=== PATIENT | female | born 1975 | race Caucasian/White ===

== ENCOUNTER 2018-01-06 12:05 | Outpatient (CLI) | payer OTHER, SELFPAY ==
--- NOTE | 2018-01-06 12:05 | ONE_ITS ---
DATE OF VISIT: JANUARY 06, 2018 ASSESSMENT: Postconcussive syndrome. PLAN: 1.Work restrictions per work status form, 6 to 6 1/2 hour shift maximum. Structured scheduled. Quiet environment. Decrease stimuli. 2. Medications as prescribed by headache specialist and sleep medicine provider. Naproxen, Nortriptyline, Hydroxyzine, Modafinil. 3. Over the counter magnesium 500 mg. 4. Vision therapy - obtain notes after December 2017 examination completed. 5. Continue energy conservation techniques. 6. Follow-up headache specialist January 2018. 7. Obtain report for second sleep study from sleep medicine. 8. Ice pack to head p.r.n. 9. Provide letter to Sarah for conference registration. 10. Follow-up Occupational Medicine 02/03/18. Return to clinic sooner if condition worsens. More than 50% of this visit spent in the planning and coordination of care. Plan of care reviewed with patient who verbalized understanding and agreement. CHIEF COMPLAINT: Sustained symptoms after head injury. 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 SUBJECTIVE: Sarah presents for follow-up appointment. She voiced interest in learning if there is a local concussion clinic she could access. She plans on attending a conference regarding brain injuries and concussions. Sarah requested a letter verifying that she has such an injury which would allow her decreased registration fee. WORK: During this month she worked 6 days versus 5 per week which she found to increase her fatigue. She has been working 6 hour shifts. However, these past two days she has felt less fatigued which she attributes to a medication prescribed through sleep medicine. Sarah voiced she feels capable of increasing her work hours. HEADACHE: Constant pressure remains. No change noted. Overstimulation or fatigue worsens the pressure. Ice pack to the head was soothing, however for the majority of the month she has forgotten to use it. Sarah plans to resume ice application. Next month she has another set of injections with headache specialist which is being covered by her private insurance. VISION THERAPY: She had follow-up appointment o 12/22/17. She was unable to complete entire examination due to onset of headache and nausea when a machine briefly flashed lights into her eyes. She was unable to work that day or the next. Symptoms mostly resolved in three to four days. SLEEP: She had a 24 hour sleep study on 12/27/17. As was the previous sleep lead ramp agent placement on her scalp yielded symptoms of pain and nausea but to a lesser degree. Results of study confirmed excessive fatigue is related to head injury. A report from the sleep medicine provider will be forthcoming. Modafinil 200 mg. was prescribed which Sarah took on 01/04/18 and 01/05/18. She noted increased wakefulness on both days. Sarah voiced that she did not want to wait for the headache specialist to complete his therapeutic regimen prior to beginning the stimulant which was recommended by neurology. REVIEW OF SYSTEMS Denies chest pain, palpitations. Denies shortness of breath, dyspnea. Denies fever, chills. Denies prior head injury. Denies chewing difficulty, TMJ sensitivity. 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 Asthma. Nasal polyps. Depression. Right ankle fracture. Left wrist fracture. Diabetes. Hypertension. Hyperlipidemia. Obesity. Post-concussive syndrome. Obstructive sleep apnea. Posttraumatic hypersomnia. Paresis of accommodation. Convergence insufficiency. MEDICATIONS Singulair. Vitamin D. Vitamin B2. Nortriptyline Naproxen Hydroxyzine Candesarten ALLERGIES Environmental - Sneezing, congestion. Cephalexin. SOCIAL HISTORY ETOH - None. Tobacco - None. Exercise - None. . OBJECTIVE: 42 year-old white female dressed in age-appropriate clothing. Eye contact was good. She appeared less fatigued. Speech pattern with normal rhythm, rate and volume. Thought content continues to be focused on work effort and symptom improvement. Referenced notebook throughout appointment for memory recall and note taking. Thought process linear, goal directed, no evidence of psychomotor agitation or retardation, tremor or tic. Mood is broad range. Affect congruent with mood, brighter than last month. No SI or HI. Good insight and judgements. DISCUSSION/EDUCATION: 1. Stimulant consideration no longer on-hold and is being managed by sleep medicine. 2. Work hour increased to 6 to 6 1/2 hours per day. Working overtime is an added variable to the recovery process. It is not a consideration until Sarah has reached her normal 8 hour shift. 3. Some relief recognized with ice pack placement. Encouraged to place ice pack on head at home and work and assess for symptom relief.
== END 2018-01-06 12:06 ==
PROVIDERS: PCP Family Medicine; Visit Provider Nurse Practitioner Family
DX: F07.81 Postconcussional syndrome (principal)
CPT/HCPCS: 99214

== ENCOUNTER 2018-03-06 16:42 | Outpatient (REF) | payer OTHER, SELFPAY ==
[2018-03-06 20:35] LABS: Microalb ug/mg Crea 8.4 ug/mg Cr
== END 2018-03-06 17:02 ==
LOC: NCHCN 16:42
PROVIDERS: PCP Family Medicine; Visit Provider Family Medicine
DX: E11.9 Type 2 diabetes mellitus without complications (principal)
CPT/HCPCS: 82043; 82570

== ENCOUNTER 2018-08-21 00:44 | Outpatient (CLI) | payer OTHER, SELFPAY ==
--- NOTE | 2018-08-21 15:10 | DI.MAMMO_ITS ---
SYMPTOM/DIAGNOSIS: SCREENING Z12.31 MAMMOGRAM: 08/21/18 Mammograms were interpreted according to the usual protocol including computer analysis with CAD system, tomosynthesis and C view imaging. The breasts are of moderate density with fairly symmetrical distribution of fibroglandular tissue. No dominant mass or clumped microcalcification is identified in either breast. The current examination is compared with previous examinations including 08/2017 and there has been no gross interval change in appearance in comparison with the previous studies. CONCLUSION: No specific evidence of malignancy at this time. Routine screening examinations are suggested at yearly intervals in this age group according to the ACL/ACR guidelines. Category 1, breast density category B. MQSA ASSESSMENT OF FINDINGS: Negative. Category 1. Patient will receive a letter notifying them of these results. BI-RADS category B. There are scattered areas of fibroglandular density.
== END 2018-08-21 01:04 ==
PROVIDERS: PCP Family Medicine; Visit Provider Family Medicine
DX: Z12.31 Encounter for screening mammogram for malignant neoplasm of breast (principal)
CPT/HCPCS: 77063; 77067

== ENCOUNTER 2018-11-27 16:45 | Outpatient (CLI) | payer OTHER, SELFPAY ==
[2018-11-27 17:28] LABS: COMMENT (LAB VIEW ONLY) 124.04 mg/dL; Microalb ug/mg Crea 10.1 ug/mg Cr
[2018-11-27 17:55] LABS: ALT 111 U/L (12-78); AST 45 U/L (15-37); Albumin 4.1 g/dL (3.4-5.0); Alkaline Phosphatase 107 U/L (46-116); Anion Gap 8.5 mmol/L (3-11); BUN 11 mg/dL (7-18); Bilirubin, Total 0.3 mg/dL (0.2-1.0); CO2 28.5 mmol/L (21.0-32.0); CREATININE 0.67 mg/dL (0.55-1.02); Calcium 9.3 mg/dL (8.5-10.1); Calculated LDL 140 mg/dL; Chloride 102 mmol/L (98-107); Cholesterol 212 mg/dL (50-200); Glucose 147 mg/dL (70-100); HDL Cholesterol 43 mg/dL (40-60); Potassium 4.1 mmol/L (3.5-5.1); Sodium 139 mmol/L (136-145); Total Protein 7.6 g/dL (6.4-8.2); Triglyceride 149 mg/dL (30-150)
[2018-11-27 18:17] LABS: Vitamin D 25 Total 17.2 ng/ml (30-100)
[2018-11-27 18:19] LABS: Vitamin B12 448 pg/mL (193-986)
== END 2018-11-27 17:05 ==
PROVIDERS: PCP Family Medicine; Visit Provider Internal Medicine Sleep Medicine
DX: E11.9 Type 2 diabetes mellitus without complications (principal); E55.9 Vitamin D deficiency, unspecified; R53.83 Other fatigue; R94.6 Abnormal results of thyroid function studies
CPT/HCPCS: 36415; 80053; 80061; 82306; 83721; 82043; 82570; 82607; 84443

== ENCOUNTER 2019-06-11 16:40 | Outpatient (CLI) | payer OTHER, SELFPAY ==
--- NOTE | 2019-06-11 16:21 | DI.RAD_ITS ---
EXAM: XR ELBOW LT COMPLETE INDICATION: ELBOW LT JOINT PAIN M25.522, PAIN OVER LATERAL EPICONDYLE, S/P TRAUMA COMPARISON: No exams were available for comparison TECHNIQUE: 2D digital imaging was performed. FINDINGS: There is no acute fracture or dislocation. The bones are normally mineralized. The joint space is u nremarkable. There is a small enthesophyte at the triceps insertion site. The soft tissues are unre markable. IMPRESSION: No acute abnormality.
== END 2019-06-11 17:00 ==
PROVIDERS: PCP Family Medicine; Visit Provider Family Medicine
DX: M25.522 Pain in left elbow (principal)
CPT/HCPCS: 73080

== ENCOUNTER 2019-09-12 21:47 | Outpatient (REF) | payer OTHER, SELFPAY ==
[2019-09-12 19:25] LABS: HCT 42.3 % (36.0-46.0); HGB 14.4 g/dL (12.0-15.5); Mean Corpuscular Hemoglobin 27.7 pg (27.0-33.0); Mean Corpuscular Volume 81.3 fL (80-95); Mean Platelet Volume 11.2 fL (8.0-11.0); Platelet Count 209 x1000/uL (130-400); White Blood Cell Count 5.38 k/cumm (4.4-10.8)
[2019-09-12 21:10] LABS: Iron 73 ug/dL (50-170); Total Iron Binding Capacity 468 ug/dL (250-450); Transferrin Sat 16 % (15-50)
[2019-09-12 21:20] LABS: ALT 120 U/L (14-59); AST 55 U/L (15-37); Albumin 4.1 g/dL (3.4-5.0); Alkaline Phosphatase 134 U/L (46-116); Anion Gap 10.3 mmol/L (3-11); BUN 13 mg/dL (7-18); Bilirubin, Total 0.4 mg/dL (0.2-1.0); CO2 27.7 mmol/L (21.0-32.0); CREATININE 0.85 mg/dL (0.55-1.02); Calcium 8.7 mg/dL (8.5-10.1); Chloride 98 mmol/L (98-107); Ferritin 49 ng/mL (8-252); Glucose 374 mg/dL (74-106); Potassium 4.5 mmol/L (3.5-5.1); Sodium 136 mmol/L (136-145); Total Protein 7.9 g/dL (6.4-8.2)
[2019-09-12 21:38] LABS: Hemoglobin A1C 9.1 % (3.8-5.6)
[2019-09-13 05:35] LABS: Vitamin D 25 Total 22.1 ng/ml (30-100)
[2019-09-14 09:47] LABS: HBs Antibody, Quant 15.6 mIU/mL (See Note); Hepatitis B Surface Ab Positive (See Note); Hepatitis B Surface Ag Negative (Negative)
[2019-09-14 10:43] LABS: Hepatitis C Ab w Rflx HCV PCR Negative (Negative)
== END 2019-09-12 22:07 ==
LOC: NCHCN 21:47
PROVIDERS: PCP Family Medicine; Visit Provider Family Medicine
DX: E11.9 Type 2 diabetes mellitus without complications (principal); R94.6 Abnormal results of thyroid function studies; E55.9 Vitamin D deficiency, unspecified; R79.89 Other specified abnormal findings of blood chemistry; Z11.59 Encounter for screening for other viral diseases
CPT/HCPCS: 80053; 82306; 85027; 86706; 86803; 87340; 82728; 83036; 83540; 83550; 84443

== ENCOUNTER 2019-10-03 01:09 | Outpatient (CLI) | payer OTHER, SELFPAY ==
--- NOTE | 2019-10-03 11:30 | DI.US_ITS ---
EXAM: US ABDOMEN CLINICAL HISTORY: ELEVATED LFT'S.R79.89,RISK FACTORS FOR FATTY LIVER TECHNIQUE: Ultrasound abdomen performed using standard protocol. COMPARISON: No exams were available for comparison FINDINGS: ABDOMINAL AORTA AND IVC: Visualized portions normal caliber. PANCREAS: Normal where visualized. LIVER: Enlarged. Increased echogenicity, consistent with fatty infiltration. The posterior portion s of the liver are not well penetrated. No gross focal masses are seen. GALLBLADDER: No evidence of cholelithiasis. No evidence of wall thickening. No pericholecystic fluid identified. BILIARY SYSTEM: Common bile duct measures 3 millimeters. No intrahepatic biliary ductal dilation. HUTCHINSON'S SIGN: Negative. KIDNEYS: Kidneys are symmetric in size. No evidence of renal calculi. No evidence of hydronephrosis. No renal mass or cyst identified. SPLEEN: Not enlarged. ASCITES: None seen. IMPRESSION: Enlarged with moderate to severe steatosis. DATA REPOSITORY:
== END 2019-10-03 01:29 ==
PROVIDERS: PCP Family Medicine; Visit Provider Family Medicine
DX: R94.5 Abnormal results of liver function studies (principal); K76.0 Fatty (change of) liver, not elsewhere classified; R16.0 Hepatomegaly, not elsewhere classified
CPT/HCPCS: 76700

== ENCOUNTER 2020-01-04 10:57 | Outpatient (REF) | payer OTHER, SELFPAY ==
[2020-01-04 18:50] LABS: ALT 191 U/L (14-59); AST 64 U/L (15-37); Albumin 3.7 g/dL (3.4-5.0); Alkaline Phosphatase 130 U/L (46-116); Anion Gap 8.5 mmol/L (3-11); BUN 10 mg/dL (7-18); Bilirubin, Direct 0.11 mg/dL (0.00-0.20); Bilirubin, Total 0.4 mg/dL (0.2-1.0); CO2 28.5 mmol/L (21.0-32.0); CREATININE 0.79 mg/dL (0.55-1.02); Calcium 8.9 mg/dL (8.5-10.1); Chloride 102 mmol/L (98-107); Glucose 312 mg/dL (74-106); Potassium 4.8 mmol/L (3.5-5.1); Sodium 139 mmol/L (136-145); Total Protein 7.2 g/dL (6.4-8.2)
[2020-01-04 18:54] LABS: COMMENT (LAB VIEW ONLY) 63.94 mg/dL; Microalb ug/mg Crea 14.1 ug/mg Cr
== END 2020-01-04 11:17 ==
LOC: NCHCN 10:57
PROVIDERS: PCP Family Medicine; Visit Provider Family Medicine
DX: I10 Essential (primary) hypertension (principal); K76.0 Fatty (change of) liver, not elsewhere classified; E11.9 Type 2 diabetes mellitus without complications
CPT/HCPCS: 80053; 80076; 82043; 82570

== ENCOUNTER 2020-04-11 01:44 | Outpatient (CLI) | payer OTHER, SELFPAY ==
[2020-04-14 14:16] LABS: COVID-19 RT-PCR Result NEGATIVE (Negative)
== END 2020-04-11 02:04 ==
PROVIDERS: PCP Family Medicine; Visit Provider Student in an Organized Health Care Education/Training Program
DX: Z11.59 Encounter for screening for other viral diseases (principal); Z01.818 Encounter for other preprocedural examination
CPT/HCPCS: U0003

== ENCOUNTER 2020-04-16 07:54 | Day surgery (SDC) | payer OTHER, SELFPAY ==
--- NOTE | 2020-04-16 07:30 | W.PM.DSUDISC ---
Discharge Plan Disposition Patient Disposition: HOME Condition: Good Discharge Details Reason For Visit: Right ECTR Attending Provider: Joseph Pyle Primary Care Provider: Eva Dang Home Meds and New Rx's Prescriptions: New hydrocodone-acetaminophen 5-325 mg tablet 1 tab PO Q6H PRN (Reason: severe pain) Qty: 4 RF: 0 acetaminophen 500 mg tablet 500 mg PO Q6H PRN (Reason: pain) Qty: 60 RF: 2 ibuprofen 600 mg tablet 600 mg PO TID PRN (Reason: pain) Qty: 60 RF: 0 Continued amitriptyline 25 mg tablet 25 mg PO QHS Qty: 50 RF: 0 albuterol sulfate 90 mcg/actuation HFA aerosol inhaler 1 puff Inhalation Q4H PRN RF: 0 hydroxyzine HCl 25 mg tablet 25 mg PO DAILY PRNRF: 0 Aimovig Autoinjector 70 mg/mL auto-injector 140 mg SC QMONTH RF: 0 lisinopril 10 mg tablet 40 mg PO DAILY RF: 0 metformin 500 mg tablet 500 mg PO QID RF: 0 mecobalamin (vitamin B12) 5,000 mcg tablet,disintegrating 5,000 mcg PO DAILY RF: 0 vitamin B complex [B Complex-Vitamin B12] Tablet 1 tab PO DAILY RF: 0 montelukast [Singulair] 10 MG tablet 10 mg PO DAILY RF: 0 Otc Allergy Relief 1 tab PO DAILY RF: 0 riboflavin (vitamin B2) [Vitamin B-2] 100 MG tablet 100 mg PO DAILY RF: 0 ergocalciferol (vitamin D2) [Vitamin D2] 50,000 UNIT capsule 50,000 unit PO DAILY RF: 0 candesartan [Atacand] 8 MG tablet 8 mg PO PRN PRNRF: 0 diazepam [Valium] 5 MG tablet 5 mg PO BID PRN PRN (Reason: Spasms) Qty: 10 RF: 0 Discontinued naproxen 500 mg tablet 500 mg PO PRN RF: 0 Discharge Instructions Stand Alone Forms: Edenilson Garber Tunnel Release Referrals: Joseph Pyle MD [ [facility] STAFF PHYSICIAN] - Activity:: Elevate Remove Dressings/Wound Care:: 72 hours Shower/Bathe:: 72 hours Diet:: As Tolerated Discharge Orders Discharge Orders: Discharge Order (Routine); Ordered 04/16/20 Ordered By: Carolynn Louis DS: Diagnosis Discharge Diagnosis (1) Right carpal tunnel syndrome: Status: Acute
[2020-04-16 08:41] VITALS: BP 163/82; PULSE 59; RESP 18; TEMP 36; O2SAT 97
[2020-04-16] MEDS: Lactated Ringers 1,000 ML 80 ML IV (08:55)
[2020-04-16] MEDS: CLINDAMYCIN 600 MG/50 ML BAG 100 MG IVPB (09:14)
[2020-04-16] MEDS: Sodium Bicarbonate 50 MEQ/50 ML VIAL (09:45)
[2020-04-16 10:04] VITALS: BP 149/86; PULSE 66; RESP 18; TEMP 36.2; O2SAT 97
--- NOTE | 2020-04-16 21:28 | W.PM.OP ---
Date of service: 04/16/20 Time of Service: 09:28 Operative Note Operative Note DATE OF PROCEDURE: 04/16/20 PRE-OP DIAGNOSIS: Left Carpal Tunnel Syndrome POST-OP DIAGNOSIS: same PROCEDURE: Left Endoscopic Carpal Tunnel Release SURGEON: Joseph Pyle ANESTHESIA: GETA ESTIMATED BLOOD LOSS: 0 PATHOLOGY: none sent TOURNIQUET TIME: 5 COMPLICATIONS: None Patient was transported to: same day Patient's condition: stable Indications: I have seen Sarah in clinic for symptoms of carpal tunnel syndrome. The numbness, tingling, and pain limited function. Clinical exam findings with nerve conduction tests confirmed the diagnosis of carpal tunnel syndrome. Nonoperative measures such as bracing, time, activity modifications had been tried but disability and pain persisted. I discussed carpal tunnel release with the patient. I reviewed the risks of the procedure to include, but not limited to, bleeding, infection, pain, stiffness, incomplete release, damage to nerves or vessels, persistent numbness, recurrence. Despite these risks, the patient elected to proceed. Findings: There was tightened carpal tunnel. This was dilated and released successfully with the endoscopic with increased space within the tunnel. The antebrachial fascia was released proximally freeing the median nerve at the wrist. Procedure Description: Sarah was greeted in the preoperative holding area where the correct side was identified and marked. The consent was reviewed with the patient and signed. The history and physical was updated. All questions were answered. Sarah was taken back to the operating room. The patient was placed into the supine position on the operating room table with the left arm on an arm board. A nonsterile tourniquet was placed high onto the arm. All bony prominences were well padded. Prophylactic antibiotics in the form of Cefazolin were administered. The left arm was then prepped with Chloraprep and draped in a standard fashion with stockinette and extremity drape. A timeout to confirm correct identity, side and site, procedure, allergies, anesthesia, and medical concerns was performed. The surgical site was marked in the volar wrist creases in line with the radial border of the fourth ray. This area was anesthetized with approximately 6cc of 1% Lidocaine. The limb was then exsanguinated with an Esmarch. The skin was incised with a 15 blade, approximately 1cm. The skin only was cut and the deeper tissue was dissected bluntly with a tenotomy scissor, avoiding passing nerve and venous structures. The fascia was penetrated and opened bluntly. A two-prong skin hook was placed under this proximal fascial edge. A series of hamate finders were used to identify and dilate the carpal tunnel. Synovial elevator was used to free synovial attachments to the underside of the transverse carpal ligament. My thumb was kept in the palm to norris the distal extent of the carpal tunnel and correctly position the hand. The Microaire endoscope was inserted without difficulty and without resistance. Excellent visualization showed horizontally running fibers of the transverse carpal ligament (TCL). The distal extent of the TCL was visualized and the end of the scope palpated with the thumb. The blade was elevated and withdrawn from distal to proximal. The TCL was split into two flaps. The endoscope was reinserted to confirm complete release and any remnant ligament was incised. The scope was withdrawn and the proximal aspect of the carpal tunnel was grossly inspected and appeared release with the median nerve visible. The antebrachial fascia at the level of the wrist was then freed from the overlying skin and then the underlying median nerve with blunt dissection. This was transected longitudinally for about 3cm proximal to the wrist incision. The wound was then irrigated with easy flow of irrigant distally and proximally. The incision was closed with a single 4-0 Nylon suture. The wound was dressed with Xeroform, Gauze, Kerlix and Ezequiel. The tourniquet was deflated with the initial dressing and held with some pressure. Blood flow returned easily to all digits with capillary refill less than 2 seconds. The patient tolerated the procedure well and was returned to the Same Day Surgery area in a stable condition suffering no known complication.
== END 2020-04-16 10:54 | disposition home or self-care (01) ==
LOC: SUR 07:54
PROVIDERS: PCP Family Medicine; Visit Provider Student in an Organized Health Care Education/Training Program
PROC: 01N54ZZ Release Median Nerve, Percutaneous Endoscopic Approach (ICD-10-PCS; CPT 29848; principal; 2020-04-16 09:45)
DX: G56.02 Carpal tunnel syndrome, left upper limb (principal); E11.9 Type 2 diabetes mellitus without complications; Z79.84 Long term (current) use of oral hypoglycemic drugs
CPT/HCPCS: 29848; 81025; J2001

== ENCOUNTER 2020-05-01 02:23 | Outpatient (CLI) | payer OTHER, SELFPAY ==
[2020-05-02 19:33] LABS: COVID-19 RT-PCR UVMMC Result Negative (Negative)
== END 2020-05-01 02:43 ==
PROVIDERS: PCP Family Medicine; Visit Provider Student in an Organized Health Care Education/Training Program
DX: Z20.828 Contact with and (suspected) exposure to other viral communicable diseases (principal); Z01.818 Encounter for other preprocedural examination
CPT/HCPCS: U0003

== ENCOUNTER 2020-05-06 11:04 | Day surgery (SDC) | payer OTHER, SELFPAY ==
--- NOTE | 2020-05-06 09:59 | W.PM.DSUDISC ---
Discharge Plan Disposition Patient Disposition: HOME Condition: Good Discharge Details Reason For Visit: Right Carpal Tunnel Syndrome Attending Provider: Joseph Pyle Primary Care Provider: Eva Dang Home Meds and New Rx's Prescriptions: Continued amitriptyline 25 mg tablet 25 mg PO QHS Qty: 50 RF: 0 albuterol sulfate 90 mcg/actuation HFA aerosol inhaler 1 puff Inhalation Q4H PRN RF: 0 hydroxyzine HCl 25 mg tablet 25 mg PO DAILY PRNRF: 0 Aimovig Autoinjector 70 mg/mL auto-injector 140 mg SC QMONTH RF: 0 lisinopril 10 mg tablet 40 mg PO DAILY RF: 0 metformin 500 mg tablet 500 mg PO QID RF: 0 mecobalamin (vitamin B12) 5,000 mcg tablet,disintegrating 5,000 mcg PO DAILY RF: 0 vitamin B complex [B Complex-Vitamin B12] Tablet 1 tab PO DAILY RF: 0 montelukast [Singulair] 10 MG tablet 10 mg PO DAILY RF: 0 Otc Allergy Relief 1 tab PO DAILY RF: 0 riboflavin (vitamin B2) [Vitamin B-2] 100 MG tablet 100 mg PO DAILY RF: 0 ergocalciferol (vitamin D2) [Vitamin D2] 50,000 UNIT capsule 50,000 unit PO DAILY RF: 0 acetaminophen 500 mg tablet 500 mg PO Q6H PRN (Reason: pain) Qty: 60 RF: 2 ibuprofen 600 mg tablet 600 mg PO TID PRN (Reason: pain) Qty: 60 RF: 0 No Action hydrocodone-acetaminophen 5-325 mg tablet 1 tab PO Q6H PRN (Reason: severe pain) Qty: 4 RF: 0 Discharge Instructions Stand Alone Forms: Edenilson Garber Tunnel Release Referrals: Joseph Pyle MD [ [facility] STAFF PHYSICIAN] - Activity:: Elevate Remove Dressings/Wound Care:: 72 hours Shower/Bathe:: 72 hours Diet:: As Tolerated Discharge Orders Discharge Orders: Discharge Order (Routine); Ordered 05/06/20 Ordered By: Carolynn Louis DS: Diagnosis Discharge Diagnosis (1) Right carpal tunnel syndrome: Status: Acute
[2020-05-06 11:08] VITALS: BP 151/79; PULSE 58; RESP 15; TEMP 35.9; O2SAT 97
[2020-05-06] MEDS: Lactated Ringers 1,000 ML 80 ML IV (12:05)
[2020-05-06] MEDS: CLINDAMYCIN 600 MG/50 ML BAG 100 MG IVPB (13:31)
[2020-05-06] MEDS: Sodium Bicarbonate 50 MEQ/50 ML VIAL (13:40)
[2020-05-06 14:21] VITALS: BP 154/77; PULSE 57; RESP 17; TEMP 36.4; O2SAT 97
[2020-05-06] MEDS: Acetaminophen 325 MG TAB 650 MG PO (14:43)
--- NOTE | 2020-05-06 20:15 | W.PM.OP ---
Date of service: 05/06/20 Time of Service: 14:15 Operative Note Operative Note DATE OF PROCEDURE: 05/06/20 PRE-OP DIAGNOSIS: Right Carpal Tunnel Syndrome POST-OP DIAGNOSIS: same PROCEDURE: Right Endoscopic Carpal Tunnel Release SURGEON: Joseph Pyle ANESTHESIA: MAC ESTIMATED BLOOD LOSS: 0 PATHOLOGY: none sent TOURNIQUET TIME: 6 COMPLICATIONS: None Patient was transported to: same day Patient's condition: stable Indications: I have seen Sarah in clinic for symptoms of carpal tunnel syndrome. The numbness, tingling, and pain limited function. Clinical exam findings with nerve conduction tests confirmed the diagnosis of carpal tunnel syndrome. Nonoperative measures such as bracing, time, activity modifications had been tried but disability and pain persisted. She had a successful carpal tunnel release on the left side. I discussed carpal tunnel release with the patient. I reviewed the risks of the procedure to include, but not limited to, bleeding, infection, pain, stiffness, incomplete release, damage to nerves or vessels, persistent numbness, recurrence. Despite these risks, the patient elected to proceed. Findings: There was tightened carpal tunnel. This was dilated and released successfully with the endoscopic with increased space within the tunnel. The antebrachial fascia was released proximally freeing the median nerve at the wrist. Procedure Description: Sarah was greeted in the preoperative holding area where the correct side was identified and marked. The consent was reviewed with the patient and signed. The history and physical was updated. All questions were answered. Sarah was taken back to the operating room. The patient was placed into the supine position on the operating room table with the right arm on an arm board. A nonsterile tourniquet was placed high onto the arm. All bony prominences were well padded. Prophylactic antibiotics in the form of Clindamycin were administered. The right arm was then prepped with Chloraprep and draped in a standard fashion with stockinette and extremity drape. A timeout to confirm correct identity, side and site, procedure, allergies, anesthesia, and medical concerns was performed. The surgical site was marked in the volar wrist creases in line with the radial border of the fourth ray. This area was anesthetized with approximately 6cc of 1% Lidocaine. The limb was then exsanguinated with an Esmarch. The skin was incised with a 15 blade, approximately 1cm. The skin only was cut and the deeper tissue was dissected bluntly with a tenotomy scissor, avoiding passing nerve and venous structures. The fascia was penetrated and opened bluntly. A two-prong skin hook was placed under this proximal fascial edge. A series of hamate finders were used to identify and dilate the carpal tunnel. Synovial elevator was used to free synovial attachments to the underside of the transverse carpal ligament. My thumb was kept in the palm to norris the distal extent of the carpal tunnel and correctly position the hand. The Microaire endoscope was inserted without difficulty and without resistance. Excellent visualization showed horizontally running fibers of the transverse carpal ligament (TCL). The distal extent of the TCL was visualized and the end of the scope palpated with the thumb. The blade was elevated and withdrawn from distal to proximal. The TCL was split into two flaps. The endoscope was reinserted to confirm complete release and any remnant ligament was incised. The scope was withdrawn and the proximal aspect of the carpal tunnel was grossly inspected and appeared release with the median nerve visible. The antebrachial fascia at the level of the wrist was then freed from the overlying skin and then the underlying median nerve with blunt dissection. This was transected longitudinally for about 3cm proximal to the wrist incision. The wound was then irrigated with easy flow of irrigant distally and proximally. The incision was closed with a single 4-0 Nylon suture. The wound was dressed with Xeroform, Gauze, Kerlix and Ezequiel. The tourniquet was deflated with the initial dressing and held with some pressure. Blood flow returned easily to all digits with capillary refill less than 2 seconds. The patient tolerated the procedure well and was returned to the Same Day Surgery area in a stable condition suffering no known complication.
== END 2020-05-06 15:03 | disposition home or self-care (01) ==
LOC: SUR 11:05
PROVIDERS: PCP Family Medicine; Visit Provider Student in an Organized Health Care Education/Training Program
PROC: 01N54ZZ Release Median Nerve, Percutaneous Endoscopic Approach (ICD-10-PCS; CPT 29848; principal; 2020-05-06 14:15)
DX: G56.01 Carpal tunnel syndrome, right upper limb (principal)
CPT/HCPCS: 29848; J1885; J2001; J2405; J2704

== ENCOUNTER 2020-06-12 01:19 | Outpatient (CLI) | payer OTHER, SELFPAY ==
--- NOTE | 2020-06-12 | DI.MAMMO_ITS ---
EXAM: MG MAMMO SCREENING CLINICAL HISTORY: SCREENING, Z12.31 TECHNIQUE: Bilateral full field digital CC and MLO mammographic images were obtained with 3D tomosyn thesis and utilizing computer aided detection (CAD). COMPARISON: Available for comparison. FINDINGS: Masses/Architectural Distortion: None seen. Microcalcifications: No suspicious pleomorphic-type are seen. Skin Thickening/Nipple Retraction: None. IMPRESSION: 1. No significant interval change with no specific features of malignancy noted. 2. Unless there is more urgent need, screening mammography is recommended, as per [employer] guidelines. BI-RADS Category 1 - Negative Breast Density - Category B - Scattered areas of fibroglandular density Breast density category C or D implies that the patient has dense breast tissue. Dense breast tissue is very common and is not abnormal but dense breast tissue can make it harder to find cancer on a ma mmogram. Also, dense breast tissue may increase their breast cancer risk. This information about the result of the mammogram report was provided to the patient to raise their awareness. Use this report when you speak with the patient about their risks for breast cancer, which includes their family hist ory. At that time, you may recommend for more screening tests (Ultrasound or MRI) as they might be us eful based on their risk. A negative radiographic report should not delay biopsy if a dominant or clinically suspicious mass is present. Up to ten percent of cancers are not identified on mammography. A negative report may reinforce clinical impression. Adenosis and dense breasts may obscure an underlying neoplasm. False positive reports average 6 to 10%. Patient will receive a letter notifying them of these results.
== END 2020-06-12 01:20 | disposition home or self-care (01) ==
LOC: DI 01:19
PROVIDERS: PCP Family Medicine; Visit Provider Family Medicine
DX: Z12.31 Encounter for screening mammogram for malignant neoplasm of breast (principal)
CPT/HCPCS: 77063; 77067

== ENCOUNTER 2020-07-01 07:50 | Outpatient (CLI) | payer OTHER, SELFPAY ==
[2020-07-01 10:33] LABS: Vitamin B12 826 pg/mL (193-986)
[2020-07-03 04:42] LABS: Vitamin D 25 Total 27.8 ng/ml (30-100)
== END 2020-07-01 07:51 | disposition home or self-care (01) ==
PROVIDERS: PCP Family Medicine; Visit Provider Internal Medicine Sleep Medicine
DX: E55.9 Vitamin D deficiency, unspecified (principal); R53.83 Other fatigue
CPT/HCPCS: 36415; 82306; 82607

== ENCOUNTER 2020-07-04 15:08 | Outpatient (REF) | payer OTHER, SELFPAY ==
--- NOTE | 2020-07-04 15:00 | PAPFT_PTH ---
PATIENT: Sarah Robles LOC: [facility]#:[id number] AGE/SX: 45/F ROOM: RE07/04/[address]: Eva Dang : 1975 BED: DIS: 07/04/2020 SPEC #: [id number] RECD: 07/04/20 17:47 STATUS: LORENZO REChey #: [id number] YENIFER: 07/04/20 15:[address]: Eva Dang DEPT: [facility] Cytology RECD BY: Hilda Forte Tissues: 1 - CX/ENDOCX FOR PAP SMEARS Procedures: PAP THIN PREP/UVM Screening HPV DNA PROBE Comments: [id number]
[2020-07-04 17:43] LABS: HCT 47.3 % (36.0-46.0); HGB 15.8 g/dL (11.2-15.7); MCH 27.6 pg (27.0-33.0); MCHC 33.4 % (32.0-36.0); MCV 82.5 fL (80-95); MPV 11.3 fL (8.0-11.0); Platelet Count 248 10^3/uL (130-400); RBC 5.73 10^6/uL (3.93-5.22); RDW-SD 38.8 fL; WBC 7.42 10^3/uL (4.4-10.8)
[2020-07-04 18:05] LABS: ALT 237 U/L (14-59); AST 110 U/L (15-37); Albumin 4.2 g/dL (3.4-5.0); Alkaline Phosphatase 118 U/L (46-116); Anion Gap 6.4 mmol/L (3-11); BUN 13 mg/dL (7-18); Bilirubin, Total 0.6 mg/dL (0.2-1.0); CO2 30.6 mmol/L (21.0-32.0); Calcium 9.6 mg/dL (8.5-10.1); Chloride 99 mmol/L (98-107); Estimated GFR 59.43 (mL/min/1.73m2); Ferritin 277 ng/mL (8-252); Glucose 243 mg/dL (74-106); Sodium 136 mmol/L (136-145); TSH (W/Ref FT4) 2.13 uIU/mL (0.36-3.74); Total Protein 8.1 g/dL (6.4-8.2)
== END 2020-07-04 15:09 | disposition home or self-care (01) ==
LOC: NCHCN 15:08
PROVIDERS: PCP Family Medicine; Visit Provider Family Medicine
DX: Z00.00 Encounter for general adult medical examination without abnormal findings (principal); I10 Essential (primary) hypertension; E11.9 Type 2 diabetes mellitus without complications; F32.9 Major depressive disorder, single episode, unspecified; G47.10 Hypersomnia, unspecified; Z12.4 Encounter for screening for malignant neoplasm of cervix; Z11.51 Encounter for screening for human papillomavirus (HPV)
CPT/HCPCS: 80053; 85027; 88142; 82728; 84443; 85025; 87624

== ENCOUNTER 2021-04-13 17:04 | Outpatient (REF) | payer SELFPAY ==
[2021-04-13 15:33] LABS: COMMENT (LAB VIEW ONLY) 67.95 mg/dL; Microalb ug/mg Crea 36.1 ug/mg Cr
== END 2021-04-13 17:05 | disposition home or self-care (01) ==
LOC: NCHCN 17:04
PROVIDERS: PCP Family Medicine; Visit Provider Family Medicine
DX: E11.9 Type 2 diabetes mellitus without complications (principal)
CPT/HCPCS: 82043; 82570

== ENCOUNTER 2023-06-15 12:06 | Outpatient (REF) | payer OTHER, SELFPAY ==
--- OUTSIDE RECORDS SUMMARY | 2023-06-15 12:08 | XMS_ITS | Continuity of Care Document ---
Author Name Unknown Organization [facility] Address [address] [place] [id number] Care Team Providers Care Composite Layup Worker Name Role Phone ARMEN CLEMENTS Primary Care Physician [phone] Encounter [facility] NBR [id number] Date(s): 02/21/23 - 02/21/[address] [id number] Discharge Disposition: Home or Self Care Attending Physician: ARMEN CLEMENTS Admitting Physician: ARMEN CLEMENTS Referring Physician: ARMEN CLEMENTS Allergies, Adverse Reactions, Alerts Substance Reaction Severity Status amoxicillin Unknown Active cephalexin Does not recall Unknown Active Medications betamethasone dipropionate 0.05% topical cream 1 kj, Topical, BID, # 15 g, 0 Refill(s), Pharmacy: [id number] Start Date: 10/01/22 Stop Date: 10/15/22 Status: Ordered Results Laboratory List Name Date CBC w/o Diff 02/21/23 Comprehensive Metabolic Panel 02/21/23 Hgb A1c 02/21/23 Lipid Panel 02/21/23 Most recent to oldest [Reference Range]: 1 WBC [4.8-10.8 K/mcL] 5.8 K/mcL (02/21/23 10:55 AM) RBC [4.20-5.40 Million/mcL] 5.03 Million /mcL (02/21/23 10:55 AM) BUN [8-26 mg/dL] 20 mg/dL (02/21/23 10:55 AM) Cholesterol Total [129-209 mg/dL] 233 mg /dL *HI* (02/21/23 10:55 AM) LDL 167.8 mg/dL 1 *NA* (02/21/23 10:55 AM) Glucose Level [74-106 mg/dL] 187 mg/dL *HI* (02/21/23 10:55 AM) Potassium Level [3.5-5.1 mmol/L] 4.4 mmo l/L (02/21/23 10:55 AM) MCV [81.0-99.0 fL] 84.7 fL (02/21/23 10:55 AM) HDL [40-80 mg/dL] 40 mg/dL (02/21/23 10:55 AM) AST [15-41 IntlUnit/L] 16 IntlUnit/L (02/21/23 10:55 AM) ALT [14-54 IntlUnit/L] 28 IntlUnit/L (02/21/23 10:55 AM) MCHC [32.0-36.0 g/dL] 33.1 g/dL (02/21/23 10:55 AM) Osmolality [275-295 mOsm/kg] 285 mOsm/kg (02/21/23 10:55 AM) Sodium Level [134-143 mmol/L] 139 mmol/L (02/21/23 10:55 AM) Chol/HDL 5.8 2 *NA* (02/21/23 10:55 AM) Hct [37.0-47.0 %] 42.6 % (02/21/23 10:55 AM) Triglycerides [10-150 mg/dL] 126 mg/dL (02/21/23 10:55 AM) Calcium Level [8.9-10.3 mg/dL] 9.3 mg/dL (02/21/23 10:55 AM) Albumin Level [3.5-5.0 g/dL] 4.1 g/dL (02/21/23 10:55 AM) Protein Total [6.5-8.1 g/dL] 7.5 g/dL (02/21/23 10:55 AM) MCH [27.0-31.0 pg] 28.0 pg (02/21/23 10:55 AM) Bilirubin Total [0.2-1.2 mg/dL] 0.8 mg/d L (02/21/23 10:55 AM) Hgb [12.0-16.0 g/dL] 14.1 g/dL (02/21/23 10:55 AM) Alk Phos [38-130 IntlUnit/L] 74 IntlUnit /L (02/21/23 10:55 AM) MPV [7.4-10.4 fL] 11.2 fL *HI* (02/21/23 10:55 AM) Platelets [130-400 K/mcL] 178 K/mcL (02/21/23 10:55 AM) CO2 [22-32 mmol/L] 27 mmol/L (02/21/23 10:55 AM) eAvg Glucose [70-105 mg/dL] 169 mg/dL *HI* (02/21/23 10:55 AM) Chloride Level [98-111 mmol/L] 105 mmol/ L (02/21/23 10:55 AM) RDW-CV [11.5-14.5 %] 13.1 % (02/21/23 10:55 AM) A/G Ratio [1.0-2.5 g/dL] 1.2 g/dL (02/21/23 10:55 AM) BUN/Creat Ratio [8.0-20.0] 29.9 *HI* (02/21/23 10:55 AM) Globulin [2.3-3.5 g/dL] 3.4 g/dL (02/21/23 10:55 AM) Hgb A1c Percent [4.0-6.0 %] 7.5 % *HI* (02/21/23 10:55 AM) .Hb 15.4 g/dL *NA* (02/21/23 10:55 AM) .Hgb A1c 0.9 g/dL *NA* (02/21/23 10:55 AM) Creatinine Level [0.44-1.00 mg/dL] 0.67 mg/dL (02/21/23 10:55 AM) Anion Gap [3.0-12.0] 7.0 (02/21/23 10:55 AM) eGFR CKD-EPI [>=60 mL/min/1.73 m2] 107 m L/min/1.73 m2 (02/21/23 10:55 AM) 1Interpretive Data: Optimal: Less than 100 mg/dL Above Optimal: 100 - 129 mg/dL Borderline High: 130 - 159 mg/dL High: 160 - 189 mg/dL Very High: > or = 190 mg/dL 2Interpretive Data: RISK MALE FEMALE 1/2 average 3.4 3.3 Average 5.0 4.4 2x Average 9.6 7.1 3x Average 23.4 11.0 Social History Social History Type Response Tobacco Never tobacco user T obacco Use:. Sex Patient Care team information Care Team Personnel Name: ARMEN CLEMENTS Position: No Access Member Role: Primary Care Physician Address: Address: [address] [place] [address] Care Team Related Persons Name: JOSSELYN SCHERER JR Address: Home [address] [place] [address] [address] [place], [place] [id number] [facility]
--- OUTSIDE RECORDS SUMMARY | 2023-06-15 12:08 | XMS_ITS | Continuity of Care Document ---
Author Name Unknown Organization [facility] Ambulatory Clinics Address [address] [place] [address] Encounter [facility] NBR [id number] Date(s): 10/01/22 - 10/01/22 [facility] Ambulatory Clinics [address] [place] [address]- Encounter Diagnosis Poison chuy(Discharge Diagnosis) - 10/01/22 Contact dermatitis of external ear(Discharge Diagnosis) - 10/01/22 Trigger thumb of right hand(Discharge Diagnosis) - 10/01/22 Discharge Disposition: Home or Self Care Attending Physician: Keith Dye. PA Functional Status 10/01/22 Other exposure to Infectious Disease Non e Medications betamethasone dipropionate 0.05% topical cream 1 kj, Topical, BID, # 15 g, 0 Refill(s), Pharmacy: [facility] Start Date: 10/01/22 Stop Date: 10/15/22 Status: Ordered Vital Signs Most recent to oldest [Reference Range]: 1 Temperature Tympanic [36.6-37.9 Deg C] 3 6.8 Deg C (10/01/22 11:09 AM) Peripheral Pulse Rate [60-100 bpm] 58 bp m *LOW* (10/01/22 11:09 AM) Respiratory Rate [12-24 br/min] 14 br/mi n (10/01/22 11:09 AM) Blood Pressure [90-140/60-90 mmHg] 161/7 7mmHg *HI* (10/01/22 11:09 AM) Weight 105.23 kg (10/01/22 11:09 AM) Weight Measured (lbs) 231.992 lb (10/01/22 11:09 AM) Height 165.10 cm (10/01/22 11:09 AM) Height/Length Measured (inches) 65 inch (10/01/22 11:09 AM) BSA Measured 2.2 m2 (10/01/22 11:09 AM) Body Mass Index 38.61 kg/m2 (10/01/22 11:09 AM) Social History Social History Type Response Tobacco Never tobacco user T obacco Use:. Sex Hospital Discharge Instructions Patient Education 10/01/2022 10:25:13 Contact Dermatitis, Jtwr-dh-Fgxg Contact Dermatitis Dermatitis is redness, soreness, and swelling (inflammation) of the skin. Contact dermatitis is a reaction to something that touches the skin. There are two types of contact dermatitis: ??? Irritant contact dermatitis. This happens when something bothers (irritates) your skin, like soap. ??? Allergic contact dermatitis. This is caused when you are exposed to something that you are allergic to, such as poison chuy. What are the causes? Common causes of irritant contact dermatitis include: ??? Makeup. ??? Soaps. ??? Detergents. ??? Bleaches. ??? Acids. ??? Metals, such as nickel. ??? Common causes of allergic contact dermatitis include: ??? Plants. ??? Chemicals. ??? Jewelry. ??? Latex. ??? Medicines. ??? Preservatives in products, such as clothing. What increases the risk? Having a job that exposes you to things that bother your skin. ??? Having asthma or eczema. What are the signs or symptoms? Symptoms may happen anywhere the irritant has touched your skin. Symptoms include: ??? Dry or flaky skin. ??? Redness. ??? Cracks. ??? Itching. ??? Pain or a burning feeling. ??? Blisters. ??? Blood or clear fluid draining from skin cracks. With allergic contact dermatitis, swelling may occur. This may happen in places such as the eyelids, mouth, or genitals. How is this treated? This condition is treated by checking for the cause of the reaction and protecting your skin. Treatment may also include: ??? Steroid creams, ointments, or medicines. ??? Antibiotic medicines or other ointments, if you have a skin infection. ??? Lotion or medicines to help with itching. ??? A bandage (dressing). Follow these instructions at home: Skin care ??? Moisturize your skin as needed. ??? Put cool cloths on your skin. ??? Put a baking soda paste on your skin. Stir water into baking soda until it looks like a paste. ??? Do not scratch your skin. ??? Avoid having things rub up against your skin. ??? Avoid the use of soaps, perfumes, and dyes. Medicines ??? Take or apply wair-acp-jgasadh and prescription medicines only as told by your doctor. ??? If you were prescribed an antibiotic medicine, take or apply it as told by your doctor. Do not stop using it even if your condition starts to get better. Bathing ??? Take a bath with: ??? Epsom salts. ??? Baking soda. ??? Colloidal oatmeal. ??? Bathe less often. ??? Bathe in warm water. Avoid using hot water. Bandage care ??? If you were given a bandage, change it as told by your health care provider. ??? Wash your hands with soap and water before and after you change your bandage. If soap and waterare not available, use hand geologist. General instructions ??? Avoid the things that caused your reaction. If you do not know what caused it, keep a journal. Write down: ??? What you eat. ??? What skin products you use. ??? What you drink. ??? What you wear in the area that has symptoms. This includes jewelry. ??? Check the affected areas every day for signs of infection. Check for: ??? More redness, swelling, or pain. ??? More fluid or blood. ??? Warmth. ??? Pus or a bad smell. ??? Keep all follow-up visits as told by your doctor. This is important. Contact a doctor if: ??? You do not get better with treatment. ??? Your condition gets worse. ??? You have signs of infection, such as: ??? More swelling. ??? Tenderness. ??? More redness. ??? Soreness. ??? Warmth. ??? You have a fever. ??? You have new symptoms. Get help right away if: ??? You have a very bad headache. ??? You have neck pain. ??? Your neck is stiff. ??? You throw up (vomit). ??? You feel very sleepy. ??? You see red streaks coming from the area. ??? Your bone or joint near the area hurts after the skin has healed. ??? The area turns darker. ??? You have trouble breathing. Summary ??? Dermatitis is redness, soreness, and swelling of the skin. ??? Symptoms may occur where the irritant has touched you. ??? Treatment may include medicines and skin care. ??? If you do not know what caused your reaction, keep a journal. ??? Contact a doctor if your condition gets worse or you have signs of infection. This information is not intended to replace advice given to you by your health care provider. Make sure you discuss any questions you have with your health care provider. Document Revised: 08/15/2019 Document Reviewed: 11/08/2018 PharmMD Patient Education ?? 2021 [employer]. Physician Outpatient Note * Keith Dye. PA: PERFORM Event Display: Office Clinic Note Physician Authored Date: [id number] BEN SCHERER :1975 Age:47 years Sex:Female Visit Date:10/01/2022 Chief Complaint Rash x5 days - R. Arm History of Present Illness Patient presents with 3 complaints. ??First is a rash on her right arm. ??Started several days ago.??No known contacts.?? 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 Second complaint is ofa rash behind both the ears that seem to be irritated by her glasses. ??Possible metal allergy.?? Better when she covers??her glasses with silicone.?? She has tried a topical steroid cream in the past which is worked well. ??Her third complaint is of triggering on her right thumb.?? She states it locks up at times.?? When it does lock she gets pain and increased swelling. ??No trauma or fall. Physical Exam Vitals & Measurements T:??36.8?C ??(Tympanic)?? HR:??58??(Peripheral)?? RR:??14?? BP:??161/77?? SpO2:??98%?? HT:??165.10??cm?? WT:??105.23??kg?? BMI:??38.61?? Pain Score:??7?? BSA:??2.2?? Well-appearing no acute distress Skin there lineal blisterlike rash with red area on the right forearm this looks consistent with contact dermatitis??from poison chuy or other plant based substance. ??There is also some dry skin behind both ears consistent with??eczema versus psoriasis??triggered by her eyeglasses. Examination of the right thumb shows no triggering today. ??Tenderness along the flexor surface. ??She does report triggering symptoms. Assessment/Plan 1.??Poison chuy??L23.7 Recommend topical treatment. ??Recheck as needed. Ordered: betamethasone dipropionate 0.05% topical cream, 1 kj, Topical, BID, # 15 g, 0 Refill(s), Pharmacy:[facility] ?? 2.??Contact dermatitis of external ear??L25.9 Start steroid cream.?? Really apply silicone??barrier on her eyeglasses. ??Follow-up with primary care or dermatology if not improved. Ordered: betamethasone dipropionate 0.05% topical cream, 1 kj, Topical, BID, # 15 g, 0 Refill(s), Pharmacy:[facility] ?? 3.??Trigger thumb of right hand??M65.311 Referral to orthopedics. Ordered: betamethasone dipropionate 0.05% topical cream, 1 kj, Topical, BID, # 15 g, 0 Refill(s), Pharmacy:[facility]94 ?? Patient Instructions Referral to orthopedics for your thumb. ??Topical treatments for poison chuy. ??Start??back on steroids for your??symptoms. Referral Orders Referral Management, Medical Service: Orthopedics, Reason: Right trigger thumb, Start: 10/01/22,Instructions: [facility] please Patient Education Contact Dermatitis, Gzgx-bo-Ilsf Problem List/Past Medical History Ongoing No qualifying data Historical No qualifying data Medications betamethasone dipropionate 0.05% topical cream, 1 kj, Topical, BID Allergies No active allergies Social History Alcohol Never Electronic Cigarette/Vaping Electronic Cigarette Use: Never. Tobacco Never tobacco user Tobacco Use:. Electronically Signed on 10/01/22 11:29 AM Keith FIELDS Outpatient Summary note * Keith Dye. DONNIE: PERFORM Event Display: Ambulatory Patient Summary Authored Date: [id number] BEN SCHERER :1975 Age:47 years Sex:Female Visit Date:10/01/2022 Ambulatory Visit Instructions We would like to thank you for allowing us to assist you with your healthcare needs. The following includes patient education materials and information regarding your injury/illness. Your Next Steps Instructions From Your Care Team Referral to orthopedics for your thumb. ??Topical treatments for poison chuy. ??Start??back on steroids for your??symptoms. Someone Will Contact You Regarding Your Referrals Referral Management, Medical Service: Orthopedics, Reason: Right trigger thumb, Start: 10/01/22,Instructions: [facility] please Medications What How Much When Why Instructions New betamethasone topical (betamethasone dipropionate 0.05% topical cream) 1 Application Topical (on the skin) 2 times a day Poison chuy Contact dermatitis of external ear Trigger thumb of right hand Duration: 14 Days Pickup at [facility] Pharmacy Information [facility]: [address] [place] [phone] Your Summary Your Diagnosis Poison chuy Contact dermatitis of external ear Trigger thumb of right hand Your Care Team Attending Physician - Keith FIELDS Discharge Vitals Temperature??(Tympanic) 98.2 ??F (36.8 ??C) Heart Rate??(Peripheral) 58 Respiratory Rate?? 14 Blood Pressure?? 161/77?? Height?? 65.00 in (165.10 cm) Weight?? 232.03 lb (105.23 kg) BMI?? 38.61 Allergies No active allergies Education Materials Contact Dermatitis Dermatitis is redness, soreness, and swelling (inflammation) of the skin. Contact dermatitis is a reaction to something that touches the skin. There are two types of contact dermatitis: ? Irritant contact dermatitis. This happens when something bothers (irritates) your skin, like soap. ? Allergic contact dermatitis. This is caused when you are exposed to something that you are allergicto, such as poison chuy. What are the causes? Common causes of irritant contact dermatitis include: ? Makeup. ? Soaps. ? Detergents. ? Bleaches. ? Acids. ? Metals, such as nickel. ? Common causes of allergic contact dermatitis include: ? Plants. ? Chemicals. ? Jewelry. ? Latex. ? Medicines. ? Preservatives in products, such as clothing. What increases the risk? Having a job that exposes you to things that bother your skin. ? Having asthma or eczema. What are the signs or symptoms? Symptoms may happen anywhere the irritant has touched your skin. Symptoms include: ? Dry or flaky skin. ? Redness. ? Cracks. ? Itching. ? Pain or a burning feeling. ? Blisters. ? Blood or clear fluid draining from skin cracks. With allergic contact dermatitis, swelling may occur. This may happen in places such as the eyelids, mouth, or genitals. How is this treated? This condition is treated by checking for the cause of the reaction and protecting your skin. Treatment may also include: ? Steroid creams, ointments, or medicines. ? Antibiotic medicines or other ointments, if you have a skin infection. ? Lotion or medicines to help with itching. ? A bandage (dressing). Follow these instructions at home: Skin care ? Moisturize your skin as needed. ? Put cool cloths on your skin. ? Put a baking soda paste on your skin. Stir water into baking soda until it looks like a paste. ? Do not scratch your skin. ? Avoid having things rub up against your skin. ? Avoid the use of soaps, perfumes, and dyes. Medicines ? Take or apply vhdb-frx-kjagnwh and prescription medicines only as told by your doctor. ? If you were prescribed an antibiotic medicine, take or apply it as told by your doctor. Do not stopusing it even if your condition starts to get better. Bathing ? Take a bath with: ? Epsom salts. ? Baking soda. ? Colloidal oatmeal. ? Bathe less often. ? Bathe in warm water. Avoid using hot water. Bandage care ? If you were given a bandage, change it as told by your health care provider. ? Wash your hands with soap and water before and after you change your bandage. If soap and water arenot available, use hand geologist. General instructions ? Avoid the things that caused your reaction. If you do not know what caused it, keep a journal. Write down: ? What you eat. ? What skin products you use. ? What you drink. ? What you wear in the area that has symptoms. This includes jewelry. ? Check the affected areas every day for signs of infection. Check for: ? More redness, swelling, or pain. ? More fluid or blood. ? Warmth. ? Pus or a bad smell. ? Keep all follow-up visits as told by your doctor. This is important. Contact a doctor if: ? You do not get better with treatment. ? Your condition gets worse. ? You have signs of infection, such as: ? More swelling. ? Tenderness. ? More redness. ? Soreness. ? Warmth. ? You have a fever. ? You have new symptoms. Get help right away if: ? You have a very bad headache. ? You have neck pain. ? Your neck is stiff. ? You throw up (vomit). ? You feel very sleepy. ? You see red streaks coming from the area. ? Your bone or joint near the area hurts after the skin has healed. ? The area turns darker. ? You have trouble breathing. Summary ? Dermatitis is redness, soreness, and swelling of the skin. ? Symptoms may occur where the irritant has touched you. ? Treatment may include medicines and skin care. ? If you do not know what caused your reaction, keep a journal. ? Contact a doctor if your condition gets worse or you have signs of infection. This information is not intended to replace advice given to you by your health care provider. Make sure you discuss any questions you have with your health care provider. Document Revised: 08/15/2019 Document Reviewed: 11/08/2018 [employer] Patient Education ?? 2021 [employer] Electronically Signed on: 10/01/2022 11:28 EDTSigned by:CONI
--- OUTSIDE RECORDS SUMMARY | 2023-06-15 12:08 | XMS_ITS | Continuity of Care Document ---
Author Name Unknown Organization [facility] Ambulatory Clinics Address [address] [place] [address] Care Team Providers Care Floor Nurse Name Role Phone ARMEN CLEMENTS Primary Care Physician Encounter [facility] NBR [id number] Date(s): 10/19/22 - 10/19/22 [facility] Ambulatory Clinics [address] [place], [place] [address] Encounter Diagnosis Trigger thumb of right hand(Discharge Diagnosis) - 10/19/22 Discharge Disposition: Home or Self Care Attending Physician: Frances Calero APRN Admitting Physician: Frances Calero APRN Allergies, Adverse Reactions, Alerts Substance Reaction Severity Status amoxicillin Unknown Active cephalexin Does not recall Unknown Active Functional Status 10/19/22 Other exposure to Infectious Disease Non e Medications betamethasone dipropionate 0.05% topical cream 1 kj, Topical, BID, # 15 g, 0 Refill(s), Pharmacy: [facility] #[facility] Start Date: 10/01/22 Stop Date: 10/15/22 Status: Ordered Vital Signs Most recent to oldest [Reference Range]: 1 Peripheral Pulse Rate [60-100 bpm] 55 bp m *LOW* (10/19/22 1:24 PM) Blood Pressure [90-140/60-90 mmHg] 148/8 0mmHg *HI* (10/19/22 1:24 PM) Social History Social History Type Response Tobacco Never tobacco user T obacco Use:. Sex Physician Outpatient Note * Frances Calero APRN: PERFORM Event Display: Office Clinic Note Physician Authored Date: [id number] BEN SCHERER :1975 Age:47 years Sex:Female Visit Date:10/19/2022 Primary Care Physician: ARMEN CLEMENTS Chief Complaint Right trigger thumb History of Present Illness Ben is a very pleasant 47 year old woman who presents today for evaluation of right trigger thumb.She states the thumb has intermittently been triggering and painful since March. She has not received any treatment for this in the past. 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 Has previously had carpal tunnel surgery bilaterally. Denies significant injury. Review of Systems Constitutional:?No??fevers,?No??chills,?No??sweats Respiratory:?No??shortness of breath,?No??cough Cardiovascular:?No??Chest pain,?No??palpitations,?No??syncope Gastrointestinal:?Nonausea,?No??vomiting,?No??diarrhea Paul/Lymph:?No??bruising tendency,?No??swollen lymph glands Musculoskeletal:??No??back pain,??No??neck pain,??No??joint pain,??No??muscle pain,??No??decreased range of motion Integumentary:?No??rash,?No??pruritus,?No??abrasions Neurologic: Alert & oriented X 4 Physical Exam Vitals & Measurements HR:??55??(Peripheral)?? BP:??148/80?? SpO2:??97%?? Pain Score:??5?? The patient is well dressed, well groomed and appearing stated age in NAD. Focused examination of the right hand reveals no obvious deformity. Skin is intact without erythema, warmth or drainage. CMCgrind is negative. Freida testing is negative. Thump opposition is limited. Able to reproduce triggering of the first digit. ROM of the wrist is intact without pain. 2+ radial pulse, brisk capillary refill. Intact sensation. Procedure Risks, benefits and alternatives to this injection are discussed with the patient, verbal consent is obtained.?? Under standard, sterile technique, the palm of therighthand??overlying the A1 micheline of the??thumbis meticulously prepped with alcohol x3. ??Then 40 mg of Kenalog combined with 1% lidocaine plain is injected without difficulty. ??The patient tolerated the injection very well??and a dry, sterile bandage is applied. ??Postinjection instructions are provided. Assessment/Plan 1.??Trigger thumb of right hand??M65.311 Ben has been suffering from a trigger thumb on the right since March. She is able to reproduce the triggering in the office. We discussed treatment options and Ben opts for CSI which is completed today without incident. We discussed appropriate spacing of injections if she requires repeat. Seferinoll follow up on an as needed basis and is encouraged to contact the office at any time with questions or needs. Problem List/Past Medical History Ongoing No qualifying data Historical No qualifying data Medications betamethasone dipropionate 0.05% topical cream, 1 kj, Topical, BID Allergies amoxicillin cephalexin??(Does not recall) Social History Alcohol Never Electronic Cigarette/Vaping Electronic Cigarette Use: Never. Tobacco Never tobacco user Tobacco Use:. Electronically Signed on 10/19/22 01:54 PM Frances Calero APRN Patient Care team information Care Team Personnel Name: ARMEN CLEMENTS Position: No Access Member Role: Primary Care Physician Address: Address: [address] [place] [id number] [place] [address]
[2023-06-15 15:21] LABS: Bilirubin Negative (Negative); Blood Negative (Negative); Clarity Clear (Clear); Glucose Negative (Negative); Ketones Negative (Negative); Leukocyte Esterase Negative (Negative); Nitrite Negative (Negative); Specific Gravity 1.015 (1.005-1.025); Urobilinogen 0.2 mg/dL (Up to 0.2); pH 5.5 (5-8)
[2023-06-15 16:11] LABS: Hemoglobin A1C 8.5 % (<5.7)
[2023-06-15 16:22] LABS: Microalb ug/mg Crea 7.8 ug/mg Cr
== END 2023-06-15 12:07 | disposition home or self-care (01) ==
LOC: NCHCN 12:06
PROVIDERS: PCP Family Medicine; Visit Provider Family Medicine
DX: E11.9 Type 2 diabetes mellitus without complications (principal); R82.90 Unspecified abnormal findings in urine; Z13.1 Encounter for screening for diabetes mellitus
CPT/HCPCS: 81003; 82043; 82570; 83036

== ENCOUNTER 2023-11-28 13:40 | Outpatient (REF) | payer OTHER, SELFPAY ==
--- OUTSIDE RECORDS SUMMARY | 2023-11-28 13:49 | XMS_ITS | Continuity of Care Document ---
Author Organization [facility] Ambulatory Clinics Address [address] [place] [address] Care Team Providers Care Tapper Bit Name Role Phone ARMEN CLEMENTS MD Primary Care Physician Encounter [facility] NBR [id number] Date(s): 07/15/23 - 07/15/23 [facility] Ambulatory Clinics [address] [place] [address]- Encounter Diagnosis Trigger finger(Discharge Diagnosis) - 07/15/23 Discharge Disposition: Home or Self Care Attending Physician: Frances Calero APRN Referring Physician: DONNIE Monterroso Allergies, Adverse Reactions, Alerts Substance Reaction Severity Status amoxicillin Unknown Active cephalexin Does not recall Unknown Active Assessment and Plan Extracted from: Title:[place]: Hand Author:MIREYA Hurtado ate:07/15/23 1.??Trigger finger??M65.30 Sarah returns today for recurrent trigger thumb previously treated with CSI that provided excellent relief for 6-7 months. She also now has a third digit consistent with trigger finger. She is able to reproduce the triggering in the office. We again discussed treatment options and Sarah opts for CSI which is completed today without incident. We discussed appropriate spacing of injections if she requires repeat. She will follow up on an as needed basis and is encouraged to contact the office at any time with questions or needs. Future Appointments Future Scheduled Tests Radiology* MG Mammo Screening Bilateral 07/22/23 Medications betamethasone dipropionate 0.05% topical cream 1 kj, Topical, BID, # 15 g, 0 Refill(s), Pharmacy: [id number] Start Date: 10/01/22 Stop Date: 10/15/22 Status: Ordered buPROPion 100 mg/12 hours (SR) oral tablet, extended release 60 EA, 0 Refill(s), 0 Refill(s) Start Date: 07/15/23 Status: Ordered Jardiance 10 mg oral tablet 90 EA, 0 Refill(s), 0 Refill(s) Start Date: 07/15/23 Status: Ordered lisinopril 20 mg oral tablet 90 EA, 0 Refill(s), 0 Refill(s) Start Date: 07/15/23 Status: Ordered MetFORMIN (Eqv-Glucophage XR) 500 mg oral tablet, extended release 360 EA, 0 Refill(s), 0 Refill(s) Start Date: 07/15/23 Status: Ordered montelukast 10 mg oral tablet 90 EA, 0 Refill(s), 0 Refill(s) Start Date: 07/15/23 Status: Ordered Ozempic 2 mg/3 mL (0.25 mg or 0.5 mg dose) subcutaneous solution 9 mL, 0 Refill(s), 0 Refill(s) Start Date: 07/15/23 Status: Ordered rosuvastatin 20 mg oral tablet 90 EA, 0 Refill(s), 0 Refill(s) Start Date: 07/15/23 Status: Ordered Problem List Condition Confirmation Course Effective Dates Status Health St atus Informant Abnormal auditory perception Confirmed Active Allergic rhinitis Confirmed Active Chronic sinusitis Confirmed Active Fatigue Confirmed Active Nasal obstruction Confirmed Active Polyp of nasal cavity and/or nasal sinus Confirmed Active Vital Signs Most recent to oldest [Reference Range]: 1 Peripheral Pulse Rate [60-100 bpm] 82 bp m (07/15/23 11:16 AM) Blood Pressure [90-140/60-90 mmHg] 128/8 2mmHg (07/15/23 11:16 AM) Mean Arterial Pressure, Cuff [65-140 mmH g] 97 mmHg (07/15/23 11:16 AM) Weight 96.16 kg (07/15/23 11:16 AM) Weight Measured (lbs) 211.996 lb (07/15/23 11:16 AM) Weight Dosing 96.160 kg (07/15/23 11:16 AM) Height 165.09 cm (07/15/23 11:16 AM) Height/Length Measured (inches) 65 inch (07/15/23 11:16 AM) BSA Measured 2.1 m2 (07/15/23 11:16 AM) Body Mass Index 35.28 kg/m2 (07/15/23 11:16 AM) Social History Social History Type Response Tobacco Never tobacco user T obacco Use:. Sex Physician Outpatient Note * Frances Calero, BOOTH USHER: PERFORM Event Display: Office Clinic Note Physician Authored Date: [id number] SARAH SCHERER :1975 Age:48 years Sex:Female Visit Date:07/15/2023 Primary Care Physician: ARMEN CLEMENTS MD Chief Complaint F\U RIGHT TRIGGER THUMB History of Present Illness Sarha is a very pleasant 47 year old woman who presents today for reevaluation of right trigger thumb.??We previously treated this with a CSI in October of 2022 which provided her 6-7 months or relief. 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 Has previously had carpal tunnel surgery bilaterally. Deniessignificant injury. Review of Systems Constitutional:?No??fevers,?No??chills,?No??sweats Respiratory:?No??shortness of breath,?No??cough Cardiovascular:?No??Chest pain,?No??palpitations,?No??syncope Gastrointestinal:?Nonausea,?No??vomiting,?No??diarrhea Paul/Lymph:?No??bruising tendency,?No??swollen lymph glands Musculoskeletal:??No??back pain,??No??neck pain,??No??joint pain,??No??muscle pain,??No??decreased range of motion Integumentary:?No??rash,?No??pruritus,?No??abrasions Neurologic: Alert & oriented X 4 Physical Exam Vitals & Measurements HR:??82??(Peripheral)?? BP:??128/82?? SpO2:??99%?? HT:??165.09??cm?? WT:??96.16??kg?? BMI:??35.28?? Pain Score:??7?? BSA:??2.1?? The patient is well dressed, well groomed and appearing stated age in NAD. Focused examination of the right hand reveals no obvious deformity. Skin is intact without erythema, warmth or drainage. Firm, tender nodules in the region of the A1 pulleys of the first and third digits. CMC grind is negative. Freida testing is negative. Thump opposition is limited. Able to reproduce triggering of the first digit. ROM of the wrist is intact without pain. 2+ radial pulse, brisk capillary refill. Intact sensation. Procedure Risks, benefits and alternatives to this injection are discussed with the patient, verbal consent is obtained.?? Under standard, sterile technique, the palm of therighthand??overlying the A1 micheline of the??thumb??and third digit is meticulously prepped with alcohol x3. ??Then 40 mg of Kenalog combined with 1% lidocaine plain is injected without difficulty. ??The patient tolerated the injection very well??and a dry, sterile bandage is applied. ??Postinjection instructions are provided. Assessment/Plan 1.??Trigger finger??M65.30 Sarah returns today for recurrent trigger thumb previously treated with CSI that provided excellent relief for 6-7 months. She also now has a third digit consistent with trigger finger. She is able toreproduce the triggering in the office. We again discussed treatment options and Sarah opts for CSI which is completed today without incident. We discussed appropriate spacing of injections if she requires repeat. She will follow up on an as needed basis and is encouraged to contact the office at any time with questions or needs. Problem List/Past Medical History Ongoing Abnormal auditory perception Allergic rhinitis Chronic sinusitis Fatigue Nasal obstruction Polyp of nasal cavity and/or nasal sinus Historical No qualifying data Medications betamethasone dipropionate 0.05% topical cream, 1 kj, Topical, BID buPROPion 100 mg/12 hours (SR) oral tablet, extended release Jardiance 10 mg oral tablet lisinopril 20 mg oral tablet MetFORMIN (Eqv-Glucophage XR) 500 mg oral tablet, extended release montelukast 10 mg oral tablet Ozempic 2 mg/3 mL (0.25 mg or 0.5 mg dose) subcutaneous solution rosuvastatin 20 mg oral tablet Allergies amoxicillin cephalexin??(Does not recall) Social History Alcohol Never Electronic Cigarette/Vaping Electronic Cigarette Use: Never. Tobacco Never tobacco user Tobacco Use:. Electronically Signed on 07/15/23 12:56 PM Frances Calero APRN Patient Care team information Care Team Personnel Name: TYREE MORAN, ARMEN Corley Position: No Access Member Role: Primary Care Physician Address: Address: [address] [place] [id number]- Care Team Related Persons Name: JOSSELYN SCHERER JR Address: [address] [place], [place] [id number] [facility]
--- OUTSIDE RECORDS SUMMARY | 2023-11-28 13:49 | XMS_ITS | Continuity of Care Document ---
Author Organization [facility] Address [address] [place] [id number] Care Team Providers Care Nut Orchardist Name Role Phone ARMEN CLEMENTS MD Primary Care Physician Encounter [facility] NBR [id number] Date(s): 09/06/23 - 09/06/23 [facility] [address], [place] [address] Discharge Disposition: Home or Self Care Attending Physician: ARMEN CLEMENTS MD Admitting Physician: ARMEN CLEMENTS MD Referring Physician: ARMEN CLEMENTS MD Allergies, Adverse Reactions, Alerts Substance Reaction Severity Status amoxicillin Unknown Active cephalexin Does not recall Unknown Active Assessment and Plan Future Scheduled Tests Radiology* MG Mammo Screening Bilateral 07/29/23 Medications betamethasone dipropionate 0.05% topical cream 1 kj, Topical, BID, # 15 g, 0 Refill(s), Pharmacy: [id number] Start Date: 10/01/22 Stop Date: 10/15/22 [...] nasal cavity and/or nasal sinus Confirmed Active Results Radiology Reports * Exam Date Time Procedure Performing Provider Status 09/06/23 1:19 PM MG Mammo Screening Bilateral DomainUse r, Generated; Auth (Verified) Notes: (MG Mammo Screening Bilateral) Reason For Exam: SCREENING MG Mammo Screening Bilateral EXAM DESCRIPTION: MG Mammo Screening Bilateral 09/06/2023 INDICATION: SCREENING RISK FACTOR: The patient may be at increased breast cancer risk based on 1 or more risk factors COMPARISON: Prior outside facility screening mammogram from 06/12/2020 BREAST DENSITY: The breasts are almost entirely fatty. FINDINGS: MLO and CC views were performed with digital breast tomosynthesis. Images were reviewed using computer aided detection. No asymmetry, architectural distortion or suspicious grouping of calcifications to suggest malignancy in either breast. ASSESSMENT: No mammographic evidence of malignancy. Negative. BI-RADS category 1. RECOMMENDATION: Screening mammography in 1 year JOB #: [id number] Final Signed by: Jeancarlos Weiss MD Signed (Electronic Signature): 09/07/2023 10:15 am Social History Social History Type Response Tobacco Never tobacco user T obacco Use:. Sex Patient Care team information Care Team Personnel Name: ARMEN CLEMENTS MD Position: No Access Member Role: Primary Care Physician Address: Address: [address] [place] [id number] Care Team Related Persons Name: JOSSELYN SCHERER JR Address: Home [address] [place] [phone] [facility]
--- OUTSIDE RECORDS SUMMARY | 2023-11-28 13:50 | XMS_ITS | Encounter Summary ---
Author Organization [facility] Address [address] [place] [address] Care Team Providers Care Ui Application Developer Name Role Phone Kimo Clarke MD Primary Care Provider [phone] Encounter Details Date Type Department Care Team (Late st Contact Info) Description 08/11/2005 Results Only [facility] [address] [place] [address] Kimo Clarke MD [address] [place] [id number] Social History Tobacco Use Types Packs/Day Years Used Date Smoking Tobacco: Never Assessed Sex and Gender Information Value Date Recorded Sex Assigned at Not on file Gender Identity Female 04/14/2019 11:09 EST Sexual Orientation Not on file documented as of this encounter Plan of Treatment Not on file documented as of this encounter Procedures Procedure Name Priority Date/Time Associated Diagnosis Comments CYTOPATHOLOGY Routine 08/11/2005 0:00 EDT documented in this encounter Results * CYTOPATHOLOGY (08/11/2005 0:00 EDT) Pathology Report: CYTOPATHOLOGY REPORT Reports generated via electronic interface contain original data; however they are lacking the format of the original report. Caution should be taken when reading/interpreti ng unformatted reports. Name: ? SARAH SCHERER ? Accession #: ? [id number] : ? 1975 (Age: 30) ??F ?Collect Date: ? 08/11/2005 Location: ? [facility] ? Receive Date: ? 08/13/2005 Provider: ?KIMO CLARKE MD Copy to: ? Specimen/Source: ?ThinPrep Pap Test, Cervix/Endocervix, processed on [employer] ThinPrep Imaging System, with manual evaluation Last Menstrual Period: ? 07/16/05 Treatment History: ? Cryotherapy: cervix age 16 Other: ? HPVA - HPV testing requested if ASC-US on the current ThinPrep Pap test. ? SPECIMEN ADEQUACY ? Satisfactory for Evaluation - transformation zone component present GENERAL CATEGORIZATION ? Negative for Intraepithelial Lesion or Malignancy ? Document reviewed and electronically signed by: ? MAGO Crump(ASCP) ? Report Date: ??08/17/2005 09:56 End of Report [facility] 08/11/2005 08/13/2005 Kimo Clarke MD PATHOLOGY ORDERABLES [facility] [address] [place] [address] documented in this encounter Visit Diagnoses Not on filedocumented in this encounter Care Teams Ui Application Developer Relationship Specialty Start Date End Date Kimo Clarke MD [address] [place] [id number] PCP - General 09/17/09 documented as of this encounter
--- OUTSIDE RECORDS SUMMARY | 2023-11-28 13:50 | XMS_ITS | Encounter Summary ---
Author Organization [facility] Address [facility] [place] [address] Care Team Providers Care Crop Grain Or Livestock Farm Manager Name Role Phone Eva Dang MD Primary Care Provider [phone] Encounter Details Date Type Department Care Team (Late st Contact Info) Description 05/17/2019 11:30 AM EST Office Visit Neurology at [address] [address] Ursula Walters APRN [facility] [place] [address] Migraine without aura and without status migrainosus, not intractable Social History Tobacco Use Types Packs/Day Years Used Date Smoking Tobacco: Never Smokeless Tobacco: Never Alcohol Use Standard Drinks/Week Comments No 0 (1 standard drink = 0.6 oz pur e alcohol) Sex and Gender Information Value Date Recorded Sex Assigned at Not on file Gender Identity Female 09/26/2019 9:01 AM EDT Sexual Orientation Not on file documented as of this encounter Last Filed Vital Signs Vital Sign Reading Time Taken Comments Blood Pressure 156/87 05/17/2019 11:32 AM EST Pulse 62 05/17/2019 11:32 AM EST Temperature - - Respiratory Rate - - Oxygen Saturation - - Inhaled Oxygen Concentration - - Weight 102.1 kg (225 lb) 05/17/2019 11:32 AM EST Reported Height 167.6 cm (5' 6) 05/17/2019 11:32 AM EST Reported Body Mass Index 36.32 05/17/2019 11:32 AM EST documented in this encounter Progress Notes * Ursula Walters, SUPERVISOR DRYING AND SOFTENING - 05/17/2019 11:30 AM EST Neurology Headache Clinic Follow-up Patient Name: Sarah Robles Patient ID: Sarah Robles is a 44 y.o. 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 She presents in the headache clinic today for follow-up. Interval History: Onset of headache was 01/26/16 immediately following the head injury. Denies any notable headache hxprior to injury. Headaches are located on vertex of head (used to have some pain over left temporalregion but that has resolved). The pain is localized to the area where the tile struck her head. Described as a severe throbbing/pressure sensation, a constant daily pain which would fluctuate in intensity throughout the day. Baseline -12/16. Associated symptoms included nausea (no emesis), photophonophobia, dizziness, dysarthria, occasional blurry vision, dizziness (when fatigued) and mild confusion. She is not sleeping well and has had times of being awake for 40+ hours straight. She states she thinks this is increasing the intensity of her headaches. She was recently prescribed modafinil to helped her stay awake. She recently was moved to first shift at work and this have been problematic r/tto her lack of sleep and increasing headaches. Headaches have changed. Mariaelena is working well. Still has headaches, and tingling on top of head. Intensity has lessened. Is having some headache free time during the day. Does report constipation with mariaelena Would have wearing effect if she does not take it on time. Feeling rushed and stressed out - bp is up today Sleeping better, but working on a treatment plan with psychiatrist. Cognitive Sleep repair: Mariaelena is a miracle drurg . majority of her days are headache free. Prior to mariaelena she was having 90/90 headache days. Migraine Disability Assessment # of days in the past 3 months 1. Missed work / school because of GARCIA 0 2. Productivity at work / school reduced by > half because of GARCIA (do not count days from Q.1) 3. Did not do housework because of GARCIA 0 4. Productivity in household work reduced by > half because of GARCIA (do not count days from Q.3) 0 5. Missed family / social / leisure activities because of GARCIA 0 Total 0 MIDAS grade (use total of Q1 to 5) I: 0-5, little to no disability II: 6-10, mild disability III: 11-20, moderate disability IV: 21+, severe disability A. # of days in the last 3 months with a GARCIA (count each day if GARCIA lasted > 1 day) B. Average GARCIA intensity (0-10) 07/16 ROS: denies chest pain, sob, palpitations or vision changes. Medications: Current Outpatient Medications Medication Sig Dispense Refill ??? cyanocobalamin, vitamin B-12, 1,000 mcg Tablet Take 1,000 mcg by mouth daily. ??? metFORMIN (GLUCOPHAGE) 500 mg Tablet Take 500 mg by mouth 2 times daily (with meals). ??? fish oil-omega-3 fatty acids 1,000 mg Capsule Take 1 g by mouth 3 times daily. ??? lisinopril (PRINIVIL;ZESTRIL) 5 mg Tablet Take 5 mg by mouth daily. ??? levothyroxine (SYNTHROID) 25 mcg Tablet Take 25 mcg by mouth daily. ??? b complex vitamins Capsule Take 2 capsules by mouth daily. ??? COCONUT OIL ORAL Take 1,000 mg by mouth 3 times daily. ??? ramelteon (ROZEREM) 8 mg Tablet Take 8 mg by mouth as needed. ??? erenumab-aooe (AIMOVIG AUTOINJECTOR) 140 mg/mL Auto-Injector Inject 140 mg subcutaneously every30 days. 1 mL 5 ??? Armodafinil (NUVIGIL) 50 mg Tablet Take 3-5 tablets by mouth daily. 0 ??? Zinc Gluconate 30 mg Tablet Take 30 mg by mouth daily. 0 ??? hydrOXYzine (VISTARIL) 25 mg Capsule Take 1 capsule by mouth 2 times daily as needed (headache). 90 capsule 1 ??? naproxen sodium (ANAPROX) 550 mg Tablet Take 1 tablet by mouth 2 times daily as needed. 60 tablet 12 ??? amitriptyline (ELAVIL) 25 mg Tablet Take 25 mg by mouth nightly as needed for Sleep. ??? rosuvastatin (CRESTOR) 20 mg Tablet Take 20 mg by mouth daily. ??? fluticasone (FLONASE) 50 mcg/actuation [place], Suspension 1 spray by Each Nare route daily. 0 ??? riboflavin, vitamin B2, (VITAMIN B-2) 100 mg Tablet Take 200 mg by mouth 2 times daily. ??? magnesium 250 mg Tablet Take 500 mg by mouth daily. ??? PROAIR HFA 90 mcg/actuation HFA Aerosol Inhaler Inhale 2 puffs into the lungs as needed. 0 ??? montelukast (SINGULAIR) 10 mg Tablet Take 10 mg by mouth nightly. 0 ??? fluocinonide (LIDEX) 0.05 % Cream Apply topically 2 times daily. ??? cholecalciferol, Vitamin D3, 50,000 unit Capsule Take 1 capsule by mouth three times a week. ??? multivitamin (THERAGRAN) Tablet Take 1 tablet by mouth daily. ??? fexofenadine (JANES) 180 mg Tablet Take 180 mg by mouth daily. No current facility-administered medications for this visit. Medications Tried ([x] checked have been tried in the past) Anti-seizure: [] Acetazolamide (Diamox) [] Carbamazepine (Tegretol) [] Gabapentin (Neurontin) [] Lamotragine (Lamictal) [] Phenytoin (Dilantin) [] Pregabalin (Lyrica) [] Sodium Valproate (Depakote) [x] Topiramate (Topamax) - fatigue, lethargy [] Zonisamide (Zonegran) Anti-Depressants: SSRI: [x] Citalopram (Celexa) [] Escitalopram (Lexapro) [] Fluvoxamine (Luvox) [] Fluoxetine (Prozac) [] Sertraline (Zoloft) [] Paroxetine (Paxil) SNRI: [] Desvenlafaxine (Pristiq/Khedezla) [] Venlafaxine (Effexor) TCA: [x] Amitriptyline (Elavil) -fatigue [x] Nortriptiline (Pamelor) Atypicals: [] Bupropion (Wellbutrin) Anti-Hypertensives: JUHI Inhibitors: [] Lisinopril (Prinivil) Angiotensin II Receptor Blockers: [] Azilsartan (Edarbi) [x] Candesartan (Atacand) - off since december - did not help. Beta Blockers - none r/t asthma Calcium Channel Blockers: [] Diltiazem (Cardiazem) [] Verapamil Ergotamines: [] Dihydroergotamine nasal spray (Migranal) [] Dihydroergotamine solution for injection (DHE-45) [] Ergotamine/caffeine tab (Cafergot) [] Ergotamine/caffeine suppository (Migergot) [] Methergine [] Methylsergide (Sansert) Triptans: [] Sumatriptan (Imitrex) PO [] Sumatriptan (Imitrex) NS [] Sumatriptan (Imitrex) SQ injection [] Sumatriptan (Onzetra) Nasal powder [] Sumatriptan/Naproxen (treximet) [] Eletriptan (Relpax) [] Zomig nasal spray [] Zolmitriptan (Zomig) [] Rizatriptan (Maxalt) [] Almotriptan (Axert) [] Naratriptan (Amerge) [] Frovatriptan (Frova) Supplements: [] Coenzyme Q10 [x] Magnesium [] Melatonin [x] Vit. B2 (riboflavin) NSAIDS: [] Aspirin [] Celecoxib (Celebrex) [] Diclofenac potassium [] Ibuprofen (Advil) [] Indomethacin [] Ketoprofen [] Ketorolac (Toradol) [] Meloxicam (Mobic) [] Nabumetone [x] Naproxen sodium (Aleve) [] Acetaminophen (tylenol) Anti-Histamines: [] Cyproheptadine (Periactin) [] Diphenhydramine (Benadryl) [x] Hydroxyzine (vistaril/atarax) Anti-emetics: [] Aprepitant (Emend) [] Granisetron [] Metoclopramide (Reglan) [] Ondansetron (Zofran) [] Meclizine (Bonine) [] Prochlorperazine (compazine) [] Promethazine (Phenergan) [] Chlorpromazine (thorazine) Muscle relaxers: [] Baclofen (lioresal) [] Cyclobenzaprine (flexeril) [] Metaxalone (skelaxin) [] Methocarbamol (robaxin) [] Tizanidine (zanaflex) Steroids: [] Dexamethasone (decadron) [] Prednisone Monoclonal Antibodies: [x] Erenumab (Aimovig) - start June 2018 [] Fgremanezumab (Ajovy) [] Galcanezumab (Emgality) Other Headache Management: [] Doxycycline [] Memantine (Namenda) [] Montelukast (Singulair) [] OnabotulinumtoxinA (Botox) Opioids/Narcotics/Controlled Substances: [] Butorphanol (Ketamine/Stadol) [] Marijuana Procedures: [] Auriculotemporal blocks [] Lumbar puncture [] Occipital nerve blocks [] Sphenopalatine ganglion blocks [] Supraorbital blocks [] Trigger point injections Neuromodulation: [] Cefaly [] nVNS/Gammacore [] Spring TMS Non-pharmacologic Tx [] Acupuncture [] Acupressure [] Biofeedback [] Estate Planning Counselor [] Cognitive Behavioral Therapy [] Massage therapy [] Physical therapy [] Craniosacral therapy Physical Exam: Most Recent Vitals: 05/17/19 1132 BP: 156/87 Pulse: 62 resp 16 BP 156/87 (BP Location (NBP): Left arm, Patient Position: Sitting, BP Cuff Sizes: Adult (25-34 cm)) Pulse 62 Ht 167.6 cm (5' 6) Comment: Reported Wt 102.1 kg (225 lb) Comment: Reported BMI 36.32 kg/m?? Constitutional: Patient of apparent stated age, no acute distress HEENT: no occipital tenderness Resp: CTAB Neuro: MS: Alert, oriented, clear language, no dysarthria, follows commands CN: PERRL, EOMI Motor: Gait: normal base and arm swing Labs: No results found for this or any previous visit (from the past 24 hour(s)). Diagnostic Tests and Imagin/21/16 CT head- reportedly unremarkable 04/27/16: MRI brain wo contrast- extensive sinus dx, no acute intracranial abnormality TSH- wnl May 2017- Ophthalmology evaluation- prisms ?? Assessment and Plan: Sarah Robles is a 44 y.o. 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 She is having 16/ headache days. Converted Episodic Migraine without aura on Aimovig The intensity of her headaches is much better. Prior to starting Aimovig she rated her pain an 8/10. And now her average pain scale is 3-4/10. No change in medications or plan at this time. #Episodic Migraine without aura Migraine Prevention Continue Aimovig 140mg subcu monthly injections Follow up in six months. Ursula Walters APRN [facility] [place] Neurology Headache Clinic documented in this encounter Plan of Treatment Not on file documented as of this encounter Visit Diagnoses Diagnosis Migraine without aura and without status migrainosus, not intractable Migraine without aura, without mention of intractable migraine without mention of status migrainosus documented in this encounter Care Teams Crop Grain Or Livestock Farm Manager Relationship Specialty Start Date End Date Eva Dang MD [address] [place] [address] PCP - General Family Medicine 03/25/16 documented as of this encounter
--- OUTSIDE RECORDS SUMMARY | 2023-11-28 13:50 | XMS_ITS | Encounter Summary ---
Author Organization [facility] Address [address] [place] [address] Care Team Providers Care Battery Inspector Name Role Phone Kamran Franks MD Primary Care Provider [phone] Reason for Visit * Reason Comments Follow-up Encounter Details Date Type Department Care Team (Latest Contact Info) Description 01/30/2020 15:30 EDT Office Visit [facility] Occupational Medicine - [place] [address] [place], [place] [phone] Jorge Luis Mccray, PSYCH-AK [address] [place] [phone] Adjustment disorder with depressed mood (Primary Dx) Social History Tobacco Use Types Packs/Day Years Used Date Smoking Tobacco: Never Cigarettes Alcohol Use Standard Drinks/Week Comments Not Asked 0 (1 standard drink = 0.6 oz pur e alcohol) Interpersonal Safety Answer Date Record ed Physically Hurt Never 12/09/2019 Verbally Threaten Not on file 12/09/2019 Sex and Gender Information Value Date Recorded Sex Assigned at Not on file Gender Identity Female 04/14/2019 11:09 EST Sexual Orientation Not on file documented as of this encounter Plan of Treatment Not on file documented as of this encounter Visit Diagnoses Diagnosis Adjustment disorder with depressed mood- Primary documented in this encounter Care Teams Battery Inspector Relationship Specialty Start Date End Date Kamran Franks MD [address] [place] [phone] PCP - General 09/17/09 documented as of this encounter
--- OUTSIDE RECORDS SUMMARY | 2023-11-28 13:50 | XMS_ITS | Encounter Summary ---
Author Organization [facility] Address [address] [place] [address] Care Team Providers Care Supervisor Of Officials Name Role Phone Kimo Clarke MD Primary Care Provider [phone] Encounter Details Date Type Department Care Team (Late st Contact Info) Description 08/10/2012 Results Only [facility] Laboratory Services - [facility] [place] [address] [place] [phone] Kimo Clarke MD [address] [place] [phone] Social History Tobacco Use Types Packs/Day Years [...] Procedure Name Priority Date/Time Associated Diagnosis Comments PAP TEST- RESULT ONLY Routine 08/10/2012 0:00 EDT documented in this encounter Results * PAP TEST- RESULT ONLY (08/10/2012 0:00 EDT) Pathology Report: CYTOPATHOLOGY REPORT Reports generated via electronic interface contain original data; however they are lacking the format of the original report. Caution should be taken when reading/interpreti ng unformatted reports. Name: ? SARAH SCHERER ? Accession #: ? [id number] : ? 1975 (Age: 37) ??F ?Collect Date: ? 08/10/2012 Location: ? [facility] ? Receive Date: ? 08/14/2012 Provider: ?KIMO CLARKE MD Copy to: ? Specimen/Source: ?Pap Test, Cervix/Endocervix, ThinPrep Imaging System with manual evaluation Last Menstrual Period: ? SPECIMEN ADEQUACY ? Satisfactory for Evaluation - transformation zone component present GENERAL CATEGORIZATION ? Negative for Intraepithelial Lesion or Malignancy ? Document reviewed and electronically signed by: ? MAGO Klein(ASCP) ? Report Date: ??08/16/2012 15:59 End of Report CARISSA VANESSA 08/10/2012 08/14/2012 Kimo Clarke MD PATHOLOGY ORDERABLES [facility] [address] [place] [address] documented in this encounter Visit Diagnoses Not on filedocumented in this encounter Care Teams Supervisor Of Officials Relationship Specialty Start Date End Date Kimo Clarke MD [address] [place] [address] PCP - General 09/17/09 documented as of this encounter
--- OUTSIDE RECORDS SUMMARY | 2023-11-28 13:50 | XMS_ITS | Encounter Summary ---
Author Organization [facility] Address [address] [place] [address] Care Team Providers Care Cornetist Name Role Phone Kamran Franks MD Primary Care Provider Encounter Details Date Type Department Care Team (Late st Contact Info) Description 04/28/2017 Results Only [facility] [phone] Eva Dang MD [address] [address] Social History Tobacco Use Types Packs/Day Years [...] Diagnosis Comments PAP TEST- RESULT ONLY Routine 04/28/2017 0:00 EST documented in this encounter Results * PAP TEST- RESULT ONLY (04/28/2017 0:00 EST) Pathology Report: CYTOPATHOLOGY REPORT Reports generated via electronic interface contain original data; however they are lacking the format of the original report. Caution should be taken when reading/interpreti ng unformatted reports. Name: ? SARAH SCHERER ? Accession #: ? [id number] ? : ? 1975 (Age: 42) ??F ?Collect Date: ? 04/28/2017 ? Location: ? [facility] ? Receive Date: ? 04/29/2017 ? Provider: EVA DANG MD Copy to: ? Final Report SPECIMEN ADEQUACY ? Satisfactory for Evaluation - transformation zone component present GENERAL CATEGORIZATION ? Negative for Intraepithelial Lesion or Malignancy ?? Last Menstrual Period: 2016 Specimen/Source: ??Pap Test, Cervix, ThinPrep Imaging System with manual evaluation Document reviewed and electronically signed by: ? Fidelina Plascencia, CT(ASCP) ? Report ??Date: 05/11/2017 15:43 HPV with Pap Test ? Date Ordered: ? 05/11/2017 ? Status: ?? Signed Out ?Date Complete: ? 05/12/2017 ? By: ??System Interface ? Date Reported: ? 05/12/2017 ? Interpretation RESULT: Negative for HPV. No E6 or E7 mRNA is detected from HPV types 16,18,31,33,35, 39,45,51,52,56,58, 59,66, and 68 by solid fiber paster operator mediated amplification. Comments Document reviewed and electronically signed by: ? System Interface ? Report date: 05/12/2017 By the signature above, the attending physician certifies that he/she has personally conducted a gross and/or microscopic examination of the described specimens and rendered or confirmed the above diagnosis. End of Report [facility] 04/28/2017 04/29/2017 Eva Dang MD PATHOLOGY ORDERABLES [facility] [address] [place] [address] documented in this encounter Visit Diagnoses Not on filedocumented in this encounter Care Teams Cornetist Relationship Specialty Start Date End Date Kamran Franks MD [address] [place] [address] PCP - General 09/17/09 documented as of this encounter
--- OUTSIDE RECORDS SUMMARY | 2023-11-28 13:50 | XMS_ITS | Referral Summary ---
Author Organization [facility] Address [address] [place] [address] Care Team Providers Care Scudding Inspector Name Role Phone Kamran Franks MD Primary Care Provider [phone] Allergies Active Allergy Reactions Criticality Noted Date Comments Cephalexin 10/17/2009 House Dust 10/17/2009 Medications Medication Sig Dispensed Refills Start Date End Date Status albuterol (PROVENTIL, VENTOLIN) 90 mcg/Actuation inhaler Inhale 2 Puffs as directed as needed for Wheezing. 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 Overview: Repaired age 7 months Hyperlipidemia 10/17/2009 Overview: ICD10 Update Auto Replacement Congestive heart failure ([facility]) 10/17/2009 Osteopenia 10/17/2009 Amenorrhea 10/17/2009 Obesity 10/17/2009 Low back pain 10/17/2009 Need for SBE (subacute bacterial endocarditis) p rophylaxis 10/17/2009 Social History Tobacco Use Types Packs/Day Years [...] 11:09 EST Sexual Orientation Not on file Last Filed Vital Signs Vital Sign Reading Time Taken Comments Blood Pressure 118/60 10/17/2009 0907 EDT Pulse 68 10/17/2009 0907 EDT Temperature - - Respiratory Rate - - Oxygen Saturation - - Inhaled Oxygen Concentration - - Weight 102.5 kg (226 lb) 10/17/2009 0907 EDT Height 165.1 cm (5' 5) 10/17/2009 0907 EDT Body Mass Index 37.61 10/17/2009 09 EDT Plan of Treatment Not on file Procedures Procedure Name Priority Date/Time Associated Diagnosis Comments HEPATITIS C AB W REFLEX TO HCV RNA BY PCR Routine 09/12/2019 15:10 EDT from Last 3 Months or Most Recently Relevant to Health Maintenance Results * HEPATITIS C AB W REFLEX TO HCV RNA BY PCR (09/12/2019 15:10 EDT) Hep C Antibody Negative Negative 09/14/2019 10:[address] [facility] Blood VENOUS BLOOD / Unknown 09/12/2019 15:10 EDT 09/13/2019 16:19 EDT Provider Outr Resulting Lab CHEMISTRY & BLOOD GAS ORDERABLES [facility] [address] [place] [address] from Last 3 Months or Most Recently Relevant to Health Maintenance Care Teams Scudding Inspector Relationship Specialty Start Date End Date Kamran Franks MD [address] [place] [phone] PCP - General 09/17/09
--- OUTSIDE RECORDS SUMMARY | 2023-11-28 13:50 | XMS_ITS | Encounter Summary ---
Author Organization [facility] Address [facility] [place] [address] Care Team Providers Care Inweaver Name Role Phone Eva Dang MD Primary Care Provider [phone] Reason for Visit * Reason Comments Medication Refill Encounter Details Date Type Department Care Team (Late st Contact Info) Description 09/22/2019 Refill Neurology at [facility] [place] [address] Ursula Walters, HOROLOGIST [facility] [place] [address] Chronic migraine without aura without status migrainosus, not intractable Social History [...] as of this encounter Visit Diagnoses Diagnosis Chronic migraine without aura without status migrainosus, not intractable Chronic migraine without aura, without mention of intractable migraine without mention of status migrainosus documented in this encounter Care Teams Inweaver Relationship Specialty Start Date End Date Eva Dang MD [facility] [address] [place] [address] PCP - General Family Medicine 03/25/16 documented as of this encounter
--- OUTSIDE RECORDS SUMMARY | 2023-11-28 13:50 | XMS_ITS | Encounter Summary ---
Author Organization [facility] Address [address] [place] [address] Care Team Providers Care Motorcycle Subassembler Name Role Phone Kamran Franks MD Primary Care Provider [phone] Encounter Details Date Type Department Care Team (Late st Contact Info) Description 10/17/2009 Abstract [facility] Cardiology - [address] [place], [place] [phone] Kamran Franks MD [address] [place] [address] Osteopenia; Amenorrhea; Obesity; LBP (low back pain); SBE (subacute bacterial endocarditis) prophylaxis candidate Social History Tobacco Use Types Packs/Day Years [...] as of this encounter Visit Diagnoses Diagnosis Osteopenia Disorder of bone and cartilage, unspecified Amenorrhea Absence of menstruation Obesity Obesity, unspecified LBP (low back pain) Lumbago SBE (subacute bacterial endocarditis) prophylaxis candidate Other specified prophylactic or treatment measure documented in this encounter Care Teams Motorcycle Subassembler Relationship Specialty Start Date End Date Kamran Franks MD [address] [place] [address] PCP - General 5/12/10 documented as of this encounter
--- OUTSIDE RECORDS SUMMARY | 2023-11-28 13:50 | XMS_ITS | Encounter Summary ---
Author Organization [facility] Address [address] [place] [address] Care Team Providers Care Marketing Instructor Name Role Phone Kamran Franks MD Primary Care Provider [phone] Encounter Details Date Type Department Care Team (Late st Contact Info) Description 09/10/2003 Results Only [facility] - [place] [address] [place] [address] Eva Dang MD [address] [place] [phone] Social History Tobacco Use Types Packs/Day [...] Priority Date/Time Associated Diagnosis Comments CYTOPATHOLOGY Routine 09/10/2003 0:00 EDT documented in this encounter Results * CYTOPATHOLOGY (09/10/2003 0:00 EDT) Pathology Report: CYTOPATHOLOGY REPORT Reports generated via electronic interface contain original data; however they are lacking the format of the original report. Caution should be taken when reading/interpreti ng unformatted reports. Name: ? SARAH SCHERER ? Accession #: ? [id number] : ? 1975 (Age: 28) ??F ?Collect Date: ? 09/10/2003 Location: ? [facility] ? Receive Date: ? 09/12/2003 Provider: ?EVA DANG MD Copy to: ? Specimen/Source: ?ThinPrep Pap Test, Cervix/Endocervix Last Menstrual Period: ? 06/29/03 Menstrual/Pregnanc y Status: ? SPECIMEN ADEQUACY ? Satisfactory for Evaluation - transformation zone component present GENERAL CATEGORIZATION ? Negative for Intraepithelial Lesion or Malignancy ? Document reviewed and electronically signed by: ? MAGO Priest(ASCP) ? Report Date: ??09/17/2003 11:37 End of Report CARISSA VANESSA 09/10/2003 09/12/2003 Eva Dang MD PATHOLOGY ORDERABLES Performing Organization Address City/State/[facility] Co de Phone Number CARISSA RIVERA [facility] [address] [place] [address] documented in this encounter Visit Diagnoses Not on filedocumented in this encounter Care Teams Marketing Instructor Relationship Specialty Start Date End Date Kamran Franks MD [address] [place] [address] PCP - General 09/17/09 documented as of this encounter
--- OUTSIDE RECORDS SUMMARY | 2023-11-28 13:50 | XMS_ITS | Encounter Summary ---
Author Organization [facility] Address [address] [place] [address] Care Team Providers Care Ingot Passer Name Role Phone Kamran Franks MD Primary Care Provider [phone] Reason for Visit * Reason Comments Follow-up Encounter Details Date Type Department Care Team (Latest Contact Info) Description 02/20/2020 11:00 EDT Office Visit [facility] Occupational Medicine - [place] [address] [place], [place] [phone] Jorge Luis Mccray, PSYCH-IA [address] [place] [phone] Adjustment disorder with depressed mood (Primary Dx) [...] Primary documented in this encounter Care Teams Ingot Passer Relationship Specialty Start Date End Date Kamran Franks MD [address] [place] [address] PCP - General 09/17/09 documented as of this encounter
--- OUTSIDE RECORDS SUMMARY | 2023-11-28 13:50 | XMS_ITS | Encounter Summary ---
Author Organization [facility] Address [address] [place] [address] Care Team Providers Care Mogul Operator Name Role Phone Kamran Franks MD Primary Care Provider [phone] Reason for Visit * Reason Comments Follow-up Encounter Details Date Type Department Care Team (Latest Contact Info) Description 07/30/2019 10:00 EDT Telemedicine [facility] Occupational Medicine - [employer] [address] [place], [place] [phone] Jorge Luis Mccray, PSYCH-MA [address] [place] [phone] Somatic symptom disorder, mild, with predominant pain (Primary Dx) Social History Tobacco Use Types [...] as of this encounter Visit Diagnoses Diagnosis Somatic symptom disorder, mild, with predominant pain- Primary documented in this encounter Care Teams Mogul Operator Relationship Specialty Start Date End Date Kamran Franks MD [address] [place] [phone] PCP - General 09/17/09 documented as of this encounter
--- OUTSIDE RECORDS SUMMARY | 2023-11-28 13:50 | XMS_ITS | Encounter Summary ---
Author Organization [facility] Address [facility] [place] [address] Care Team Providers Care Auxiliary Powerplant Operator Name Role Phone Eva Dang MD Primary Care Provider [phone] Encounter Details Date Type Department Care Team (Late st Contact Info) Description 12/14/2019 10:00 AM EDT Office Visit Neurology at [address] [phone] Ursula Walters APRN [facility] [place] [address] Chronic migraine without aura without status migrainosus, not intractable; Intractable chronic post-traumatic headache; Migraine without aura and without status migrainosus, [...] Sign Reading Time Taken Comments Blood Pressure 152/70 12/14/2019 11:00 AM EDT Pulse 65 12/14/2019 11:00 AM EDT Temperature - - Respiratory Rate - - Oxygen Saturation - - Inhaled Oxygen Concentration - - Weight 104.3 kg (230 lb) 12/14/2019 10:28 AM EDT Height 167.6 cm (5' 6) 12/14/2019 10:28 AM EDT reported Body Mass Index 37.12 12/14/2019 10:28 AM EDT documented in this encounter Progress Notes * Ursula Walters APRN - 12/14/2019 10:00 AM EDT Neurology Headache Clinic Follow-up Patient Name: Sarah Robles Patient ID: Sarah Robles is a 44 y.o. Left handed female with MHx of Asthma, HLD, hx of cardiac surgery at 7 months of age due to anomalous pulmonary venous return, DMII (diet controlled), ANA on CPAP (since November), fatigue, depression, postconcussive sxms s/p head injury 2015. She presents in the headache clinic today [...] fluctuate in intensity throughout the day. Baseline 7-12/16. Associated symptoms included nausea (no emesis), photophonophobia, dizziness, dysarthria, occasional blurry vision, dizziness (when fatigued) and mild confusion. Nam is working well. Still has headaches, and tingling on top of head, but intensity has lessened. Is having some headache free time during the day. Does report constipation and wearing off effect with aimovig. Prior to aimovig she was having 90/90 headache days. July 2019 she lost her job and this has caused her increased stress. Currently having 15/30 migraine days currently. Patient Reported: MIDAS Responses 12/14/2019 Days missed school/work 0 Days productivity at work/school reduced 10 Days did not do household work 30 Days productivity related to housework reduced 35 Days had headache 45 Pain scale 6 ROS: denies chest pain, sob, palpitations or vision changes. Medications: Current Outpatient Medications Medication Sig Dispense Refill ??? lisinopriL (Prinivil;Zestril) 10 mg Tablet Take 1 tablet by mouth daily. 90 tablet 5 ??? hydrOXYzine (VISTARIL) 25 mg Capsule Take 1 capsule by mouth 2 times daily as needed (headache). 60 capsule 5 ??? erenumab-aooe (Aimovig Autoinjector) 140 mg/mL Auto-Injector Inject 140 mg subcutaneously every30 days. 1 mL 11 ??? cyanocobalamin, vitamin B-12, 1,000 mcg Tablet Take 1,000 mcg by mouth daily. ??? metFORMIN (GLUCOPHAGE) 500 mg Tablet Take 500 mg by mouth 2 times daily (with meals). ??? fish oil-omega-3 fatty acids 1,000 mg Capsule Take 1 g by mouth 3 times daily. ??? levothyroxine (SYNTHROID) 25 mcg Tablet Take 25 mcg by mouth daily. ??? b complex vitamins Capsule Take 2 capsules by mouth daily. ??? COCONUT OIL ORAL Take 1,000 mg by mouth 3 times daily. ??? ramelteon (ROZEREM) 8 mg Tablet Take 8 mg by mouth as needed. ??? Armodafinil (NUVIGIL) 50 mg Tablet Take 3-5 tablets by mouth daily. 0 ??? Zinc Gluconate 30 mg Tablet Take 30 mg by mouth every other day. 0 ??? fluocinonide (LIDEX) 0.05 % Cream Apply topically as needed. ??? naproxen sodium (ANAPROX) 550 mg Tablet Take 1 tablet by mouth 2 times daily as needed. 60 tablet 12 ??? amitriptyline (ELAVIL) 25 mg Tablet Take 25 mg by mouth daily. ??? rosuvastatin (CRESTOR) 20 mg Tablet Take 20 mg by mouth daily. ??? fluticasone (FLONASE) 50 mcg/actuation Byers, Suspension 1 spray by Each Nare route daily. 0 ??? riboflavin, vitamin B2, (VITAMIN B-2) 100 mg Tablet Take 200 mg by mouth 2 times daily. ??? magnesium 250 mg Tablet Take 500 mg by mouth daily. ??? fexofenadine (JANES) 180 mg Tablet Take 180 mg by mouth daily. ??? PROAIR HFA 90 mcg/actuation HFA Aerosol Inhaler Inhale 2 puffs into the lungs as needed. 0 ??? montelukast (SINGULAIR) 10 mg Tablet Take 10 mg by mouth nightly. 0 No current facility-administered medications for this visit. [...] Atypicals: [] Bupropion (Wellbutrin) Anti-Hypertensives: JUHI Inhibitors: [x] Lisinopril (Prinivil) Angiotensin II Receptor Blockers: [] [...] [] Acupuncture [] Acupressure [] Biofeedback [] Dicer Machine Operator [] Cognitive Behavioral Therapy [] Massage therapy [] Physical therapy [] Craniosacral therapy Physical Exam: Patient Vitals for the past 24 hrs: Pulse BP 12/14/19 1028 60 (!) 174/92 12/14/19 1100 65 152/70 resp 16 BP 152/70 (Patient Position: Sitting) Pulse 65 Ht 167.6 cm (5' 6) Comment: reported Wt 104.3kg (230 lb) BMI 37.12 kg/m?? bp 152/70 1100 Constitutional: Patient of apparent stated age, no acute distress HEENT: no occipital tenderness Resp: CTAB Cardiac: RR, no edema noted Neuro: MS: Alert, oriented, clear language, no dysarthria, follows commands CN: PERRL, EOMI Motor: Gait: normal base and arm swing Labs: No results found for this or any previous visit (from the past 24 hour(s)). Diagnostic Tests and Imagin01/28/16 CT head- reportedly unremarkable 04/27/16: MRI brain [...] chronic migraine without aura. She is having 15/90 headache days. Converted Episodic Migraine without aura on Aimovig The intensity of her headaches is much better. Prior to starting Aimovig she rated her pain an 8/10. And now her average pain scale is 3-4/10. Following with PCP at the end of december 2019 for blood pressure. Increased lisinopril to 10mg daily. Patient verbalizes understanding of SE of cough. She will call the office if she develops a cough.She is hypertensive today upon arrival. Manual recheck after 20 minutes in the office is 152/70. Patient denies chest pain or sob, physical exam is reassuring. #Episodic Migraine without aura #hypertension Migraine Prevention Continue Aimovig 140mg subcu monthly injections Increase lisinopril 10mg daily Amitriptyline 25mg daily Magnesium 500mg daily Singulair 10mg nightly Follow up in six months. Ursula Walters APRN [facility] documented in this encounter Plan of Treatment Not on file documented as of this encounter Visit Diagnoses Diagnosis Chronic migraine without aura without status migrainosus, not intractable Chronic migraine without aura, without mention of intractable migraine without mention of status migrainosus Intractable chronic post-traumatic headache Chronic post-traumatic headache Migraine without aura and without status migrainosus, not intractable Migraine without aura, without mention of intractable migraine without mention of status migrainosus documented in this encounter Care Teams Auxiliary Powerplant Operator Relationship Specialty Start Date End Date Eva Dang MD [facility] [address] [facility] [address] [place] [address] PCP - General Family Medicine 03/25/16 documented as of this encounter
--- OUTSIDE RECORDS SUMMARY | 2023-11-28 13:50 | XMS_ITS | Encounter Summary ---
Author Organization [facility] Address [address] [place] [address] Care Team Providers Care Vice President Of Engineering Name Role Phone Kamran Franks MD Primary Care Provider [phone] Reason for Visit * Reason Comments Follow-up Encounter Details Date Type Department Care Team (Latest Contact Info) Description 06/25/2019 15:30 EST Office Visit [facility] Occupational Medicine - [place] [address] [place], [place] [phone] Jorge Luis Mccray, PSYCH-MA [address] [place] [phone] Somatic symptom disorder, mild, with predominant pain [...] Primary documented in this encounter Care Teams Vice President Of Engineering Relationship Specialty Start Date End Date Kamran Franks MD [address] [place] [phone] PCP - General 09/17/09 documented as of this encounter
--- OUTSIDE RECORDS SUMMARY | 2023-11-28 13:50 | XMS_ITS | Encounter Summary ---
Author Organization [facility] [place] [address] Care Team Providers Care Check Cashier Name Role Phone Eva Dang MD Primary Care Provider [phone] Reason for Referral * Consultation (Routine) - Authorized Specialty Diagnoses / Procedures Referred By Angy munroe Referred To Contact Urology Diagnoses Urinary incontinence, unspecified type SHE HAS HAD YEARS OF URINARY INCONTINENCE, MIXED BUT MOSTLY URGE. FREQUENT URINATION. NOT A CANDIDATE AT THIS POINT FOR MYRBETRIQ DUE TO HER BP. HAS DONE PT FOR PELVIC FLOOR. NOTES THAT HER UNDERWEAR ALWAYS HAS AN ODER OF URINE Eva Dang MD [address] [place] [address] [facility] [address] [place] [phone] Referral ID Status Reason Start Date Expiration Date Visits Requested Visits Authorized [id number] Authorized Consult, Test & Treat PCP Updated and/or Approved 06/22/2023 06/21/2024 6 6 Encounter Details Date Type Department Care Team (Latest Contact Info) Description 06/22/2023 Transcribe Orders eDH Incoming Referrals [phone] Eva Dang MD [address] [place] [address] Urinary incontinence, unspecified type Social History Tobacco Use Types Packs/Day Years [...] as of this encounter Plan of Treatment Scheduled Referrals Name Type Priority Associated Diagnoses Orde r Schedule Referral to Urology Outpatient Referral Routine Urinary incontinence, unspecified type Ordered: 06/22/2023 documented as of this encounter Visit Diagnoses Diagnosis Urinary incontinence, unspecified type documented in this encounter Care Teams Check Cashier Relationship Specialty Start Date End Date Eva Dang MD [address] [place] [address] PCP - General Family Medicine 03/25/16 documented as of this encounter
--- OUTSIDE RECORDS SUMMARY | 2023-11-28 13:50 | XMS_ITS | Encounter Summary ---
Author Organization [facility] Address [address] [place] [address] Care Team Providers Care Education Professional Name Role Phone Kamran Franks MD Primary Care Provider [phone] Encounter Details Date Type Department Care Team (Latest Contact Info) Description 07/07/2020 Lab Requisition [facility] Laboratory Medicine - [facility] [address] [place], [place] [phone] Eva Dang MD [address] [place] [phone] Encounter for general adult medical examination without abnormal findings; Encounter for screening for malignant neoplasm of cervix; Encounter for screening for human papillomavirus (HPV) Social History Tobacco Use Types Packs/Day Years [...] Name Priority Date/Time Associated Diagnosis Comments PAP TEST Today 07/04/2020 15:00 EST Encounter for general adult medical examination without abnormal findings Encounter for screening for malignant neoplasm of cervix Encounter for screening for human papillomavirus (HPV) HPV DNA DETECTION WITH GENOTYPING, PCR Today 07/04/2020 15:00 EST Encounter for general adult medical examination without abnormal findings Encounter for screening for malignant neoplasm of cervix Encounter for screening for human papillomavirus (HPV) documented in this encounter Results * HUMAN PAPILLOMAVIRUS (HPV) DETECTION-HIGH RISK TYPES (07/04/2020 15:00 EST) HPV other High Risk types, PCR Negative Negative 07/15/2020 15:22 [facility] Comment:No E6 or E7 mRNA is detected from HPV types 16,18,31,33,35,39,45,51,52,56,58,59,66, and 68 by tax consultant mediated amplification. Papanicolaou smear specimen (specimen) CERVIX UTERI STRUCTURE / Unknown 07/04/2020 15:00 EST 07/14/2020 10:40 EST Eva Dang MD MICROBIOLOGY - GENER AL ORDERABLES [facility] [address] [place] [id number] * PAP TEST (07/04/2020 15:00 EST) Specimens A. Cervix and/or Endocervix , ThinPrep Imaging System with Manual Evaluation 07/15/2020 15:22 [facility] Specimen Adequacy Satisfactory for Evaluation - transformation zone component present 07/15/2020 15:22 [facility] General Categorization Negative for intraepithelial lesion or malignancy 07/15/2020 15:22 [facility] Attestation . 07/15/2020 15:22 [facility] at 1522 Clinical History See below 07/16/19 21 15:22 [facility] HPV The result for the Human Papillomavirus (HPV) Detection-High Risk Types is Negative. No E6 or E7 mRNA is detected from HPV types 16,18,31,33,35,39 ,45,51,52,56,58,5 9,66, and 68 by tax consultant mediated amplification.Tania ting was performed on specimen [id number] and was resulted on 07/15/2020 1519 EST by ANNY, LAB INSTRUMENT RESULTS IN 07/15/2020 15:22 EST [facility] Performing Lab [facility] 07/15/2020 15:22 EST [facility] Scanned Images 07/15/2020 15:22 EST [facility] Papanicolaou smear specimen (specimen) CERVIX UTERI STRUCTURE / Unknown 07/04/2020 15:00 EST 07/07/2020 11:20 EST Eva Dang MD PATHOLOGY ORDERABLES [facility] [address] [place] [address] documented in this encounter Visit Diagnoses Diagnosis Encounter for general adult medical examination without abnormal findings Unspecified general medical examination Encounter for screening for malignant neoplasm of cervix Screening for malignant neoplasm of the cervix Encounter for screening for human papillomavirus (HPV) Special screening examination for human papillomavirus (HPV) documented in this encounter Care Teams Education Professional Relationship Specialty Start Date End Date Kamran Franks MD [address] [place] [address] PCP - General 09/17/09 documented as of this encounter
--- OUTSIDE RECORDS SUMMARY | 2023-11-28 13:50 | XMS_ITS | Encounter Summary ---
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 when she was [id number]. She did well following this procedure and has not had any overt cardiac problems since then. She saw Pete in 2006 who reviewed her history and felt that she was doing nicely. His only recommendationwas an echocardiogram which she did not, in fact, have. He indicated in his note that an echocardiogram was performed in 1996 without evidence of any problems related to her repair. Sarah has not had any significant health problems since her childhood surgery. She denies hypertension or hypercholesterolemia. There is a family history of heart disease and she is, in general, concerned about this and is interested in ways to improve her overall health. She has been somewhat obese for some time andindy tells me that with her last child she did have some gestational diabetes. 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 Her life, obviously, is exceedingly busy. Her only complaint at the present time is a general sense of easy fatigability. This has been going on for quite some time. Other than this and some occasional, rare twinges of chest discomfort which have also been present for quite some time, she really has no other complaints. The past medical history is essentially unremarkable. Social History: As indicated, she is and has five children. She is a nonsmoker and denies significant alcohol use. The complete 12-point review of systems is contained in her chart and is negative except as described above. On physical examination, she is a well-developed, obese woman in no distress. Her vital signs include a blood pressure of 128/80 and a resting heart rate of 70 and regular. Her HEENT examination is grossly within normal limits. Her chest is clear. Her skin and musculoskeletal systems are normal. Her cardiovascular examination reveals normal jugular venous pressure and normal carotid arterial pulses. Cardiac point of maximum pulse cannot be palpated. Heart sounds are normal without murmurs, rubsor gallops. Abdomen is soft. Extremities without cyanosis, clubbing or edema. Neuro/psychiatric examination reveals that she is oriented x3. There are no focal neurological findings. Assessment and Management: The high likelihood is that Sarah's surgical repair will not cause her any problems going forward. There are rare late problems with this repair including stenosis of the repair site. Additionally, some of these patient's can have atrial arrhythmias later in life. She denies any history suggestive of this. I do think she should have an echocardiogram as a baseline and tomake sure there is nothing unusual going on. Additionally, I think she should have annual followup and I will arrange this with Dr Song Andrade, who is our expert in congenital heart disease in adults. I doubt very much that her fatigue has anything to do with her cardiac situation. As you know, she is very interested in pursuing a healthier lifestyle and I have encouraged her to continue workingwith you on that. Please let me know if you have any questions about her. 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 Medication Sig Dispensed Refills Start Date End Date albuterol (PROVENTIL, VENTOLIN) 90 mcg/Actuation inhaler Inhale 2 Puffs as directed as needed for Wheezing. added in this encounter Care Teams Freight Car Inspector Relationship Specialty Start Date End Date Kamran Franks MD [address] [place] [address] PCP - General 09/17/09 documented as of this encounter
--- OUTSIDE RECORDS SUMMARY | 2023-11-28 13:50 | XMS_ITS | Encounter Summary ---
[place] [address] Care Team Providers Care Corn Grower Name Role Phone Eva Dang MD Primary Care Provider [phone] Reason for Visit * Reason Comments Medication Management Patient Education Encounter Details Date Type Department Care Team (Late st Contact Info) Description 11/15/2019 Specialty [place] [address] Jeancarlos Olivera [facility] Social History Tobacco Use Types Packs/Day Years Used Date Smoking Tobacco: Never Smokeless Tobacco: Never Alcohol Use Standard Drinks/Week Comments No 0 (1 standard drink = 0.6 oz pur e alcohol) Sex and Gender Information Value Date Recorded Sex Assigned at Not on file Gender Identity Female 09/26/2019 9:01 AM EDT Sexual Orientation Not on file documented as of this encounter Progress Notes * Jeancarlos Olivera [facility] - 11/15/2019 11:19 AM EDT Clinical Management Plan: MIDAS Assessment Specialty Pharmacy Consultation; Jeancarlos Olivera [facility] Comprehensive Medication Management (CMM) Sarah Robles MsAngelito Sarah M Travis is a 44 y.o. (1975) female who was contacted in regard to a specialty medication assessment. Spoke with patient referencing use of AIMOVIG. Most Recent MIDAS: 05/17/19 Migraine Disability Assessment # of days in the past 3 months 1. Missed work / school because of GARCIA n/a 2. Productivity at work / school reduced by > half because of GARCIA (do not count days from Q.1) n/a 3. Did not do housework because of GARCIA 10 4. Productivity in household work reduced by > half because of GARCIA (do not count days from Q.3) 45 5. Missed family / social / leisure activities because of GARCIA 0 Total 55 MIDAS grade (use total of Q1 to 5) I: 0-5, little to no disability II: 6-10, mild disability III: 11-20, moderate disability IV: 21+, severe disability A. # of days in the last 3 months with a GARCIA (count each day if GARCIA lasted > 1 day) 90 B. Average GARCIA intensity (0-10) 6 Follow-up Questions on CGRP Inhibitor Therapy: Current therapy: AIMOVIG 140MG SUBQ ONCE MONTHLY Number of months using current therapy: 11 How many migraine days per month did you have before using current therapy: 15+ How many migraine days per month have you had since starting current therapy: 10 Have you noticed that your migraines are not as severe since starting current therapy: yes Have you used less of your abortive / rescue medications (triptans, NSAID, etc) since starting current therapy: yes Are your abortive / rescue medications working better to abort migraines since starting current therapy? yes Do you think the current therapy is helping? yes Pt understands no changes to current drug regimen were made at the appointment and that [facility] is completing an assessment (summary located at top of note) for provider review and follow up. Jeancarlos Olivera RPH 11/15/19 11:19 AM documented in this encounter Plan of Treatment Not on file documented as of this encounter Visit Diagnoses Not on filedocumented in this encounter Care Teams Corn Grower Relationship Specialty Start Date End Date Eva Dang MD [address] [place] [address] PCP - General Family Medicine 03/25/16 documented as of this encounter
--- OUTSIDE RECORDS SUMMARY | 2023-11-28 13:50 | XMS_ITS | Encounter Summary ---
Author Organization [facility] Address [address] [place] [address] Care Team Providers Care Block Cuber Name Role Phone Kimo Clarke MD Primary Care Provider [phone] Encounter Details Date Type Department Care Team (Late st Contact Info) Description 04/24/2002 Results Only [facility] - Maple conversion [address] [place] [address] Kimo Clarke MD [address] [place] [phone] Social History Tobacco Use Types Packs/Day Years Used Date Smoking Tobacco: Never Assessed Sex and Gender Information Value Date Recorded Sex Assigned at Not on file Gender Identity Female 04/14/2019 11:09 EST Sexual Orientation Not on file documented as of this encounter Plan of Treatment Not on file documented as of this encounter Procedures Procedure Name Priority Date/Time Associated Diagnosis Comments CYTOPATHOLOGY Routine 04/24/2002 0:00 EST documented in this encounter Results * CYTOPATHOLOGY (04/24/2002 0:00 EST) Pathology Report: CYTOPATHOLOGY REPORT Reports generated via electronic interface contain original data; however they are lacking the format of the original report. Caution should be taken when reading/interpreti ng unformatted reports. Name: ? SARAH SCHERER ? Accession #: ? [id number] : ? 1975 (Age: 27) ??F ?Collect Date: ? 04/24/2002 Location: ? [facility] ? Receive Date: ? 04/26/2002 Provider: ?KIMO CLARKE MD Copy to: ? Specimen/Source: ?ThinPrep Pap Test, Cervix/Endocervix Last Menstrual Period: ? 05/20/00 Menstrual/Pregnanc y Status: ? Post Other: ? HPVA - HPV testing requested if ASC-US on the current ThinPrep Pap test. ? SPECIMEN ADEQUACY ? Satisfactory for Evaluation - assessment of transformation zone component not applicable ( e.g. atrophy, vaginal sample, hysterectomy) GENERAL CATEGORIZATION ? Negative for Intraepithelial Lesion or Malignancy ? Document reviewed and electronically signed by: ? MAGO Nye(ASCP) ? Report Date: ??04/27/2002 10:06 End of Report [facility] 04/24/2002 04/26/2002 Kimo Clarke MD PATHOLOGY ORDERABLES [facility] [address] [place] [address] documented in this encounter Visit Diagnoses Not on filedocumented in this encounter Care Teams Block Cuber Relationship Specialty Start Date End Date Kimo Clarke MD [address] [place] [address] PCP - General 09/17/09 documented as of this encounter
--- OUTSIDE RECORDS SUMMARY | 2023-11-28 13:50 | XMS_ITS | Encounter Summary ---
Author Organization [facility] Address [address] [place] [address] Care Team Providers Care Sole Tier Name Role Phone Kamran Franks MD Primary Care Provider Encounter Details Date Type Department Care Team (Late st Contact Info) Description 06/03/1999 Results Only [facility] - Maple conversion [address] [place] [address] Eva Dang MD [address] [place] [phone] Social History Tobacco Use Types Packs/Day [...] Priority Date/Time Associated Diagnosis Comments CYTOPATHOLOGY Routine 06/03/1999 11:22 EST documented in this encounter Results * CYTOPATHOLOGY (06/03/1999 11:22 EST) Pathology Report: CYTOPATHOLOGY REPORT Reports generated via electronic interface contain original data; however they are lacking the format of the original report. Caution should be taken when reading/interpreti ng unformatted reports. Name: ? GILMER SARAH M ? Accession #: ? [id number] : ? 1975 (Age: 24) ??F ?Collect Date: ? 06/03/1999 Location: ?Receive Date: ? 06/03/1999 Provider: ?EVA DANG MD Copy to: ?EVA DANG MD ? Specimen/Source: ?Pap Smear (One Slide) Last Menstrual Period: ? GYNECOLOGIC ??CYTOPATHOLOGY ??REPORT Name: SARAH SCHERER ? [facility] : 1975 ?? 24Y F ?Client ID: [id number] SS#: [id number] ? Clinician: EVA DANG MD ?? Location: [facility] ??Copy to: ?? Specimen: ?Pap Smear (One Slide) ? Source: Cervix/Endocervix ?Collected: 05/29/99 ? Received: 06/03/1999 ?LMP: ?Hormone Therapy: No ? : No ? Radiation Therapy: No ?? Post : Yes ? Chemotherapy: No ?IUD: No ? Prev Abnormal Pap: Yes ?? Clinical Hx: ?(Blank guillen indicate information not provided on requisition) SPECIMEN ADEQUACY: ? Satisfactory For Evaluation ?? GENERAL CATEGORIZATION: ? BENIGN CELLULAR CHANGES ?? DESCRIPTIVE DIAGNOSIS: ? Reactive Cellular Changes Associated With Inflammation Present ? (Includes Repair) ? Reviewed And Electronically Signed By: ? Kodi Hall M.D. ? Report Date: ?? 06/10/1999 [employer] Archived Tests - Final Diagnosis Text Field: Clinical History : ? Document reviewed and electronically signed by: ? Conversion ? Report Date: ??06/10/1999 00:00 End of Report [facility] 06/03/1999 11:2 2 EST 06/03/1999 11:23 EST Eva Dang MD PATHOLOGY ORDERABLES [facility] [address] [place] [address] documented in this encounter Visit Diagnoses Not on filedocumented in this encounter Care Teams Sole Tier Relationship Specialty Start Date End Date Kamran Franks MD [address] [place] [address] PCP - General 09/17/09 documented as of this encounter
--- OUTSIDE RECORDS SUMMARY | 2023-11-28 13:50 | XMS_ITS | Encounter Summary ---
Author Organization [facility] [place] [address] Care Team Providers Care Linoleum Floor Layer Name Role Phone Eva Dang MD Primary Care Provider [phone] Encounter Details Date Type Department Care Team (Late st Contact Info) Description 10/10/2020 Orders Only Pediatric Cardiology at [place] [address] [place] [address] Kodi Montes MD [address] [facility] [place] [address] Total anomalous pulmonary venous return; Elevated cholesterol; Essential hypertension; Fatigue, unspecified type Social History Tobacco Use Types [...] as of this encounter Visit Diagnoses Diagnosis Total anomalous pulmonary venous return Total congenital anomalous pulmonary venous connection Elevated cholesterol Pure hypercholesterolemia Essential hypertension Unspecified essential hypertension Fatigue, unspecified type documented in this encounter Care Teams Linoleum Floor Layer Relationship Specialty Start Date End Date Eva Dang MD [facility] [address] [place] [address] PCP - General Family Medicine 03/25/16 documented as of this encounter
--- OUTSIDE RECORDS SUMMARY | 2023-11-28 13:50 | XMS_ITS | Encounter Summary ---
Author Organization [facility] Address [address] [place] [address] Care Team Providers Care Inspector Final Assembly Conveyor Line Name Role Phone Kimo Clarke MD Primary Care Provider [phone] Encounter Details Date Type Department Care Team (Late st Contact Info) Description 05/10/2007 Results Only [facility] - Maple conversion [address] [place] [address] Kimo Clarke MD [address] [place] [phone] Social History Tobacco Use Types Packs/Day Years Used Date Smoking Tobacco: Never Assessed Sex and Gender Information Value Date Recorded Sex Assigned at Not on file Gender Identity Female 04/14/2019 11:09 EST Sexual Orientation Not on file documented as of this encounter Plan of Treatment Not on file documented as of this encounter Procedures Procedure Name Priority Date/Time Associated Diagnosis Comments CYTOPATHOLOGY Routine 05/10/2007 0:00 EST documented in this encounter Results * CYTOPATHOLOGY (05/10/2007 0:00 EST) Pathology Report: CYTOPATHOLOGY REPORT Reports generated via electronic interface contain original data; however they are lacking the format of the original report. Caution should be taken when reading/interpreti ng unformatted reports. Name: ? SARAH SCHERER ? Accession #: ? [id number] : ? 1975 (Age: 32) ??F ?Collect Date: ? 05/10/2007 Location: ? [facility] ? Receive Date: ? 05/11/2007 Provider: ?KIMO CLARKE MD Copy to: ? Specimen/Source: ?ThinPrep Pap Test, Cervix/Endocervix, processed on [employer] ThinPrep Imaging System, with manual evaluation Last Menstrual Period: ? 05/03/07 Previous Gynecologic Pathology: ? LSIL: at age 16 Other: ? HPVA - HPV testing requested if ASC-US on the current ThinPrep Pap test. ? SPECIMEN ADEQUACY ? Satisfactory for Evaluation - transformation zone component present GENERAL CATEGORIZATION ? Negative for Intraepithelial Lesion or Malignancy ? Document reviewed and electronically signed by: ? OLEGARIO Camacho(ASCP) ? Report Date: ??05/15/2007 10:18 End of Report [facility] 05/10/2007 05/11/2007 Kimo Clarke MD PATHOLOGY ORDERABLES [facility] [address] [place] [address] documented in this encounter Visit Diagnoses Not on filedocumented in this encounter Care Teams Inspector Final Assembly Conveyor Line Relationship Specialty Start Date End Date Kimo Clarke MD [address] [place] [address] PCP - General 09/17/09 documented as of this encounter
--- OUTSIDE RECORDS SUMMARY | 2023-11-28 13:50 | XMS_ITS | Encounter Summary ---
Author Organization [facility] Address [address] [place] [address] Care Team Providers Care Prosthodontist Name Role Phone Kamran Franks MD Primary Care Provider [phone] Reason for Visit * Reason Onset Date Comments Results 08/17/2016 Encounter Details Date Type Department Care Team (Late st Contact Info) Description 08/17/2016 Telephone [facility] Pediatric Cardiology - [facility] [address] [place] [address] Yamilex Tijerina MD [address] [place] [phone] Results Social History Tobacco Use Types Packs/Day Years Used Date Smoking Tobacco: Never Cigarettes Alcohol Use Standard Drinks/Week Comments Not Asked 0 (1 standard drink = 0.6 oz pur e alcohol) Sex and Gender Information Value Date Recorded Sex Assigned at Not on file Gender Identity Female 04/14/2019 11:09 EST Sexual Orientation Not on file documented as of this encounter Miscellaneous Notes * Telephone Encounter - Luz Alfaro - 08/17/2016 1404 EDT Zulma, from Pedi Cardiology at [facility], is calling to see if they can get the lastest EKG reading, that had ordered for Sarah, and fax to their office. The fax number is [phone]. Ifyou need to call her, she can be reached at [phone]. Addendum, KPW: Above faxed. documented in this encounter Plan of Treatment Not on file documented as of this encounter Visit Diagnoses Not on filedocumented in this encounter Care Teams Prosthodontist Relationship Specialty Start Date End Date Kamran Franks MD [address] [place] [address] PCP - General 09/17/09 documented as of this encounter
--- OUTSIDE RECORDS SUMMARY | 2023-11-28 13:50 | XMS_ITS | Encounter Summary ---
Author Organization [facility] Address [facility] [place] [address] Care Team Providers Care Sack Sorter Name Role Phone Eva Dang MD Primary Care Provider [phone] Reason for Visit * Reason Comments Medication Refill Encounter Details Date Type Department Care Team (Late st Contact Info) Description 04/08/2019 [place] [address] Radha Jimenez MD [facility] [place] [address] Chronic migraine without aura without status migrainosus, [...] migrainosus documented in this encounter Care Teams Sack Sorter Relationship Specialty Start Date End Date Eva Dang MD [facility] [address] [place] [address] PCP - General Family Medicine 03/25/16 documented as of this encounter
--- OUTSIDE RECORDS SUMMARY | 2023-11-28 13:50 | XMS_ITS | Encounter Summary ---
Author Organization [facility] Address [address] [place] [address] Care Team Providers Care Tool Radial Drill Press Set Up Operator Name Role Phone Kamran Franks MD Primary Care Provider [phone] Reason for Visit * Reason Comments Follow-up Encounter Details Date Type Department Care Team (Latest Contact Info) Description 04/16/2019 14:30 EST Office Visit [facility] Occupational Medicine - [place] [address] [place] [address] Jorge Luis Mccray, PSYCH-CA [address] [place] [address] Somatic symptom disorder, mild, with predominant pain (Primary Dx); Post concussion syndrome Social History Tobacco Use Types Packs/Day Years [...] symptom disorder, mild, with predominant pain- Primary Post concussion syndrome Postconcussion syndrome documented in this encounter Care Teams Tool Radial Drill Press Set Up Operator Relationship Specialty Start Date End Date Kamran Franks MD [address] [place] [address] PCP - General 09/17/09 documented as of this encounter
--- OUTSIDE RECORDS SUMMARY | 2023-11-28 13:50 | XMS_ITS | Encounter Summary ---
Author Organization [facility] Address [facility] [place] [address] Care Team Providers Care Oil Pipeline Operator Name Role Phone Eva Dang MD Primary Care Provider [phone] Reason for Visit * Reason Comments Medication Refill Encounter Details Date Type Department Care Team (Late st Contact Info) Description 08/30/2020 Refill Neurology at [address] [address] Ursula Walters, MIREYA [facility] [place] [address] Chronic migraine without aura without status migrainosus, [...] encounter Miscellaneous Notes * Telephone Encounter - Patricia Mcintosh CMA - 09/01/2020 12:41 PM EDT Surescript request for : Aimovig Last rx: 08/25/19 Quantity: 1mL Refills: 11 From last note: Migraine Prevention Continue Aimovig 140mg subcu monthly injections Increase lisinopril 10mg daily Amitriptyline 25mg daily Magnesium 500mg daily Singulair 10mg nightly Last appt: 12/14/19 Next appt: due for an appt- msg sent to private secretary documented in this encounter Plan of Treatment Not on file documented as of this encounter Visit Diagnoses Diagnosis Chronic migraine without aura without status migrainosus, not intractable Chronic migraine without aura, without mention of intractable migraine without mention of status migrainosus documented in this encounter Care Teams Oil Pipeline Operator Relationship Specialty Start Date End Date Eva Dang MD [address] [place] [address] PCP - General Family Medicine 03/25/16 documented as of this encounter
--- OUTSIDE RECORDS SUMMARY | 2023-11-28 13:50 | XMS_ITS | Encounter Summary ---
Author Organization [facility] Address [address] [place] [address] Care Team Providers Care Plumbing Service Technician Name Role Phone Kamran Franks MD Primary Care Provider [phone] Encounter Details Date Type Department Care Team (Late st Contact Info) Description 05/01/2020 Lab Requisition [facility] Pathology & Laboratory Medicine - [facility] [address] [place] [address] Outr Resulting Lab, Provider Social History Tobacco Use Types Packs/Day Years [...] Procedure Name Priority Date/Time Associated Diagnosis Comments ZZCOVID-19 TEST [facility] PCR Today 05/01/2020 11:02 EST COVID-19 TESTING Routine 05/01/2020 11:0 2 EST documented in this encounter Results * COVID-19 TEST [facility] PCR (05/01/2020 11:02 EST) Swab ENTIRE NASOPHARYNX / Unknown 05/01/2020 11:02 EST 05/01/2020 20:53 EST Provider Outr Resulting Lab MICROBIOLOGY - GENERAL ORDERABLES Performing Organization Address [facility] Co de Phone Number [facility] [address] [place] [address] * COVID-19 TESTING (05/01/2020 11:02 EST) COVID-19 rt-PCR Result Negative Negative 05/02/2020 19:28 EST [facility] Comment: This test has not been FDA cleared or approved. This test has been authorized by FDA under an EUA for use by authorized laboratories. This test has been authorized only for detection of nucleic acid from 2019-nCoV, not for any other viruses or pathogens. This test is only authorized for the duration of the declaration that circumstances exist justifying the authorization of emergency use of in vitro diagnostic tests for detection and/or diagnosis of 2019-nCoV under section 564(b)(1) of Act, 21 U.S.C ?? 360bbb-3(b) (1), unless the authorization is terminated or revoked sooner. Negative results do not preclude 2019-nCoV infection and should not be used as the sole basis for treatment or other patient management decisions. Negative results must be combined with clinical observations, patient history, and epidemiological information. Performed on the [employer]per[employer]her Fusion instrument Performing Lab [place] [facility] 05/02/2020 19:28 EST [facility] Swab 05/01/2020 11:0 2 EST 05/01/2020 20:53 EST Provider Outr Resulting Lab MICROBIOLOGY - GENERAL ORDERABLES Performing Organization Address [facility] Co de Phone Number [facility] [address] [place] [address] documented in this encounter Visit Diagnoses Not on filedocumented in this encounter Care Teams Plumbing Service Technician Relationship Specialty Start Date End Date Kamran Franks MD [address] [place] [address] PCP - General 09/17/09 documented as of this encounter
--- OUTSIDE RECORDS SUMMARY | 2023-11-28 13:50 | XMS_ITS | Clinical Summary ---
Author Organization [facility] Address [address] [place] [address] Care Team Providers Care Organ Installer Name Role Phone Kamran Franks MD Primary Care Provider [phone] Allergies Active Allergy Reactions Criticality Noted Date [...] ICD10 Update Auto Replacement Congestive heart failure ([facility]) 10/17/2009 Osteopenia 10/17/2009 Amenorrhea 10/17/2009 Obesity 10/17/2009 [...] 11:09 EST Sexual Orientation Not on file Obstetrics History Last Filed Vital Signs Vital Sign Reading Time Taken Comments Blood Pressure 118/60 10/17/2009 0907 EDT Pulse 68 10/17/2009 0907 EDT Temperature - - Respiratory Rate - - Oxygen Saturation - - Inhaled Oxygen Concentration - - Weight 102.5 kg (226 lb) 10/17/2009 0907 EDT Height 165.1 cm (5' 5) 10/17/2009 0907 EDT Body Mass Index 37.61 10/17/2009 0907 EDT Plan of Treatment Health Maintenance Due Date Last Done Comments Hepatitis B Vaccine (1 of 3 - 19+ 3-dose series) 03/03 COVID-19 Vaccine (2022-24 season) 2023 Hepatitis C Screen Completed 09/12/2019 Procedures Procedure Name Priority Date/Time Associated Diagnosis Comments HEPATITIS C AB W REFLEX TO HCV RNA BY PCR Routine 09/12/2019 15:10 EDT from Last 3 Months or Most Recently Relevant to Health Maintenance Results * HEPATITIS C AB W REFLEX TO HCV RNA BY PCR (09/12/2019 15:10 EDT) Hep C Antibody Negative Negative 09/14/2019 10:37 EDT [facility] Blood VENOUS BLOOD / Unknown 09/12/2019 15:10 EDT 09/13/2019 16:19 EDT Provider Outr Resulting Lab CHEMISTRY & BLOOD GAS ORDERABLES [facility] [address] [place] [address] from Last 3 Months or Most Recently Relevant to Health Maintenance Care Teams Organ Installer Relationship Specialty Start Date End Date Kamran Franks MD [address] [facility] [place] [phone] PCP - General 09/17/09
--- OUTSIDE RECORDS SUMMARY | 2023-11-28 13:50 | XMS_ITS | Clinical Summary ---
Author Organization [facility] Address [facility] [place] [address] Care Team Providers Care Probate Clerk Name Role Phone Eva Dang MD Primary Care Provider [phone] Allergies Active Allergy Reactions Criticality Noted Date Comments Cephalexin Other (See Comments) Medium 10/17/2009 Patient unknown House Dust 10/17/2009 Medications Medication Sig Dispensed Refills Start Date End Date Status PROAIR HFA 90 mcg/actuation HFA Aerosol Inhaler Inhale 2 puffs into the lungs as needed. 0 06/04/2016 Active montelukast (SINGULAIR) 10 mg Tablet Take 10 mg by mouth nightly. 0 06/09/2016 Active riboflavin, vitamin B2, (VITAMIN B-2) 100 mg Tablet Take 200 mg by mouth 2 times daily. Active magnesium 250 mg Tablet Take 500 mg by mouth daily. Active fexofenadine (JANES) 180 mg Tablet Take 180 mg by mouth daily. Active rosuvastatin (CRESTOR) 20 mg Tablet Take 20 mg by mouth daily. Active fluticasone (FLONASE) 50 mcg/actuation Garrison, Suspension 1 spray by Each Nare route daily. 0 04/27/2018 Active amitriptyline (ELAVIL) 25 mg Tablet Take 25 mg by mouth daily. Active Armodafinil (NUVIGIL) 50 mg Tablet Take 3-5 tablets by mouth daily. 0 10/26/2018 Active Zinc Gluconate 30 mg Tablet Take 30 mg by mouth every other day. 0 08/28/2018 Active fluocinonide (LIDEX) 0.05 % Cream Apply topically as needed. Active naproxen sodium (ANAPROX) 550 mg TabletIndications: Migraine without aura and without status migrainosus, not intractable Take 1 tablet by mouth 2 times daily as needed. 60 tablet 12 11/14/2018 Active cyanocobalamin, vitamin B-12, 1,000 mcg Tablet Take 1,000 mcg by mouth daily. Active metFORMIN (GLUCOPHAGE) 500 mg Tablet Take 500 mg by mouth 2 times daily (with meals). Active fish oil-omega-3 fatty acids 1,000 mg Capsule Take 1 g by mouth 3 times daily. Active levothyroxine (SYNTHROID) 25 mcg Tablet Take 25 mcg by mouth daily. Active b complex vitamins Capsule Take 2 capsules by mouth daily. Active COCONUT OIL ORAL Take 1,000 mg by mouth 3 times daily. Active ramelteon (ROZEREM) 8 mg Tablet Take 8 mg by mouth as needed. 04/18/2019 Active lisinopriL (Prinivil;Zestril) 10 mg TabletIndications: Chronic migraine without aura without status migrainosus, not intractable Take 1 tablet by mouth daily. 90 tablet 5 12/14/2019 Active hydrOXYzine (VISTARIL) 25 mg CapsuleIndications :Intractable chronic post-traumatic headache,Migraine without aura and without status migrainosus, not intractable Take 1 capsule by mouth 2 times daily as needed (headache). 60 capsule 5 12/14/2019 Active Aimovig Autoinjector 140 mg/mL Auto-InjectorIndic ations:Chronic migraine without aura without status migrainosus, not intractable INJECT THE CONTENTS OF ONE PEN (140MG) SUBCUTANEOUSLY EVERY 30 DAYS. 1 Pen 7 09/01/2020 Active Active Problems Patient Care Coordination No te Formatting of this note migh t be different from the original. 10/02/20 Patient followed in the Adult [facility]. Stephenie So RN Problem Noted Date Diagnosed Date Adult congenital heart disease 10/02/2020 Diabetes mellitus 06/13/2017 Mild obstructive sleep apnea 11/03/2016 Concussion with no loss of consciousness 017 Work related injury 06/23/2016 Acute post-traumatic headache, not intractable 0 06/23/2016 Fatigue 06/23/2016 Attention or concentration deficit 06/23/2016 Head injury 01/26/2016 Overview (07/23/2016): 01/26/16 A heavy door closed and a ceiling tile fell on the top of her head. She reports that she had nausea and headache. Then after day 2, sx worsened; nausea, decreased balance, difficulty with communication Head CT within the first couple of weeks was nml. 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 No further Cardiology notes since 10-17-2009 08-17-16 ECHO (sub-optimal quality): Right lower pulmonary vein connects to left atrium. Possible proximal narrowing was inconsistently evident. Left lower pulmonary vein connects to left atrium without obstruction. No residual atrial septal defect. Right ventricular chamber size, wall thickness, estimated systolic pressure of 28 mm Hg plus right atrial pressure, septal position, and systolic performance appear normal. Left ventricular chamber size, wall thickness and systolic performance appear normal 08/17 through 08/31/2016 ZIO (holter): 3 brief (4-6 beats duration), relatively slow (average rates ~122-132/min) runs of apparently asymptomatic supraventricular tachycardia were recorded during sleeping hours. Otherwise normal study. Symptoms of pounding & shoulder blade pain with shortness of breath were associated with sinus rhythm. No SBE precautions. Daily exercise & weight loss recommended. Follow up 11-18-16 with cardiac MRI Depression Total anomalous pulmonary venous return Encounters Date Type Department Care Team Description 11/13/2023 Transcribe Orders eD Incoming Referrals [phone] Eva Dang MD Rash from Last 3 Months Immunizations Name Administration Dates Next Due Influenza Vaccine, Whole 2010 Family History Medical History Relation Comments Lung Cancer Father Myocardial Infarction Father Hypertension Mother Migraines Mother Asthma Paternal Grandmother Relation Status Comments Father Mother Paternal Grandmother Social History Tobacco Use Types Packs/Day Years Used Date Smoking Tobacco: Never Smokeless Tobacco: Never Alcohol Use Standard Drinks/Week Comments No 0 (1 standard drink = 0.6 oz pur e alcohol) Sex and Gender Information Value Date Recorded Sex Assigned at Not on file Gender Identity Female 09/26/2019 9:01 AM EDT Sexual Orientation Not on file Last Filed Vital Signs Vital Sign Reading Time Taken Comments Blood Pressure 152/70 12/14/2019 11:00 AM EDT Pulse 65 12/14/2019 11:00 AM EDT Temperature - - Respiratory Rate 20 08/17/2016 10:58 AM EDT Oxygen Saturation 97% 06/20/2017 9:57 AM EST Inhaled Oxygen Concentration - - Weight 104.3 kg (230 lb) 12/14/2019 10:28 AM EDT Height 167.6 cm (5' 6) 12/14/2019 10:28 AM EDT reported Body Mass Index 37.12 12/14/2019 10:28 AM EDT Plan of Treatment Health Maintenance Due Date Last Done Comments CT Colonography 1975 Colonoscopy 1975 Colorectal Cancer Screening 1975 FIT DNA 1975 FIT 1975 Sigmoidoscopy (10 year) with FIT yearly 1975 Sigmoidoscopy 1975 DM Hemoglobin A1c 1983 DM Opthalmology Exam 1983 DM Urine Microalbumin yearly 1983 HIV screen 1991 Hepatitis C Screening 1991 Hepatitis B vaccine (0-59 yrs) (1) 1992 Tdap adult 1992 Tetanus vaccine 1992 HPV test 2003 PAP Smear 2003 Breast Cancer Share Decision Needed 2013 Breast Cancer screening 2013 DM Creatinine yearly 11/15/2019 11/14/2018, 09/10/19 18 Covid-19 Vaccine (1 - 2022-24 season) 2023 Zoster vaccine (1 of 2) 2023 Influenza (Flu) vaccine (1 o f 1 - Influenza standard series) 01/08/2024 2010 Procedures Procedure Name Priority Date/Time Associated Diagnosis Comments BASIC METABOLIC PANEL (NON-FASTING) Routine 11/14/2018 9:02 AM EDT Migraine without aura and without status migrainosus, not intractable from Last 3 Months or Most Recently Relevant to Health Maintenance Results * (ABNORMAL) Basic Metabolic Panel (non-fasting) (11/14/2018 9:02 AM EDT) Glucose Lvl 190 65 - 199 mg/dL [facility] Comment:Diabetes: >=200 mg/d L plus symptoms BUN 7(L) 8 - 18 mg/dL [facility] Creatinine 0.66(L) 0.70 - 1.20 mg/dL [facility] Sodium 138 135 - 145 mmol/L [facility] Potassium 4.0 3.5 - 5.0 mmol/L [facility] Comment: Please note: ??Patients with WBC >100,000 may have falsely elevated Potassium levels. ??For accurate Potassium quantification in these patients send serum separator tube (gold top) for subsequent determinations. ??Contact the Clinical Chemistry Laboratory if there are any questions. Chloride 101 98 - 107 mmol/L [facility] CO2 25 22 - 31 mmol/L [facility] Anion Gap 12 5 - 15 mmol/L [facility] Calcium 9.4 8.5 - 10.5 mg/dL [facility] Estimated GFR 107 >=60 mL/min/1. 73 m?? [facility] Comment: The eGFR was calculated using the CKD-EPI equation. As with all creatinine based estimates of kidney function, eGFR values calculated with the CKD-EPI equation are not accurate in patients with acute kidney failure, extremes of body mass or the acutely ill. http://Flatora/[email or web address] eGFR 124 >=60 mL/min/1. 73 m?? [facility] Comment: The eGFR was calculated using the CKD-EPI equation. As with all creatinine based estimates of kidney function, eGFR values calculated with the CKD-EPI equation are not accurate in patients with acute kidney failure, extremes of body mass or the acutely ill. http://Probity.com/[email or web address] Blood specimen (specimen) 11/14/2018 9:02 AM EDT 11/14/2018 9:12 AM EDT Narrative Resulting Agency Comment Spec In Lab Ursula Walters SILK BRUSHER CHEMISTRY ORDERAB LES [facility] [place] [address] from Last 3 Months or Most Recently Relevant to Health Maintenance Care Teams Probate Clerk Relationship Specialty Start Date End Date Eva Dang MD [address] [place], [place] [id number] PCP - General Family Medicine 03/25/16
--- OUTSIDE RECORDS SUMMARY | 2023-11-28 13:50 | XMS_ITS | Encounter Summary ---
[place] [address] Care Team Providers Care Synchronous Motor Assembler Name Role Phone Eva Dang MD Primary Care Provider [phone] Reason for Visit * Reason Comments Medication Management Patient Education Encounter Details Date Type Department Care Team (Late st Contact Info) Description 04/25/2019 Specialty [place] [address] Jeancarlos Olivera [facility] Social History Tobacco Use Types Packs/Day Years [...] this encounter Progress Notes * Jeancarlos Olivera [facility] - 04/25/2019 4:07 PM EST Clinical Management Plan: MIDAS Assessment Specialty Pharmacy Consultation; Jeancarlos Olivera [facility] Comprehensive Medication Management (CMM) Sarah Robles MsAngelito Sarah M Travis is a 44 y.o. (1975) female who was contacted in regard to a specialty medication assessment. Spoke with patient referencing use of aimovig. Most Recent MIDAS: 11/14/18 score 42 Migraine Disability Assessment # of days in the past 3 months 1. Missed work / school because of GARCIA 3 2. Productivity at work / school reduced by > half because of GARCIA (do not count days from Q.1) 4 3. Did not do housework because of GARCIA 2 4. Productivity in household work reduced by > half because of GARCIA (do not count days from Q.3) 0 5. Missed family / social / leisure activities because of GARCIA 1 Total 10 MIDAS grade (use total of Q1 to 5) I: 0-5, little to no disability II: 6-10, mild disability III: 11-20, moderate disability IV: 21+, severe disability A. # of days in the last 3 months with a GARCIA (count each day if GARCIA lasted > 1 day) 15 B. Average GARCIA intensity (0-10) 4 Follow-up Questions on CGRP Inhibitor Therapy: Current therapy: aimovig 140mg subq once monthly Number of months using current therapy: 10 How many migraine days per month did you have before using current therapy: 15 How many migraine days per month have you had since starting current therapy: 3 Have you noticed that your migraines are not as severe since starting current therapy: yes Have you used less of your abortive / rescue medications (triptans, NSAID, etc) since starting current therapy: yes Are your abortive / rescue medications working better to abort migraines since starting current therapy? no Do you think the current therapy is helping? yes Pt understands no changes to current drug regimen were made at the appointment and that [facility] is completing an assessment (summary located at top of note) for provider review and follow up. Jeancarlos Olivera RPH 04/25/19 4:07 PM documented in this encounter Plan of Treatment Not on file documented as of this encounter Visit Diagnoses Not on filedocumented in this encounter Care Teams Synchronous Motor Assembler Relationship Specialty Start Date End Date Eva Dang MD [address] [place] [address] PCP - General Family Medicine 03/25/16 documented as of this encounter
--- OUTSIDE RECORDS SUMMARY | 2023-11-28 13:50 | XMS_ITS | Encounter Summary ---
Author Organization Counts Include [facility] Address [facility] [place] [address] Care Team Providers Care Reel Operator Name Role Phone Eva Dang MD Primary Care Provider [phone] Encounter Details Date Type Department Care Team (Late st Contact Info) Description 11/06/2019 Telephone Neurology at [address] [address] Ursula Walters APRN [facility] [place] [address] Social History Tobacco Use Types Packs/Day Years [...] encounter Miscellaneous Notes * Telephone Encounter - Christa Rodarte - 11/06/2019 1:12 PM EDT Lynette Meyers APRN has requested that the Currently Scheduled Neurology visit be rescheduled into a virtual visit. If patient agrees to this virtual visit after answering technology assessment questions, please addnote to this encounter documenting agreement and cancel and reschedule appointment as noted below. * Change Length of Visit to match currently scheduled visit length First Preference: Telehealth Follow Up ([facility]) Second Preference: In Person (Move to another day) If a Telephone Office Visit is scheduled, please advise patient that they should be hearing from someone in the Neurology department a day prior to their appointment to review some clinical information in preparation for their visit with the provider the following day and to remove any filter for receiving calls from blocked numbers. If patient declines Telehealth appointment: - Cancel appointment - Document patient declined in this encounter - Sign encounter and forward to Provider listed above documented in this encounter Plan of Treatment Not on file documented as of this encounter Visit Diagnoses Not on filedocumented in this encounter Care Teams Reel Operator Relationship Specialty Start Date End Date Eva Dang MD [facility] [address] [place] [address] PCP - General Family Medicine 03/25/16 documented as of this encounter
--- OUTSIDE RECORDS SUMMARY | 2023-11-28 13:50 | XMS_ITS | Encounter Summary ---
[place] [address] Care Team Providers Care Insurance Verification Specialist Name Role Phone Eva Dang MD Primary Care Provider [phone] Reason for Visit * Reason Onset Date Comments Prior Authorization 08/24/2019 Aimovig Encounter Details Date Type Department Care Team (Late st Contact Info) Description 08/24/2019 [place] [address] Дмитрий Schwartz Prior Authorization (Aimovig) Social History Tobacco Use Types Packs/Day Years [...] encounter Miscellaneous Notes * Telephone Encounter - Дмитрий Schwartz - 08/24/2019 12:47 PM EDT [facility], Medication Prior Authorization Request Patient: Sarah Juarezwell Patient : 1975 Patient Address: [address] [place] [address] (home) Medication: Aimovig Medication Strength Frequency Requested: 140mg/mL auto-injector - 140mg every 30 days Qty/Day Supply: 06/07 New Start: No Diagnosis & ICD-10 Code: Migraine without aura and without status migrainosus, not intractable G43.009 Subscriber Insurance: [employer] Fax: Physician: Ursula Walters PA Status: NO PA REQUIRED FILLABLE AT [facility]? yes INSURANCE REQUIREMENTS: N/A COPAY: $20 COPAY ASSISTANCE NEEDED?: If needed will suggest re-enrollment in the [employer] copay card. NOTES: The Aimovig won't require a PA at this time, with a $20 copay through the [employer] insurance (Tier 2 on plan). documented in this encounter Plan of Treatment Not on file documented as of this encounter Visit Diagnoses Not on filedocumented in this encounter Care Teams Insurance Verification Specialist Relationship Specialty Start Date End Date Eva Dang MD [address] [place] [address] PCP - General Family Medicine 03/25/16 documented as of this encounter
--- OUTSIDE RECORDS SUMMARY | 2023-11-28 13:50 | XMS_ITS | Encounter Summary ---
Author Organization [facility] Address [address] [place] [address] Care Team Providers Care Temporary Administrative Assistant Name Role Phone Kimo Clarke MD Primary Care Provider [phone] Encounter Details Date Type Department Care Team (Late st Contact Info) Description 07/27/2001 Results Only [facility] [address] [place] [address] Kimo Clarke MD [address] [place] [id number] Social History Tobacco Use Types Packs/Day Years Used Date Smoking Tobacco: Never Assessed Sex and Gender Information Value Date Recorded Sex Assigned at Not on file Gender Identity Female 04/14/2019 11:09 EST Sexual Orientation Not on file documented as of this encounter Plan of Treatment Not on file documented as of this encounter Procedures Procedure Name Priority Date/Time Associated Diagnosis Comments CYTOPATHOLOGY Routine 07/27/2001 0:00 EST documented in this encounter Results * CYTOPATHOLOGY (07/27/2001 0:00 EST) Pathology Report: CYTOPATHOLOGY REPORT Reports generated via electronic interface contain original data; however they are lacking the format of the original report. Caution should be taken when reading/interpreti ng unformatted reports. Name: ? SARAH SCHERER ? Accession #: ? [id number] : ? 1975 (Age: 26) ??F ?Collect Date: ? 07/27/2001 Location: ? [facility] ? Receive Date: ? 07/31/2001 Provider: ?KIMO CLARKE MD Copy to: ? Specimen/Source: ?ThinPrep Pap Test, Cervix/Endocervix Last Menstrual Period: ? 05/20/01 Menstrual/Pregnanc y Status: ? Previous Gynecologic Pathology: ? ASC-US: 1991 Treatment History: ? Cryotherapy: Cervical dysplasia 1991 ? SPECIMEN ADEQUACY ? Satisfactory for Evaluation - transformation zone component present GENERAL CATEGORIZATION ? Negative for Intraepithelial Lesion or Malignancy ? Document reviewed and electronically signed by: ? MAGO Mon(ASCP) ? Report Date: ??08/03/2001 07:16 End of Report [facility] 07/27/2001 07/31/2001 Kimo Clarke MD PATHOLOGY ORDERABLES Performing Organization Address City/State/[facility] Co de Phone Number FERRERKHADAR [facility] [address] [place] [address] documented in this encounter Visit Diagnoses Not on filedocumented in this encounter Care Teams Temporary Administrative Assistant Relationship Specialty Start Date End Date Kimo Clarke MD [address] [place] [id number] PCP - General 09/17/09 documented as of this encounter
--- OUTSIDE RECORDS SUMMARY | 2023-11-28 13:50 | XMS_ITS | Encounter Summary ---
Author Organization [facility] Address [facility] [place] [address] Care Team Providers Care Gang Worker Name Role Phone Eva Dang MD Primary Care Provider [phone] Encounter Details Date Type Department Care Team (Late st Contact Info) Description 09/04/2020 Telephone Neurology at [address] [address] Ursula Walters APRN [facility] [place] [address] Social History Tobacco Use Types Packs/Day Years [...] encounter Miscellaneous Notes * Telephone Encounter - Dot Nicolas RN - 09/04/2020 10:44 AM EDT Notified by [facility] Pharm[facility] that patient no longer has insurance. [employer] application for financial assistance for Aimovig mailed to Sarah asking her to fill the application out completely and return in the envelope provided along with proof of income. documented in this encounter Plan of Treatment Not on file documented as of this encounter Visit Diagnoses Not on filedocumented in this encounter Care Teams Gang Worker Relationship Specialty Start Date End Date Eva Dang MD [facility] [address] [facility] [address] [place] [address] PCP - General Family Medicine 03/25/16 documented as of this encounter
--- OUTSIDE RECORDS SUMMARY | 2023-11-28 13:50 | XMS_ITS | Encounter Summary ---
Author Organization [facility] Address [address] [place] [address] Care Team Providers Care Assistant Field Hockey Coach Name Role Phone Kamran Franks MD Primary Care Provider [phone] Encounter Details Date Type Department Care Team (Late st Contact Info) Description 09/13/2019 Lab Requisition [facility] Pathology & Laboratory Medicine - [facility] [address] [place] [address] Outr Resulting Lab, Provider Social History Tobacco [...] RNA BY PCR Routine 09/12/2019 15:10 EDT HEPATITIS B SURFACE ANTIBODY Routine 09/12/2019 15:10 EDT HEPATITIS B SURFACE ANTIGEN Routine 09/12/2019 15:10 EDT documented in this encounter Results * HEPATITIS B SURFACE ANTIBODY (09/12/2019 15:10 EDT) Hep B Surface Ab, Quantitative 15.6 See Note mIU/mL 09/14/2019 9:42 EDT [facility] Comment: Reference Range for Hep B Surface Ab, Quant: Positive: >= 10.0 mIU/mL Negative: ??< 10.0 mIU/mL Patient is presumed to be immune to infection with Hepatitis B Virus. Hep B Surface Ab, Qualitative Positive See Note 09/14/2019 9:42 EDT [facility] Comment: Reference Range for Hep B Surface Ab, Qual: Unvaccinated: ??Negative Vaccinated: ??Positive Blood VENOUS BLOOD / Unknown 09/12/2019 15:10 EDT 09/13/2019 16:19 EDT Provider Outr Resulting Lab CHEMISTRY & BLOOD GAS ORDERABLES Performing Organization Address City/[facility]/ZIP Co de Phone Number [facility] [address] [place] [address] * HEPATITIS B SURFACE ANTIGEN (09/12/2019 15:10 EDT) Hep B Surface Ag Negative Negative 09/14/2019 9:43 EDT [facility] Blood VENOUS BLOOD / Unknown 09/12/2019 15:10 EDT 09/13/2019 16:19 EDT Provider Outr Resulting Lab CHEMISTRY & BLOOD GAS ORDERABLES Performing Organization Address [facility] Co de Phone Number [facility] [address] [place] [id number] * HEPATITIS C AB W REFLEX TO HCV RNA BY PCR (09/12/2019 15:10 EDT) Hep C Antibody Negative Negative 09/14/2019 10:37 EDT [facility] Blood VENOUS BLOOD / Unknown 09/12/2019 15:10 EDT 09/13/2019 16:19 EDT Provider Outr Resulting Lab CHEMISTRY & BLOOD GAS ORDERABLES Performing Organization Address [facility] Co de Phone Number [facility] [address] [place] [address] documented in this encounter Visit Diagnoses Not on filedocumented in this encounter Care Teams Assistant Field Hockey Coach Relationship Specialty Start Date End Date Kamran Franks MD [address] [place] [address] PCP - General 09/17/09 documented as of this encounter
--- OUTSIDE RECORDS SUMMARY | 2023-11-28 13:50 | XMS_ITS | Encounter Summary ---
Author Organization [facility] Address [address] [place] [address] Care Team Providers Care Court Crier Name Role Phone Kimo Clarke MD Primary Care Provider Encounter Details Date Type Department Care Team (Late st Contact Info) Description 09/15/2010 Results Only [facility] [place] [place] [address] [place], [place] [id number] Kimo Clarke MD [address] [place] [phone] Social History Tobacco Use Types Packs/Day Years [...] Diagnosis Comments PAP TEST- RESULT ONLY Routine 09/15/2010 0:00 EDT documented in this encounter Results * PAP TEST- RESULT ONLY (09/15/2010 0:00 EDT) Pathology Report: CYTOPATHOLOGY REPORT ? Reports generated via electronic interface contain original data; ? however they are lacking the format of the original report. ? Caution should be taken when reading/interpreti ng unformatted reports. ? Name: ? SARAH SCHERER ? Accession #: ? [id number] ? : ? 1975 (Age: 35) ??F ?Collect Date: ? 09/15/2010 ? Location: ? [facility] ? Receive Date: ? 09/17/2010 ? Provider: ?KIMO CLARKE MD ? Copy to: ? Specimen/Source: ?Pap Test, Cervix/Endocervix, ThinPrep Imaging System ? with manual evaluation ? Last Menstrual Period: ? 04/25/11 ? SPECIMEN ADEQUACY ? Satisfactory for Evaluation ? - transformation zone component present ? GENERAL CATEGORIZATION ? Negative for Intraepithelial Lesion or Malignancy ? Document reviewed and electronically signed by: ? Lynan Geovanny, CT(ASCP) ? Report Date: ??09/22/2010 10:01 ? End of Report ? [facility] 09/15/2010 09/17/2010 Kimo Clarke MD PATHOLOGY ORDERABLES Performing Organization Address City/State/[facility] Co de Phone Number [facility] [address] [place] [address] documented in this encounter Visit Diagnoses Not on filedocumented in this encounter Care Teams Court Crier Relationship Specialty Start Date End Date Kimo Clarke MD [address] [place] [phone] PCP - General 09/17/09 documented as of this encounter
--- OUTSIDE RECORDS SUMMARY | 2023-11-28 13:50 | XMS_ITS | Encounter Summary ---
Author Organization [facility] Address [facility] [place] [address] Care Team Providers Care Battery Assembler Name Role Phone Eva Dang MD Primary Care Provider [phone] Reason for Visit * Reason Onset Date Comments Medication Refill 08/24/2019 Encounter Details Date Type Department Care Team (Late st Contact Info) Description 08/24/2019 Refill Neurology at [address] [phone] Ursula Walters APRN [facility] [place] [address] Chronic migraine without aura without status migrainosus, [...] migrainosus documented in this encounter Care Teams Battery Assembler Relationship Specialty Start Date End Date Eva Dang MD [facility] L[address]IS [address]A [address] [place], [place] [address] PCP - General Family Medicine 03/25/16 documented as of this encounter
--- OUTSIDE RECORDS SUMMARY | 2023-11-28 13:50 | XMS_ITS | Encounter Summary ---
Author Organization [facility] Address [address] [place] [address] Care Team Providers Care Dental Tech Name Role Phone Kimo Clarke MD Primary Care Provider [phone] Encounter Details Date Type Department Care Team (Late st Contact Info) Description 05/28/2004 Results Only [facility] [address] [place] [address] Kimo Clarke MD [address] [place] [phone] Social History Tobacco Use Types Packs/Day Years Used Date Smoking Tobacco: Never Assessed Sex and Gender Information Value Date Recorded Sex Assigned at Not on file Gender Identity Female 04/14/2019 11:09 EST Sexual Orientation Not on file documented as of this encounter Plan of Treatment Not on file documented as of this encounter Procedures Procedure Name Priority Date/Time Associated Diagnosis Comments CYTOPATHOLOGY Routine 05/28/2004 0:00 EST documented in this encounter Results * CYTOPATHOLOGY (05/28/2004 0:00 EST) Pathology Report: CYTOPATHOLOGY REPORT Reports generated via electronic interface contain original data; however they are lacking the format of the original report. Caution should be taken when reading/interpreti ng unformatted reports. Name: ? SARAH SCHERER ? Accession #: ? [id number] : ? 1975 (Age: 29) ??F ?Collect Date: ? 05/28/2004 Location: ? [facility] ? Receive Date: ? 06/01/2004 Provider: ?KIMO CLARKE MD Copy to: ? Specimen/Source: ?ThinPrep Pap Test, Cervix/Endocervix Last Menstrual Period: ? Menstrual/Pregnanc y Status: ? Post Previous Gynecologic Pathology: ? Yes: 1991 Other: ? HPVA - HPV testing requested if ASC-US on the current ThinPrep Pap test. ? SPECIMEN ADEQUACY ? Satisfactory for Evaluation - transformation zone component present GENERAL CATEGORIZATION ? Negative for Intraepithelial Lesion or Malignancy ? Document reviewed and electronically signed by: ? MAGO Nye(ASCP) ? Report Date: ??06/03/2004 10:16 End of Report [facility] 05/28/2004 06/01/2004 Kimo Clarke MD PATHOLOGY ORDERABLES Performing Organization Address City/State/[facility] Co de Phone Number [facility] [address] [place] [address] documented in this encounter Visit Diagnoses Not on filedocumented in this encounter Care Teams Dental Tech Relationship Specialty Start Date End Date Kimo Clarke MD [address] [place] [address] PCP - General 09/17/09 documented as of this encounter
--- OUTSIDE RECORDS SUMMARY | 2023-11-28 13:50 | XMS_ITS | Encounter Summary ---
Author Organization [facility] Address [address] [place] [address] Care Team Providers Care General Surgery Physician Assistant Name Role Phone Kimo Clarke MD Primary Care Provider [phone] Encounter Details Date Type Department Care Team (Late st Contact Info) Description 07/28/2000 Results Only [facility] [address] [place] [address] Kimo Clarke MD [address] [place] [phone] Social History Tobacco Use Types Packs/Day Years Used Date Smoking Tobacco: Never Assessed Sex and Gender Information Value Date Recorded Sex Assigned at Not on file Gender Identity Female 04/14/2019 11:09 EST Sexual Orientation Not on file documented as of this encounter Plan of Treatment Not on file documented as of this encounter Procedures Procedure Name Priority Date/Time Associated Diagnosis Comments CYTOPATHOLOGY Routine 07/28/2000 0:00 EST documented in this encounter Results * CYTOPATHOLOGY (07/28/2000 0:00 EST) Pathology Report: CYTOPATHOLOGY REPORT Reports generated via electronic interface contain original data; however they are lacking the format of the original report. Caution should be taken when reading/interpreti ng unformatted reports. Name: ? SARAH SCHERER ? Accession #: ? [id number] : ? 1975 (Age: 25) ??F ?Collect Date: ? 07/28/2000 Location: ? [facility] ? Receive Date: ? 08/01/2000 Provider: ?KIMO CLARKE MD Copy to: ? Specimen/Source: ?Conventional Pap Test, Cervix/Endocervix Last Menstrual Period: ? 07/11/00 Previous Gynecologic Pathology: ? LSIL: 10 Years ago ? SPECIMEN ADEQUACY ? Satisfactory for evaluation. GENERAL CATEGORIZATION ? Within Normal Limits ? Document reviewed and electronically signed by: ? Harriet Torres, ??SCT(ASCP) ? Report Date: ??08/02/2000 14:27 End of Report [facility] 07/28/2000 08/01/2000 Kimo Clarke MD PATHOLOGY ORDERABLES Performing Organization Address City/State/[facility] Co de Phone Number [facility] [address] [place] [address] documented in this encounter Visit Diagnoses Not on filedocumented in this encounter Care Teams General Surgery Physician Assistant Relationship Specialty Start Date End Date Kimo Clarke MD [address] [place] [address] PCP - General 09/17/09 documented as of this encounter
--- OUTSIDE RECORDS SUMMARY | 2023-11-28 13:50 | XMS_ITS | Encounter Summary ---
Author Organization [facility] [place] [address] Care Team Providers Care Field Installer Name Role Phone Eva Dang MD Primary Care Provider [phone] Reason for Referral * Consultation (Routine) - Authorized Specialty Diagnoses / Procedures Referred By Angy munroe Referred To Contact Dermatology Diagnoses Rash RASH AT BASE OF SCALP BEHIND BOTH EARS DID NOT RESPOND TO BETAMETHASONE DIPROPIONATE .05% Eva Dang MD [address] [place] [address] [facility] [address] [place] [address] Referral ID Status Reason Start Date Expiration Date Visits Requested Visits Authorized [id number] Authorized Consult, Test & Treat PCP Updated and/or Approved 11/13/2023 11/12/2024 6 6 Encounter Details Date Type Department Care Team (Late st Contact Info) Description 11/13/2023 Transcribe Orders eDH Incoming Referrals [phone] Eva Dang MD [address] [place] [address] Rash Social History Tobacco Use Types Packs/Day Years [...] Scheduled Referrals Name Type Priority Associated Diagnoses Order Schedule Referral to Dermatology Outpatient Referral Routine Rash Ordered: 11/13/2023 documented as of this encounter Visit Diagnoses Diagnosis Rash Rash and other nonspecific skin eruption documented in this encounter Care Teams Field Installer Relationship Specialty Start Date End Date Eva Dang MD [facility] [address] [place] [address] PCP - General Family Medicine 03/25/16 documented as of this encounter
--- OUTSIDE RECORDS SUMMARY | 2023-11-28 13:50 | XMS_ITS | Encounter Summary ---
Author Organization [facility] [place] [address] Care Team Providers Care Director Mortgage Name Role Phone Eva Dang MD Primary Care Provider [phone] Reason for Visit * Reason Onset Date Comments Appointment 10/13/2020 Patient is due f or a follow up appointment Encounter Details Date Type Department Care Team (Late st Contact Info) Description 10/13/2020 Telephone Pediatric Cardiology at [address] [phone] Stephenie So, KEENAN Appointment (Patient is due for a follow up appointment ) Social History Tobacco Use Types Packs/Day Years [...] encounter Miscellaneous Notes * Telephone Encounter - Stephenie So RN - 10/13/2020 12:50 PM EDT Images from the original note were not included. Patient is on the recall list for follow up with Dr. Davies. Dr. Kodi Montes reviewed this recall since Dr. Davies has retired. This is Dr. Montes's recommendation: Kodi Montes MD Tighe, Christine L, RN; Irene Razo Lets just see her routine next available with an ECG, echo, OV with me. Call placed to mobile phone listed in chart. Left message on unidentified voice mail to please return my call. Message sent via [employer] as well. documented in this encounter Plan of Treatment Not on file documented as of this encounter Visit Diagnoses Not on filedocumented in this encounter Care Teams Director Mortgage Relationship Specialty Start Date End Date Eva Dang MD [facility] LUPIS HARTLEY [facility] [address] [place] [address] PCP - General Family Medicine 03/25/16 documented as of this encounter
--- OUTSIDE RECORDS SUMMARY | 2023-11-28 13:50 | XMS_ITS | Encounter Summary ---
Author Organization Count Includes [facility] Address [facility] [place] [address] Care Team Providers Care Theatre Professor Name Role Phone Eva Dang MD Primary Care Provider [phone] Reason for Visit * Consultation (Routine) - Closed Specialty Diagnoses / Procedures Referred By Angy munroe Referred To Contact Neurology Diagnoses BILAT HAND PAIN AND BURNING Procedures NERVE CONDUCTION STUDIES Joseph Pyle MD [address] [place] [address] Mima Woodson MD [facility] [place] [address] Referral ID Status Reason Start Date Expiration Date V isits Requested Visits Authorized [id number] Closed Consult, Test & Treat [facility] PCP Updated and/or Approved 07/13/2019 07/12/2020 1 1 Encounter Details Date Type Department Care Team (Latest Contact Info) Description 10/02/2019 10:15 AM EDT Procedure visit Neurology at [facility] [place] [address] Rafy Persaud MD [facility] [place] [address] Carpal tunnel syndrome, bilateral Social History Tobacco Use Types Packs/Day Years [...] Sign Reading Time Taken Comments Blood Pressure 134/78 10/02/2019 9:51 AM EDT Pulse - - Temperature - - Respiratory Rate - - Oxygen Saturation - - Inhaled Oxygen Concentration - - Weight 102.1 kg (225 lb) 10/02/2019 9:51 AM EDT Height 167.6 cm (5' 6) 10/02/2019 9:51 AM EDT Body Mass Index 36.32 10/02/2019 9:51 AM EDT documented in this encounter Progress Notes * Rafy Persaud MD - 10/02/2019 10:15 AM [place] [address] EMG/NCS REPORT 10/02/2019 Patient name: Sarah Robles Date of : 1975 Referring provider: Joseph Pyle MD [address] [place] [address] History and Examination: She has history of bilaterally carpal tunnel which worsened with job related activities. She saw orthopedics who suspected CTS and referred here for evaluation. She has chronic neck issues. On examination no significant weakness or wasting. Mild neck tenderness R. Symmetric DTRs. Tinel's negative. BP 134/78 Ht 167.6 cm (5' 6) Wt 102.1 kg (225 lb) BMI 36.32 kg/m?? Nerve Conduction Studies For sensory nerve conduction studies, the amplitude is measured [id number], the latency reported is the distal peak latency, and the conduction velocity, if measured, is determined from onset latencies and is over the extremity. For motor nerve conduction studies, the amplitude is measured [id number], the latency reported is the distal onset latency,the conduction velocity is calculated over the extremity, and the F wave latency is the minimum latency. Unless otherwise noted, the upper limb temperature was maintained above 31 degrees Celsius and lower limb above 30 degrees. Technologist: JILLIAN [facility] Nerve / Sites Rec. Site Peak Lat PUBLIC AID ELIGIBILITY ASSISTANT Amp Ref. Distance Onset Aden Ref. ms ??V ??V mm m/s m/s L Median - Ortho-Anti (Mid palm, Dig II) Mid Palm Wrist 2.7 56.3 ?45.0 70 33.6 ?45.0 Dig II Wrist 4.1 13.8 ?6.0 125 36.6 ?45.0 R Median - Ortho-Anti (Mid palm, Dig II) Mid Palm Wrist 2.3 69.2 ?45.0 60 39.5 ?45.0 L Ulnar - Ortho-Anti (Dig V) Dig V Wrist 2.1 10.5 ?5.0 100 57.8 ?45.0 MNC Nerve / Sites Muscle Latency Ref. Amplitude Ref. Distance Velocity Ref. ms ms mV mV mm m/s m/s L Median - APB Wrist APB 5.4 ?4.2 5.1 ?4.5 80 Elbow APB 9.4 5.0 ?4.5 200 49.0 ?43.0 R Median - APB Wrist APB 4.8 ?4.2 7.7 ?4.5 80 L Ulnar - ADM Wrist ADM 2.9 ?3.9 12.2 ?4.5 80 B.Elbow ADM 6.4 11.8 ?4.5 190 54.3 ?50.0 A.Elbow ADM 8.3 11.6 ?4.5 100 51.6 ?50.0 F Wave Nerve F Lat Ref. M Lat Min M Lat ms ms ms ms L Median - APB 30.1 ?32.0 5.4 5.4 L Ulnar - ADM 26.9 ?32.0 3.0 3.0 Electromyography The study was performed with a concentric needle electrode. Fibrillation and fasciculation activityis graded from none (0) to continuous (4+). The configuration and recruitment pattern of motor unitaction potentials under voluntary control are described in the accompanying report. EMG Summary Table Spontaneous Activity Volitional MUAPs Muscle Fibs PSW Fasc Poly Amp Dur Recruit Activation L. FDI 0 0 0 NL NL NL Full MAX L. APB 0 0 0 NL NL NL Full MAX R. APB 0 0 0 NL NL NL Full MAX R. FDI 0 0 0 NL NL NL Full MAX Findings ??? Bilateral prolonged distal median motor latencies with slowing of median sensory CV ??? Normal ulnar motor and sensory study on left. ??? Needle examination with a concentric needle electrode of bilateral FDI and APB didn't show any denervation changes. Diagnostic Interpretation The study was ABNORMAL. 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 Rafy Persaud MD Department of Neurology [facility] documented in this encounter Plan of Treatment Not on file documented as of this encounter Visit Diagnoses Diagnosis Carpal tunnel syndrome, bilateral Carpal tunnel syndrome documented in this encounter Care Teams Theatre Professor Relationship Specialty Start Date End Date Eva Dang MD [facility] LUPIS HARTLEY [facility] [address] [place] [address] PCP - General Family Medicine 03/25/16 documented as of this encounter
--- OUTSIDE RECORDS SUMMARY | 2023-11-28 13:50 | XMS_ITS | Encounter Summary ---
Author Organization [facility] Address [address] [place] [address] Care Team Providers Care Complex Commercial Litigation Paralegal Name Role Phone Unavailable Primary Care Provider Unavailabl e Encounter Details Date Type Department Care Team (Late st Contact Info) Description 09/04/1999 12:31 EDT Hospital Encounter [facility] [address] [place] [address] Yamilex Tijerina MD [address] [place] [phone] Social History Tobacco Use Types Packs/Day Years [...]
--- OUTSIDE RECORDS SUMMARY | 2023-11-28 13:50 | XMS_ITS | Encounter Summary ---
Author Organization [facility] [place] [address] Care Team Providers Care Air Traffic Coordinator Name Role Phone Eva Dang MD Primary Care Provider [phone] Reason for Visit * Reason Onset Date Comments Appointment 09/02/2020 Encounter Details Date Type Department Care Team (Late st Contact Info) Description 09/02/2020 Telephone Neurology at [address] [phone] Ursula Walters APRN [facility] [place] [address] Appointment Social History Tobacco Use Types Packs/Day Years [...] encounter Miscellaneous Notes * Telephone Encounter - Mary Gonzalez - 09/02/2020 10:34 AM EDT 1st attempt to contact patient Left message on patient's mobile phone. Scheduling Instructions Provider: Lynette Walters Visit Type (paste ROMANA Instructions or manually enter): FUV Appt Note: 6 month follow up Additional Info Needed: * Telephone Encounter - Eva Cruz - 09/02/2020 10:34 AM EDT Sent appointment reminder letter and message to [facility] 09.22.2020 documented in this encounter Plan of Treatment Not on file documented as of this encounter Visit Diagnoses Not on filedocumented in this encounter Care Teams Air Traffic Coordinator Relationship Specialty Start Date End Date Eva Dang MD [facility] [address] [place] [address] PCP - General Family Medicine 03/25/16 documented as of this encounter
--- OUTSIDE RECORDS SUMMARY | 2023-11-28 13:50 | XMS_ITS | Encounter Summary ---
Author Organization [facility] Address [address] [place] [address] Care Team Providers Care Blind Escort Name Role Phone Unavailable Primary Care Provider Unavailabl e Encounter Details Date Type Department Care Team (Late st Contact Info) Description 09/11/2009 Results Only [facility] - [facility] ([facility]) [address] [place], [place] [address] Kimo Clarke MD [address] [place] [phone] Social History Tobacco Use Types Packs/Day Years Used Date Smoking Tobacco: Never Assessed Sex and Gender Information Value Date Recorded Sex Assigned at Not on file Gender Identity Female 04/14/2019 11:09 EST Sexual Orientation Not on file documented as of this encounter Plan of Treatment Not on file documented as of this encounter Procedures Procedure Name Priority Date/Time Associated Diagnosis Comments CYTOPATHOLOGY Routine 09/11/2009 0:00 EDT documented in this encounter Results * CYTOPATHOLOGY (09/11/2009 0:00 EDT) Pathology Report: CYTOPATHOLOGY REPORT ? Reports generated via electronic interface contain original data; ? however they are lacking the format of the original report. ? Caution should be taken when reading/interpreti ng unformatted reports. ? Name: ? GILMER, SARAH Garzon ? Accession #: ? [id number] ? : ? 1975 (Age: 34) ??F ?Collect Date: ? 09/11/2009 ? Location: ? [facility] ? Receive Date: ? 09/15/2009 ? Provider: ?KIMO CLARKE MD ? Copy to: ? Specimen/Source: ?Pap Test, Cervix/Endocervix, ThinPrep Imaging System ? with manual evaluation ? Last Menstrual Period: ? 04.26.10 ? Other: ? HPVA - HPV testing requested if ASC-US on the current ThinPrep Pap test. ? SPECIMEN ADEQUACY ? Satisfactory for Evaluation ? - transformation zone component present ? GENERAL CATEGORIZATION ? Negative for Intraepithelial Lesion or Malignancy ? Document reviewed and electronically signed by: ? Stacy Dawit, CT(ASCP) ? Report Date: ??09/22/2009 10:15 ? End of Report ? [facility] 09/11/2009 09/15/2009 Kimo Clarke MD PATHOLOGY ORDERABLES [facility] [address] [place] [address] documented in this encounter Visit Diagnoses Not on filedocumented in this encounter
--- OUTSIDE RECORDS SUMMARY | 2023-11-28 13:50 | XMS_ITS | Encounter Summary ---
Author Organization [facility] Address [address] [place] [address] Care Team Providers Care Topline Beading Machine Tender Name Role Phone Kamran Franks MD Primary Care Provider Encounter Details Date Type Department Care Team (Late st Contact Info) Description 10/08/2009 Results Only [facility] Laboratory Services - [facility] ([facility]) [address], [place] [address] Toby Fall MD [address] [place] [id number] Social History Tobacco Use Types Packs/Day Years Used Date Smoking Tobacco: Never Assessed Sex and Gender Information Value Date Recorded Sex Assigned at Not on file Gender Identity Female 04/14/2019 11:09 EST Sexual Orientation Not on file documented as of this encounter Plan of Treatment Not on file documented as of this encounter Procedures Procedure Name Priority Date/Time Associated Diagnosis Comments SURGICAL PATHOLOGY Routine 10/08/2009 0:00 EDT documented in this encounter Results * SURGICAL PATHOLOGY (10/08/2009 0:00 EDT) Pathology Report: SURGICAL PATHOLOGY REPORT ? Reports generated via electronic interface contain original data; ? however they are lacking the format of the original report. ? Caution should be taken when reading/interpreti ng unformatted reports. ? Name: ? GILMER, SARAH M ? Accession #: ? [id number] ? : ? 1975 (Age: 34) ??F ? Collect Date: ? 10/08/2009 ? Location: ? [facility] ? Receive Date: ? 10/09/2009 ? Provider: TOBY FALL MD ? Copy to: LÁZARO AJAMIE MD ? Final Pathologic Diagnosis: ? Lip, left, shave biopsy: ? - Pyogenic granuloma. ? Microscopic Description: ? There is a papule formed by a dermal proliferation of vascular channels ? associated with an edematous and inflamed stroma. ??The vessels are lined by ? hypertrophic endothelial cells and there is mural swelling. ??The overlying ? epidermis is centrally ulcerated but forms a collarette at the periphery of the papule. ??(Dr. Harrington)/lgk ? Document reviewed and electronically signed by: ? Carolynn Harrington MD ? Report ??Date: 10/10/2009 12:45 ? By the signature above, the attending physician certifies that he/she has ? personally conducted a gross and/or microscopic examination of the described ? specimens and rendered or confirmed the above diagnosis. ? Specimen(s) Received: ? L lip lesion ? Clinical History: ? Expansile friable lesion [id number] ? Gross Description: ? Received in formalin labelled Sims, Sarah and left lip lesion is a ?? shave biopsy of ocampo-white skin measuring 0.5 x 0.4 x 0.1 cm. ??There is a ? central, dark brown, crusted papule measuring 0.3 x 0.3 x 0.3 cm. ??The specimen is bisected and is submitted entirely in one cassette. ??(Regulo Quispe)/abelardok ? End of Report ? [facility] 10/08/2009 10/09/2009 13: 15 EDT Toby Fall MD PATHOLOGY ORDERABLES Performing Organization Address City/State/[facility] Co de Phone Number [facility] [address] [place] [address] documented in this encounter Visit Diagnoses Not on filedocumented in this encounter Care Teams Topline Beading Machine Tender Relationship Specialty Start Date End Date Kamran Franks MD [address] [place] [phone] PCP - General 09/17/09 documented as of this encounter
--- OUTSIDE RECORDS SUMMARY | 2023-11-28 13:50 | XMS_ITS | Encounter Summary ---
Author Organization [facility] Address [address] [place] [address] Care Team Providers Care Microbiology Soil Scientist Name Role Phone Kamran Frnaks MD Primary Care Provider [phone] Reason for Visit * Reason Comments Follow-up Encounter Details Date Type Department Care Team (Latest Contact Info) Description 05/28/2019 15:30 EST Office Visit [facility] Occupational Medicine - [place] [address] [place], [place] [id number] Jorge Luis Mccray, PSYCH-MA [address] [place] [phone] Somatic symptom disorder, mild, with predominant pain [...] Primary documented in this encounter Care Teams Microbiology Soil Scientist Relationship Specialty Start Date End Date Kamran Franks MD [address] [place] [phone] PCP - General 09/17/09 documented as of this encounter
--- OUTSIDE RECORDS SUMMARY | 2023-11-28 13:50 | XMS_ITS | Encounter Summary ---
Author Organization [facility] Address [address] [place] [address] Care Team Providers Care Program Manager Name Role Phone Kamran Franks MD Primary Care Provider [phone] Encounter Details Date Type Department Care Team (Late st Contact Info) Description 04/11/2020 Lab Requisition [facility] Pathology & Laboratory Medicine - [facility] [address] [place] [address] Outr Resulting Lab, Provider Social History Tobacco [...] Procedure Name Priority Date/Time Associated Diagnosis Comments DO NOT ORDER STANDALONE - [facility] COVID TEST Today 04/11/2020 13:57 EST COVID-19 TESTING Routine 04/11/2020 13:5 7 EST documented in this encounter Results * DO NOT ORDER STANDALONE - [facility] COVID TEST (04/11/2020 13:57 EST) COVID-19 rt-PCR Result NEGATIVE Negative 04/14/2020 14:10 EST [facility] Comment: 2019-novel Coronavirus (2019-nCoV) not detected by the qRT-PCR assay. Consider testing for other respiratory viruses or re-collecting for 2019-nCoV testing. Note: Optimum timing for peak viral levels during infections caused by 2019-nCoV have not been determined. Collection of multiple specimens from the same patient may be necessary to detect the virus. Limitations Positive results are indicative of active infection with SARS-CoV-2 but do not rule out bacterial infection or co-infection with other viruses. The agent detected may not be the definite cause of disease. In addition, detection of viral RNA may not indicate the presence of infectious virus or that SARS-CoV-2 is the causative agent for clinical symptoms. Negative results do not preclude SARS-CoV-2 infection and should not be used as the sole basis for patient management decisions. Negative results must be combined with clinical observations, patient history, and epidemiological information. False negative results may also occur if amplification inhibitors are present in the specimen or if inadequate numbers of organisms are present in the specimen. Optimum specimen types and timing for peak viral levels during infections caused by SARS-CoV-2 have not been fully determined. Collection of multiple specimens (types and time points) from the same patient may be necessary to detect the virus. The test was validated for use with upper respiratory specimens obtained via nasopharyngeal or oropharyngeal swabs in VTM, UTM, M4, M5, M6, saline, and MTM media. The performance of this test has not been established for other specimens. Specimens collected using other FDA recommended Specimen Collection Materials listed in the FDA COVID-19 Diagnostic Technologies communication (August 02, 2019) are processed with the caveat that they were not all validated for use with this test and the result must be interpreted in this context. Furthermore, a false negative results may occur if a specimen is improperly collected, transported or handled. If the virus mutates in the RT-PCR target region, SARS-CoV-2 may not be detected or may be detected less predictably. Inhibitors or other types of interference may produce a false negative result. An interference study evaluating the effect of common cold medications was not performed. This test is not FDA-cleared but its performance characteristics were established by our CLIA-certified, CAP-accredited, high complexity laboratory in accordance with CLIA regulations, College [employer] (CAP) guidelines (Jul 26, 2019), and FDA guidance (Jul 07, 2019). This test is only for use under the Food and Drug Administration's Emergency Use Authorization. Swab ENTIRE NASOPHARYNX / Unknown 04/11/2020 13:57 EST 04/11/2020 21:31 EST Provider Outr Resulting Lab MICROBIOLOGY - GENERAL ORDERABLES [facility] [place], [place] * COVID-19 TESTING (04/11/2020 13:57 EST) Pathologist [facility] COVID-19 rt-PCR Result NEGATIVE Negative 04/14/2020 14:10 EST [facility] Comment: 2019-novel Coronavirus (2019-nCoV) not detected by the qRT-PCR assay. Consider testing for other respiratory viruses or re-collecting for 2019-nCoV testing. Note: Optimum timing for peak viral levels during infections caused by 2019-nCoV have not been determined. Collection of multiple specimens from the same patient may be necessary to detect the virus. Limitations Positive results are indicative of active infection with SARS-CoV-2 but do not rule out bacterial infection or co-infection with other viruses. The agent detected may not be the definite cause of disease. In addition, detection of viral RNA may not indicate the presence of infectious virus or that SARS-CoV-2 is the causative agent for clinical symptoms. Negative results do not preclude SARS-CoV-2 infection and should not be used as the sole basis for patient management decisions. Negative results must be combined with clinical observations, patient history, and epidemiological information. False negative results may also occur if amplification inhibitors are present in the specimen or if inadequate numbers of organisms are present in the specimen. Optimum specimen types and timing for peak viral levels during infections caused by SARS-CoV-2 have not been fully determined. Collection of multiple specimens (types and time points) from the same patient may be necessary to detect the virus. The test was validated for use with upper respiratory specimens obtained via nasopharyngeal or oropharyngeal swabs in VTM, UTM, M4, M5, M6, saline, and MTM media. The performance of this test has not been established for other specimens. Specimens collected using other FDA recommended Specimen Collection Materials listed in the FDA COVID-19 [employer] communication (August 02, 2019) are processed with the caveat that they were not all validated for use with this test and the result must be interpreted in this context. Furthermore, a false negative results may occur if a specimen is improperly collected, transported or handled. If the virus mutates in the RT-PCR target region, SARS-CoV-2 may not be detected or may be detected less predictably. Inhibitors or other types of interference may produce a false negative result. An interference study evaluating the effect of common cold medications was not performed. This test is not FDA-cleared but its performance characteristics were established by our CLIA-certified, CAP-accredited, high complexity laboratory in accordance with CLIA regulations, [employer] of [place] [employer] (CAP) guidelines (Jul 26, 2019), and FDA guidance (Jul 07, 2019). This test is only for use under the Food and Drug Administration's Emergency Use Authorization. Performing Lab [facility] 04/14/2020 14:[address] [facility] Swab 04/11/2020 13:5 7 EST 04/11/2020 21:31 EST Provider Outr Resulting Lab MICROBIOLOGY - GENERAL ORDERABLES [facility] [address] [place] [address] [facility] [place], [place] documented in this encounter Visit Diagnoses Not on filedocumented in this encounter Care Teams Program Manager Relationship Specialty Start Date End Date Kamran Franks MD [address] [place] [phone] PCP - General 09/17/09 documented as of this encounter
--- OUTSIDE RECORDS SUMMARY | 2023-11-28 13:50 | XMS_ITS | Encounter Summary ---
[place] [address] Care Team Providers Care Book Editor Name Role Phone Eva Dang MD Primary Care Provider [phone] Encounter Details Date Type Department Care Team (Late st Contact Info) Description 11/07/2020 Telephone [place] [phone] Irene Razo Social History Tobacco Use Types Packs/Day Years [...] encounter Miscellaneous Notes * Telephone Encounter - Irene Razo - 11/07/2020 3:33 PM EDT Call from Sarah to let me knwo that she does not have health insurance at this time, so she does notwant to schedule, she will call back to schedule when she has health insurance documented in this encounter Plan of Treatment Not on file documented as of this encounter Visit Diagnoses Not on filedocumented in this encounter Care Teams Book Editor Relationship Specialty Start Date End Date Eva Dang MD [facility] [address]IS [address] [place] [address] PCP - General Family Medicine 03/25/16 documented as of this encounter
--- OUTSIDE RECORDS SUMMARY | 2023-11-28 13:50 | XMS_ITS | Encounter Summary ---
Author Organization [facility] Address [address] [place] [address] Care Team Providers Care Educational Sign Language Interpreter Name Role Phone Kamran Franks MD Primary Care Provider [phone] Reason for Visit * Reason Comments Follow-up Encounter Details Date Type Department Care Team (Latest Contact Info) Description 01/16/2020 15:30 EDT Office Visit [facility] Occupational Medicine - [place] [address] [place], [place] [phone] Jorge Luis Mccray, PSYCH-RI [address] [place] [phone] Adjustment disorder with depressed mood (Primary Dx) [...] Primary documented in this encounter Care Teams Educational Sign Language Interpreter Relationship Specialty Start Date End Date Kamran Franks MD [address] [place] [address] PCP - General 09/17/09 documented as of this encounter
--- OUTSIDE RECORDS SUMMARY | 2023-11-28 13:51 | XMS_ITS | Encounter Summary ---
Author Organization [facility] Address [facility] [place] [address] Care Team Providers Care Fisher Troll Line Name Role Phone Eva Dang MD Primary Care Provider [phone] Reason for Visit * Reason Onset Date Comments Other 07/26/2017 Encounter Details Date Type Department Care Team (Late st Contact Info) Description 07/26/2017 [place] [address] Dirk Davis [place] [address] Other Social History Tobacco Use Types Packs/Day Years [...] encounter Miscellaneous Notes * Telephone Encounter - Stacy Valero RN - 07/27/2017 9:02 AM EDT Call made to patient. Voice message left for patient to return my call. * Telephone Encounter - Mariluz Holguin - 07/26/2017 12:55 PM EDT Caller: Sarah If not Pt / Relation to pt: Best time to reach caller: anytime Before 2:30pm - Informed caller that nurse will call back by the end of the day Best number to reach caller: [phone] Reason for call: Patient calling to update Dr Davis on the medication that she was recently put on, nortriptyline (PAMELOR) 10 mg Capsule. Please call and advise documented in this encounter Plan of Treatment Not on file documented as of this encounter Visit Diagnoses Not on filedocumented in this encounter Care Teams Fisher Troll Line Relationship Specialty Start Date End Date Eva Dang MD [facility] LUPIS HARTLEY [facility] [address] [place] [address] PCP - General Family Medicine 03/25/16 documented as of this encounter
--- OUTSIDE RECORDS SUMMARY | 2023-11-28 13:51 | XMS_ITS | Encounter Summary ---
Author Organization [facility] [place] [address] Care Team Providers Care Steam Press Tender Name Role Phone Eva Dang MD Primary Care Provider [phone] Encounter Details Date Type Department Care Team (Latest Contact Info) Description 08/24/2016 3:30 PM EDT Office [place] [address] Cora Dalton, OT Attention or concentration deficit; Concussion with no loss of consciousness, subsequent encounter; Work related injury Social History Tobacco Use Types Packs/Day Years Used Date Smoking Tobacco: Never Sex and Gender Information Value Date Recorded Sex Assigned at Not on file Gender Identity Female 09/26/2019 9:01 AM EDT Sexual Orientation Not on file documented as of this encounter Progress Notes * Cora Dalton OT - 08/24/2016 3:30 PM EDT OCCUPATIONAL THERAPY TREATMENT NOTE REFERRAL SOURCE: Melanie Dykes DIAGNOSIS AND PERTINENT CO-MORBIDITY AFFECTING PLAN OF CARE 1. Attention or concentration deficit 2. Concussion with no loss of consciousness, subsequent encounter 3. Work related injury NEXT MD FOLLOW UP: PRN TOTAL TREATMENT TIME: 55 minutes TIMED CODE TREATMENT TIME: 55 minutes TFA Past Medical History: Diagnosis Date ??? Congenital heart disease ??? Depression ??? Elevated cholesterol 09/22/2009 Cholesterol = 225 ??? Head injury 01/26/2016 ??? Obesity ??? Total anomalous pulmonary venous return PAST MEDICAL HISTORY: Sarah Robles is a 41 y.o. year old female who presents today with a diagnosis of Concussion. While she was at work she closed a door and a ceiling tile fell hitting her in the head on 01/26/16. She worked for 2 days before being out for an extensive period of time recently returning 3 hours per day. Patient was seen by Melanie Dykes APRN and referred to occupational therapy for evaluation and treatment. 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 She reports the more significant event that is most upcoming is a potential trip to [facility].- her daughter one a 1 person one act play for her school and is invited to compete at the national level for [employer]. Today Sarah worked on the problem solving, prioritizing, money management, alternating between screens and writing task of planning the trip to [facility]. The goal was to plan a trip-decide the most affordable transportation, hotel, and find at least 2 sightseeing activities in the area. Sarah did not write down the directions and asked twice about what needed to be included on the trip. She does not typically use the computer and required mod A for using websites, searching, word choice when searching, etc. Sarah was able to complete the task- she determined flying, an [employer] lodge hotel, and decided on attempting to visit [facility] [place], the [facility], and the [place] [facility]. Her homework is to sit down with her daughter and write out an itinerary for the trip. Step 2: is to work breaks into the itinerary to make it a successful trip with minimal post concussion symptoms. ASSESSMENT: Sarah Robles presents with activity limitations and/or participation restrictions dueto performance deficits in working and delayed memory, cognitive endurance, which is in turn affecting her executive functions. Sarah worked on a complex task of problem solving, screen tolerance, attention shifting of planning her trip to [place] with her daughter (upcoming in October). She has homework- to write the itinerary for the trip and then add in necessary personal breaks. Sarah was very pleased with her ability to complete and sustain attention to the task during this OT session. She continuesto have fair to good rehab potential. Next visit: Review trip itinerary and breaks Complete a challenge requiring more problem solving but will transition this to a photography business planning task such as outdoor photography. Wood [place]ather Goals (to be met by discharge): Date Goal Met: Y 1.) Sarah Robles will demonstrate improved safety and independence with ADL/IADL performance asevidenced by a level of 8/10 on the PSFS. Goal Status: In Progress 2.) Sarah will independently use compensatory strategies such that she can increase her hours at work Goal Status: In Progress Short Term Goals (to be met by 6 visits): Date Goal Met: Sarah Robles will require min cueing to create a daily schedule that allows for a balanced amountof activity from day to day as seen with her daily concussion scales having no more than 2 spikes within a week Goal Status: In progress Sarah Robles will be able to complete a simple scavenger arreaga with minimal cueing such that she is rating her ability to do groceries at a 7/10 level. Goal Status: In progress aSrah Robles will increase her score on shifting attention ability with the TEA by 10 percentile points such that she can do her work at a 6/10 level Goal Status: In progress PLAN: The patient is to be seen 1 time(s) per week, for 12 week(s) to progress toward short and exterminator helper termite goals. for Cognitive retraining attention, sequencing, problem solving and compensatory strategies Treatment to include use of: Therapeutic Exercise, Therapeutic Activities, Neuromuscular Re-education, Patient/Caregiver education with a compensatory and rehabilitative approach (X) Sarah Robles participated in the evaluation, collaborated on treatment goals, and agrees to the treatment plan. documented in this encounter Plan of Treatment Not on file documented as of this encounter Visit Diagnoses Diagnosis Attention or concentration deficit Concussion with no loss of consciousness, subsequent encounter Work related injury Injury, other and unspecified, unspecified site documented in this encounter Care Teams Steam Press Tender Relationship Specialty Start Date End Date Eva Dang MD [address] [place] [address] PCP - General Family Medicine 03/25/16 documented as of this encounter
--- OUTSIDE RECORDS SUMMARY | 2023-11-28 13:51 | XMS_ITS | Encounter Summary ---
Author Organization [facility] Address [facility] [place] [address] Care Team Providers Care Differential Specialist Name Role Phone Eva Dang MD Primary Care Provider [phone] Reason for Visit * Reason Comments Establish Care * Consultation (Routine) - Specialty Diagnoses / Procedures Referred By Angy munroe Referred To Contact Pediatric Cardiology Diagnoses s/p repair total anomalous pulmnary venous drainage, age 7 months [facility] not seen in several yrs. Espinal shave some dyspnea which is blamed on asthma Eva Dang MD [facility] [address] [address] All Davies MD [facility] [place] [address] Referral ID Status Reason Start Date Expiration Date V isits Requested Visits Authorized [id number] Consult, Test & Treat Connection [facility] 03/25/2016 03/25/2017 1 1 Encounter Details Date Type Department Care Team (Late st Contact Info) Description 08/17/2016 12:00 PM EDT Office [place] [id number] All Davies MD [facility] [place] [address] Congestive heart failure, unspecified congestive heart failure chronicity, unspecified congestive heart failure type; Congenital heart disease; Total anomalous pulmonary venous return; Tachycardia; Elevated cholesterol Social History Tobacco Use Types Packs/Day Years Used Date Smoking Tobacco: Never Sex and Gender Information Value Date Recorded Sex Assigned at Not on file Gender Identity Female 09/26/2019 9:01 AM EDT Sexual Orientation Not on file documented as of this encounter Last Filed Vital Signs Vital Sign Reading Time Taken Comments Blood Pressure 179/75 08/17/2016 11:06 AM EDT Pulse 60 08/17/2016 10:58 AM EDT Temperature - - Respiratory Rate 20 08/17/2016 10:58 AM EDT Oxygen Saturation - - Inhaled Oxygen Concentration - - Weight 100.7 kg (222 lb) 08/17/2016 10:58 AM EDT Height 167.6 cm (5' 6) 08/17/2016 10:58 AM EDT Body Mass Index 35.83 08/17/2016 10:58 AM EDT documented in this encounter Progress Notes * All Davies MD - 08/17/2016 12:00 PM EDT : 1975 Age: 41 y.o. Pediatric Cardiology Consult I saw Sarah Robles in the Pediatric Cardiology Clinic at [facility] for ?? 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 Excessive fatigue ?? Palpitations ?? Near syncopal episodes ?? Chest pain ?? Atherosclerotic risk factors (hypertension, hypercholesterolemia, obesity, diabetes mellitus type 2) Cardiac History: Total anomalous pulmonary venous connection ?? 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 ?? At age 7 months she quickly became much more cyanotic. ?? Cardiac surgery. 1973. Dr Vazquez, [facility] ?? Surgical anastomosis of pulmonary venous confluence to posterior left atrium, patient foramen ovale closure ?? Post op course uncomplicated. ?? Post-op Cardiac cath. Age ~1.5 years. [facility] ?? Reportedly good sized, unobstructed pulmonary veins & anastomosis ?? Cardiac evaluation. 06/24/1993. Age [address] Yamilex Tijerina, [facility]. [place], [place] ?? History: ?? 4 months with her first child. Episodes of hot flushing & nausea ?? Exam: ?? BP 129/67 mm Hg, soft systolic ejection murmur, normal A2-P2, no lung crackles. ?? Electrocardiogram: ?? Sinus rhythm at 80/min ?? Some mild ST wave flattening ?? Echocardiogram: ?? Cardiac evaluation. 08/08/1996. Age [address] Yamilex Tijerina, [facility]. [place], [place] ?? History: ?? 5 months with her second child. Orthostatic lightheadedness. Mild dyspnea that improveswith albuterol inhalation. ?? Exam: ?? BP 127/61 mm Hg, soft systolic ejection murmur, normal A2-P2, no lung crackles. ?? Electrocardiogram: ?? Sinus rhythm at 80/min ?? Some mild ST wave flattening ?? Echocardiogram: ?? No evidence of right ventricular hypertension or volume overload ?? Pulmonary veins were not imaged. Normal appearing venous flow in a right sided pulmonary venous connection to the left atrium. ?? Cardiac evaluation. 1996. Age [address] Khai Mahoney. [place], [place] ?? 'no evidence of problems of any problems related to her repair' ?? Electrocardiogram. 09/04/1999. Age 24 years ?? Sinus rhythm at 58/min ?? Diffuse non-specific T wave flattening ?? Cardiac evaluation. 10-17-2009. Age [address] Mani Benjamin ?? History: ?? 5 pregnancies in ~1993, 1996, 1999, 2002 & 2004, all went to term without cardiovascular complication & via uncomplicated vaginal deliveries resulted in 5 health children ?? possible easy fatigability, no hypertension or hypercholesterolemia ?? Exam: BP 128/80 mm Hg ?? 03-26-11 Referred to Adult Cong[facility] by Dr Kamran Franks ?? 07-28-11 Certified letter mailed to patient ?? 12-17-13 No show for Cardiology care ?? 03-25-16 Re-referred to Cardiology by Dr Franks Excessive fatigue ?? Sarah describes that she, never has been a person with a lot of energy, but she has never been this bad before , There has been no recent change. She describes limiting, unchanged dyspnea & fatigue climbing 2 flights of stairs. Palpitations ?? Sarah describes chronic episodic precordial pulsations, each a second in duration, possibly sometimes with episodes of tachycardia Near syncopal episodes ?? Sarah describes 4 episodes of near syncope, usually with walking after sitting, associated with lightheadedness & hot feeling & without evident tachyarrhythmia. Episodic chest pain ?? Sarah describes right upper parasternal sharp pains of a few seconds to all day in duration occurring at rest without evident precipitant, modifier, tachycardia or other associated symptom. She hasnot had angina. Atherosclerotic risk factors ?? Hypertension. ?? Her blood pressure in 2009 & before was normal. ?? She reports her systolic blood pressure measurements have been 140s mm Hg for several years ?? Following concussion & post-concussion syndrome her blood pressure has been 150-160s systolic ?? Hypercholesterolemia. ?? Serum cholesterol 225 mg/dl ?? Diabetes mellitus, type 2, diagnosed 2017, currently diet managed ?? Obesity ?? Low physical fitness ?? Family history of premature atherosclerosis ?? See below ?? No personal tobacco use ?? Sarah remains without other cardiac symptom; review of cardiac symptoms is otherwise negative. Non-Cardiac History: ?? Sarah was born at term with normal weight without complication. ?? 5 pregnancies in ~1993, 1996, 1999, 2002 & 2004, all went to term without cardiovascular complication & via uncomplicated vaginal deliveries resulted in 5 health children Patient Active Problem List Diagnosis Code ??? Congenital heart disease Q24.9 ??? Concussion with no loss of consciousness S06.0X0A ??? Work related injury Y99.0 ??? Acute post-traumatic headache, not intractable G44.319 ??? Fatigue R53.83 ??? Attention or concentration deficit R41.840 ??? Head injury S09.90XA ??? Depression F32.9 ??? Total anomalous pulmonary venous return Q26.2 ??? Elevated cholesterol E78.00 ??? Tachycardia R00.0 ?? Diabetes mellitus, type 2, currently diet managed ?? Nasal polyps ?? Sinus disorder Past Surgical History: Procedure Laterality Date ??? CARDIAC SURGERY 09/1973 Current Outpatient Prescriptions Medication Sig Note Dispense Refill ??? PROAIR HFA 90 mcg/actuation HFA Aerosol Inhaler Inhale 2 puffs into the lungs as needed. 06/23/2016: Received from: External Pharmacy Received Si ??? amitriptyline (ELAVIL) 25 mg Tablet Take 25 mg by mouth nightly. 06/23/2016: Received from: External Pharmacy Received Si ??? FREESTYLE LITE STRIPS 1 Device 2 times daily. 06/23/2016: Received from: External Pharmacy Received Sig: TEST twice a day as directed 0 ??? fluocinonide (LIDEX) 0.05 % Cream apply to affected area twice a day (RASH BEHIND THE EAR) 06/23/2016: Received from: External Pharmacy Received Sig: apply to affected area twice a day (RASH BEHIND THE EAR) 0 ??? FREESTYLE LANCETS 28 gauge Misc 1 Device 2 times daily. 06/23/2016: Received from: External Pharmacy Received Sig: TEST twice a day 0 ??? LORazepam (ATIVAN) 1 mg Tablet Take 1 mg by mouth nightly. 06/23/2016: Received from: External Pharmacy Received Sig: TAKE 1 TABLET BY MOUTH 30 TO 60 MINUTES BEFORE PROCEDURE. MAY REPEAT ONCE 0 ??? montelukast (SINGULAIR) 10 mg Tablet Take 10 mg by mouth nightly. 06/23/2016: Received from: External Pharmacy Received Si ??? topiramate (TOPAMAX) 50 mg Tablet Take 50 mg by mouth 2 times daily. 06/23/2016: Received from: External Pharmacy Received Sig: take 1 tablet by mouth twice a day . START AFTER FINISHING 1 WEEK ON25MG TABLETS 0 ??? ERGOCALCIFEROL, VITAMIN D2, (VITAMIN D2 ORAL) Take 1 tablet by mouth daily. ?? She has no other known anomaly, major medical problem, allergy or symptom; review of symptoms otherwise negative. Family History: ?? Premature atherosclerosis: father (2 ND, fist at age 52 years, smoker, of lung Ca), pu (ND at age >60 years), pa (ND at age >60 years) ?? Hypertension: mother (treated with medication since age ~40 years) ?? 5 children, all healthy, born ~1993, 1996, 1999, 2002 & 2004 ?? Otherwise negative for anomaly and premature cardiac disease. Social History ?? Sarah is , lives with her & younger children Physical Exam: Vitals: 08/17/16 1058 08/17/16 1103 08/17/16 1105 08/17/16 1106 BP: 153/86 143/86 169/71 179/75 BP Location (NBP): Right arm Left arm Right leg Left leg Patient Position: Lying Lying Lying Lying BP Cuff Sizes: Large Adult (32-43 cm) Large Adult (32-43 cm) Adult (25-34 cm) Adult (25-34 cm) Pulse: 60 Resp: 20 Weight: 100.7 kg (222 lb) Height: 167.6 cm (5' 6) ?? Blood pressure sequence right arm, left arm, right leg, left leg ?? Sarah appears in no cardiorespiratory distress. ?? HEENT: Non-dysmorphic, acyanotic, no upper airway obstruction was evident. ?? Neck: No jugular venous distension, pulse abnormality or bruit evident. ?? CV: Regular rhythm, with normal precordial activity, normal A2-P2, & no click, murmur or gallop. ?? Back/Axilla: No referred murmur or bruit. ?? Resp: Unlabored & clear. ?? Abd: situs solitus with no mass, tenderness or hepatosplenomegaly. ?? Ext: Non-dysmorphic. Radial & pedal pulses are normal bilateral. No cyanosis or clubbing is evident. ?? Skin: acyanotic, normally perfused, healed sternotomy. ?? Neuro: No abnormality seen. Electrocardiogram: Unchanged. ?? Sinus rhythm at 59/min ?? Normal intervals, volts and axes ?? Nonspecific T wave abnormality Diffuse T flattening ?? T-wave inversion in in V5, 6 Echocardiogram: ?? Image quality is sub-optimal. ?? Right lower pulmonary vein connects to left atrium. Possible proximal narrowing was inconsistently evident. ?? Left lower pulmonary vein connects to left atrium without obstruction. ?? No residual atrial septal defect was seen with fair quality imaging. ?? No other anatomic abnormality was seen with technically limited standard exam. ?? Right ventricular chamber size, wall thickness, estimated systolic pressure of 28 mm Hg plus right atrial pressure, septal position, and systolic performance appear normal. ?? Left ventricular chamber size, wall thickness and systolic performance appear normal. ?? Systolic blood pressure is hypertensive, 175/79 mm Hg. Summary ?? Cardiac Anatomy/Hemodynamics: ?? 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 Right lower pulmonary vein connects to left atrium. Possible proximal narrowing was inconsistently evident. Left lower pulmonary vein connects to left atrium without obstruction. Better & moreextensive evaluation with MRI or CT appears indicated. ?? No residual atrial septal defect seen with fair quality imaging. ?? Right ventricular chamber size, wall thickness, estimated systolic pressure of 28 mm Hg plus right atrial pressure, septal position, and systolic performance appear normal. ?? Her fatigue & dyspnea on exertion do not appear to be related to her pulmonary veins (other contributing causes may be reactive airways disease, excessive weight, physical deconditioning) ?? Left ventricular chamber size, wall thickness and systolic performance appear normal. ?? Systolic blood pressure is hypertensive, 175/79 mm Hg. ?? Cardiac Rhythm: ?? Palpitation ?? Post TAPVC surgery there is low increased incidence of late onset atrial arrhythmia. ?? No past evidence of problematic arrhythmia. ?? Near syncopal episodes ?? These are consistent with orthostatic vasovagal episodes ?? Episodic chest pain ?? These are not anginal & are consistent with musculoskeletal cause ?? Hypertension. ?? Her blood pressure in 2009 & before was normal. Her systolic blood pressure measurements have been 140s mm Hg for several years Following concussion & post- concussion syndrome her blood pressure has been 150-160s systolic ?? Hypercholesterolemia. ?? Serum cholesterol 225 mg/dl, mow treated with diet. ?? Diabetes mellitus, type 2, diagnosed 2016, currently diet managed ?? Obesity ?? Family history of premature atherosclerosis Recommendations: ?? Zio ambulatory electrocardiographic monitor ?? Additional cardiac evaluation with office visit & cardiac MRI (patient requests sedation) toassess pulmonary veins ?? SBE precautions are not indicated per guidelines ?? Prudent diet for weight loss, glucose & cholesterol control ?? Moderate daily exercise beyond that current for for fitness, weight loss, glucose & cholesterol control I reviewed these findings and recommendations with Sarah. All Davies MD Pediatric Cardiology documented in this encounter Plan of Treatment Pending Results Name Type Priority Associated Diagnoses Date /Time [facility] Routine 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 Tachycardia 08/20/2016 9:34 AM EDT documented as of this encounter Procedures Procedure Name Priority Date/Time Associated Diagnosis Comments BROILER CHEF OR COOK SCAN 10/25/2016 12:00 AM EDT EKG 12-LEAD Routine 08/17/2016 10:13 AM EDT Congestive heart failure, unspecified congestive heart failure chronicity, unspecified congestive heart failure type documented in this encounter Results * SCAN DOC: BROILER CHEF OR COOK (10/25/2016 12:00 AM EDT) Anatomical Region Laterality Modality Other Narrative 10/25/2016 12:00 AM EDT Ordered by an unspecified provider. Scanning Provider MEDIA MGR SCAN EXT O RDR/RSLT * EKG 12 Lead (08/17/2016 10:13 AM EDT) Ventricular rate 59 BPM MUSE SYSTEM Atrial Rate 59 BPM MUSE SYSTEM P-R Interval 132 ms MUSE SYSTEM QRS Duration 74 ms MUSE SYSTEM Q-T Interval 416 ms MUSE SYSTEM QTC Calculated (Bezet) 411 ms MUSE SYSTEM Calculated P [place] 13 degrees MUSE SYSTEM Calculated R [place] 69 degrees MUSE SYSTEM Calculated T [place] 164 degrees MUSE SYSTEM INTERPRETATION Sinus bradycardia Nonspecific T wave abnormality Diffuse T flattening T-wave inversion in in V56 No previous ECGs available Confirmed by MD DAVIES MICHAEL ([id number]) on 08/17/2016 9:29:50 PM MUSE SYSTEM 08/17/2016 10:1 3 AM EDT 08/17/2016 9:29 PM EDT All Davies MD ECG ORDERABLES MUSE SYSTEM documented in this encounter Visit Diagnoses Diagnosis Congestive heart failure, unspecified congestive heart failure chronicity, unspecified congestive heart failure type Congenital heart disease Unspecified congenital anomaly of heart Total anomalous pulmonary venous return Total congenital anomalous pulmonary venous connection Tachycardia Tachycardia, unspecified Elevated cholesterol Pure hypercholesterolemia documented in this encounter Care Teams Differential Specialist Relationship Specialty Start Date End Date Eva Dang MD [facility] [address] [place] [address] PCP - General Family Medicine 03/25/16 documented as of this encounter
--- OUTSIDE RECORDS SUMMARY | 2023-11-28 13:51 | XMS_ITS | Encounter Summary ---
Author Organization [facility] [place] [address] Care Team Providers Care Tagman Name Role Phone Eva Dang MD Primary Care Provider [phone] Encounter Details Date Type Department Care Team (Late st Contact Info) Description 09/01/2016 2:00 PM EDT Office [place] [phone] Mark Maria, OT [facility] & [place] [address] Attention or concentration deficit; Concussion with no loss of consciousness, subsequent encounter Social History Tobacco Use Types Packs/Day Years Used Date Smoking Tobacco: Never Sex and Gender Information Value Date Recorded Sex Assigned at Not on file Gender Identity Female 09/26/2019 9:01 AM EDT Sexual Orientation Not on file documented as of this encounter Progress Notes * Mark Maria, OT - 09/01/2016 2:00 PM EDT OCCUPATIONAL THERAPY TREATMENT NOTE REFERRAL SOURCE: Melanie Dykes DIAGNOSIS AND PERTINENT CO-MORBIDITY AFFECTING PLAN OF CARE 1. Attention or concentration deficit 2. Concussion with no loss of consciousness, subsequent encounter NEXT MD FOLLOW UP: PRN TOTAL TREATMENT TIME: 58 minutes TIMED CODE TREATMENT TIME: 58 minutes TFA Past Medical History: Diagnosis Date [...] treatment. Sarah Robles presents alone TREATMENT TODAY: We initially reviewed the checklist she has created for work to help her and her supervisor liquid yeast keep track of what she is doing. 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 What is this estimated startup cost. What is the anticipated time line for break even with the business. 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 She requested use of the Internet, paper, pen, and a calculator. She spent 45 minutes researching costs using the net in an organized fashion She then determined costs of demo pictures and the initial cost of [facility]. She determined her initial loan amount and initial business plan presenting it in an organized fashion. ASSESSMENT: Sarah Robles presents with activity limitations and/or participation restrictions dueto performance deficits in working and delayed memory, cognitive endurance, which is in turn affecting her executive functions. Sarah continues to make gains now increasing to 4 hour shifts with fair t olerance. She did well today working continuously on the business planning project through a whole treatment session with minimal fatigue, organized in her approach, and detailed plan. She will benefit from reassessment next visit and upgrading of her goals. She continues to have fair to good rehabpotential. Agricultural Extension Officer Goals (to be met by discharge): Date [...] a 7/10 level. 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 for Cognitive retraining attention, sequencing, problem [...] with no loss of consciousness, subsequent encounter documented in this encounter Care Teams Tagman Relationship Specialty Start Date End Date Eva Dang MD [address] [place] [address] PCP - General Family Medicine 03/25/16 documented as of this encounter
--- OUTSIDE RECORDS SUMMARY | 2023-11-28 13:51 | XMS_ITS | Encounter Summary ---
Author Organization [facility] [place] [address] Care Team Providers Care Processor Helper Name Role Phone Eva Dang MD Primary Care Provider [phone] Encounter Details Date Type Department Care Team (Late st Contact Info) Description 07/15/2016 2:00 PM EST Office [place] [address] Mark Maria, OT [facility] PHYSICAL MEDICINE & [place] [address] Concussion with no loss of consciousness, subsequent encounter; Attention or concentration deficit Social History Tobacco Use Types Packs/Day Years Used Date Smoking Tobacco: Never Assessed Sex and Gender Information Value Date Recorded Sex Assigned at Not on file Gender Identity Female 09/26/2019 9:01 AM EDT Sexual Orientation Not on file documented as of this encounter Progress Notes * Mark Maria, OT - 07/15/2016 2:00 PM EST OCCUPATIONAL THERAPY TREATMENT NOTE REFERRAL SOURCE: Melanie Dykes DIAGNOSIS AND PERTINENT CO-MORBIDITY AFFECTING PLAN OF CARE 1. Concussion with no loss of consciousness, subsequent encounter 2. Attention or concentration deficit NEXT MD FOLLOW UP: PRN TOTAL TREATMENT TIME: 61 minutes TIMED CODE TREATMENT TIME: Therapeutic / Functional Activities (20268) 61 min Past Medical History: Diagnosis Date ??? Congenital heart disease PAST MEDICAL HISTORY: Sarah Robles is a [...] treatment. Sarah Robles presents alone TREATMENT TODAY: Completed a simple scavenger arreaga as follows. She was provided with a map of level 2 and level 3 Today you are running errands for a doctor at [facility]. He has provided you with a list of items that he would like for you to purchase. You are given $50 and are asked to not exceed this amount. In addition, he is very busy and has only allotted you a small amount of time to complete this task. Doctor List: Gift shop items: car coaster (large or small) [employer] magazine Pharmacy: [facility] smooth body cream [place] [employer] Sugar Free Cough Drops Cravins 20 oz. [place] & Spring Coffee Au Bon Pain: Black Joshua Steak & Cheese Sub Gift for his (chose from options below)- All found at gift shop ??? 2 Shantell Bourne eyeglass cases ??? Shantell Bourne lunch cooler/box ??? [place] Tree Danie of the Garden ??? For Teas Sake: Let???s Alejandro- Black Tea Alejandro Spice Observations: took time to plan and organize her approach. Was able to effectively get to all locations using map. Was fast for finding items in the pharmacy. Took increased time in the gift shop having an organized approach but when unable to find certain items started to intermittently go back and for the between two areas of the gift shop. She initiallyforgot two items at the gift shop but then realized this before she left. Walking speed was much slowed on the way back to reporting fatigue. ASSESSMENT: Sarah Rolbes presents with activity limitations and/or participation restrictions dueto performance deficits in working and delayed memory, cognitive endurance, which is in turn affecting her executive functions. She did well with her scavenger arreaga but was fatigued by the end and was very dependent on her list to remember items. After last visit she was fatigue with increased consussive symptoms Despite this she still went to family function the next day and has been caring for her sick daughter who has the flu. She crashed on Tue most of the day. She continues toexert herself beyond her abilities and is having a hard time predicting how things will affect her. The daily schedule and concussion scale would be helpful to address this but she has not been usingit due to the additional work that is required and she is fatigued. We will attempt to practice this more next visit and hopefully she will bring her copies from the next week so we can compare from day to day. We will also work on a task that challenges her attentional and memory abilities such assnap circuit, a cooking task, and task interrupt with time management.. Core Checker Goals (to be met by discharge): Date Goal Met: 1.) Sarah Robles will demonstrate improved safety and independence with ADL/IADL performance as evidenced by a level of 8/10 on the PSFS. 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 for Cognitive retraining attention, sequencing, problem [...] as of this encounter Visit Diagnoses Diagnosis Concussion with no loss of consciousness, subsequent encounter Attention or concentration deficit documented in this encounter Care Teams Processor Helper Relationship Specialty Start Date End Date Eva Dang MD [address] [place] [address] PCP - General Family Medicine 03/25/16 documented as of this encounter
--- OUTSIDE RECORDS SUMMARY | 2023-11-28 13:51 | XMS_ITS | Encounter Summary ---
Author Organization [facility] [place] [address] Care Team Providers Care Ip Architect Name Role Phone Eva Dang MD Primary Care Provider [phone] Encounter Details Date Type Department Care Team (Late st Contact Info) Description 07/28/[address] [place] [phone] Trudy Dodge, CAR Social History Tobacco Use Types Packs/Day Years Used Date Smoking Tobacco: Never Assessed Sex and Gender Information Value Date Recorded Sex Assigned at Not on file Gender Identity Female 09/26/2019 9:01 AM EDT Sexual Orientation Not on file documented as of this encounter Miscellaneous Notes * Telephone Encounter - Trudy Dodge MSW - 07/28/2016 6:49 PM EDT [facility] FOLLOW UP CONTINUING CARE MANAGEMENT SOCIAL WORK ? 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 CCM also left and sent ov notes from to pt's [facility] and voc rehab person. Pt is working to RTW at her regular job. All are aware that she is very motivated to RTW FT/ FD. [facility] reviewed with wc that Radha Sol is the treating provider, not Shadia Demarco. CCM is available to all parties as needed. documented in this encounter Plan of Treatment Not on file documented as of this encounter Visit Diagnoses Not on filedocumented in this encounter Care Teams Ip Architect Relationship Specialty Start Date End Date Eva Dang MD [facility] [address] [facility] [address] [place] [address] PCP - General Family Medicine 03/25/16 documented as of this encounter
--- OUTSIDE RECORDS SUMMARY | 2023-11-28 13:51 | XMS_ITS | Encounter Summary ---
Author Organization [facility] [place] [address] Care Team Providers Care Dice Person Name Role Phone Eva Dang MD Primary Care Provider [phone] Reason for Visit * Diagnostic Test (Routine) - Closed Specialty Diagnoses / Procedures Referred By Angy munroe Referred To Contact Radiology Diagnoses TAPVR (total anomalous pulmonary venous return) Procedures MRI Cardiac Morph Func wwo Contrast All Davies MD [facility] [place] [address] [place] [address] Referral ID Status Reason Start Date Expiration Date V isits Requested Visits Authorized [id number] Closed Specialty Service Requested 11/19/2016 02/17/2017 2 2 Encounter Details Date Type Department Care Team (Latest Contact Info) Description 11/18/2016 8:58 AM EDT - 11/18/2016 11:59 PM EDT Hospital [place] [address] All Davies MD [facility] [place] [address] Discharge Disposition: Home Social History Tobacco Use Types Packs/Day Years Used Date Smoking Tobacco: Never Sex and Gender Information Value Date Recorded Sex Assigned at Not on file Gender Identity Female 09/26/2019 9:01 AM EDT Sexual Orientation Not on file documented as of this encounter Medications at Time of Discharge Medication Sig Dispensed Refills Start Date End Date PROAIR HFA 90 mcg/actuation HFA Aerosol Inhaler Inhale 2 puffs into the lungs as needed. 0 06/04/2016 montelukast (SINGULAIR) 10 mg Tablet Take 10 mg by mouth nightly. 0 06/09/2016 amitriptyline (ELAVIL) 25 mg Tablet Take 25 mg by mouth nightly. 0 06/09/2016 04/12/2017 LORazepam (ATIVAN) 1 mg Tablet Take 1 mg by mouth nightly. 0 04/21/2016 04/12/2017 topiramate (TOPAMAX) 50 mg Tablet Take 50 mg by mouth 2 times daily. 0 03/25/2016 04/12/2017 ERGOCALCIFEROL, VITAMIN D2, (VITAMIN D2 ORAL) Take 1 tablet by mouth daily. 06/13/2017 documented as of this encounter Plan of Treatment Not on file documented as of this encounter Procedures Procedure Name Priority Date/Time Associated Diagnosis Comments MRI CARDIAC MORPHOLOGY FUNCTION WWO CONTRAST Routine 11/18/2016 12:37 PM EDT TAPVR (total anomalous pulmonary venous return) documented in this encounter Visit Diagnoses Not on filedocumented in this encounter Administered Medications Inactive Administered Medications - up to 3 most recent administrations Medication Order MAR Action Action Date Dose Rate Site gadobutrol (GADAVIST) 1 mMol/mL injection 10 mL 10 mL, Intravenous, ONCE PRN, 1 dose, Starting on Lesia 11/18/16 at 1212, Until Lesia 11/18/16 at 1211, Per Protocol, Routine Given 11/18/2016 12:11 PM EDT 10 mLs documented in this encounter Care Teams Dice Person Relationship Specialty Start Date End Date Eva Dang MD [facility] [address] [place] [address] PCP - General Family Medicine 03/25/16 documented as of this encounter
--- OUTSIDE RECORDS SUMMARY | 2023-11-28 13:51 | XMS_ITS | Encounter Summary ---
Author Organization [facility] [place] [address] Care Team Providers Care Media Associate Name Role Phone Eva Dang MD Primary Care Provider [phone] Encounter Details Date Type Department Care Team (Late st Contact Info) Description 09/10/2016 10:00 AM EDT Office [place] [address] Mark Maria, OT [facility] PHYSICAL MEDICINE & [place] [address] Attention or concentration deficit; Concussion with no loss of consciousness, subsequent encounter Social History Tobacco Use Types Packs/Day Years Used Date Smoking Tobacco: Never Sex and Gender Information Value Date Recorded Sex Assigned at Not on file Gender Identity Female 09/26/2019 9:01 AM EDT Sexual Orientation Not on file documented as of this encounter Progress Notes * Mark Maria, OT - 09/10/2016 10:00 AM EDT OCCUPATIONAL THERAPY TREATMENT NOTE REFERRAL SOURCE: [...] evaluation and treatment. Sarah Robles presents alone PERFORMANCE DEFICITS: Sarah Robles identifies difficulty with the following functional activities using the Patient Specific Functional Scale (PSFS): 0/10 (unable to perform) to 10/10 (Able to perform without difficulty) Activity At Evaluation 09/10/16 1.) cooking 7 7 2.) manage bills 3 5 3.) work 6.5 7 4.) groceries 5-6 8 5.) balancing energy from day to day 2 4 Total: Average Score 5 6.2 OBJECTIVE: MENTAL FUNCTION: Global mental functions Consciousness/ state of awareness and alertness: person, place, time and situation Temperament and personality: Appropriate. Specific mental functions [place] Cognitive Assessment (MoCA) Results: eval 09/10/16 Comments Visuospatial/Exec 05/09 1 Trails Test 0/ 0 Cube Copy 05/09 1 Clock: Contour 05/09 1 Clock: Numbers 1 Clock: Hands Naming 3/3 3 (of 3) Attention 05/09 1 Repeat forward 05/09 1 Repeat backwards 05/09 1 Tapping for letter A 1/3 3 Serial 7 Subtraction (3pts=4+; 2pts=2+; 1pt=1) Language 1/2 2 Repeating Sentences Fluency 0/1 0 Word Naming (1pt=11+ words) Abstraction 1/2 2 Similarities (Associations) Delayed Recall 2/5 5 (uncued) Orientation 05/09 1 Month 05/09 1 Date 05/09 1 Year 05/09 1 Day of the week 05/09 1 Location 05/09 1 City Add 1 point if 12 years of education or less TOTAL 22/30 29/30 Score of 26 or greater considered normal #1 for education Administered the following subtests of the Test of Everyday Attention (TEA). The TEA is a standardized, normed assessment of various forms of attention. Initial eval 1) Map Search: 10th percentile. Very disorganized in pattern 2) Elevator Counting: normal 3) Elevator Counting with Distraction: 25th percentile 4) Visual Elevator: 75th percentile for accuracy 1st percentile for speed 5) Elevator Counting with Reversal: unable to do this despite multiple attempts 6) Telephone Search: 10th percentile 7) Telephone Search While Countinth percentile 1) Map Search: 5th percentile. Organized in pattern 2) Elevator Counting: normal 3) Elevator Counting with Distraction: 5th percentile 4) Visual Elevator: 75th percentile for accuracy 25th percentile for speed 5) Elevator Counting with Reversal: 10th 6) Telephone Search: 50th percentile 7) Telephone Search While Countinth percentile TREATMENT TODAY: Reassessed with MOCA, TEA, and PSFS Skilled discussion of results and future treatment plan. ASSESSMENT: Sarah Robles having made great gains on the MOCA with a normal score. She performed better with shifting attention on the TEA but had slight decline with visual and auditory selective attention. She functionally feels that she is making slow but consistent gains in her home managementand work ability. In therapy she maintains good endurance for functional tasks with fair performance. Endurance continues to be her issue for work but we are unable to challenge her in OT to this extent. She has increased her work from 2-3 hours when we started OT to now 4 hours per shift with goodtolerance. She reports that working evenings is stover for her considering she attempted working during the day when an event was occurring and she had extreme difficulty with completing her tasks with the extent of distraction and significantly fatigued after 3 hours needing to go home. Her evening shift will be stover for her considering attention deficits and she plans to continue slowly increasing her hours as she is able. She will benefit from recheck in 6 weeks to assess for continued gains andassess how present compensatory tools she is using are working and if they need modification.. Rn Military Goals (to be met by discharge): Date [...] 2 spikes within a week Goal Status: Met. Is having at most 2 spikes per week Sarah Robles will be able to complete a simple scavenger arreaga with minimal cueing such that she is rating her ability to do groceries at a 7/10 level. Goal Status: Functionally met Sarah Robles will increase her score on shifting attention ability with the TEA by 10 percentile points such that she can do her work at a 6/10 level Goal Status: met PLAN: The patient is to be seen in 6 weeks for followup to assess effectiveness of compensatory tools as she improves and reassess. for Cognitive retraining attention, sequencing, problem solving andcompensatory strategies Treatment to include use of: Therapeutic [...] encounter documented in this encounter Care Teams Media Associate Relationship Specialty Start Date End Date Eva Dang MD [address] [place] [address] PCP - General Family Medicine 03/25/16 documented as of this encounter
--- OUTSIDE RECORDS SUMMARY | 2023-11-28 13:51 | XMS_ITS | Encounter Summary ---
Author Organization [facility] Address [facility] [place] [address] Care Team Providers Care Gasfitter Name Role Phone Eva Dang MD Primary Care Provider [phone] Encounter Details Date Type Department Care Team (Late st Contact Info) Description 12/22/2017 Telephone Neurology at [facility] [place] [phone] Juvencio Dos Santos MD [facility] [place] [address] Social History Tobacco Use Types Packs/Day Years [...] encounter Miscellaneous Notes * Telephone Encounter - Nena Suh RN - 12/26/2017 1:51 PM EDT Patient Report: 1) % Headache improvement with Botox: 5 % better 2) Have you had more or less than 50% improvement overall with your headaches since start of Botox treatments: less than 50 % 3) How many GARCIA have you had since the last botox treatment: no change in overall number 4) Have you had any changes in your insurance: Is a workers Comp claim Anything additional to report today: Claim needs to go through workers Comp Please note that effectiveness of botox cannot be determined after one treatment - a patient needs to have 2-3 treatments before determining the effectiveness of botox * Telephone Encounter - Nena Suh RN - 12/22/2017 5:54 PM EDT Per Conifer: Sarah Robles is scheduled for her second dose of Botox. ??An update will be needed to see how she responded to her initial dose. ??Would someone please contact the patient, document her response and let me know when this is done. ??Also, I need to know if we will be billing worker's comp or her regular insurance ([employer]). Call placed to pt with VM left asking pt to call office documented in this encounter Plan of Treatment Not on file documented as of this encounter Visit Diagnoses Not on filedocumented in this encounter Care Teams Gasfitter Relationship Specialty Start Date End Date Eva Dang MD [address] [place] [address] PCP - General Family Medicine 03/25/16 documented as of this encounter
--- OUTSIDE RECORDS SUMMARY | 2023-11-28 13:51 | XMS_ITS | Encounter Summary ---
Author Organization [facility], Later [facility] [place] [address] Care Team Providers Care Bulldozer Press Operator Name Role Phone Eva Dang MD Primary Care Provider [phone] Reason for Referral * Consultation (Routine) - Closed Specialty Diagnoses / Procedures Referred By Contac t Referred To Contact Neurology Diagnoses Post concussive syndrome Other complicated headache syndrome Mima Woodson MD [facility] [place] [address] [address] Referral ID Status Reason Start Date Expiration Date V isits Requested Visits Authorized [id number] Closed Consult, Test & Treat 04/12/2017 04/12/2018 1 1 * Occupational Therapy (Routine) - Specialty Diagnoses / Procedures Referred By Contac t Referred To Contact Occupational Therapy Diagnoses Post concussive syndrome Mima Woodson MD [facility] [place] [address] [facility] [address] [place] [address] Referral ID Status Reason Start Date Expiration Date V isits Requested Visits Authorized [id number] Evaluate and Treat 04/12/2017 10/09/2017 12 12 Encounter Details Date Type Department Care Team (Late st Contact Info) Description 04/12/2017 11:00 AM EST Office Visit Neurology at [facility] [place] [address] Mima Woodson MD [facility] [place] [address] Post concussive syndrome; Other complicated headache syndrome Social History Tobacco Use Types Packs/Day [...] Sign Reading Time Taken Comments Blood Pressure 155/83 04/12/2017 11:07 AM EST Pulse 60 04/12/2017 11:07 AM EST Temperature - - Respiratory Rate - - Oxygen Saturation - - Inhaled Oxygen Concentration - - Weight 103.5 kg (228 lb 3.2 oz) 017 11:07 AM EST Height 167.6 cm (5' 6) 04/12/2017 11:0 7 AM EST reported Body Mass Index 36.83 04/12/2017 11:07 AM EST documented in this encounter Patient Instructions * Patient Instructions* Mima Woodson MD - 04/12/2017 11:00 AM EST Due your photosensitivity (light sensitivity), looking in the back of your eyes is difficult. I would recommend that someone (Marie Bar, OD) do a dilated eye exam to make lizzette eyou don't have something like diabetic retinopathy of swelling in the back of the eyes. For your headaches, you could try magnesium 400-500mg daily (if no contraindication from the perspective of the occupational therapist assistant). You could also try riboflavin (vitamin B2) 100-200mg two times daily. You need a functional capacity evaluation - Radha Barraza can order this you. I can give you a paper referral, but I am not sure if they will accept it. If you're dizzy, try compression stockings, make sure that you're well hydrated. You should probably take your blood pressure when you feel sympatomatically dizzy. Also take your pulse and record. If you have a cuff, please take it to a provider to make sure you're using it correctly. I would have you follow someone in occupational therapy for help with your cognitive and physical exertional capacity. documented in this encounter Progress Notes * Mima Woodson MD - 04/12/2017 11:00 AM EST Ms Robles is a 42 yo F whom I am seeing for the sequelae of a possible brain injury. She continues to struggle with various symptoms. She has been working with Radha Barraza NP, of occupational medicine. Ms Barraza suggested that Ms. Robles may be depressed, but Sarah says she is absolutely not depressed. I wonder if perhaps the approach is that Ms Barraza wants to try to treat the vegetative symptoms of amotivation and fatigue that overlap with depression (and I would agree this is a great approach). Sarah still has headaches. She has a daily aching pressure on the vertex of her head that may intensify into a severe throbbing that can spread to the parietal regions bilaterally. 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 They do not wake her from sleep. Lying down and resting alleviates the headaches. She continues to have photophobia and phonophobia as triggers for the headaches and associated w/ the headaches.She takes 1-2 alleve 2-4 times weekly. She is no longer on topiramate or amitriptyline as they madeher too fatigued. She continues to have problems with fatigue. She does have ANA and has CPAP (compliant). She has had TSH, votamin B12, vitamin D (among other labs) checked and these are within normal limits. I had offered a trial of a stimulant but she is concerned about the list of cardiac complications and side effects. She continues to have problems with thinking clearly, with verbal comprehension, with speaking clearly, especially when fatigued. She has dizziness when she goes from sitting to standing and when she has been standing for a prolonged period of time at work. She has to take a break every 30 minutes for 5-10 minutes at a time. She feels that she is working too much. She has problems with visual focus. She sees Marie Bar OD and does some visual exercises. Often following these eye exercises, she has to call in sick. She was very concerned that she wants someone to speak up for her that her symptoms are post concussive in nature and that she may be working too many hours. Patient Active Problem List Diagnosis Code ??? Congenital heart disease Q24.9 ??? Concussion with no loss of consciousness S06.0X0A ??? Work related injury Y99.0 ??? Acute post-traumatic headache, not intractable G44.319 ??? Fatigue R53.83 ??? Attention or concentration deficit R41.840 ??? Head injury S09.90XA ??? Depression F32.9 ??? Total anomalous pulmonary venous return Q26.2 ??? Elevated cholesterol E78.00 ??? Mild obstructive sleep apnea G47.33 Allergies Allergen Reactions ??? Cephalexin ??? House Dust Current Outpatient Prescriptions on File Prior to Visit Medication Sig Dispense Refill ??? PROAIR HFA 90 mcg/actuation HFA Aerosol Inhaler Inhale 2 puffs into the lungs as needed. 0 ??? FREESTYLE LITE STRIPS 1 Device 2 times daily. 0 ??? fluocinonide (LIDEX) 0.05 % Cream apply to affected area twice a day (RASH BEHIND THE EAR) 0 ??? FREESTYLE LANCETS 28 gauge Misc 1 Device 2 times daily. 0 ??? montelukast (SINGULAIR) 10 mg Tablet Take 10 mg by mouth nightly. 0 ??? ERGOCALCIFEROL, VITAMIN D2, (VITAMIN D2 ORAL) Take 1 tablet by mouth daily. No current facility-administered medications on file prior to visit. Most Recent Vitals: 04/12/17 1107 BP: 155/83 Pulse: 60 Physical and neurological examination: Skin: No rashes or scars noted Cardiovascular: RRR Psychiatry: Mood and affect are appropriate. Speech is fluent and appropriate, comprehension fully intact. Cranial nerves: Visual guillen are intact, extra-ocular movements intact, pupils equal and reactive to light, face and smile are symmetric, no dysarthria. I could not get a good look fundoscopically as she is extremely photosensitive and blinks frequently/rapidly to light Coordination and gait: gait is normal and steady, finger to nose intact. Normal fine motor movements. Negative romberg (sways, but is able to self correct). Musculoskeletal: Normal power throughout Reflexes: DTRs are symmetric and 1+ throughout. Ms Robles is a 42 yo F whom I am seeing for the sequelae of a possible brain injury. I explained to her that I am only meeting with her for ~ 40 minutes and that I cannot give an accurate assessmentof her abilities at work (aside from a summary of what she reports to me in clinic). I think that afunctional capacity evaluation, if she has not had one yet, would be helpful to determine her streng ths and weakness and help shape her work days. She is not seeking disability, but needs more time to rest and recover. She could possibly returned to OT, but I will defer to her Occ Med cliniciand and/or PCP. I do think there is a strong element of somatization, which could be why her clinicians have wantedto try and treat depression. She is focused on reduction of work hours, which I think would be bestaddressed by Occ Med and OT ([facility]). As for her headaches, she has not done well on amitriptyline or topiramate, but may wish to try magnesium, riboflavin or coQ10 for headache prophylaxis (she wishes to check with her occupational therapist assistant (history of open heart surgery as a child) first, and I think this is reasonable). I did refer her to the headache clinic. She does need an updated dental examination and a good dilated fundoscopic examination, as I was unable to perform one today. As for her dizziness, I suggested that she obtain a cuff (and have a professional go over the proper use with her) and take her BP when symptomatic. If she is found to be orthostatic, conservative measures could be taken: - Get Compression Stockings and wear whenever you???re awake or out of bed. - Elevate your feet as often as possible - You need to build calf strength so that your calves act as muscular pumps to force blood volume back to your upper body and therefore your head - When you feel stronger/ready, do calf raise exercises to build even more strength - Drink at least one liter of fluid daily - If not contraindicated due to hypertension, consider the addition of a bit of salt to you diet (please as your primary care first). - When you get up in the morning, sit at the edge of the bed for a few minutes, do your calf exercises, don???t get up too quickly 40 minutes were spent on chart review and with the patient, and at least 25 minutes spent on directeducation, supportive counseling, and coordination of care. Follow up PRN. documented in this encounter Plan of Treatment Scheduled Referrals Name Type Priority Associated Diagnoses Orde r Schedule Referral to Occupational Therapy Outpatient Referral Routine Post concussive syndrome Ordered: 04/12/2017 Referral to Neurology Outpatient Referral Routine Post concussive syndrome Other complicated headache syndrome Ordered: 04/12/2017 documented as of this encounter Visit Diagnoses Diagnosis Post concussive syndrome Postconcussion syndrome Other complicated headache syndrome documented in this encounter Care Teams Bulldozer Press Operator Relationship Specialty Start Date End Date Eva Dang MD [address] [place] [address] PCP - General Family Medicine 03/25/16 documented as of this encounter
--- OUTSIDE RECORDS SUMMARY | 2023-11-28 13:51 | XMS_ITS | Encounter Summary ---
Author Organization [place] [address] Care Team Providers Care Clinical Nursing Director Name Role Phone Eva Dang MD Primary Care Provider [phone] Encounter Details Date Type Department Care Team (Late st Contact Info) Description 07/19/2016 2:00 PM EDT Office Visit [place] [address] Mark Maria, OT [facility] PHYSICAL MEDICINE & [place] [address] Concussion with no loss of consciousness, subsequent encounter; Attention or concentration deficit Social History Tobacco Use Types Packs/Day Years Used Date Smoking Tobacco: Never Assessed Sex and Gender Information Value Date Recorded Sex Assigned at Not on file Gender Identity Female 09/26/2019 9:01 AM EDT Sexual Orientation Not on file documented as of this encounter Progress Notes * Mark Maria, OT - 07/19/2016 2:00 PM EDT OCCUPATIONAL THERAPY TREATMENT NOTE REFERRAL SOURCE: Melanie Dykes DIAGNOSIS AND PERTINENT CO-MORBIDITY AFFECTING PLAN OF CARE 1. Concussion with no loss of consciousness, subsequent encounter 2. Attention or concentration deficit NEXT MD FOLLOW UP: PRN TOTAL TREATMENT TIME: 61 minutes TIMED CODE TREATMENT TIME: Therapeutic / Functional Activities (11067) 61 min Past Medical History: Diagnosis Date ??? Congenital heart disease PAST MEDICAL HISTORY: Sarah M Travis is a 41 y.o. year old female [...] treatment. Sarah Robles presents alone TREATMENT TODAY: Skilled discussion was held regarding the hourly schedule for which she reports that her life had never worked that way and it would have been hard for her to do pre injury She instead composed a list of tasks that needed to be done over the course of the week. She then created a daily task list for one weeks time in an attempt to separate these tasks out evenly also weighing in appointments and other things that were scheduled. She placed a time prediction next to each task to help with this. She then looked at the day to see if it was an appropriate challenge and p redicted the amount of work she could tolerate. After looking at her original list of task she had forgotten to carry some of her tasks over to herweekly schedule and these were carried over. Assistance was required with a number of tasks to predict the amount of time required. ASSESSMENT: Sarah Robles presents with activity limitations and/or participation restrictions dueto performance deficits in working and delayed memory, cognitive endurance, which is in turn affecting her executive functions. She arrives today very fatigued after not keeping up with her amitriptyline and being up all last night in combination with caring for her sick daughter. She has not attempted the hourly schedule and does not feel this will work for her. She was more motivated with the to do list and weekly schedule with time predictions for her to schedule. We will review the use of this tool also work on a task that challenges her attentional and memory abilities such as snap circuit, a cooking task, and task interrupt with david e management.. 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 for Cognitive retraining [...] deficit documented in this encounter Care Teams Clinical Nursing Director Relationship Specialty Start Date End Date Eva Dang MD [address] [place] [address] PCP - General Family Medicine 03/25/16 documented as of this encounter
--- OUTSIDE RECORDS SUMMARY | 2023-11-28 13:51 | XMS_ITS | Encounter Summary ---
Author Organization [facility] Address [facility] [place] [address] Care Team Providers Care Local Sales Associate Name Role Phone Eva Dang MD Primary Care Provider Reason for Visit * Reason Onset Date Comments Other 11/10/2016 Encounter Details Date Type Department Care Team (Late st Contact Info) Description 11/10/2016 Telephone Care Management [facility] [place] [address] Naheed Stephens, [facility] [place] [address] Other Social History Tobacco Use Types Packs/Day Years Used Date Smoking Tobacco: Never Sex and Gender Information Value Date Recorded Sex Assigned at Not on file Gender Identity Female 09/26/2019 9:01 AM EDT Sexual Orientation Not on file documented as of this encounter Miscellaneous Notes * Telephone Encounter - Naheed Stephens, SENIOR TAX SPECIALIST - 11/10/2016 11:50 AM EDT CCM covering for [facility] Social Work Lure Maker: Trudy Garza Dar, received a call from [facility] med provider: Radha # [phone] questioning tx recommendations rendered by pt's recent encounter w/ [facility] TBI team ie: Shadia Dykes, and neurologist: . CCM consulted w/ Shadia Dykes APRN re: the recent 11-03-16 encounter w/ this pt, Noting Occ med Provider's questions about f/u appt needs, Neuro Psych involvement, and noting concerns about the medications that were recommended to pt By . QUILT MAKER clarified that pt was seen by Neuro Psych during the 11-03 clinic, but the note is not yet composed, and instructed CCM to have Occ med provider contact 's RN to address medication questions or concerns. CCM f/u w/ [facility] Occ med provider re; the above, providing her w/ the name and contact number for 's RN: Marylu Lillian [phone], and directing her to contact [facility] admin staff to request theNeuro Psych note be faxed to her once composed. Pt is not scheduled for f/u appts w/ either or [facility], directing Occ med provider to discussthe necessity of f/u appt needs w/ 's RN as needed. [facility] relayed plan for me to collaborate w/ [facility] director of medicare: Trudy Dodge re: the above intervention, requesting follow up w/ [facility] Occ med provider PRN. P: [facility] will collaborate w/ the aforementioned [facility] staff re: the encounter w/ [facility] Occ med provider, and be available for follow up intervention as needed. documented in this encounter Plan of Treatment Not on file documented as of this encounter Visit Diagnoses Not on filedocumented in this encounter Care Teams Local Sales Associate Relationship Specialty Start Date End Date Eva Dang MD [address] [place] [address] PCP - General Family Medicine 03/25/16 documented as of this encounter
--- OUTSIDE RECORDS SUMMARY | 2023-11-28 13:51 | XMS_ITS | Encounter Summary ---
[place] [address] Care Team Providers Care Employee Health Nurse Name Role Phone Eva Dang MD Primary Care Provider [phone] Encounter Details Date Type Department Care Team (Late st Contact Info) Description 08/17/2016 External Results [place] [id number] Florentino Pereira MD [facility] [address] [place] [id number] Social History Tobacco Use Types Packs/Day Years Used Date Smoking Tobacco: Never Sex and Gender Information Value Date Recorded Sex Assigned at Not on file Gender Identity Female 09/26/2019 9:01 AM EDT Sexual Orientation Not on file documented as of this encounter Plan of Treatment Not on file documented as of this encounter Procedures Procedure Name Priority Date/Time Associated Diagnosis Comments ECG SCAN Routine 09/04/1999 ECG SCAN Routine 07/31/1996 documented in this encounter Results * Scan Doc: ECG (09/04/1999) Florentino Pereira MD MEDIA MGR SCAN EXT O RDR/RSLT * Scan Doc: ECG (07/31/1996) Yamilex Tijerina MD MEDIA MGR SCAN EXT O RDR/RSLT documented in this encounter Visit Diagnoses Not on filedocumented in this encounter Care Teams Employee Health Nurse Relationship Specialty Start Date End Date Eva Dang MD [address] [facility] [address] [place] [address] PCP - General Family Medicine 03/25/16 documented as of this encounter
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
--- OUTSIDE RECORDS SUMMARY | 2023-11-28 13:51 | XMS_ITS | Encounter Summary ---
Author Organization [facility] [place] [address] Care Team Providers Care Farm Technician Name Role Phone Eva Dang MD Primary Care Provider [phone] Encounter Details Date Type Department Care Team (Late st Contact Info) Description 12/07/2016 [place] [id number] Trudy Dodge MSW Social History Tobacco Use Types Packs/Day Years Used Date Smoking Tobacco: Never Sex and Gender Information Value Date Recorded Sex Assigned at Not on file Gender Identity Female 09/26/2019 9:01 AM EDT Sexual Orientation Not on file documented as of this encounter Progress Notes * Trudy Dodge MSW - 12/07/2016 10:51 AM EDT [facility] FOLLOW UP CONTINUING CARE MANAGEMENT SOCIAL WORK ? CLAIM # [id number] DOI: INSURANCE COMAPANY: [employer] CONTACT: Brigette Soto [facility], Powerhouse Tender: Kiera Pagan [facility] Med Provider: Radha Sol [facility] Kamran Montemayor CCM faxed copy of cardiac MRI as requested by treating Occ Med provider. documented in this encounter Plan of Treatment Not on file documented as of this encounter Visit Diagnoses Not on filedocumented in this encounter Care Teams Farm Technician Relationship Specialty Start Date End Date Eva Dang MD [address] [facility] [address] [place] [address] PCP - General Family Medicine 03/25/16 documented as of this encounter
--- OUTSIDE RECORDS SUMMARY | 2023-11-28 13:51 | XMS_ITS | Encounter Summary ---
Author Organization [facility] Address [facility] [place] [address] Care Team Providers Care Health And Safety Advisor Name Role Phone Eva Dang MD Primary Care Provider [phone] Reason for Referral * Diagnostic Test (Routine) - Closed Specialty Diagnoses / Procedures Referred By Contac t Referred To Contact Radiology Diagnoses TAPVR (total anomalous pulmonary venous return) Procedures MRI Cardiac Morph Func o All Phelps MD [facility] [place] [address] [place] [address] Referral ID Status Reason Start Date Expiration Date V isits Requested Visits Authorized [id number] Closed Specialty Service Requested 11/19/2016 02/17/2017 2 2 Reason for Visit * Diagnostic Test (Routine) - Closed Specialty Diagnoses / Procedures Referred By Contac t Referred To Contact Radiology Diagnoses TAPVR (total anomalous pulmonary venous return) Procedures MRI Cardiac Morph Func jacoboo All Phelps MD [facility] [place] [address] [place] [address] Referral ID Status Reason Start Date Expiration Date V isits Requested Visits Authorized [id number] Closed Specialty Service Requested 11/19/2016 02/17/2017 2 2 Encounter Details Date Type Department Care Team (Latest Contact Info) Description 11/18/2016 8:56 AM EDT - 11/18/2016 8:57 AM EDT Hospital [place] [address] All Davies MD [facility] [place] [address] TAPVR (total anomalous pulmonary venous return) Discharge Disposition: Home Social History Tobacco Use [...] daily. 06/13/2017 documented as of this encounter Progress Notes * Js Owen, RN - 11/15/2016 8:56 AM EDT MRI PRE-SEDATION ASSESSMENT NOTE NAME: Sarah Robles AGE: 41 y.o. : 1975 [address] [place] [address] Female [phone] (home) Telephone Information: Eva Dang MD None No Known Allergies Date/Time of call: November 15, 2016/8:56 AM/ PREVIOUS MRI SCAN? Open MRI HEIGHT: 5'6 WEIGHT: 230 pounds SCHEDULED SCAN: MRI cardiac Morph Func wwo contrast (120 min, feet first, supine)- 1 pill only SUBJECTIVE: Had a closed MRI and discovered I am claustrophobic CAN YOU LAY FLAT? Yes AIRWAY ISSUES? NOne DO YOU HAVE ANY INVOLUNTARY MOVEMENTS? None DO YOU HAVE ANY PAIN? None DO YOU TAKE PAIN MED ON A DAILY BASIS? NOne ASSESSMENT: Valium would be ok to try PLAN: Valium 5mg. PO per protocol. Guidelines for MRI Pre-Procedures Laboratory Studies: GFR Date of lab draw 1. Creatinine studies (GFR level needed) within 90 days of scan ??? 70 yo or older if they are getting contrast ??? 50 years and older if they are diabetic and getting contrast ( XXX ) You must have a concrete pile driver operator present when you check in. This patient has been informed that they require a concrete pile driver operator to drive them home after this procedure. In the absence of a concrete pile driver operator, IR will not be able to sedate for your scan. Pt verbalized understanding of these instructions during the pre-procedure education via phone. Yes Bessie of concrete pile driver operator: Phone number PRIOR SCAN DATE/S SEDATION TYPE SUCCESSFUL 11/18/2016 Cardiac Morphology Valium 5mg. PO x1 Yes Revised 05/23/15 documented in this encounter Plan of Treatment Not on file documented as of this encounter Procedures Procedure Name Priority Date/Time Associated Diagnosis Comments MRI CARDIAC MORPHOLOGY FUNCTION WWO CONTRAST Routine 11/18/2016 12:37 PM EDT TAPVR (total anomalous pulmonary venous return) documented in this encounter Results * MRI Cardiac Morph Func wwo Contrast (11/18/2016 12:37 PM EDT) Anatomical Region Laterality Modality Magnetic Resonan ce Impressions 11/24/2016 9:37 AM EDT 1. Status-post repair of totally anomalous pulmonary venous return with anastomosis of the pulmonary vein confluence to the left atrium. ??All four pulmonary veins return normally to the left atrium without apparent narrowing or osteal stenosis. 2. Moderate concentric left ventricular hypertrophy. 3. Normal valve function. 4. Normal biventricular systolic function. 5. No significant late gadolinium enhancement. 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 ??Cardiovascular magnetic resonance examination to evaluate pulmonary venous anatomy and ventricular size and function. COMPARISON: No prior cardiac MRI examination for comparison TECHNIQUE: 3-plane localizing sequences. ECG-gated, breath-hold cine steady-state free precession without contrast in the following planes: axial plane at the level of the left atrium, ventricular short-axis, multiplanar ventricular long-axis, right and left ventricular outflow tract long-axes. ECG-gated, turbo spin echo imaging without contrast in an axial plane at the level of the left atrium. Breath-hold, sagittal, three-dimensional angiography after intravenous administration of 10 cc of Gadavist. Breath-hold short-axis and multiplanar long-axis myocardial delayed enhancement. Two-dimensional cine phase contrast/flow measurements: aortic root and main pulmonary artery. Post-processing performed on an independent computer workstation. FINDINGS: Abdominal Situs: Solitus Cardiac segments: ??{S, D, S} Cardiac Position: Levocardia Conus: Subpulmonary RIGHT HEART: Right atrium: Normal right atrial size. Tricuspid valve: No significant tricuspid regurgitation. Right ventricle: ??Normal right ventricular size and global systolic function. Unobstructed right ventricular outflow tract. Pulmonic valve: No evidence of pulmonary valve stenosis. ??No significant pulmonary regurgitation. PULMONARY ARTERIES: Unobstructed main and branch pulmonary arteries. Differential pulmonary artery blood flow: right 58%, left 42%. INTERATRIAL AND INTERVENTRICULAR SEPTA: No atrial or ventricular septal defect detected; unable to exclude small defect. LEFT HEART: Left atrium: Normal left atrial size. Mitral valve: No significant mitral regurgitation. Left ventricle: Moderate concentric left ventricular hypertrophy (left ventricular mass 141 grams, z-score 4.2, mid-septal thickness 13 mm, mid-posterior wall thickness 11 mm). Normal left ventricular cavity size and global systolic function. No late gadolinium enhancement except in the inferior septal junction (common finding). Aortic valve:No significant aortic regurgitation. AORTA: Normal caliber aortic root and ascending aorta. ??Unobstructed left aortic arch with normal branching. No significant aortopulmonary collaterals. SYSTEMIC AND PULMONARY VENOUS CONNECTIONS: Status-post anastomosis of the pulmonary vein confluence to the left atrium. ??All four pulmonary veins return normally to the left atrium without apparent narrowing or osteal stenosis. ?? PERICARDIUM and PLEURA: No pericardial or pleural effusions. QUANTITATIVE DATA: Height: 168 cm Weight: 101 kg Body Surface Area: 2.17 m^2 LEFT VENTRICLE: LV Mass: 140.62 g LV Mass Index: 64.95 g/m^2 LV Mass Index: 83.7 g/m LV End-Diastolic Volume: 165.85 mL LV End-Diastolic Volume Index: 76.60 mL/m^2 LV End-Systolic Volume: 71.73 mL LV End-Systolic Volume Index: 33.13 mL/m^2 Stroke Volume: 94.12 mL Stroke Volume Index: 43.47 mL/m^2 Ejection Fraction: 56.75% RIGHT VENTRICLE: RV Mass: 37.06 g RV Mass Index: 17.12 g/m^2 RV End-Diastolic Volume: 156.59 mL RV End-Diastolic Volume Index: 72.32 mL/m^2 RV End-Systolic Volume: 66.40 mL RV End-Systolic Volume: 30.67 mL/m^2 RV Stroke Volume: 90.19 mL RV Stroke Volume Index: 41.65 mL/m^2 RV Ejection Fraction: 57.60% FLOW ANALYSIS Main Pulmonary Artery Forward flow: 88.11 mL per beat Backward flow: 1.26 mL per beat Net flow: 86.86 mL per beat Regurgitant fraction: 1.43% Right Pulmonary Artery Net flow: 54.82 mL per beat Left Pulmonary Artery Net Flow: 40.07 mL per beat Aorta: Forward flow: 88.37 mL per beat Backward flow: 2.45 mL per beat Net flow: 85.92 mL per beat Regurgitant fraction: 2.78% Procedure Note Jarret Heath MD - 11/24/2016 EXAMINATION: MRI CARDIAC FLOW VELOCITY QUANTIFICATIONS WWO CONTRAST,MORPHOLOGY AND FUNCTION CLINICAL HISTORY: Totally anomalous pulmonary venous return, 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 Cardiovascular magnetic resonance examinationto evaluate pulmonary venous anatomy and ventricular size and function. COMPARISON: No prior cardiac MRI examination for comparison TECHNIQUE: 3-plane localizing sequences. ECG-gated, breath-hold cine steady-state free precession without contrastin the following planes: axial plane at the level of the left atrium,ventricular short-axis, multiplanar ventricular long-axis, right and leftventricular outflow tract long-axes. ECG-gated, turbo spin echo imaging without contrast in an axial plane atthe level of the left atrium. Breath-hold, sagittal, three-dimensional angiography after intravenous administration of 10 cc of Gadavist. Breath-hold short-axis and multiplanar long-axis myocardial delayedenhancement. Two-dimensional cine phase contrast/flow measurements: aortic root andmain pulmonary artery. Post-processing performed on an independent computer workstation. FINDINGS: Abdominal Situs: Solitus Cardiac segments: {S, D, S} Cardiac Position: Levocardia Conus: Subpulmonary RIGHT HEART: Right atrium: Normal right atrial size. Tricuspid valve: No significant tricuspid regurgitation. Right ventricle: Normal right ventricular size and global systolicfunction. Unobstructed right ventricular outflow tract. Pulmonic valve: No evidence of pulmonary valve stenosis. No significant pulmonary regurgitation. PULMONARY ARTERIES: Unobstructed main and branch pulmonary arteries. Differential pulmonary artery blood flow: right 58%, left 42%. INTERATRIAL AND INTERVENTRICULAR SEPTA: No atrial or ventricular septaldefect detected; unable to exclude small defect. LEFT HEART: Left atrium: Normal left atrial size. Mitral valve: No significant mitral regurgitation. Left ventricle: Moderate concentric left ventricular hypertrophy (left ventricular mass 141 grams, z-score 4.2, mid-septal thickness 13 mm, mid-posterior wall thickness 11 mm). Normal left ventricular cavity sizeand global systolic function. No late gadolinium enhancement except in theinferior septal junction (common finding). Aortic valve:No significant aortic regurgitation. AORTA: Normal caliber aortic root and ascending aorta. Unobstructed left aorticarch with normal branching. No significant aortopulmonary collaterals. SYSTEMIC AND PULMONARY VENOUS CONNECTIONS: Status-post anastomosis ofthe pulmonary vein confluence to the left atrium. All four pulmonary veinsreturn normally to the left atrium without apparent narrowing or osteal stenosis. PERICARDIUM and PLEURA: No pericardial or pleural effusions. QUANTITATIVE DATA: Height: 168 cm Weight: 101 kg Body Surface Area: 2.17 m^2 LEFT VENTRICLE: LV Mass: 140.62 g LV Mass Index: 64.95 g/m^2 LV Mass Index: 83.7 g/m LV End-Diastolic Volume: 165.85 mL LV End-Diastolic Volume Index: 76.60 mL/m^2 LV End-Systolic Volume: 71.73 mL LV End-Systolic Volume Index: 33.13 mL/m^2 Stroke Volume: 94.12 mL Stroke Volume Index: 43.47 mL/m^2 Ejection Fraction: 56.75% RIGHT VENTRICLE: RV Mass: 37.06 g RV Mass Index: 17.12 g/m^2 RV End-Diastolic Volume: 156.59 mL RV End-Diastolic Volume Index: 72.32 mL/m^2 RV End-Systolic Volume: 66.40 mL RV End-Systolic Volume: 30.67 mL/m^2 RV Stroke Volume: 90.19 mL RV Stroke Volume Index: 41.65 mL/m^2 RV Ejection Fraction: 57.60% FLOW ANALYSIS Main Pulmonary Artery Forward flow: 88.11 mL per beat Backward flow: 1.26 mL per beat Net flow: 86.86 mL per beat Regurgitant fraction: 1.43% Right Pulmonary Artery Net flow: 54.82 mL per beat Left Pulmonary Artery Net Flow: 40.07 mL per beat Aorta: Forward flow: 88.37 mL per beat Backward flow: 2.45 mL per beat Net flow: 85.92 mL per beat Regurgitant fraction: 2.78% IMPRESSION 1. Status-post repair of totally anomalous pulmonary venous return with anastomosis of the pulmonary vein confluence to the left atrium. Allfour pulmonary veins return normally to the left atrium without apparentnarrowing or osteal stenosis. 2. Moderate concentric left ventricular hypertrophy. 3. Normal valve function. 4. Normal biventricular systolic function. 5. No significant late gadolinium enhancement. 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 documented in this encounter Administered Medications Inactive Administered Medications - up to 3 most recent administrations Medication Order MAR Action Action Date Dose Rate Site diaZEPam (VALIUM) tablet 5-10 mg 5-10 mg, Oral, ONCE PRN, 2 doses, Starting on Lesia 11/18/16 at 0912, Until Tue11/19/16 at 0433, Anxiety, Angio/IR (Day of Procedure), Routine Given 11/18/2016 9:25 AM EDT 5 mg documented in this encounter Care Teams Health And Safety Advisor Relationship Specialty Start Date End Date Eva Dang MD [facility] [address] [place] [address] PCP - General Family Medicine 03/25/16 documented as of this encounter
--- OUTSIDE RECORDS SUMMARY | 2023-11-28 13:51 | XMS_ITS | Encounter Summary ---
Author Organization [facility] Address [facility] [place] [address] Care Team Providers Care Guide Dog Trainer Name Role Phone Eva Dang MD Primary Care Provider [phone] Encounter Details Date Type Department Care Team (Late st Contact Info) Description 11/14/2018 8:00 AM EDT Office Visit Neurology at [facility] [place] [address] Ursula Walters, EDUCATION SALES CONSULTANT [facility] [place] [address] Migraine without aura and without status migrainosus, not intractable (Primary Dx); Intractable chronic post-traumatic headache Social History Tobacco Use Types Packs/Day Years [...] Sign Reading Time Taken Comments Blood Pressure 154/94 11/14/2018 8:41 AM EDT Pulse 72 11/14/2018 8:41 AM EDT Temperature - - Respiratory Rate - - Oxygen Saturation - - Inhaled Oxygen Concentration - - Weight 102.1 kg (225 lb) 11/14/2018 8:13 AM EDT Height 167.6 cm (5' 6) 11/14/2018 8:13 AM EDT r eported Body Mass Index 36.32 11/14/2018 8:13 AM EDT documented in this encounter Progress Notes * Ursula Walters APRN - 11/14/2018 8:00 AM EDT Neurology Headache Clinic Follow-up Patient Name: Sarah Robles Patient ID: Sarah Robles is a 43 y.o. Left handed female with MHx of [...] sleep and increasing headaches. Headaches have changed. Aimovig is working well. Still has headaches, and tingling on top of head. Intensity has lessoned. Is having some headache free time during the day. Total of Five injections of aimovig. Does report constipation with aimovig Would have wearing effect if she does not take it on time. Feeling rushed and stressed out - bp is up today Sleeping better, but working on a treatment plan with psychiatrist. Cognitive Sleep repair: Migraine Disability Assessment # of days in the past 3 months 1. Missed work / school because of GARCIA 0 2. Productivity at work / school reduced by > half because of GARCIA (do not count days from Q.1) 30 3. Did not do housework because of GARCIA 0 4. Productivity in household work reduced by > half because of GARCIA (do not count days from Q.3) 0 5. Missed family / social / leisure activities because of GARCIA 10 Total 42 MIDAS grade (use total of Q1 to 5) I: 0-5, little to no disability II: 6-10, mild disability III: 11-20, moderate disability IV: 21+, severe disability A. # of days in the last 3 months with a GARCIA (count each day if GARCIA lasted > 1 day) B. Average GARCIA intensity (0-10) 08/16 ROS: Medications: Current Outpatient Medications Medication Sig Dispense Refill ??? Armodafinil (NUVIGIL) 50 mg Tablet Take 3-5 tablets by mouth daily. 0 ??? Zinc Gluconate 30 mg Tablet Take 30 mg by mouth daily. 0 ??? fluocinonide (LIDEX) 0.05 % Cream Apply topically 2 times daily. ??? hydrOXYzine (VISTARIL) 25 mg Capsule Take 1 capsule by mouth 2 times daily as needed (headache). 90 capsule 1 ??? naproxen sodium (ANAPROX) 550 mg Tablet Take 1 tablet by mouth 2 times daily as needed. 60 tablet 12 ??? erenumab-aooe (AIMOVIG AUTOINJECTOR) 140 mg/mL Auto-Injector Inject 140 mg subcutaneously every30 days. NOTE: syringe change, one autoinjector = 140 mg 1 Syringe 5 ??? amitriptyline (ELAVIL) 25 mg Tablet Take 25 mg by mouth nightly as needed for Sleep. ??? rosuvastatin (CRESTOR) 20 mg Tablet Take 20 mg by mouth daily. ??? fluticasone (FLONASE) 50 mcg/actuation [place], Suspension 1 spray by Each Nare route daily. 0 ??? cholecalciferol, Vitamin D3, 50,000 unit Capsule Take 1 capsule by mouth three times a week. ??? riboflavin, vitamin B2, (VITAMIN B-2) 100 mg Tablet Take 200 mg by mouth 2 times daily. ??? magnesium 250 mg Tablet Take 500 mg by mouth daily. ??? multivitamin (THERAGRAN) Tablet Take 1 tablet [...] [] Acupuncture [] Acupressure [] Biofeedback [] Supervisor Advertising Dispatch Clerks [] Cognitive Behavioral Therapy [] Massage therapy [] Physical therapy [] Craniosacral therapy Physical Exam: Most Recent Vitals: 11/14/18 0841 BP: (!) 154/94 Pulse: 72 resp 16 BP (!) 154/94 (BP Location (NBP): Right arm, Patient Position: Sitting, BP Cuff Sizes: Large Adult (32-43 cm)) Pulse 72 Ht 167.6 cm (5' 6) Comment: reported Wt 102.1 kg (225 lb) BMI 36.32 kg/m?? Constitutional: Patient of apparent stated age, no acute distress HEENT: no occipital tenderness Resp: CTAB Neuro: MS: Alert, oriented, clear language, no dysarthria, follows commands CN: PERRL, EOMI Motor: no pronator drift Gait: normal base and arm swing Labs: Recent Results (from the past 24 hour(s)) T4 Total Result Value Ref Range T4, total 7.3 5.3 - 11.6 mcg/dL Basic Metabolic Panel (non-fasting) Result Value Ref Range Glucose Lvl 190 65 - 199 mg/dL BUN 7 (L) 8 - 18 mg/dL Creatinine 0.66 (L) 0.70 - 1.20 mg/dL Sodium 138 135 - 145 mmol/L Potassium 4.0 3.5 - 5.0 mmol/L Chloride 101 98 - 107 mmol/L CO2 25 22 - 31 mmol/L Anion Gap 12 5 - 15 mmol/L Calcium 9.4 8.5 - 10.5 mg/dL eGFR 107 >=60 mL/min/1.73 m?? eGFR 124 >=60 mL/min/1.73 m?? TSH Result Value Ref Range TSH 3.85 0.27 - 4.20 mcIU/mL Hemogram Result Value Ref Range WBC 5.6 4.0 - 9.5 x10(3)/mcL RBC 4.89 4.00 - 5.21 x10(6)/mcL Hemoglobin 13.5 11.7 - 15.5 gm/dL Hematocrit 41.2 35.7 - 45.8 % MCV 84.3 82.6 - 94.4 fL MCH 27.6 27.1 - 32.0 pg MCHC 32.8 31.7 - 35.0 gm/dL Platelets 205 145 - 357 x10(3)/mcL RDWSD 41.0 37.0 - 46.0 fL RDWCV 13.2 11.5 - 14.1 % MPV 11.0 7.6 - 12.9 fL nRBC % Auto 0.0 % nRBC Abs Auto 0.000 0.000 - 0.000 x10(3)/mcL Differential, Automated Result Value Ref Range Neutrophils % 61.9 % Neutr Abs (ANC) 3.50 1.70 - 6.10 x10(3)/mcL Lymphocytes % 25.8 % Lymphocytes Abs 1.5 0.9 - 3.2 x10(3)/mcL Monocytes % 6.4 % Monocyte Abs 0.4 0.3 - 0.9 x10(3)/mcL Eosinophils % 5.0 % Eosinophils Abs 0.3 0.0 - 0.4 x10(3)/mcL Basophils % 0.5 % Basophils Abs 0.0 0.0 - 0.1 x10(3)/mcL Immature Gran % 0.40 % Adele Gran Abs 0.02 0.00 - 0.04 x10(3)/mcL Diagnostic Tests and Imagin01/28/16 CT head- reportedly unremarkable 04/27/16: MRI brain wo contrast- extensive sinus dx, no acute intracranial abnormality TSH- wnl May 2017- Ophthalmology evaluation- prisms ?? Assessment and Plan: Sarah Robles is a 43 y.o. 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 She is having 90/90 headache days. This patient meets the FDA criteria for Chronic Migraine, with headache at least 15 days per month, at least 4 hours per day, hers are >12 hours. She has unsuccessfully tried at least 6 medications, and has had lack of success with each of the big three anti-migraine prevention categories, antidepressants, anti-epilepsy drugs, and anti-hypertensives. She has failed Botox and had many side effects from it including increased sensitivity to her head and oozing blood. The only FDA approved medications for the prevention of chronic migraine are Aimovig and Botox. Chronic Migraine without arua Well Sarah continues to have 30 out of 30 headache days, the intensity of her headaches is much better. Prior to starting Aimovig she rated her pain an 8/10. And now her average pain scale is 4/10. Labs: TSH, T4, CBC, basic Migraine Prevention Continue Aimovig Follow up in six months. Ursula Walters APRN [facility] Neurology Headache Clinic * Ursula Walters APRN - 11/14/2018 8:00 AM EDT AIMOVIG Follow Up [facility] Headache Clinic Patient name: Sarah Robles Date of : 1975 Date you began using Aimovig: June 2018 How many months have you administered Aimovig 140 m months How many migraine/headache days per month did you have BEFORE starting Aimovi/30 How many migraine/headache days per month have you had SINCE starting Aimovi/30 but she does have pain free time Have you noticed that your headaches/migraines are not as severe since starting Aimovig: yes Have you used less of your abortive medications (triptans, NSAIDs, etc) since starting Aimovig: yes Are your abortive medications working better to abort migraines since starting Aimovig: yes Do you think the Aimovig is helping: yes Side effects: Constipation Is the medication wearing off ? yes If it is, when? 2 days prior to injection Is the medication preventing your MENSTRUAL Migraine? Ursula Walters APRN [facility] Neurology Headache Clinic documented in this encounter Plan of Treatment Not on file documented as of this encounter Procedures Procedure Name Priority Date/Time Associated Diagnosis Comments HEMOGRAM Routine 11/14/2018 9:02 AM EDT Migraine without aura and without status migrainosus, not intractable DIFFERENTIAL, AUTOMATED Routine 11/14/2018 9:02 AM EDT Migraine without aura and without status migrainosus, not intractable CBC (WITH DIFF) Routine 11/14/2018 9:02 AM EDT Migraine without aura and without status migrainosus, not intractable TSH Routine 11/14/2018 9:02 AM EDT Migraine without aura and without status migrainosus, not intractable T4 TOTAL Routine 11/14/2018 9:02 AM EDT Migraine without aura and without status migrainosus, not intractable BASIC METABOLIC PANEL (NON-FASTING) Routine 11/14/2018 9:02 AM EDT Migraine without aura and without status migrainosus, not intractable documented in this encounter Results * Differential, Automated (11/14/2018 9:02 AM EDT) Neutrophils % 61.9 % [facility] Neutr Abs (ANC) 3.50 1.70 - 6.10 x10(3)/[facility] Lymphocytes % 25.8 % [facility] Lymphocytes Abs 1.5 0.9 - 3.2 x10(3)/[facility] Monocytes % 6.4 % [facility] Monocyte Abs 0.4 0.3 - 0.9 x10(3)/[facility] Eosinophils % 5.0 % [facility] Eosinophils Abs 0.3 0.0 - 0.4 x10(3)/[facility] Basophils % 0.5 % [facility] Basophils Abs 0.0 0.0 - 0.1 x10(3)/[facility] Immature Gran % 0.40 % [facility] Comment: Immature granulocytes(IG's)percentage and absolute count will include metamyelocytes, myelocytes, and promyelocytes. Blood smears from CBCs yielding IG's will be scanned manually for concordance. If this scan disagrees with the automated IG or if promyelocytes are noted, a manual differential will be performed. Adele Gran Abs 0.02 0.00 - 0.04 x10(3)/[facility] Blood specimen (specimen) 11/14/2018 9:02 AM EDT 11/14/2018 9:12 AM EDT Narrative Resulting Agency Comment Spec In Lab Ursula Walters APRN HEMATOLOGY ORDERA BLES [facility] [place] [address] * Hemogram (11/14/2018 9:02 AM EDT) WBC 5.6 4.0 - 9.5 x10(3)/[facility] RBC 4.89 4.00 - 5.21 x10(6)/[facility] Hemoglobin 13.5 11.7 - 15.5 gm/dL [facility] Hematocrit 41.2 35.7 - 45.8 % [facility] MCV 84.3 82.6 - 94.4 fL [facility] MCH 27.6 27.1 - 32.0 pg [facility] MCHC 32.8 31.7 - 35.0 gm/dL [facility] Platelets 205 145 - 357 x10(3)/[facility] RDWSD 41.0 37.0 - 46.0 fL [facility] RDWCV 13.2 11.5 - 14.1 % [facility] MPV 11.0 7.6 - 12.9 fL [facility] nRBC % Auto 0.0 % [facility] nRBC Abs Auto 0.000 0.000 - 0.000 x10(3)/mcL [facility] Blood specimen (specimen) 11/14/2018 9:02 AM EDT 11/14/2018 9:12 AM EDT Narrative Resulting Agency Comment Spec In Lab Ursula Walters EDUCATION SALES CONSULTANT HEMATOLOGY ORDERA BLES Performing Organization Address [facility] Co de Phone Number [facility] [place] [address] * TSH (11/14/2018 9:02 AM EDT) [facility] TSH 3.85 0.27 - 4.20 mcIU/mL [facility] Blood specimen (specimen) 11/14/2018 9:02 AM EDT 11/14/2018 9:12 AM EDT Narrative Resulting Agency Comment Spec In Lab Ursula Walters EDUCATION SALES CONSULTANT CHEMISTRY ORDERAB LES Performing Organization Address [facility] Co de Phone Number [facility] [place] [address] * T4 Total (11/14/2018 9:02 AM EDT) [facility] T4, total 7.3 5.3 - 11.6 mcg/dL [facility] Comment: Reference Range: Females: First Trimester: 6.2-13.3 mcg/dL Second Trimester: 7.0-14.7 mcg/dL Third Trimester: 7.0-14.7 mcg/dL Blood specimen (specimen) 11/14/2018 9:02 AM EDT 11/14/2018 9:12 AM EDT Narrative Resulting Agency Comment Spec In Lab Ursula Walters EDUCATION SALES CONSULTANT CHEMISTRY ORDERAB LES Performing Organization Address [facility] Co de Phone Number [facility] [place] [address] * (ABNORMAL) Basic Metabolic Panel (non-fasting) (11/14/2018 9:02 AM EDT) Glucose Lvl 190 65 - 199 mg/dL [facility] Comment:Diabetes: >=200 mg/d L plus symptoms BUN 7(L) 8 - 18 mg/dL [facility] Creatinine 0.66(L) 0.70 - 1.20 mg/dL [facility] Sodium 138 135 - 145 mmol/L [facility] Potassium 4.0 3.5 - 5.0 mmol/L [facility] Comment: Please note: ??Patients with WBC >100,000 may have falsely elevated Potassium levels. ??For accurate Potassium quantification in these patients send serum separator tube (gold top) for subsequent determinations. ??Contact the Clinical Chemistry Laboratory if there are any questions. Chloride 101 98 - 107 mmol/L [facility] CO2 25 22 - 31 mmol/L [facility] Anion Gap 12 5 - 15 mmol/L [facility] Calcium 9.4 8.5 - 10.5 mg/dL [facility] Estimated GFR 107 >=60 mL/min/1. 73 m?? [facility] Comment: The eGFR was calculated using the CKD-EPI equation. As with all creatinine based estimates of kidney function, eGFR values calculated with the CKD-EPI equation are not accurate in patients with acute kidney failure, extremes of body mass or the acutely ill. [email or web address] eGFR 124 >=60 mL/min/1. 73 m?? [facility] Comment: The eGFR was calculated using the CKD-EPI equation. As with all creatinine based estimates of kidney function, eGFR values calculated with the CKD-EPI equation are not accurate in patients with acute kidney failure, extremes of body mass or the acutely ill. [email or web address] Blood specimen (specimen) 11/14/2018 9:02 AM EDT 11/14/2018 9:12 AM EDT Narrative Resulting Agency Comment Spec In Lab Ursula Walters APRN CHEMISTRY [place] [address] documented in this encounter Visit Diagnoses Diagnosis Migraine without aura and without status migrainosus, not intractable- Primary Migraine without aura, without mention of intractable migraine without mention of status migrainosus Intractable chronic post-traumatic headache Chronic post-traumatic headache documented in this encounter Care Teams Guide Dog Trainer Relationship Specialty Start Date End Date Eva Dang MD [facility] LUPIS HARTLEY [facility] [address] [place] [address] PCP - General Family Medicine 03/25/16 documented as of this encounter
--- OUTSIDE RECORDS SUMMARY | 2023-11-28 13:51 | XMS_ITS | Encounter Summary ---
Author Organization [facility] Address [facility] [place] [address] Care Team Providers Care Terminal Make Up Operator Name Role Phone Eva Dang MD Primary Care Provider [phone] Encounter Details Date Type Department Care Team (Latest Contact Info) Description 11/03/2016 1:00 PM EDT Office Visit Psychiatry and Behavioral Health at [facility] [place] [address] Melanie Dykes APRN [facility] [address] Attention or concentration deficit; Concussion with no loss of consciousness, sequela; Work related injury Social History Tobacco Use Types Packs/Day Years Used Date Smoking Tobacco: Never Sex and Gender Information Value Date Recorded Sex Assigned at Not on file Gender Identity Female 09/26/2019 9:01 AM EDT Sexual Orientation Not on file documented as of this encounter Progress Notes * Melanie Dykes APRN - 11/03/2016 1:00 PM EDT Note to follow documented in this encounter Plan of Treatment Not on file documented as of this encounter Visit Diagnoses Diagnosis Attention or concentration deficit Concussion with no loss of consciousness, sequela Work related injury Injury, other and unspecified, unspecified site documented in this encounter Care Teams Terminal Make Up Operator Relationship Specialty Start Date End Date Eva aDng MD [address] [place] [address] PCP - General Family Medicine 03/25/16 documented as of this encounter
--- OUTSIDE RECORDS SUMMARY | 2023-11-28 13:51 | XMS_ITS | Encounter Summary ---
Author Organization [facility] [place] [address] Care Team Providers Care Route Salesman Name Role Phone Eva Dang MD Primary Care Provider [phone] Encounter Details Date Type Department Care Team (Late st Contact Info) Description 08/11/2016 10:00 AM EDT Office Visit [place] [address] Mark Maria, OT [facility] PHYSICAL MEDICINE & [place] [address] Concussion with no loss of consciousness, subsequent encounter; Attention or concentration deficit Social History Tobacco Use Types Packs/Day Years Used Date Smoking Tobacco: Never Assessed Sex and Gender Information Value Date Recorded Sex Assigned at Not on file Gender Identity Female 09/26/2019 9:01 AM EDT Sexual Orientation Not on file documented as of this encounter Progress Notes * Mark Maria, OT - 08/11/2016 10:00 AM EDT OCCUPATIONAL THERAPY TREATMENT NOTE REFERRAL SOURCE: Melanie Dykes DIAGNOSIS AND PERTINENT CO-MORBIDITY AFFECTING PLAN OF CARE 1. Concussion with no loss of consciousness, subsequent encounter 2. Attention or concentration deficit NEXT MD FOLLOW UP: PRN TOTAL TREATMENT TIME: 70 minutes TIMED CODE TREATMENT TIME: 70 minutes TFA Past Medical History: Diagnosis Date [...] Sarah Robles presents alone TREATMENT TODAY: Sarah was given a garden planning task. She/He was presented with the following instruction, a link to field trip pumpkins at [facility], and an article on planting and black plastic use. 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 The school is generous in that they will be providing you a tractor with a 5 foot wide rototiller to be used over the summer for preparing the garden and for weed control between rows. They are also providing you with the garden plot near the [facility] for which there is access to a well with a water spout and garden hose to get to your garden. For the purposes of organic weed control they have requested that you use 4 foot wide black plastic to plant your rows of pumpkins in. Considering what they have provided for resources, they are purchasing the pumpkins from you at 50% the cost of usual retail sales. They want you to plant field trip size pumpkins only which have sold the best in past fund raisers. Please calculate and describe the following. You will have 15 minutes to describe your plan at the end of the visit. 1 how are you going to plant and care for the garden 2 What are your expenses. 3 How much in gross sales will you make 4 what is your actual profit. Please note: Not all the information related to cost are presented in the material provided. If unable to find costs please use your therapist as a resource to tell you the cost of items. Comments: She required 3 cues for calculations. She wrote all information down in detail which took more time All calculations she was completing were documented in detail which appeared to be a memory compensatory tool. ASSESSMENT: Sarah Robles presents with activity limitations and/or participation restrictions dueto performance deficits in working and delayed memory, cognitive endurance, which is in turn affecting her executive functions. She was challenged today with this task initially needing some assistance to create a plan of what variable to look at first. Once started she was slow in processing speedand needing to write everything down to compensate for memory. She reports at baseline she needed to do this some but since injury is more dependent on it. She maintained endurance throughout the task. She continues to have fair to good rehab potential. Next visit complete a challenge requiring more problem solving but will transition this to a photography business planning task such as outdoor photography. Prison Goals (to be met by discharge): Date [...] 12 week(s) to progress toward short and senior care goals. for Cognitive retraining attention, sequencing, problem [...] deficit documented in this encounter Care Teams Route Salesman Relationship Specialty Start Date End Date Eva Dang MD [address] [place] [address] PCP - General Family Medicine 03/25/16 documented as of this encounter
--- OUTSIDE RECORDS SUMMARY | 2023-11-28 13:51 | XMS_ITS | Encounter Summary ---
Author Organization Count Includes [facility] Address [facility] [place] [address] Care Team Providers Care Wet Roaster Name Role Phone Eva Dang MD Primary Care Provider [phone] Reason for Visit * High Dollar Medication (Routine) - Specialty Diagnoses / Procedures Referred By Angy munroe Referred To Contact Neurology Diagnoses Chronic migraine Procedures Auth Request for Medication TC ONABOTULINUMTOXINA, 1 UNIT, INJECTION PRO CHEMODENERVATION FACIAL/TRIGEM/CERV MUSC MIGRAINE Botox Dirk Davis MD [facility] [place] [address] [facility] Neu[facility] [address] [place] [address] Referral ID Status Reason Start Date Expiration Date V isits Requested Visits Authorized [id number] Consult, Test & Treat 12/28/2017 12/28/2018 4 4 Encounter Details Date Type Department Care Team (Late st Contact Info) Description 01/12/2018 3:00 PM EDT [place] [address] Kiera Smith, GYPSUM BLOCK SETTER [facility] [place] [address] Intractable chronic migraine without aura and without [...] Sign Reading Time Taken Comments Blood Pressure 142/84 01/12/2018 2:39 PM EDT Pulse 70 01/12/2018 2:39 PM EDT Temperature - - Respiratory Rate - - Oxygen Saturation - - Inhaled Oxygen Concentration - - Weight 102.1 kg (225 lb) 01/12/2018 2:39 PM EDT Height 167.6 cm (5' 6) 01/12/2018 2:39 PM EDT r eported Body Mass Index 36.32 01/12/2018 2:39 PM EDT documented in this encounter Procedure Notes * Kiera Smith, GYPSUM BLOCK SETTER - 01/12/2018 3:00 PM EDTAssociated Order(s): CHEMODENERVATION, MEDICAL Botox for Chronic Migraine First Botox Injection 10/17/17 Treatment #2 Patient's Response to Botox 0% improvement 0 fewer headache days/month 0decrease in headache hours Not unexpected that there has been no improvement after first dose of Botox. Usually, needs 2-3 rounds of botox for improvement. Migraine Disability Assessment # of days in the past 3 months 1. Missed work / school because of GARCIA 2 2. Productivity at work / school reduced by > half because of GARCIA (do not count days from Q.1) 50 3. Did not do housework because of GARCIA 80 4. Productivity in household work reduced by > half because of GARCIA (do not count days from Q.3) 10 5. Missed family / social / leisure activities because of GARCIA 15 Total 167 MIDAS grade (use total of Q1 to 5) I: 0-5, little to no disability II: 6-10, mild disability III: 11-20, moderate disability IV: 21+, severe disability A. # of days in the last 3 months with a GARCIA (count each day if GARCIA lasted > 1 day) 90 B. Average GARCIA intensity (0-10) 8 Indications for Botox Injections: Chronic Migraine with 31 headache days per month prior to Botox. Midas score of 97 Procedure: Written informed consent obtained and questions answered: 01/12/18 Patient denies and is not planning on becoming in the next 4 months. Dilution (units/ml) 2cc per 200 units of Botox Lot number: [id number] Vial Expiration date: 2020 155 Units of botox injected 45 Units of botox wasted 0 complications Frontalis 20 units divided in 4 sites Temporalis 40 units divided in 8 sites Unbundler 10 units divided in 2 sites Trapezius 30 units divided in 6 sites Procerus 5 units in 1 site Cervical Paraspinals 20 units in 4 sites Occipitalis 30 units divided in 6 sites 0 extra units given Repeat Botox injections in 12 weeks YOLIS Paulson APRN [facility] Neurology, Headache Clinic documented in this encounter Plan of Treatment Not on file documented as of this encounter Procedures Procedure Name Priority Date/Time Associated Diagnosis Comments CHEMODENERVATION, MEDICAL Routine 01/12/2018 3:35 PM EDT Intractable chronic migraine without aura and without status migrainosus documented in this encounter Results * Chemodenervation, medical (01/12/2018 3:35 PM EDT) Narrative Kiera Smith APRN - 01/12/2018 3:35 PM EDT Kiera Smith APRN ? 01/12/2018 ??3:35 PM Botox for Chronic Migraine First Botox Injection 10/17/17 Treatment #2 Patient's Response to Botox 0% improvement 0 fewer headache days/month ?? 0decrease in headache hours Not unexpected that there has been no improvement after first dose of Botox. Usually, needs 2-3 rounds of botox for improvement. Migraine Disability Assessment # of days in the past 3 months 1. Missed work / school because of GARCIA 2 2. Productivity at work / school reduced by > half because of GARCIA (do not count days from Q.1) 50 3. Did not do housework because of GARCIA 80 4. Productivity in household work reduced by > half because of GARCIA (do not count days from Q.3) 10 5. Missed family / social / leisure activities because of GARCIA 15 Total 167 MIDAS grade (use total of Q1 to 5) I: 0-5, little to no disability II: 6-10, mild disability III: 11-20, moderate disability IV: 21+, severe disability A. # of days in the last 3 months with a GARCIA (count each day if GARCIA lasted > 1 day) 90 B. Average GARCIA intensity (0-10) 8 Indications for Botox Injections: Chronic Migraine with 31 headache days per month prior to Botox. Midas score of 97 Procedure: Written informed consent obtained and questions answered: 01/12/18 Patient denies and is not planning on becoming in the next 4 months. Dilution (units/ml) 2cc per 200 units of Botox Lot number: [id number] Vial Expiration date: 2020 155 Units of botox injected 45 Units of botox wasted 0 complications Frontalis 20 units divided in 4 sites Temporalis 40 units divided in 8 sites Unbundler 10 units divided in 2 sites Trapezius 30 units divided in 6 sites Procerus 5 units in 1 site ??Cervical Paraspinals 20 units in 4 sites Occipitalis 30 units divided in 6 sites ?? 0 extra units given Repeat Botox injections in 12 ??weeks Kiera Smith, YOLIS, MIREYA [facility] Neurology, Headache Clinic Kiera Smith APRN PROCEDURE/MINOR CERRATO RGICAL ORDERABLES documented in this encounter Visit Diagnoses Diagnosis Intractable chronic migraine without aura and without status migrainosus Chronic migraine without aura, with intractable migraine, so stated, without mention of status migrainosus documented in this encounter Administered Medications Inactive Administered Medications - up to 3 most recent administrations Medication Order MAR Action Action Date Dose Rate Site botulinum toxin type A 200 unit injection 200 Units, Intramuscular, ONCE, On Lesia 01/12/18 at 1530, 1 dose Given 01/12/2018 3:25 PM EDT 155 Units documented in this encounter Care Teams Wet Roaster Relationship Specialty Start Date End Date Eva Dang MD [facility] [address] [place] [address] PCP - General Family Medicine 03/25/16 documented as of this encounter
--- OUTSIDE RECORDS SUMMARY | 2023-11-28 13:51 | XMS_ITS | Encounter Summary ---
Author Organization [facility] [place] [address] Care Team Providers Care Molding Utility Worker Name Role Phone Eva Dang MD Primary Care Provider [phone] Reason for Referral * Psychiatric (Routine) - Closed Specialty Diagnoses / Procedures Referred By Angy munroe Referred To Contact Psychiatry Diagnoses Attention or concentration deficit Head injury, sequela Work related injury Melanie Dykes APRN [facility] [place] [address] [facility] Psych Neuro [address] [place] [address] Referral ID Status Reason Start Date Expiration Date V isits Requested Visits Authorized [id number] Closed Consult & Test 11/03/2016 11/03/2017 1 1 Encounter Details Date Type Department Care Team (Late st Contact Info) Description 11/03/2016 Orders Only Psychiatry and [place] [address] Melanie Dykes RECONSIGNMENT CLERK [facility] [address] Attention or concentration deficit; Head injury, sequela; Work related injury Social History Tobacco [...] Visit Diagnoses Diagnosis Attention or concentration deficit Head injury, sequela Work related injury Injury, other and unspecified, unspecified site documented in this encounter Care Teams Molding Utility Worker Relationship Specialty Start Date End Date Eva Dang MD [facility] [address] [place] [address] PCP - General Family Medicine 03/25/16 documented as of this encounter
--- OUTSIDE RECORDS SUMMARY | 2023-11-28 13:51 | XMS_ITS | Encounter Summary ---
Author Organization [facility] Address [facility] Jennifer 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 Procedures Echocardiogram Transthoracic(Leb) All Davies MD [facility] PEDIATRIC [place] [address] [facility] [place] [address] Referral ID Status Reason Start Date Expiration Date V isits Requested Visits Authorized [id number] Closed Specialty Service Requested 06/14/2017 06/14/2018 1 1 Reason for Visit * Diagnostic Test (Routine) - Closed Specialty Diagnoses / Procedures Referred By Contac t Referred To Contact Cardiology Diagnoses 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 Procedures Echocardiogram Transthoracic(Leb) All Davies MD [facility] [place]R[facility] [place] [address] [facility] [place] [address] Referral ID Status Reason Start Date Expiration Date V isits Requested Visits Authorized [id number] Closed Specialty Service Requested 06/14/2017 06/14/2018 1 1 Encounter Details Date Type Department Care Team (Latest Contact Info) Description 06/20/2017 8:36 AM EST - 06/20/2017 11:59 PM EST Hospital Encounter Non-Invasive [place] [id number] Total anomalous pulmonary venous return; Congenital heart disease Discharge Disposition: Home Social History Tobacco Use [...] Sig Dispensed Refills Start Date End Date riboflavin, vitamin B2, (VITAMIN B-2) 100 mg Tablet Take 200 mg by mouth 2 times daily. magnesium 250 mg Tablet Take 500 mg by mouth daily. fexofenadine (JANES) 180 mg Tablet Take 180 mg by mouth daily. PROAIR HFA 90 mcg/actuation HFA Aerosol Inhaler Inhale 2 puffs into the lungs as needed. 0 06/04/2016 montelukast (SINGULAIR) 10 mg Tablet Take 10 mg by mouth nightly. 0 06/09/2016 cholecalciferol, Vitamin D3, 50,000 unit Capsule Take 1 capsule by mouth three times a week. 05/17/2019 predniSONE (DELTASONE) 10 mg Tablet Take 10 mg by mouth daily. 09/09/2017 multivitamin (THERAGRAN) Tablet Take 1 tablet by mouth daily. 05/17/2019 nortriptyline (PAMELOR) 10 mg CapsuleIndications:Intr actable chronic post-traumatic headache,Migraine without aura and without status migrainosus, not intractable Take 1 capsule by mouth nightly. Take 1 tab by mouth nightly x 1 week. Then take 2 tabs by mouth nightly. 120 capsule 1 06/13/2017 07/03/2018 hydrOXYzine (VISTARIL) 25 mg CapsuleIndications:Intr actable chronic post-traumatic headache,Migraine without aura and without status migrainosus, not intractable Take 1 capsule by mouth 2 times daily as needed (headache). 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 Med Rec#: ? [id number] ?Sex: ?F ? Site Loc: ? [facility] ?Ht / Wt: ??168(cm)/101(kg) Pt. Loc: ?Echo Lab ?BSA: ?2.21 ([facility]) Study Date: ?? 06/20/2017 ?Pt. Type: Study Quality: ? 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 140/68 SUMMARY: 1. 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 2. Image quality is sub-optimal. 3. Right and left pulmonary veins connects to left atrium without obstruction. ?? 4. No residual atrial septal defect was seen. 5. No other anatomic abnormality was seen with technically limitd standard exam. ?? 6. Right ventricular chamber size, wall thickness, estimated systolic pressure of 28 mm Hg plus right atrial pressure, septal position, and systolic performance appear normal. ?? 7. Left ventricular chamber size, wall thickness and systolic performance appear normal. ?? FINDINGS: ? Study Type ?Jaquan echo/SD/CD Venous Connections ?There are normal systemic venous connections, with the superior and inferior vena cavae returning to the right atrium. ?By color Doppler, laminar flow is demonstrated in the common (single) right pulmonary vein as it drains into the left atrium. ?By color Doppler, laminar flow is demonstrated in the common (single) left pulmonary vein. Atrial Septum ?The interatrial septum is intact with no evidence of residual atrial level shunting. Atria ?The right and left atria are of normal size. Av Valves ?The tricuspid valve annulus is normal size. ?There is mild tricuspid valve regurgitation. ?The mitral valve annulus is normal size. ?There is mild mitral valve regurgitation. Outflow Tracts ?The right and left ventricular outflow tracts have normal size and geometry, without obstruction or narrowing. Ventricles ?There is normal biventricular chamber size, wall thickness and systolic function. ?There is no evidence of right ventricular hypertension. Ventricular Septum ?The interventricular septum is intact with no evidence of a ventricular septal defect. Semilunar Valves ?The pulmonary valve leaflets are of normal thickness. ?There is mild pulmonary valve insufficiency. ?The aortic valve is normal with three leaflets, no stenosis, or insufficiency. Aortic Pulmonary Root ?The pulmonary root and sinuses are normal without dilatation or stenosis. ??The aorta sinuses of Valsalva and sinotubular junction are normal without stenosis or dilation. Thoracic Arteries ?The main and branch pulmonary arteries are normal in size and configuration, without narrowing or dilatation. ??There is no evidence of a patent ductus arteriosus. ??The aortic arch is normal in size, intact, without narrowing, dilatation or a coarctation. Coronary Arteries ?The coronary arteries are not evaluated with this study. Effusion ?There is no pericardial or pleural effusion noted. Chambers MM ?Value ?Units (Range) ? Z Score ? IVSd MM ? 10 ? mm (7.42 - 14.22) ?? -0.5 ? LVPWd MM ?10 ? mm (7.32 - 12.92) ?? -0.1 ? LVEDd dim MM ?57 ? mm (46.1 - 62.66) ?? 0.6 ? LVEDd dim MM / BSA ??25.79 ?mm/m2 ? LVEDs dim MM ?38 ? mm (27.16 - 43.44) ??0.7 ? LVEDs dim MM / BSA ??17.19 ?mm/m2 ? LV FS MM ?33 ? % ? EF (Teichholz) MM ?? 61 ? % ? Chambers 2D ?Value ?Units (Range) ? Z Score ? LAs dim (AP) 2D ? 38 ? mm ? LAs dim (2D) / BSA ??17.19 ?mm/m2 ? LA:Ao ratio 2D ?1.23 ? ratio ? Tricuspid Valve ?Value ?Units (Range) ? Z Score ? TR Vmax ? 2.65 ? m/s ? TR peak gradient ?28 ? mm Hg ? Aorta ?Value ?Units (Range) ? Z Score ? AV patria diam 2D ?20 ? mm (18.65 - 27.89) ??-1.4 ? Ao root diam 2D ? 31 ? mm (24.31 - 38.07) ??-0.1 ? Ao root diam (2D) / 14.03 ?mm/m2 ? Ao STJ diam ? 29 ? mm (19.97 - 33.01) ??0.8 ? Asc Ao diam (LAX) ?? 28 ? mm (21.14 - 34.9) ?? 0 ? All Z scores are estimated This report has been electronically signed by: All ??Jean Claude Davies M.D. ? 06/20/2017 15:08:58 Images reviewed and interpretation verified [facility] Cardiac Ultrasound Laboratory Procedure Note All Davies MD - 06/20/2017 Procedure: Pediatric Echocardiogram Patient: GILMER Garzon (Age): 1975(42y) Med Rec#: [id number] Sex: F Site Loc: [facility] Ht / Wt: 168(cm)/101(kg) Pt. Loc: Echo Lab BSA: 2.21 (Jaime) Study Date: 06/20/2017 Pt. 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 2. Image quality is sub-optimal. 3. Right and left pulmonary veins connects to left atrium without obstruction. 4. No residual atrial septal defect was seen. 5. No other anatomic abnormality was seen with technically limitd standard exam. 6. Right ventricular chamber size, wall thickness, estimated systolic pressure of 28 mm Hg plus right atrial pressure, septal position, and systolic performance appear normal. 7. Left ventricular chamber size, wall thickness and systolic performance appear normal. FINDINGS: Study Type Jaquan echo/SD/CD Venous Connections There are normal systemic venous connections, with the superior and inferior vena cavae returning to the right atrium. By color Doppler, laminar flow is demonstrated in the common (single) right pulmonary vein as it drains into the left atrium. By color Doppler, laminar flow is demonstrated in the common (single) left pulmonary vein. Atrial Septum The interatrial septum is intact with no evidence of residual atrial level shunting. Atria The right and left atria are of normal size. Av Valves The tricuspid valve annulus is normal size. There is mild tricuspid valve regurgitation. The mitral valve annulus is normal size. There is mild mitral valve regurgitation. Outflow Tracts The right and left ventricular outflow tracts have normal size and geometry, without obstruction or narrowing. Ventricles There is normal biventricular chamber size, wall thickness and systolic function. There is no evidence of right ventricular hypertension. Ventricular Septum The interventricular septum is intact with no evidence of a ventricular septal defect. Semilunar Valves The pulmonary valve leaflets are of normal thickness. There is mild pulmonary valve insufficiency. The aortic valve is normal with three leaflets, no stenosis, or insufficiency. Aortic Pulmonary Root The pulmonary root and sinuses are normal without dilatation or stenosis. The aorta sinuses of Valsalva and sinotubular junction are normal without stenosis or dilation. Thoracic Arteries The main and branch pulmonary arteries are normal in size and configuration, without narrowing or dilatation. There is no evidence of a patent ductus arteriosus. The aortic arch is normal in size, intact, without narrowing, dilatation or a coarctation. Coronary Arteries The coronary arteries are not evaluated with this study. Effusion There is no pericardial or pleural effusion noted. Chambers MM Value Units (Range) Z Score IVSd MM 10 mm (7.42 - 14.22) -0.5 LVPWd MM 10 mm (7.32 - 12.92) -0.1 LVEDd dim MM 57 mm (46.1 - 62.66) 0.6 LVEDd dim MM / BSA 25.79 mm/m2 LVEDs dim MM 38 mm (27.16 - 43.44) 0.7 LVEDs dim MM / BSA 17.19 mm/m2 LV FS MM 33 % EF (Teichholz) MM 61 % Chambers 2D Value Units (Range) Z Score LAs dim (AP) 2D 38 mm LAs dim (2D) / BSA 17.19 mm/m2 LA:Ao ratio 2D 1.23 ratio Tricuspid Valve Value Units (Range) Z Score TR Vmax 2.65 m/s TR peak gradient 28 mm Hg Aorta Value Units (Range) Z Score AV patria diam 2D 20 mm (18.65 - 27.89) -1.4 Ao root diam 2D 31 mm (24.31 - 38.07) -0.1 Ao root diam (2D) / 14.03 mm/m2 Ao STJ diam 29 mm (19.97 - 33.01) 0.8 Asc Ao diam (LAX) 28 mm (21.14 - 34.9) 0 All Z scores are estimated This report has been electronically signed by: All Davies M.D. 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
--- OUTSIDE RECORDS SUMMARY | 2023-11-28 13:51 | XMS_ITS | Encounter Summary ---
Author Organization Formerly [facility] [place] [address] Care Team Providers Care Senior Materials Scientist Name Role Phone Eva Dang MD Primary Care Provider [phone] Encounter Details Date Type Department Care Team (Late st Contact Info) Description 08/05/2016 2:00 PM EDT Office [place] [address] Mark Maria, OT [facility] PHYSICAL MEDICINE & [place] [address] Concussion with no loss of consciousness, subsequent encounter; Attention or concentration deficit Social History Tobacco Use Types Packs/Day Years Used Date Smoking Tobacco: Never Assessed Sex and Gender Information Value Date Recorded Sex Assigned at Not on file Gender Identity Female 09/26/2019 9:01 AM EDT Sexual Orientation Not on file documented as of this encounter Progress Notes * Mark Maria, OT - 08/05/2016 2:00 PM EDT OCCUPATIONAL THERAPY TREATMENT NOTE REFERRAL SOURCE: Melanie Dykes DIAGNOSIS AND PERTINENT CO-MORBIDITY AFFECTING PLAN OF CARE 1. Concussion with no loss of consciousness, subsequent encounter 2. Attention or concentration deficit NEXT MD FOLLOW UP: PRN TOTAL TREATMENT TIME: 63 minutes TIMED CODE TREATMENT TIME: 63 minutes TFA Past Medical History: Diagnosis Date [...] Robles presents alone TREATMENT TODAY: Skilled discussion of work check list she is creating and the process of making it and effectiveness of use. She was given a functional task of planning a garden. The instructions provided include You are planning a garden that you will plant mitchell green beans, large tomotoes, walters tomotoes, and potatoes in a enough quantity to eat fresh for the summer and fall. Please gather the needed information and draw a diagram of your garden followed by describing how you will plant the garden She was provided with an article on tomatoes, potatoes, and planting/maturity dates for usual vegies in this area. She was instructed that she could use the net as needed. Comments: she worked through each article slowly with some misreads related to spacing. She otherwise took notes effectively and saught out additional info on the net as needed. With designing her diagram of her garden increased time was required but she presented an organized plan of how she was planting and spacing. She did not take into account the volume of items she was planting having 24 tomatoes in when all she needed was 2. We considered shifting attention/time management/memory at work and the challenges related to this. ASSESSMENT: Sarah Robles presents with activity limitations and/or participation restrictions dueto performance deficits in working and delayed memory, cognitive endurance, which is in turn affecting her executive functions. She is doing well with creating her check list at work taking increasedtime to get it done but effectively doing so. She required increased time with the garden task today forgetting/misreading some information with incorrect spacing of vegies but otherwise had an organized approach to the task with an organized description of her plan despite not being allowed to look back at her notes. She continues to have fair to good rehab potential. Next visit complete a challenge requiring more problem solving combined with using written documents. Can pull in a shifting attention or incorporate taking messages from random phone calls. Shelter Goals (to be met by discharge): Date [...] within a week Goal Status: In progress aSrah Robles will be able to complete a [...] 12 week(s) to progress toward short and fci goals. for Cognitive retraining attention, sequencing, problem [...] deficit documented in this encounter Care Teams Senior Materials Scientist Relationship Specialty Start Date End Date Eva Dang MD [address] [place] [address] PCP - General Family Medicine 03/25/16 documented as of this encounter
--- OUTSIDE RECORDS SUMMARY | 2023-11-28 13:51 | XMS_ITS | Encounter Summary ---
Author Organization [facility] [place] [address] Care Team Providers Care Leaf Tinner Name Role Phone Eva Dang MD Primary Care Provider [phone] Encounter Details Date Type Department Care Team (Late st Contact Info) Description 07/28/2016 2:00 PM EDT Office [place] [address] Mark Maria, OT [facility] PHYSICAL MEDICINE & [place] [address] Concussion with no loss of consciousness, subsequent encounter; Attention or concentration deficit Social History Tobacco Use Types Packs/Day Years Used Date Smoking Tobacco: Never Assessed Sex and Gender Information Value Date Recorded Sex Assigned at Not on file Gender Identity Female 09/26/2019 9:01 AM EDT Sexual Orientation Not on file documented as of this encounter Progress Notes * Mark aMria, OT - 07/28/2016 2:00 PM EDT OCCUPATIONAL THERAPY TREATMENT NOTE REFERRAL SOURCE: Melanie Dykes DIAGNOSIS AND PERTINENT CO-MORBIDITY AFFECTING PLAN OF CARE 1. Concussion with no loss of consciousness, subsequent encounter 2. Attention or concentration deficit NEXT MD FOLLOW UP: PRN TOTAL TREATMENT TIME: 61 minutes TIMED CODE TREATMENT TIME: Therapeutic / Functional Activities (05708) 61 min Past Medical History: Diagnosis Date [...] TREATMENT TODAY: Skilled discussion was held regarding use of her weekly do do list and how she broke this up from day to day. Challenged her with prediction of time requirement for task. We then complete snap circuit doing project one with her to educate her on how it works. She then was asked to complete project 5 and 6 and describe the difference in how the circuits workcombined with preparing elbow noodles on the stove top. She was shown where cooking tools and ingredients were stored Prior to starting the task she predicted it would take about 15 minutes for both without anticipated difficulty. She was able to effectively shift keeping track of noodles while working on the task. She completed both projects accurately but to get to the end result she was observed to attempt to use each circuit before it was completed and then go back to the diagram to determine what she had done wrong. She was asked to describe the difference in circuit having forgotten this step and initially was unable requiring cueing to read the instructions and description again. After 3 reads she was able to describe the difference. It took her a total of 35 minutes to complete this task The last 10 minutes was spent discussing her work roles and how she is organizing her activities. She at this point reports just surface cleaning getting to deeper cleaning only as she remember. 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 She is planning to bring the start of this list next week. ASSESSMENT: Sarah Robles presents with activity limitations and/or participation restrictions dueto performance deficits in working and delayed memory, cognitive endurance, which is in turn affecting her executive functions. She is doing well with her weekly do do list but is finding that she does not have the nedurance to get tasks done like she anticipates she will. She reports I am saving all my energy for work and not getting home stuff done like I need to. She did well with shifting for the cooking/snap circuit task but was challenged with memory and reading retention. Her plan for a check list for work is ideal considering her memory and endurance deficits. We will review the useof this tool also work on a task that challenges her attentional and memory abilities again next visit. Consider a planning task such as a gardening task. Dot Net Architect Goals (to be met by discharge): Date [...] 12 week(s) to progress toward short and parts counterman goals. for Cognitive retraining attention, sequencing, problem [...] deficit documented in this encounter Care Teams Leaf Tinner Relationship Specialty Start Date End Date Eva Dang MD [facility] [address] [place] [address] PCP - General Family Medicine 03/25/16 documented as of this encounter
--- OUTSIDE RECORDS SUMMARY | 2023-11-28 13:51 | XMS_ITS | Encounter Summary ---
Author Organization Formerly [facility], Later [facility] [address] Care Team Providers Care Paint Tester Name Role Phone Eva Dang MD Primary Care Provider [phone] Reason for Visit * Reason Onset Date Comments Medication Refill 09/14/2018 Encounter Details Date Type Department Care Team (Late st Contact Info) Description 09/14/2018 Ref[place] [address] Radha Jimenez MD [facility] [place] [address] Chronic migraine without aura without status migrainosus, [...] migrainosus documented in this encounter Care Teams Paint Tester Relationship Specialty Start Date End Date Eva Dang MD [facility] [address] [place], [place] [address] PCP - General Family Medicine 03/25/16 documented as of this encounter
--- OUTSIDE RECORDS SUMMARY | 2023-11-28 13:51 | XMS_ITS | Encounter Summary ---
Author Organization [facility] Address [facility] [place] [address] Care Team Providers Care Sap Bi Architect Name Role Phone Eva Dang MD Primary Care Provider [phone] Reason for Visit * Reason Onset Date Comments Other 01/12/2018 Encounter Details Date Type Department Care Team (Late st Contact Info) Description 01/12/2018 Telephone Neurology at [facility] [place] [address] Kiera Clemens, POULTRY SERVICE TECHNICIAN [facility] [place] [address] Other Social History Tobacco Use Types Packs/Day [...] encounter Miscellaneous Notes * Telephone Encounter - Parul Vazquez RN - 01/13/2018 4:22 PM EDT Corrected form faxed to qa tester * Telephone Encounter - Parul Vazquez RN - 01/13/2018 9:17 AM EDT Patient called back and states the checked box on the Workers' Comp form that asks if her symptoms are related to the injury says unclear. Patient states this needs to say yes. Explained to patient that our policy has been to check the unclear box as causation is not inferred by our providers and that the providers treat the symptoms, not an injury per se. Patient states the yes box has been checked for years and states she spoke with Kiera Clemens APRN yesterday and was told the paperwork would be corrected. Informed patient that Workers' Comp paperwork is given to the exit satellite dish repairer and is then sent to our Workers' Comp Department. Until they have the paperwork, we will not be able to access it. Informed patient that it is highly unlikely that her paperwork will be able to be accessed today. Explained that our providers do not participate in any legal injury claims, do not complete evaluations for Workers' Comp, and do not write letters or complete specific forms for these cases. All that is provided are office notes. If Kiera Clemens APRN corrects the form, it should be faxed to her auto phone installer, Biju Han at [phone]. * Telephone Encounter - Parul Vazquez RN - 01/13/2018 9:05 AM EDT Called and left a message for patient asking for return call to identify what she feels in incorrect on her paperwork. Informed patient that the paperwork is given to the exit satellite dish repairer and is sent in the interoffice mail to the Workers' Comp Department therefore I do not have access to the paperwork she is questioning. Recommended she have her Workers' Comp Corporate Safety Director fax over the paperwork. Informed patient that often Workers' Comp wants paperwork completed differently than our office is willing/able to do and that often the paperwork is not changed. * Telephone Encounter - UriahYovannygh Juan - 01/12/2018 4:45 PM EDT Caller: Patient If not Pt / Relation to pt: Best time to reach caller: anytime Before 2:30pm - Informed caller that nurse will call back by the end of the day Best number to reach caller: [phone] After 230 pm (if not red arrow message) - Informed caller that if the nurse does not call back by the end of the day they will be called tomorrow AM Best number to reach caller: [phone] Reason for call: Patient called in and requested that we fax [place] compensation form with corrected information as she and Clemens previously discussed. Paperwork was originally filled out during appointment today but was done incorrectly. Please fax corrected form to: [phone].This needs to be sent within the next 24hrs documented in this encounter Plan of Treatment Not on file documented as of this encounter Visit Diagnoses Not on filedocumented in this encounter Care Teams Sap Bi Architect Relationship Specialty Start Date End Date Eva Dang MD [facility] [address] [place] [address] PCP - General Family Medicine 03/25/16 documented as of this encounter
--- OUTSIDE RECORDS SUMMARY | 2023-11-28 13:51 | XMS_ITS | Encounter Summary ---
Author Organization [facility] Address [facility] [place] [address] Care Team Providers Care Pathological Technician Name Role Phone Eva Dang MD Primary Care Provider [phone] Reason for Visit * Reason Comments Botox Injection Migraine * High Dollar Medication (Routine) - Specialty Diagnoses / Procedures Referred By Angy munroe Referred To Contact Neurology Diagnoses Chronic migraine Procedures Auth Request for Medication TC ONABOTULINUMTOXINA, 1 UNIT, INJECTION PRO CHEMODENERVATION FACIAL/TRIGEM/CERV MUSC MIGRAINE Botox Dirk Davis MD [facility] [place] [address] [facility] [address] [place] [address] Referral ID Status Reason Start Date Expiration Date V isits Requested Visits Authorized [id number] Consult, Test & Treat 12/28/2017 12/28/2018 4 4 Encounter Details Date Type Department Care Team (Late st Contact Info) Description 04/10/2018 2:00 PM EST [place] [address] Ursula Walters APRN [facility] [place] [address] Chronic migraine without aura without status migrainosus, [...] Sign Reading Time Taken Comments Blood Pressure 149/83 04/10/2018 1:59 PM EST Pulse 66 04/10/2018 1:59 PM EST Temperature - - Respiratory Rate - - Oxygen Saturation - - Inhaled Oxygen Concentration - - Weight 102.1 kg (225 lb) 04/10/2018 1:59 PM EST Height 167.6 cm (5' 6) 04/10/2018 1:59 PM EST r eported Body Mass Index 36.32 04/10/2018 1:59 PM EST documented in this encounter Procedure Notes * Ursula Meyers APRN - 04/10/2018 2:00 PM ESTAssociated Order(s): CHEMODENERVATION, MEDICAL Neurology Procedure note Date: 04/10/2018 Patient: Sarah Robles : 1975 Procedure: Botox injections (PREEMPT protocol) - q 12 weeks Indications: Pain on top of head bilaterally, and left side. Aches and pressure post head injury. Patient states she felt she had a decrease in headache intensity on some days. Date Procedure MIDAS 10/17/2017 Botox # 1 - Raya S. - 155 units Total headache days per month: 31 Total days headache free per month: 0 Severity of headaches: 11/15 MIDAS today: 97 01/12/2018 Botox #2 - Sarah - 155 units 167, 90/90 GARCIA days, 8/10 GARCIA intensity 04/10/2018 Botox # 3 - Luigi - 185 units 195, 90/90 garcia days, 7/10 garcia intensity Risk and benefits were explained to the patient. Written consent was obtained - 04/10/2018 The patient is not or planning on getting in the next 4 months, she is not nursing, has no known allergy to albumin. Time out was preformed OnabotulinumtoxinA was reconstituted with 0.9% NaCl to create a dilution of 5 units per 0.1mL. Each injection site was sterilized with 70% isopropyl alcohol. Injections were administered with a 30 gauge, 1/2 needle. Injections administered as follows and performed bilaterally with injections split equally except for procerus: 20 units divided between 4 sites in the frontalis muscle, 10 units divided between 2 sites in the success coach muscles, 5 units into 1 site in the procerus muscle, 40 units divided between 8 sites in the temporalis muscles, 30 units divided between 6 sites in the occipital region, 20 units divided between 4 sites in the cervicalparaspinal musculature, and 30 units divided between 6 sites in the trapezii. Additional 30 units was administered over 6 sites per the follow the pain portion of the PREEMPT protocol 10 units over 2 sites in the left frontalis muscle 10 units over 2 sites in the left temporalis muscle 10 units over 2 sites in the left occipitalis muscle Total units used= 185. Total injection sites=37. Patient was injected with 185 units and 15 units were wasted/disgarded The patient tolerated the procedure without any immediate complications. References: Dana Gates, et al. (2010). OnabotulinumtoxinA for treatment of chronic migraine: results from the double-blind, randomized, placebo-controlled phase of the PREEMPT 1 trial. Cephalalgia 30(7): 793-803. Regulo Mayfield, et al. (2010). Method of injection of onabotulinumtoxinA for chronic migraine: a safe, well-tolerated, and effective treatment paradigm based on the PREEMPT clinical program. Headache 50(9): 7245-7671. Pineda Manzo, et al. (2010). OnabotulinumtoxinA for treatment of chronic migraine: results from the double-blind, randomized, placebo-controlled phase of the PREEMPT 2 trial. Cephalalgia 30(7): 804-814. Ursula Meyers APRN [facility] Migraine Disability Assessment # of days in the past 3 months 1. Missed work / school because of GARCIA 0 2. Productivity at work / school reduced by > half because of GARCIA (do not count days from Q.1) 90 3. Did not do housework because of GARCIA 90 4. Productivity in household work reduced by > half because of GARCIA (do not count days from Q.3) 0 5. Missed family / social / leisure activities because of GARCIA 15 Total 195 MIDAS grade (use total of Q1 to 5) I: 0-5, little to no disability II: 6-10, mild disability III: 11-20, moderate disability IV: 21+, severe disability A. # of days in the last 3 months with a GARCIA (count each day if GARCIA lasted > 1 day) 90 B. Average GARCIA intensity (0-10) 7 documented in this encounter Plan of Treatment Not on file documented as of this encounter Procedures Procedure Name Priority Date/Time Associated Diagnosis Comments CHEMODENERVATION, MEDICAL Routine 04/10/2018 2:00 PM EST documented in this encounter Results * Chemodenervation, medical (04/10/2018 2:00 PM EST) Narrative Ursula Meyers APRN - 04/10/2018 2:00 PM EST Ursula Meyers APRN ? 04/10/2018 ??2:48 PM Neurology Procedure note Date: 04/10/2018 Patient: Sarah Robles : ??1975 Procedure: Botox injections (PREEMPT protocol) - q 12 weeks Indications: Pain on top of head bilaterally, and left side. Aches and pressure post head injury. Patient states she felt she had a decrease in headache intensity on some days. Date ??Procedure ?? MIDAS 10/17/2017 ??Botox # 1 - Raya S. - 155 units ?? Total headache days per month: ?? 31 Total days headache free per month: 0 Severity of headaches: ?? 7 MIDAS today: 97 01/12/2018 ??Botox #2 - Smith - 155 units ?? 167, 90/90 GARCIA days, ?? 8/10 GARCIA intensity ?? 04/10/2018 ??Botox # 3 - Meyers - 185 units ??195, 90/90 garcia days, 7/10 garcia intensity Risk and benefits were explained to the patient. Written consent was obtained - 04/10/2018 The patient is not or planning on getting in the next 4 months, she is not nursing, has no known allergy to albumin. Time out was preformed OnabotulinumtoxinA was reconstituted with 0.9% NaCl to create a dilution of 5 units per 0.1mL. Each injection site was sterilized with 70% isopropyl alcohol. Injections were administered with a 30 gauge, 1/2 needle. Injections administered as follows and performed bilaterally with injections split equally except for procerus: 20 units divided between 4 sites in the frontalis muscle, 10 units divided between 2 sites in the success coach muscles, 5 units into 1 site in the procerus muscle, 40 units divided between 8 sites in the temporalis muscles, 30 units divided between 6 sites in the occipital region, 20 units divided between 4 sites in the cervical paraspinal musculature, and 30 units divided between 6 sites in the trapezii. Additional 30 units was administered over 6 sites per the follow the pain portion of the PREEMPT protocol 10 units over 2 sites in the left frontalis muscle 10 units over 2 sites in the left temporalis muscle 10 units over 2 sites in the left occipitalis muscle ?? Total units used= 185. Total injection sites=37. Patient was injected with 185 units and 15 units were wasted/disgarded The patient tolerated the procedure without any immediate complications. References: Dana Gates, et al. (2010). OnabotulinumtoxinA for treatment of chronic migraine: results from the double-blind, randomized, placebo-controlled phase of the PREEMPT 1 trial. Cephalalgia 30(7): 793-803. Regulo Mayfield, et al. (2010). Method of injection of onabotulinumtoxinA for chronic migraine: a safe, well-tolerated, and effective treatment paradigm based on the PREEMPT clinical program. Headache 50(9): 2105-5839. Pineda Manzo, et al. (2010). OnabotulinumtoxinA for treatment of chronic migraine: results from the double-blind, randomized, placebo-controlled phase of the PREEMPT 2 trial. Cephalalgia 30(7): 804-814. Ursula Meyers APRN [facility] Migraine Disability Assessment # of days in the past 3 months 1. Missed work / school because of GARCIA 0 2. Productivity at work / school reduced by > half because of GARCIA (do not count days from Q.1) 90 3. Did not do housework because of GARCIA 90 4. Productivity in household work reduced by > half because of GARCIA (do not count days from Q.3) 0 5. Missed family / social / leisure activities because of GARCIA 15 Total 195 MIDAS grade (use total of Q1 to 5) I: 0-5, little to no disability II: 6-10, mild disability III: 11-20, moderate disability IV: 21+, severe disability A. # of days in the last 3 months with a GARCIA (count each day if GARCIA lasted > 1 day) 90 B. Average GARCIA intensity (0-10) 7 Ursula Walters APRN PROCEDURE/MINOR S URGICAL ORDERABLES documented in this encounter Visit Diagnoses Diagnosis Chronic migraine [...] unit injection 200 Units, Intramuscular, ONCE, On 04/10/18 at 1400, 1 dose Given 04/10/2018 2:47 PM EST 185 Units documented in this encounter Care Teams Pathological Technician Relationship Specialty Start Date End Date Eva Dang MD [address] [place] [address] PCP - General Family Medicine 03/25/16 documented as of this encounter
--- OUTSIDE RECORDS SUMMARY | 2023-11-28 13:51 | XMS_ITS | Encounter Summary ---
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 Procedures Echocardiogram Transthoracic(Leb) All Davies MD [facility] PED[place] [address] [facility] [place] [address] Referral ID Status Reason Start Date Expiration Date V isits Requested Visits Authorized [id number] Closed Specialty Service Requested 06/14/2017 06/14/2018 1 1 Encounter Details Date Type Department Care Team (Late st Contact Info) Description 06/20/2017 10:00 AM EST Office [place] [address] All Davies MD [facility] [place] [address] Total anomalous pulmonary venous return; Elevated cholesterol; Fatigue, unspecified type Social History Tobacco Use [...] Sign Reading Time Taken Comments Blood Pressure 122/70 06/20/2017 9:57 AM EST Pulse 53 06/20/2017 9:57 AM EST Temperature - - Respiratory Rate - - Oxygen Saturation 97% 06/20/2017 9:57 AM EST Inhaled Oxygen Concentration - - Weight 101.6 kg (224 lb) 06/20/2017 9:57 AM EST Height 167.6 cm (5' 6) 06/20/2017 9:57 AM EST Body Mass Index 36.15 06/20/2017 9:57 AM EST documented in this encounter Progress Notes * All Davies MD - 06/20/2017 10:00 AM EST : 1975 Age: 42 [facility] [facility] Sr & I saw Sarah Robles in the Cong[facility] Cardiology Clinic at [facility] for: ?? Post-surgical correction of total anomalous pulmonary [...] cyanotic. ?? Cardiac surgery. 1973. Dr Vazquez, [facility] ?? Surgical anastomosis of pulmonary venous confluence to posterior left atrium, patient foramen ovale closure ?? Post op course uncomplicated. ?? Post-op Cardiac cath. Age ~1.5 years. [facility] ?? Reportedly good sized, unobstructed pulmonary veins & anastomosis ?? Cardiac evaluation. 06/24/1993. Age [address] Yamilex Tijerina, [facility]. [place], [place] ?? History: ?? 4 months with her first child. Episodes of hot flushing & nausea ?? Exam: ?? BP 129/67 mm Hg, soft systolic ejection murmur, normal A2-P2, no lung crackles. ?? Electrocardiogram: ?? Sinus rhythm at 80/min ?? Some mild ST wave flattening ?? Echocardiogram: ?? Cardiac evaluation. 08/08/1996. Age [address] Yamilex Tijerina, [facility]. [place], [place] ?? History: ?? 5 months with [...] 1996. Age [address] Khai Mahoney. [place], [place] ?? 'no evidence of problems of any [...] 03-25-16 Re-referred to Cardiology by Dr Franks ?? Cardiac evaluation. 08-17-2016. Age [address] Davies. [facility] [place] History: Chronic excessive fatigue from post-concussive syndrome. ?? Exam: 175/79 mm Hg, regular rhythm, normal A2-P2, & no murmur, gallop or CHF. Resp: Unlabored & clear. ?? Electrocardiogram: Unchanged. Sinus rhythm at 59/min Normal intervals, volts and axes Nonspecific T wave abnormality Diffuse T flattening T-wave inversion in in V5, 6 ?? Echocardiogram: ?? Image quality is sub-optimal. ?? [...] pressure is hypertensive, 175/79 mm Hg. ?? Zio ambulatory electrocardiographic monitor ?? Rhythm: sinus predominates throughout ?? Rate: average rates & rate variability appear normal. ?? Conduction: no AV block or pre-excitation was recorded. ?? Supraventricular Ectopy: ?? Rare isolated premature supraventricular beats are recorded (<1% of total beats), normal. ?? Rare pairs of premature supraventricular beats are recorded (<1% of total beats), normal. ?? No triplets of premature supraventricular beats are recorded. ?? 3 brief (4-6 beats duration), relatively slow (average rates ~122-132/min) runs of apparently asymptomatic supraventricular tachycardia were recorded during sleeping hours. No other supraventricular tachycardia was recorded ?? Ventricular Ectopy: ?? Rare isolated premature ventricular beats are recorded (<1% of total beats), normal. ?? No ventricular couplets are recorded ?? No ventricular tachycardia is recorded ?? Symptoms: ?? Pounding for 1-10 minutes with climbing stairs was associated with sinus rhythm at 87/min. ?? Shoulder blade pain & short of breath for >1 hour with sitting was associated with sinus rhythm at ~67/min. ?? Cardiac MRI, 11/18/2016. Dr Heath. [facility] [place] Status-post repair of totally anomalous pulmonary venous return with anastomosis of the pulmonary vein confluence to the left atrium. All four pulmonary veins return normally to the left atrium without apparent narrowing or osteal stenosis. ?? Moderate concentric left ventricular hypertrophy. ?? Normal valve function. ?? Normal biventricular systolic function. ?? No significant late gadolinium enhancement. Excessive fatigue ?? Sarah describes that she, [...] mg/dl ?? Diabetes mellitus, type 2, diagnosed 2016, currently diet managed ?? Obesity ?? Low [...] E78.00 ??? Mild obstructive sleep apnea G47.33 ??? Diabetes mellitus E11.9 ?? Diabetes mellitus, type 2, currently diet managed ?? Nasal polyps ?? Sinus disorder Past Surgical History: Procedure Laterality Date ??? CARDIAC SURGERY 09/1973 Current Outpatient Prescriptions Medication Sig Note Dispense Refill ??? cholecalciferol, Vitamin D3, 50,000 unit Capsule Take 1 capsule by mouth three times a week. ??? predniSONE (DELTASONE) 10 mg Tablet Take 10 mg by mouth daily. 06/13/2017: taper ??? riboflavin, vitamin B2, (VITAMIN B-2) 100 mg Tablet Take 200 mg by mouth 2 times daily. ??? magnesium 250 mg Tablet Take 500 mg by mouth daily. ??? multivitamin (THERAGRAN) Tablet Take 1 tablet by mouth daily. ??? fexofenadine (JANES) 180 mg Tablet Take 180 mg by mouth daily. ??? nortriptyline (PAMELOR) 10 mg Capsule Take 1 capsule by mouth nightly. Take 1 tab by mouth nightly x 1 week. Then take 2 tabs by mouth nightly. 120 capsule 1 ??? hydrOXYzine (VISTARIL) 25 mg Capsule Take 1 capsule by mouth 2 times daily as needed (headache). 90 capsule 1 ??? PROAIR HFA 90 mcg/actuation HFA Aerosol [...] Take 10 mg by mouth nightly. 0 ?? She has no other known anomaly, major medical problem, allergy or symptom; review of symptoms otherwise negative. Family History: ?? Premature atherosclerosis: father (2 MA, fist at age 52 years, smoker, of lung Ca), pu (MA at age >60 years), pa (MA at age >60 years) Hypertension: mother (treated with medication since age ~40 years) Family History Problem (# of Occurrences) Relation (Name,Age of Onset) Asthma (1) Paternal Grandmother Hypertension (1) Mother Lung Cancer (1) Father Migraines (1) Mother Myocardial Infarction (1) Father ?? 5 children, all healthy, born ~1993, 1996, 1999, 2002 & 2004 ?? Otherwise negative for anomaly and premature cardiac disease. Social History ?? Sarah is , lives with her & younger children Physical Exam: Vitals: 06/20/17 0957 BP: 122/70 BP Location ([facility]): Right arm Patient Position: Sitting BP Cuff Sizes: Adult (25-34 cm) Pulse: 53 SpO2: 97% Weight: 101.6 kg (224 lb) Height: 167.6 cm (5' 6) ?? Sarah appears in no cardiorespiratory distress. [...] healed sternotomy. ?? Neuro: No abnormality seen. Echocardiogram: ?? Image quality is sub-optimal. ?? Sinus rhythm ?? Right and left pulmonary veins connects to left atrium without obstruction. ?? No residual atrial septal defect was seen. ?? No other anatomic abnormality was seen with technically limitd standard exam. ?? Right ventricular chamber size, wall thickness, estimated systolic pressure of 28 mm Hg plus right atrial pressure, septal position, and systolic performance appear normal. ?? Left ventricular chamber size, wall thickness and systolic performance appear normal. Summary ?? Cardiac Anatomy/Hemodynamics: ?? Post-surgical correction [...] thickness and systolic performance appear normal. ?? History of systolic hypertension to 175/79 mm Hg. ?? Cardiac Rhythm: ?? Palpitation ?? Zio ambulatory electrocardiographic monitor in 08/2016 showed: ?? 3 brief (4-6 beats duration), relatively slow (average rates ~122-132/min) runs of apparently asymptomatic supraventricular tachycardia were recorded during sleeping hours. No other supraventricular tachycardia was recorded. ?? Otherwise normal study. ?? Symptoms of pounding & shoulder blade pain with shortness of breath were associated with sinus rhythm. ?? Post TAPVC surgery there is low [...] ?? Hypercholesterolemia. ?? Serum cholesterol 225 mg/dl, now treated with diet. ?? Diabetes mellitus, type 2, diagnosed 2017, currently diet managed ?? Obesity ?? Family history of premature atherosclerosis Recommendations: ?? Additional cardiac evaluation with office visit, electrocardiogram, labs (BMP, lipids, Hgb A1c) & echocardiogram in 5 years & prn ?? SBE precautions are not indicated per guidelines ?? Prudent diet for weight loss, glucose & cholesterol control ?? Moderate daily exercise beyond that current for for fitness, weight loss, glucose & cholesterol control ?? Monitor & intervene as indicated per guidelines for blood pressure, glucose & cholesterol control We reviewed these findings and recommendations with Sarah. 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
--- OUTSIDE RECORDS SUMMARY | 2023-11-28 13:51 | XMS_ITS | Encounter Summary ---
[place] [address] Care Team Providers Care Medical Billing Manager Name Role Phone Eva Dang MD Primary Care Provider [phone] Reason for Visit * Reason Comments Medication Management Encounter Details Date Type Department Care Team (Late st Contact Info) Description 07/04/2018 Specialty Pharm[place] [address] Ayla Ta [facility] Social History Tobacco Use Types Packs/Day Years [...] as of this encounter Progress Notes * Ayla Ta [facility] - 07/04/2018 12:17 PM EST Clinical Management Plan: Clinical Consult- Opt out Specialty Pharmacy Consultation; Ayla Ta [facility] Comprehensive Medication Management (CMM) Sarah Robles Diagnosis: Migraine headache Ms. Sarah Robles is a 43 y.o. (1975) female who was contacted by the Specialty Pharmacy fora clinical assessment regarding therapy with Aimovig. As the patient is familiar with the medication, the patient opted out of this assessment with the pharmacist. Sarah Robles would still like to receive refill reminder calls and MIDAS assessments by [facility]. Sarah Robles is aware of how to take this medication and of the prescribed dose. The prescription was filled on 07/03/2018 for a 30 day supply. Sarah Robles received the [facility] welcome packet on 07/03/2018 and acknowledged receiving the Patient Rights and Responsibilities on 07/03/2018. The date of the last MIDAS was 07/03/2018. The specialty pharmacy staff will follow up with the patient 5-7 days prior to next refill. In the meantime, the patient is encouraged to reach out to us with any questions or concerns regarding therapy. Ayla Ta RPH 07/04/18 12:18 PM documented in this encounter Plan of Treatment Not on file documented as of this encounter Visit Diagnoses Not on filedocumented in this encounter Care Teams Medical Billing Manager Relationship Specialty Start Date End Date Eva Dang MD [facility] [address] [place] [address] PCP - General Family Medicine 03/25/16 documented as of this encounter
--- OUTSIDE RECORDS SUMMARY | 2023-11-28 13:51 | XMS_ITS | Encounter Summary ---
Author Organization [facility] Address [facility] [place] [address] Care Team Providers Care Aerial Tram Operator Name Role Phone Eva Dang MD Primary Care Provider [phone] Reason for Referral * High Dollar Medication (Routine) - Specialty Diagnoses / Procedures Referred By Angy t Referred To Contact Neurology Diagnoses Chronic migraine Procedures Auth Request for Medication TC ONABOTULINUMTOXINA, 1 UNIT, INJECTION PRO CHEMODENERVATION FACIAL/TRIGEM/CERV MUSC MIGRAINE Botox Dirk Davis MD [facility] [place] [address] [facility] Neurology [address] [place] [phone] Referral ID Status Reason Start Date Expiration Date V isits Requested Visits Authorized [id number] Consult, Test & Treat 12/28/2017 12/28/2018 4 4 Reason for Visit * Reason Comments Follow-up Encounter Details Date Type Department Care Team (Late st Contact Info) Description 09/09/2017 10:00 AM EDT [place] [phone] Radha Jimenez MD [facility] [place] [address] Dirk Davis MD [facility] [address] Type 2 diabetes mellitus without complication, without long-term current use of insulin; Chronic migraine without aura without status migrainosus, not intractable; Chronic migraine Social History Tobacco Use Types Packs/Day Years [...] Sign Reading Time Taken Comments Blood Pressure 139/76 09/09/2017 9:58 AM EDT Pulse 61 09/09/2017 9:58 AM EDT Temperature - - Respiratory Rate - - Oxygen Saturation - - Inhaled Oxygen Concentration - - Weight 100.7 kg (222 lb) 09/09/2017 9:58 AM EDT Height 167.6 cm (5' 6) 09/09/2017 9:58 AM EDT r eported Body Mass Index 35.83 09/09/2017 9:58 AM EDT documented in this encounter Progress Notes * Dirk Davis MD - 09/09/2017 10:00 AM EDT Images from the original note were not included. Neurology Headache Clinic Follow-up Visit 09/09/2017 Last Visit: 06/13/17 Patient is a pleasant 42 yo Left handed female with MHx of Asthma, HLD, sinus dx (nasal polyps requiring occasional steroid tapers), hx of cardiac surgery at 7 months of age due to anomalous pulmonary venous return, DMII (diet controlled), ANA on CPAP (since November), hx of fatigue and depression (no SI or HI), post- concussive sxms s/p head injury and followed by Dr. Woodson. Patient presents today for follow up of headaches. Original GARCIA Hx per clinic intake note: Onset of headache was 01/26/16 immediately following [...] vision, dizziness (when fatigued) and mild confusion. States she would sleep a lot during that period. Tried Aleve for headaches which dulled the pain, but did not relieve it completely. She reports a tingling sensation on the top of her head which she began feeling Winter 2016, and as the day progresses and fatigue sets in she feels increased Throbbing pain, but otherwise no significant changes in her headache characteristics. She started eye-therapy in February 2017 and reports significant reduction in pain, but still has mild pain at baseline. Denies any headache free days since onset of headaches. States that she has been very forgetful since the injury and having difficulty speaking (misprounonces words, or can't think of what to say next, stating i feel like my brain is slowed). Tried Topamax and Amitriptyline previously, but had worsening fatigue/lethargy and they were subsequently discontinued. States she Is being considered for stimulant to treat her fatigue, but will first be discussing it with her x ray equipment mechanic. She started taking Magnesiumand Riboflavin yesterday. No positional component. No auras. States she occasionally sees shadows in her right peripheral vision, lasting a few seconds. Denies feeling of fullness in the ears. No cranial autonomic symptoms. No tinnitus, diplopia, ataxia or motor weakness. Reports occasional numbness of her fingers B/L which seems to have also been present prior to the headaches. Denies jaw pain with movements or chewing. No neck pain currently, but back in February 2017 she hadB/L neck and shoulder pain for which she went to a massage therapist and had no issues since then. Triggers/ precipitating factors: Physical activity, exhaustion, sleep deprivation, menstruation Alleviating factors include a quiet environment, rest, sleep, Medications (Aleve 1-2tabs a day, 3-4x per week) F/u on 06/13/17: These headaches started almost immediately following her head trauma. The headaches are now isolated to the vertex of her head and phenotypically migraines. She has daily headaches which fluctuate in severity, but overall are less painful than since she started eye-therapy several months ago. She has no new headache characteristics and workup including CT head, brain MRI and TFTs were unrevealing. Apart from some photosensitivity, her physical examination today was relatively unremarkable and we don't see the need for further workup at this time. She has tried Amitriptyline andTopiramate without any noticeable improvement in her headaches and reported worsening fatigue/lethargy. In the context of post-traumatic headaches TCAs work well and we will try Nortriptyline (starting with 10mg and up-titrating as tolerated) as it tends to be better tolerated. We will stop OTC NSAIDs and prescribe instead Naproxen Sodium 550mg BID PRN and Hydroxyzine 25mg BID PRN. We will not be prescribing triptans at this time as there is no clear target for treatment (also, pt would likely want approval from her x ray equipment mechanic prior to starting any triptans/ergots). We discussed the possibility of adding an anti-hypertensive, specifically Candesartan, as her BP could tolerate it and it would provide brien- protective effects in the setting of Diabetes, but the patient will discuss this with her x ray equipment mechanic and PMD first. Botox would be the next step for her headache prevention if the other medications are not effective or have intolerable side-effects. ?? Interval Headache Hx: Pt states she started Nortriptyline 10mg and up titrated to 20mg. Tolerating well. Did not bring inheadache journal today. States she feels that the headaches have been getting better. Still having daily headaches (intermittently throughout the day), but they are a bit milder. She reports pressure-like sensations on the vertex of her head (where the injury occurred) which is not bothersome, but present throughout the day- starts to throb it becomes more bothersome. Headaches seem to be aggravated by increased stress-levels. She gets eye-therapy weekly for EOM strengthening. Now she is on a every other week schedule with2 sessions left. The days of the eye therapy seem to be exhausting and exacerbate her headaches on those days. Hydroxyzine works well. PREVIOUS TESTS: 01/28/16 CT head- reportedly unremarkable 04/27/16: MRI brain wo contrast- extensive sinus dx, no acute intracranial abnormality TSH- wnl May 2017- Ophthalmology evaluation- prisms ?? TREATMENT HISTORY: Meds Tried in Bold ?? TCA: Amitriptyline- fatigue, Nortriptyline 20mg (taking now, effective and tolerating well) AED: Topamax- fatigue, Zonisamide(zonegran), Valproate BB: Propranolol, Nadolol, Atenolol, Metoprolol JUHI/ARBs: Lisinopril, Candesartan(Atacand) CCB: Verapamil, Diltiazem, Nifedipine Antihistamine: Cyproheptadine SSRI: Citalopram(Celexa), Escitalopram (Lexapro), Fluoxetine(Prozac), Fluvoxamine(Luvox), Paroxetine/Paxil, Sertraline/Zoloft SNRI: Venlafaxine/Effexor, Desvenlafaxine/Pristiq/Khedezia, Duloxetine(Cymbalta) Norepinephrin and dopa inhibitor: Buproprion/Wellbutrin Ergots: DHE/Migranal Triptans: Sumatriptan (Imitrex), Rizatriptan(maxalt), Zolmitriptan(Zomig), Naratriptan(Amerge), Treximet(sumatriptan and naproxen) Muscle relaxants: Flexeril, Baclofen, Tizanidine Antiemetics: 5HT3 RB Ondansetron(Zofran) H1 RB Hydroxyzine(Vistaril), promethazine(Phenergan) D2 RB: metoclopramide(Reglan), Chlorpromazine (thorazine), Prochlorperazine (compazine) NSAIDS: Aspirin, Exedrin, Fioricet, Ibuprofen, Indomethacin, Naproxen sodium, Toradol,Tylenol, Meloxicam or celebrex Supplements: Magnesium, CoQ10, B2 Other: namenda, melatonin sTMS (Transcranial Magnetic stimulation) Cephaly headband Chemodenervation: Botox Nerve blocks: Narcotics: Benzo: Past medical history Past Medical History: Diagnosis Date ??? Congenital heart disease ??? Depression ??? Diabetes mellitus ??? Elevated cholesterol 09/22/2009 Cholesterol = 225 ??? Head injury 01/26/2016 ??? Obesity ??? Syncope and collapse fainted a few times during highschool ??? Total anomalous pulmonary venous return Past surgical history Past Surgical History: Procedure Laterality Date ??? CARDIAC SURGERY 09/1973 Current Medications: Current Outpatient Prescriptions on File Prior to Visit Medication Sig Dispense Refill ??? cholecalciferol, Vitamin D3, 50,000 [...] as needed (headache). 90 capsule 1 ??? [DISCONTINUED] predniSONE (DELTASONE) 10 mg Tablet Take 10 mg by mouth daily. ??? PROAIR HFA [...] mouth nightly. 0 No current facility-administered medications on file prior to visit. Review of patient's allergies indicates: Allergies Allergen Reactions ??? Cephalexin ??? House Dust Review of systems: Constitutional: No fevers or chills Eyes: No vision changes ENT: No rhinorrhea or pharyngitis, no meningismus CV: No chest pain or palpitations Resp: No cough, no shortness of breath GI: No nausea, vomiting, diarrhea or constipation : No dysuria, no incontinence Heme: No bleeding or bruising Endo: No diabetes or thyroid disease Neuro: See HPI Psych: No depression, normal sleep [x] Review of systems otherwise negative Physical Examination: BP 139/76 (BP Location (NBP): Left arm, Patient Position: Sitting, BP Cuff Sizes: Large Adult (32-43 cm)) Pulse 61 Ht 167.6 cm (5' 6) Comment: reported Wt 100.7 kg (222 lb) BMI 35.83 kg/m2 General: neat appearance, cooperative, not in distress Musculoskeletal: moving all extremities Neuro exam: alert, oriented to person, place, time, situation, follows simple and complex commands,speech fluent with no dysarthria. Assessment and Plan: 42 yo Left handed female with MHx of Asthma, HLD, sinus dx (nasal polyps requiring occasional steroid tapers), hx of cardiac surgery at 7 months of age due to anomalous pulmonary venous return, DMII (diet controlled), ANA on CPAP (since November), hx of fatigue and depression (no SI or HI), post-concussive sxms s/p head injury and post traumatic headaches with migraine phenotype presents today for follow up. Patient uptitrated nortriptyline to 20 mg daily and is tolerating without any issues. Reports overall improvement in her headaches stating although they are still present daily they are milder. At this time we can add candesartan to her migraine prevention regimen and place a PA for Botox. 1. Headaches after Mild-moderate head injury with migrainous features and post- concussive symptoms ?? We have informed the patient that we will not be participating in the legal claims, will not be establishing causation on a more probable that not basis, and will not be reviewing records related to her accident. ?? - Keep a Headache diary - BMP - EKG on f/u for Qtc evaluation while on TCA - For prevention: Start Candesartan, plan to start Botox Candesartan Start at 8 mg daily at night for 1 week, then 16 mg daily Side effects: dizziness, low blood pressure, fatigue, back pain, swelling of the face and throat. Continue Nortriptyline 20mg Continue Magnesium 500mg daily Continue Riboflavin 400mg daily ?? - For treatment of headaches: Naproxen sodium 550mg BID PRN Vistaril 25mg BID PRN - General follow up in 3 months to see how she is doing with Candesartan. If not tolerating or stopped sooner than that, advised to call and we could proceed with then next step which would be Botox.Pt will keep us updated on her progress. D/w Dr. Jimenez 25 minutes of this 30 minute appointment were spent in face to face discussion, counseling and reviewing diagnostic/therapuetic options as detailed above. Dirk Davis MD Pager # [phone] Department of Neurology Headache Medicine Fellow [facility] [place] * Radha Jimenez MD - 09/09/2017 10:00 AM EDT Neurology Attending Note Radha Jimenez MD (Pg [phone]) I certify that I have seen and examined Sarah Robles on 09/09/[address] Davis, Headache Fellow. The note reflects the patient's history of presentation, physical findings. The assessment and plan were formulated together in discussion and I have personally reviewed all studies. Patient being followed in the headache clinic for headache attributed to mild to moderate head trauma in Jan 2016, with a migraine without aura phenotype. She has no prior headache hx. She is continuing to have a daily GARCIA 30/30 days per month > 12 hours per day while awake. She will start Candesartan and then proceed with getting a Botox PA. Continue Nortriptyline 20mg qHS (can consider increasing the dose in the future). documented in this encounter Plan of Treatment Not on file documented as of this encounter Results * (ABNORMAL) Basic Metabolic Panel (non-fasting) (09/09/2017 11:12 AM EDT) Glucose Lvl 149 65 - 199 mg/dL [facility] Comment:Diabetes: >=200 mg/d L plus symptoms BUN 11 8 - 18 mg/dL [facility] Creatinine 0.68(L) 0.70 - 1.20 mg/dL [facility] Sodium 138 135 - 145 mmol/L [facility] Potassium 4.1 3.5 - 5.0 mmol/L [facility] Comment: Please note: ??Patients with WBC >100,000 may have falsely elevated Potassium levels. ??For accurate Potassium quantification in these patients send serum separator tube (gold top) for subsequent determinations. ??Contact the Clinical Chemistry Laboratory if there are any questions. Chloride 102 98 - 107 mmol/L [facility] CO2 26 22 - 31 mmol/L [facility] Anion Gap 10 5 - 15 mmol/L [facility] Calcium 8.8 8.5 - 10.5 mg/dL [facility] Estimated GFR >60 >=60 [facility] Comment: The reported eGFR should be multiplied by 1.2 for patients. The MDRD is not an appropriate measure of renal function for patients with body mass extremes or in patients with acute kidney failure. http://[employer]/DHnkdep http://[employer]/DHMCnkf Blood specimen (specimen) 09/09/2017 11:12 AM EDT 09/09/2017 11:18 AM EDT Narrative Resulting Agency Comment Spec In Lab Dirk Davis MD CHEMISTRY ORDERABLES [facility] [place] [address] documented in this encounter Visit Diagnoses Diagnosis Type 2 diabetes mellitus without complication, without long-term current use of insulin Chronic migraine without aura without status migrainosus, not intractable Chronic migraine without aura, without mention of intractable migraine without mention of status migrainosus Chronic migraine Chronic migraine without aura, without mention of intractable migraine without mention of status migrainosus documented in this encounter Care Teams Aerial Tram Operator Relationship Specialty Start Date End Date Eva Dang MD [address] [place] [address] PCP - General Family Medicine 03/25/16 documented as of this encounter
--- OUTSIDE RECORDS SUMMARY | 2023-11-28 13:51 | XMS_ITS | Encounter Summary ---
Author Organization [facility] [place] [address] Care Team Providers Care Alternative Medicine Practitioner Name Role Phone Eva Dang MD Primary Care Provider [phone] Reason for Visit * Reason Onset Date Comments Prior Authorization 09/18/2018 [employer] Encounter Details Date Type Department Care Team (Late st Contact Info) Description 09/18/2018 Telephone [place] [address] Samm Todd Prior Authorization ([employer]) Social History Tobacco Use [...] encounter Miscellaneous Notes * Telephone Encounter - Samm Todd - 09/18/2018 10:47 AM EDT [facility], Prior Authorization Approval Medication Name: [employer] FILLABLE AT [facility]? yes APPROVAL DATES: One Time only SPECIFIC INS REQUIREMENT: Must get a new Authorization for each fill CASE/REFERENCE # [id number]/A APPROVAL NOTIFICATION RECEIVED VIA: Phone Call COPAY: $0 COPAY ASSISTANCE NEEDED?: No NOTES: This is a worker's comp plan [facility], Medication Prior Authorization Patient: Sarah Robles Patient : 1975 Patient Address: [address] [place] [address] (home) Medication: [employer]ovig Subscriber Insurance: [employer] Fax: Physician: Radha iJmenez Sent Via: Verbally Martinez: N/A Ref/Case/PA#: N/A Medication Strength Frequency Requested: Aimovig 140 mg/mL Auto-injector Once every 30 days Qty/Day Supply: 06/07 New Start: No Diagnosis & ICD-10 Code: Chronic Migraine G43.709 documented in this encounter Plan of Treatment Not on file documented as of this encounter Visit Diagnoses Not on filedocumented in this encounter Care Teams Alternative Medicine Practitioner Relationship Specialty Start Date End Date Eva Dang MD [address] [place] [address] PCP - General Family Medicine 03/25/16 documented as of this encounter
--- OUTSIDE RECORDS SUMMARY | 2023-11-28 13:51 | XMS_ITS | Encounter Summary ---
Author Organization [facility] Address [facility] [place] [address] Care Team Providers Care Industrial Photographer Name Role Phone Eva Dang MD Primary Care Provider [phone] Reason for Visit * Reason Onset Date Comments Other 10/13/2017 Encounter Details Date Type Department Care Team (Late st Contact Info) Description 10/13/2017 [place] [address] Dirk Davis MD [facility] [place] [address] Other Social History Tobacco Use Types Packs/Day [...] Telephone Encounter - Stacy Valero RN - 10/14/2017 2:53 PM EDT Call made to the sales secretary to contact the patient to schedule an earlier appointment for botox. * Telephone Encounter - Norma Kruse - 10/13/2017 11:46 AM EDT Caller: Patient If not Pt / Relation to pt: Best time to reach caller: anytime before 230pm or after 4pm Before 2:30pm - Informed caller that nurse will call back by the end of the day Best number to reach caller: [phone] Reason for call: Patient called to discuss her upcoming botox appointment on 10/20. States that her workers comp coverage ends on 10/20 which is when she is currently scheduled. She is wondering if it is okay to keep her botox appointment as is and if her workers comp doesn't cover it would it then be sent to her primary insurance company? She also reports that she is having pressure and tingling feeling on her head in the area of injury. documented in this encounter Plan of Treatment Not on file documented as of this encounter Visit Diagnoses Not on filedocumented in this encounter Care Teams Industrial Photographer Relationship Specialty Start Date End Date Eva Dang MD [address] [facility] [address] [place] [address] PCP - General Family Medicine 03/25/16 documented as of this encounter
--- OUTSIDE RECORDS SUMMARY | 2023-11-28 13:51 | XMS_ITS | Encounter Summary ---
Author Organization [facility] [place] [address] Care Team Providers Care Neon Molder Name Role Phone Eva Dang MD Primary Care Provider [phone] Encounter Details Date Type Department Care Team (Late st Contact Info) Description 08/03/2016 Telephone [place] [phone] Sarai Garcia Social History Tobacco Use Types Packs/Day Years Used Date Smoking Tobacco: Never Assessed Sex and Gender Information Value Date Recorded Sex Assigned at Not on file Gender Identity Female 09/26/2019 9:01 AM EDT Sexual Orientation Not on file documented as of this encounter Miscellaneous Notes * Telephone Encounter - Sarai Garcia - 08/20/2016 8:47 AM EDT Irene Beltran from the Department of Rehabilitation received a call late on 08/02/16 from Brigette salazar [employer] giving authorization for Sarah to have 6 additional rehab visits. Prior approval of 6 visits from 06/28/16-08/05/16 was made and this approval is for 6 visits from 08/09/16-09/17/16. documented in this encounter Plan of Treatment Not on file documented as of this encounter Visit Diagnoses Not on filedocumented in this encounter Care Teams Neon Molder Relationship Specialty Start Date End Date Eva Dang MD [address] [place] [address] PCP - General Family Medicine 03/25/16 documented as of this encounter
--- OUTSIDE RECORDS SUMMARY | 2023-11-28 13:51 | XMS_ITS | Encounter Summary ---
Author Organization [facility] [place] [address] Care Team Providers Care Pilot Plant Research Technician Name Role Phone Eva Dang MD Primary Care Provider [phone] Encounter Details Date Type Department Care Team (Late st Contact Info) Description 10/27/2016 10:30 AM EDT Office [place] [address] Mark Maria, OT [facility] [place] [address] Attention or concentration deficit; Concussion with no loss of consciousness, subsequent encounter Social History Tobacco Use Types Packs/Day Years Used Date Smoking Tobacco: Never Sex and Gender Information Value Date Recorded Sex Assigned at Not on file Gender Identity Female 09/26/2019 9:01 AM EDT Sexual Orientation Not on file documented as of this encounter Progress Notes * Mark Maria, OT - 10/27/2016 10:30 AM EDT OCCUPATIONAL THERAPY TREATMENT NOTE REFERRAL [...] treatment. Sarah Robles presents alone PERFORMANCE DEFICITS: Sraah Robles identifies difficulty with the following functional activities using the Patient Specific Functional Scale (PSFS): 0/10 (unable to perform) to 10/10 (Able to perform without difficulty) Activity At Evaluation 09/10/16 10/27/16 1.) cooking 7 7 7 2.) manage bills 3 5 4 3.) work 6.5 7 7 4.) groceries 5-6 8 7 5.) balancing energy from day to day 2 4 4 Total: Average Score 5 6.2 5.8 OBJECTIVE: MENTAL FUNCTION: Global mental functions Consciousness/ state of awareness and alertness: person, place, time and situation Temperament and personality: Appropriate. Specific mental functions Benld Cognitive Assessment (MoCA) Results: eval 09/10/16 10/27/16 Comments Visuospatial/Exec 05/09 1 1 Trails Test 0/ 0 0 Cube Copy 05/09 1 1 Clock: Contour 05/09 1 1 Clock: Numbers 1 1 Clock: Hands Naming 3/3 3 3 (of 3) Attention 05/09 1 1 Repeat forward 05/09 1 1 Repeat backwards 05/09 1 1 Tapping for letter A / 3 2 Serial 7 Subtraction (3pts=4+; 2pts=2+; 1pt=1) Language 1/2 2 2 Repeating Sentences Fluency 0/ 0 0 Word Naming (1pt=11+ words) Abstraction 1/2 2 2 Similarities (Associations) Delayed Recall 2/5 5 1 (uncued) Orientation 05/09 1 1 Month 05/09 1 1 Date 05/09 1 1 Year 05/09 1 1 Day of the week 05/09 1 1 Location 05/09 1 1 City Add 1 point if 12 years of education or less TOTAL 22/30 29/30 23 Score of 26 or greater considered normal [...] percentile 7) Telephone Search While Countinth percentile Last visit 1) Map Search: 5th percentile. Organized in pattern 2) Elevator Counting: normal 3) Elevator Counting with Distraction: 5th percentile 4) Visual Elevator: 75th percentile for accuracy 25th percentile for speed 5) Elevator Counting with Reversal: 10th 6) Telephone Search: 50th percentile 7) Telephone Search While Countinth percentile Concussion scale score 32 TREATMENT TODAY: Reassessed with MOCA and concussion scale Skilled discussion related to daily schedule, concussion scale, and work lists. ASSESSMENT: Sarah Robles presents today remaining working at 4 hours per day. She is discouraged with this stating that she wants her life back. She has had multiple variable that have resulting inset backs for her. These include a sleep study where they had to push electrodes to stick them to her head and pushed on the area resulting in an extended period of time of increased symptoms that were severe at first. 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 She has stopped doing her daily schedule and concussion scale and was encouraged to continue this considering it is needed to monitor her tolerance related to work an home tasks to help her decide when and if she canincrease her hours. We also considered other contributing factors for which she reports she has gained some weight since injury but feels due to fatigue she can not be active enough to lose it. In discussing an exercise routine she reports she has an automatic gym membership tied to the physical the rapy she was part of and she has an exercise routine they have already established which she has not been doing but plans at this point to start. At this point she is using her tools and there is no further indication for OT services. Assisted Goals (to be met by discharge): Date [...] a 6/10 level Goal Status: met PLAN: discharge OT services.. (X) Sarah Robles participated in the evaluation, collaborated on treatment goals, and agrees to the treatment plan. documented in this encounter Plan of Treatment Not on file documented as of this encounter Visit Diagnoses Diagnosis Attention or concentration deficit Concussion with no loss of consciousness, subsequent encounter documented in this encounter Care Teams Pilot Plant Research Technician Relationship Specialty Start Date End Date Eva Dang MD [address] [place] [address] PCP - General Family Medicine 03/25/16 documented as of this encounter
--- OUTSIDE RECORDS SUMMARY | 2023-11-28 13:51 | XMS_ITS | Encounter Summary ---
Author Organization [facility] Address 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 [place] [address] Referral ID Status Reason Start Date Expiration Date V isits Requested Visits Authorized [id number] Closed Specialty Service Requested 07/23/2016 07/23/2017 1 1 Encounter Details Date Type Department Care Team (Late st Contact Info) Description 07/23/2016 Orders [place] [address] All Davies MD [facility] [place] [address] Head injury, subsequent encounter; Elevated cholesterol; Congenital heart disease; Total anomalous pulmonary venous return Social History Tobacco Use Types Packs/Day Years Used Date Smoking Tobacco: Never Assessed Sex and Gender Information Value Date Recorded Sex Assigned at Not on file Gender Identity Female 09/26/2019 9:01 AM EDT Sexual Orientation Not on file documented as of this encounter Plan of Treatment Pending Results Name Type Priority Associated Diagnoses Date/Time Echocardiogram Transthoracic(Leb) Echocardiography Routine 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 08/20/2016 9:34 AM EDT Scheduled Orders Name Type Priority Associated Diagnoses Order Schedule Echocardiogram Transthoracic(Leb) Echocardiography Routine 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
--- OUTSIDE RECORDS SUMMARY | 2023-11-28 13:51 | XMS_ITS | Encounter Summary ---
[place] [address] Care Team Providers Care Gum Cook Name Role Phone Eva Dang MD Primary Care Provider [phone] Encounter Details Date Type Department Care Team (Latest Contact Info) Description 09/09/2017 11:05 AM EDT Laboratory Appointment Lab [address] [place] [address] Type 2 diabetes mellitus without complication, without long-term current use of insulin Social History Tobacco Use Types Packs/Day Years [...] Diagnosis Comments BASIC METABOLIC PANEL (NON-FASTING) Routine 09/09/2017 11:12 AM EDT Type 2 diabetes mellitus without complication, without long-term current use of insulin documented in this encounter Results * (ABNORMAL) Basic Metabolic Panel (non-fasting) (09/09/2017 11:12 AM EDT) Glucose Lvl 149 65 - 199 mg/dL [facility] Comment:Diabetes: >=200 mg/d L plus symptoms BUN 11 8 - 18 mg/dL [facility] Creatinine 0.68(L) 0.70 - 1.20 mg/dL [facility] Sodium 138 135 - 145 mmol/L [facility] Potassium 4.1 3.5 - 5.0 mmol/L [facility] Comment: Please note: ??Patients with WBC >100,000 may have falsely elevated Potassium levels. ??For accurate Potassium quantification in these patients send serum separator tube (gold top) for subsequent determinations. ??Contact the Clinical Chemistry Laboratory if there are any questions. Chloride 102 98 - 107 mmol/L [facility] CO2 26 22 - 31 mmol/L [facility] Anion Gap 10 5 - 15 mmol/L [facility] Calcium 8.8 8.5 - 10.5 mg/dL [facility] Estimated GFR >60 >=60 [facility] Comment: The reported eGFR should be multiplied by 1.2 for patients. The MDRD is not an appropriate measure of renal function for patients with body mass extremes or in patients with acute kidney failure. http://Narrative.SimulScribe/DHnkdep http://Narrative.SimulScribe/DHMCnkf Blood specimen (specimen) 09/09/2017 11:12 AM EDT 09/09/2017 11:18 AM EDT Narrative Resulting Agency Comment Spec In Lab Dirk Davis MD CHEMISTRY ORDERABLES [facility] [place] [address] documented in this encounter Visit Diagnoses Diagnosis Type 2 diabetes mellitus without complication, without long-term current use of insulin documented in this encounter Care Teams Gum Cook Relationship Specialty Start Date End Date Eva Dang MD [address] [place] [address] PCP - General Family Medicine 03/25/16 documented as of this encounter
--- OUTSIDE RECORDS SUMMARY | 2023-11-28 13:51 | XMS_ITS | Encounter Summary ---
Author Organization [facility] Address [facility] [place] [address] Care Team Providers Care Wheel Worker Name Role Phone Eva Dang MD Primary Care Provider [phone] Encounter Details Date Type Department Care Team (Late st Contact Info) Description 08/18/2016 Orders [place] [address] All Davies MD [facility] PEDIATRIC [place] [address] Congenital heart disease; Total anomalous pulmonary venous return; Tachycardia Social History Tobacco Use Types Packs/Day Years Used Date Smoking Tobacco: Never Sex and Gender Information Value Date Recorded Sex Assigned at Not on file Gender Identity Female 09/26/2019 9:01 AM EDT Sexual Orientation Not on file documented as of this encounter Plan of Treatment Not on file documented as of this encounter Procedures Procedure Name Priority Date/Time Associated Diagnosis Comments ZIOPATCH Routine 09/06/2016 9:40 AM EDT 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 Zio Holter Monitor Report Indication: SVT. Medications: ?PROAIR HFA 90 mcg/actuation HFA Aerosol Inhaler ?amitriptyline (ELAVIL) 25 mg Tablet ?FREESTYLE LITE STRIPS ?fluocinonide (LIDEX) 0.05 % Cream ?FREESTYLE LANCETS 28 gauge Misc ?LORazepam (ATIVAN) 1 mg Tablet ?montelukast (SINGULAIR) 10 mg Tablet ?topiramate (TOPAMAX) 50 mg Tablet ?ERGOCALCIFEROL, VITAMIN D2, (VITAMIN D2 ORAL) Findings: ?? Study Duration: 14 days on 08/17- with analysis time 12.75 days. ?? Rhythm: sinus predominates throughout ?? Rate: [...] supraventricular tachycardia were recorded during sleeping hours. ??No other supraventricular tachycardia was recorded ?? Ventricular Ectopy: ?? Rare isolated premature ventricular beats are recorded (<1% of total beats), normal. ?? No ventricular couplets are recorded ?? No ventricular tachycardia is recorded ?? Symptoms: ? Pounding for 1-10 minutes with climbing stairs was associated with sinus rhythm at 87/min. ?? Shoulder blade pain & short of breath for >1 hour with sitting was associated with sinus rhythm at ~67/min. Conclusions: ?? 3 brief (4-6 beats duration), relatively slow (average rates ~122-132/min) runs of apparently asymptomatic supraventricular tachycardia were recorded during sleeping hours. ??No other supraventricular tachycardia was recorded. ?? Otherwise normal study. ?? Symptoms of pounding & shoulder blade pain with shortness of breath were associated with sinus rhythm. Read by All aDvies M.D. 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
--- OUTSIDE RECORDS SUMMARY | 2023-11-28 13:51 | XMS_ITS | Encounter Summary ---
Author Organization [facility] Address [facility] [place] [address] Care Team Providers Care Collar Pointer Name Role Phone Eva Dang MD Primary Care Provider [phone] Reason for Referral * Diagnostic Test (Routine) - Closed Specialty Diagnoses / Procedures Referred By Angy munreo Referred To Contact Radiology Diagnoses TAPVR (total anomalous pulmonary venous return) Procedures MRI Cardiac Morph Func wwo Contrast All Davies MD [facility] [place] [address] [place] [address] Referral ID Status Reason Start Date Expiration Date V isits Requested Visits Authorized [id number] Closed Specialty Service Requested 11/19/2016 02/17/2017 2 2 Encounter Details Date Type Department Care Team (Late st Contact Info) Description 09/01/2016 Orders [place] [address] All Davies MD [facility] [place] [address] TAPVR (total anomalous pulmonary venous return) Social History Tobacco Use Types Packs/Day Years Used Date Smoking Tobacco: Never Sex and Gender Information Value Date Recorded Sex Assigned at Not on file Gender Identity Female 09/26/2019 9:01 AM EDT Sexual Orientation Not on file documented as of this encounter Plan of Treatment Not on file documented as of this encounter Results * MRI Cardiac Morph [...] return) Total congenital anomalous pulmonary venous connection TAPVR (total anomalous pulmonary venous return) Total congenital anomalous pulmonary venous connection documented in this encounter Care Teams Collar Pointer Relationship Specialty Start Date End Date Eva Dang MD [address] [place] [address] PCP - General Family Medicine 03/25/16 documented as of this encounter
--- OUTSIDE RECORDS SUMMARY | 2023-11-28 13:51 | XMS_ITS | Encounter Summary ---
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 Procedures Echocardiogram Transthoracic(Leb) All Davies MD [facility] [place] [address] [facility] [place] [address] Referral ID Status Reason Start Date Expiration Date V isits Requested Visits Authorized [id number] Closed Specialty Service Requested 06/14/2017 06/14/2018 1 1 Encounter Details Date Type Department Care Team (Late st Contact Info) Description 06/14/2017 Orders Only [place] [address] All Davies MD [facility] [place] [address] Total anomalous pulmonary venous return; Congenital heart disease Social History Tobacco Use Types Packs/Day Years [...] documented as of this encounter Results * CONGENITAL ECHO COMPLETE (06/20/2017 9:54 AM EST) Anatomical Region Laterality Modality Other 06/20/2017 Narrative 06/20/2017 3:09 PM EST Procedure: ?Pediatric Echocardiogram Patient: ?GILMER Garzon ?(Age): 1975(42y) ? Med Rec#: ? [id number] ?Sex: ?F ? Site Loc: ? [facility] [place] ?Ht / Wt: ??168(cm)/101(kg) Pt. Loc: ?Echo Lab ?BSA: ?2.21 ([facility]) Study Date: ?? 06/20/2017 ?Pt. Type: Study Quality: ? Referring: All Davies ([id number]) Referring: NAYA Reading: All Davies ([id number]) Agronomy Technician: [employer] Wire Transfer Clerk: Jonas Hanna Diagnosis: *ICD-10-PCS Total anomalous pulmonary [...] draining unobstructed ipsilateral lobar veins (MRI, 11/2016 [facility] [place] [facility]). 2. Image quality is sub-optimal. 3. Right [...] 06/20/2017 15:08:58 Images reviewed and interpretation verified [facility] Cardiac Ultrasound Laboratory Procedure Note All Davies MD - 06/20/2017 Procedure: Pediatric Echocardiogram Patient: GILMER Garzon (Age): 1975(42y) Med Rec#: [id number] Sex: F Site Loc: [facility] [place] Ht / Wt: 168(cm)/101(kg) Pt. Loc: Echo Lab BSA: 2.21 (Jaime) Study Date: 06/20/2017 Pt. 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 2. Image quality is sub-optimal. 3. 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
--- OUTSIDE RECORDS SUMMARY | 2023-11-28 13:51 | XMS_ITS | Encounter Summary ---
[place] [address] Care Team Providers Care Business Economist Name Role Phone Eva Dang MD Primary Care Provider [phone] Reason for Visit * Reason Comments Medication Management Encounter Details Date Type Department Care Team (Late st Contact Info) Description 08/24/2018 Specialty [place] [address] Miya Vera RPH Social History Tobacco Use Types Packs/Day Years [...] as of this encounter Progress Notes * Miya Vera RPH - 08/24/2018 3:45 PM EDT Clinical Management Plan: Refill Specialty Pharmacy Consultation; Miya Vera RPH Comprehensive Medication Management (CMM) Sarah Robles MsAngelito Sarah M Travis is a 43 y.o. (1975) female who was contacted in regard to a specialty medication refill reminder. Spoke with patient regarding Aimovig. A review of the medication therapy wasperformed. The medication was Refilled as scheduled, and all medication related questions and concerns were addressed. The specialty pharmacy staff will follow up with the patient 5-7 days prior to next refill. Was a change made to the Care Plan: no Assessment and Recommendations: Title Type of Medication Management: chronic disease management, targeted medication review Referred By: pharmacist Recipient: beneficiary Provider: plan sponsor pharmacist Visit [place]: [facility] [place] Method of Contact: by telephone Cognitive Impairment Status Verified this Year: no Allergies and Drug intolerance: Allergies Allergen Reactions ??? Cephalexin Other (See Comments) Patient unknown ??? House Dust Medication Reconciliation Discrepancies (compared to [facility] med list) -none New medications: yes - Amitriptyline 25mg New medical conditions: no New allergies: no Adherence: Medication Adherence Patient reported X missed doses in the last month: 0 Any gaps in refill history greater than 2 weeks in the last 3 months: no Demonstrates understanding of importance of adherence: yes Informant: patient Reliability of informant: reliable Provider-estimated medication adherence level: 90-100% Reasons for non-adherence: no problems identified Adherence tools used: directed education Support network for adherence: healthcare provider Confirmed plan for next specialty medication refill: delivery by pharmacy Refills needed for supportive medications: not needed Most Recent MIDAS: 07/03/18 Are you experiencing any side effects from your medications? no Pt understands no changes to current drug regimen were made at the appointment and that [facility] is providing recommendations (summary located at top of note) for provider review and follow up. Miya Vera RPH 08/24/18 3:46 PM documented in this encounter Plan of Treatment Not on file documented as of this encounter Visit Diagnoses Not on filedocumented in this encounter Care Teams Business Economist Relationship Specialty Start Date End Date Eva Dang MD [facility] [address] [place] [address] PCP - General Family Medicine 03/25/16 documented as of this encounter
--- OUTSIDE RECORDS SUMMARY | 2023-11-28 13:51 | XMS_ITS | Encounter Summary ---
Author Organization [facility] [place] [address] Care Team Providers Care Package Drier Name Role Phone Eva Dang MD Primary Care Provider [phone] Encounter Details Date Type Department Care Team (Late st Contact Info) Description 07/09/2016 3:00 PM EST Office Visit Occupational [place] [address] Mark Maria, OT [facility]YSICAL MEDICINE & [place] [address] Concussion with no loss of consciousness, subsequent encounter; Attention or concentration deficit Social History Tobacco Use Types Packs/Day Years Used Date Smoking Tobacco: Never Assessed Sex and Gender Information Value Date Recorded Sex Assigned at Not on file Gender Identity Female 09/26/2019 9:01 AM EDT Sexual Orientation Not on file documented as of this encounter Progress Notes * Mark Maria, OT - 07/09/2016 3:00 PM EST OCCUPATIONAL THERAPY TREATMENT NOTE REFERRAL SOURCE: Melanie Dykes DIAGNOSIS AND PERTINENT CO-MORBIDITY AFFECTING PLAN OF CARE 1. Concussion with no loss of consciousness, subsequent encounter 2. Attention or concentration deficit NEXT MD FOLLOW UP: PRN TOTAL TREATMENT TIME: 61 minutes TIMED CODE TREATMENT TIME: Therapeutic / Functional Activities (33614) 61 min Past Medical History Diagnosis Date ??? Congenital heart disease PAST [...] evaluation and treatment. Sarah Robles presents alone VISION FUNCTIONS: Not formally assessed Administered the following subtests of the Test of Everyday Attention (TEA). The TEA is a standardized, normed assessment of various forms of attention. 1) Map Search: 10th percentile. Very disorganized in pattern 2) Elevator Counting: normal 3) Elevator Counting with Distraction: 25th percentile 4) Visual Elevator: 75th percentile for accuracy 1st percentile for speed 5) Elevator Counting with Reversal: unable to do this despite multiple attempts 6) Telephone Search: 10th percentile 7) Telephone Search While Countinth percentile TREATMENT TODAY: Completed the TEA and had skilled discussion related to deficits evident with testing and comparinghow those deficits have been affecting her functioning at work. Reviewed use of the daily schedules and concussion scale and considered the importance of these forworking on insight to deficits and also the importance of just focusing on planning her day in the AM instead of trying to plan at the same time as doing activity. ASSESSMENT: Sarah Robles presents with activity limitations and/or participation restrictions dueto performance deficits in working and delayed memory, cognitive endurance, which is in turn affecting her executive functions. Focused attention was intact today with deficits evident with selectiveattention and more significant issues with shifting attention. She has been unable to multitask at work which requires shifting attention and selective attention has been impaired such as with looking for cleaning solution on a cluttered shelf. She fortunately works alone so can modify how she goesabout things to prevent having to multitask as much. She has been inconsistent in use of her daily s chedule so will benefit from working on this further next visit. A basic scavenger arreaga will also be ideal to do next visit to work on her predictive ability and challenge her performance in a functional community setting. [facility]ci Goals (to be met by discharge): Date [...] 12 week(s) to progress toward short and wharf hand goals. for Cognitive retraining attention, sequencing, problem [...] deficit documented in this encounter Care Teams Package Drier Relationship Specialty Start Date End Date Eva Dang MD [address] [place] [address] PCP - General Family Medicine 03/25/16 documented as of this encounter
--- OUTSIDE RECORDS SUMMARY | 2023-11-28 13:51 | XMS_ITS | Encounter Summary ---
Author Organization [facility] Address [facility] [place] [address] Care Team Providers Care Excel Developer Name Role Phone Eva Dang MD Primary Care Provider [phone] Reason for Visit * Reason Onset Date Comments Other 08/03/2018 Encounter Details Date Type Department Care Team (Late st Contact Info) Description 08/03/2018 Telephone [place] [address] Ursula Walters APRN [facility] [place] [address] Other Social History Tobacco Use Types Packs/Day [...] encounter Miscellaneous Notes * Telephone Encounter - Ursula Walters APRN - 08/04/2018 12:50 PM EDT Left a message for Yaneth Garcia-Carolann on her cell phone, and for her to please call me regarding this patient * Telephone Encounter - Prachi Dudley - 08/03/2018 4:02 PM EDT Clinical [place] Message Provider calling for Provider call Caller: Yaneth MaurerMarylu Call back number: [phone] Is the Provider in: YES Does the caller want the provider paged: No What is the message for the Provider: Pt's pcp office would like to discuss a medication change with the GARCIA team What is the best time for the caller to be reached: is leaving at 5 today, and is also available via email at [email or web address] Disposition of Call ?? Message forwarded to provider to call outside provider documented in this encounter Plan of Treatment Not on file documented as of this encounter Visit Diagnoses Not on filedocumented in this encounter Care Teams Excel Developer Relationship Specialty Start Date End Date Eva Dang MD [address] [place] [address] PCP - General Family Medicine 03/25/16 documented as of this encounter
--- OUTSIDE RECORDS SUMMARY | 2023-11-28 13:51 | XMS_ITS | Encounter Summary ---
Author Organization Count Includes [facility] Address [facility] [place] [address] Care Team Providers Care Network Director Name Role Phone Eva Dang MD Primary Care Provider [phone] Reason for Visit * [place] Medication (Routine) - Specialty Diagnoses / Procedures Referred By Angy munroe Referred To Contact Neurology Diagnoses Chronic migraine Procedures Auth Request for Medication TC ONABOTULINUMTOXINA, 1 UNIT, INJECTION PRO CHEMODENERVATION FACIAL/TRIGEM/CERV MUSC MIGRAINE Botox Dirk Davis MD [facility] [place] [address] [facility] Neurology [address] [place] [address] Referral ID Status Reason Start Date Expiration Date V isits Requested Visits Authorized [id number] Consult, Test & Treat 12/28/2017 12/28/2018 4 4 Encounter Details Date Type Department Care Team (Late st Contact Info) Description 07/03/2018 3:00 PM EST [place] [address] Ursula Walters APRN [facility] [place] [address] Migraine without aura and with status migrainosus, not intractable (Primary Dx) Social History Tobacco Use Types [...] Sign Reading Time Taken Comments Blood Pressure 148/67 07/03/2018 2:53 PM EST Pulse 77 07/03/2018 2:53 PM EST Temperature - - Respiratory Rate - - Oxygen Saturation - - Inhaled Oxygen Concentration - - Weight 101.8 kg (224 lb 6.4 oz) 07/03/2018 2:53 PM EST Height 167.6 cm (5' 6) 07/03/2018 2:53 PM EST R eported Body Mass Index 36.22 07/03/2018 2:53 PM EST documented in this encounter Patient Instructions * Patient Instructions* Ursula Meyers, SCARFER - 07/03/2018 3:00 PM EST Images from the original note were not included. Office Number: (Delia - [facility]) Clinic nurse number for most issues and prescription refills (Stacy) (Parul) For Prescription Refills: Please call for refills when you have one month left on your medication, we have 48 hours from the time you call to get the medication refill placed. Please call the clinic rather then using - or e-mail, as the communication is better in real time. Thank you and I look forward to working with you. Book: Understanding Your Migraines: A Guide for Patients and Families 1st Edition by Vishal Gates and Kodi Portillo Keep your Calendar and bring them to your appointment please. Diagnosis: Chronic Migraine without aura - For Headache Prevention: Aimovig Magnesium oxide 400-800mg Important Before you use AIMOVIG SureClick autoinjector, read this important information: Storing your AIMOVIG SureClick autoinjector ??? Keep the autoinjector out of the reach of children. ??? Keep the autoinjector in the original carton to protect from light. ??? The autoinjector should be kept in the refrigerator at 36??F to 46??F (2??C to 8??C). ??? After removing AIMOVIG from the refrigerator, it can be stored at room temperature between 68??F to 77??F (20??C to 25??C) for up to 7 days. ??? Throw away AIMOVIG that has been left at room temperature for more than 7 days. ??? The needle shield within the white cap of the AIMOVIG autoinjector contains dry natural rubber,which is made from latex. Tell your healthcare provider if you are allergic to latex. ??? It is important that you do not try to give the injection unless you or your caregiver has received training from your healthcare provider. ??? Do not use the autoinjector after the expiration date on the label. ??? Do not shake the autoinjector. ??? Do not remove the white cap from the autoinjector until you are ready to inject. ??? Do not freeze or use the autoinjector if it has been frozen. ??? Do not use the autoinjector if the medicine is cloudy or discolored or contains flakes or particles. ??? Do not use the autoinjector if any part appears cracked or broken. ??? Do not use the autoinjector if the white cap is missing or not securely attached. ??? Do not use the autoinjector if it has been dropped on a hard surface. Part of the autoinjector may be broken even if you cannot see the break. Use a new autoinjector and call [phone] ( ). AIMOVIG comes as a single-dose prefilled autoinjector. Your healthcare provider will prescribe the dose that is best for you. Your healthcare provider prescribed the 140 mg dose for you. You will use 2 injections each month. You will inject one prefilled autoinjector then immediately inject a second prefilled autoinjector. #1 Remove your autoinjector(s) from the carton. Carefully lift the autoinjector straight up out of the carton making sure you do not push the purple start button or accidentally remove the white safety cap. #2 Leave the autoinjector at room temperature for at least 30 minutes before injecting. Do not remove the white cap from the autoinjector yet. #3 Inspect the autoinjector. Make sure the medicine in the window is clear and colorless to slightly yellow. #4 Gather all materials needed for your injection. ??? autoinjector ??? alcohol wipes ??? gauze pads ??? Band-Aid ??? sharps container #5 Choose your injection site. You can give yourself the injection in your thigh or abdomen. Make sure you avoid a 2?? area around your bellybutton. If another person will be giving you the injection, the outer, upper arm can be used as an injection site. #6 Clean your injection site with an alcohol wipe. Let your skin dry. Important: Do not touch this area again before injecting. #7 Pull the white cap straight off, when you are ready to inject. Important: Do not leave the white cap off for more than 5 minutes. This can dry out the medicine. It is normal to see a drop of liquid at the end of the needle or green safety guard. Do not twist or bend the white cap. Do not put the white cap back onto the autoinjector. #8 Pinch your injection site firmly between your thumb and fingers, creating an area about 2 incheswide. Important: Keep skin pinched while injecting. #[address] autoinjector on your skin at a 90 degree angle. Important: Do not touch the purple start button yet. #10 Firmly push the autoinjector down onto skin until the autoinjector stops moving. Important: You must push all the way down but do not touch the purple start button until you are ready to inject. #11 When you are ready to inject, press the purple start button. You will hear a click. Important: Keep pushing down on your skin. Your injection could take about 15 seconds. When the injection is complete, you may hear or feel a click and the window will turn yellow. #12 Remove the autoinjector from your skin (the needle will be automatically covered), cover the injection site with gauze and apply gentle pressure for 5-10 seconds. Apply Band-Aid. Important: When you remove the autoinjector, if the window has not turned yellow, or if it looks like the medicine is still injecting, this means you have not received a full dose. Call your healthcare provider immediately. #13 Put the used AIMOVIG autoinjector and white cap in a FDA-cleared sharps disposal container right away after use. Do not throw away in your household trash. Repeat steps #5-13 if you are giving yourself a second injection. Follow-up with Ursula Meyers APRN in three months [facility] Neurology Headache Clinic documented in this encounter Progress Notes * Ursula Meyers APRN - 07/03/2018 3:00 PM EST Neurology Headache Clinic Follow-up Patient Name: Sarah Robles Patient ID: Sarah Robles is a 43 y.o. 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 Interval History:Onset of headache was 01/26/16 immediately following the head injury. Denies any notable headache hx prior to injury. Headaches are located on vertex of head (used to have some pain over left temporal region but that has resolved). The pain is localized to the area where the tile struck her head. Described as a severe throbbing/pressure sensation, a constant daily pain which wouldfluctuate in intensity throughout the day. Baseline 7-8/10. Associated symptoms included nausea (noemesis), photophonophobia, dizziness, dysarthria, occasional blurry vision, dizziness (when fatigued) and mild confusion. She feels like botox is reliveing some of the tension on top of head, but herentire head is now sensitive to touch and she reports a sensation of tingling top and the left sideof her head. She also states some oozing of blood from the Botox injection sites for 12 hours post injection. She is not sleeping well and has had times of being awake for 40+ hours straight. She states she thinks this is increasing the intensity of her headaches. She was recently prescribed modafinil to helped her stay awake. She recently was moved to first shift at work and this have been problematic r/tto her lack of sleep and increasing headaches. She has a Following up on july 10 2018 to discuss the modafinil Since botox started, left side is throbbing. Back of my head hurts. Migraine Disability Assessment # of days in [...] 1 day) B. Average GARCIA intensity (0-10) 12/16 ROS: Medications: Current Outpatient Medications Medication Sig Dispense Refill ??? rosuvastatin (CRESTOR) 20 mg Tablet Take 20 mg by mouth daily. ??? fluticasone (FLONASE) 50 mcg/actuation Morris, Suspension 1 spray by Each Nare route daily. 0 ??? modafinil (PROVIGIL) 200 mg Tablet Take 400 mg by mouth daily. ??? naproxen sodium (ANAPROX) 550 mg Tablet Take 1 tablet by mouth 2 times daily as needed. 60 tablet 12 ??? cholecalciferol, Vitamin D3, 50,000 unit Capsule [...] Take 180 mg by mouth daily. ??? hydrOXYzine (VISTARIL) 25 mg Capsule Take 1 capsule by mouth 2 times daily as needed (headache). 90 capsule 1 ??? PROAIR HFA 90 mcg/actuation HFA Aerosol Inhaler Inhale 2 puffs into the lungs as needed. 0 ??? fluocinonide (LIDEX) 0.05 % Cream apply to affected area twice a day (RASH BEHIND THE EAR) 0 ??? montelukast (SINGULAIR) 10 mg Tablet Take 10 mg by mouth nightly. 0 ??? erenumab-aooe (AIMOVIG AUTOINJECTOR, 2 PACK,) 70 mg/mL Auto-Injector Inject 140 mg subcutaneously every 30 days. 2 Syringe 5 ??? FREESTYLE LITE STRIPS 1 Device 2 times daily. 0 ??? FREESTYLE LANCETS 28 gauge Misc 1 Device 2 times daily. 0 No current facility-administered medications for this [...] [] Acupuncture [] Acupressure [] Biofeedback [] Efficiency Miner [] Cognitive Behavioral Therapy [] Massage therapy [] Physical therapy [] Craniosacral therapy Physical Exam: Most Recent Vitals: 07/03/18 1453 BP: 148/67 Pulse: 77 resp 16 BP 148/67 (BP Location (NBP): Left arm, Patient Position: Sitting, BP Cuff Sizes: Large Adult (32-43 cm)) Pulse 77 Ht 167.6 cm (5' 6) Comment: Reported Wt 101.8 kg (224 lb 6.4 oz) BMI 36.22 kg/m?? Constitutional: Patient of apparent stated age, no acute distress HEENT: no occipital tenderness Resp: CTAB Neuro: MS: Alert, oriented, clear language, no dysarthria, follows commands CN: PERRL, EOMI, no facial asymmetry, tongue is midline Motor: no pronator drift Coordination: intact finger to nose Gait: normal base and arm swing Labs: No results found for this or any previous visit (from the past 24 hour(s)). Diagnostic Tests and Imagin01/28/16 CT head- reportedly unremarkable 04/27/16: MRI brain wo contrast- extensive sinus dx, no acute intracranial abnormality TSH- wnl May 2017- Ophthalmology evaluation- prisms ?? Assessment and Plan: Sarah Robles is a 43 y.o. female with chronic migraine without aura and posttraumatic headache. . She is having 90/90 headache days. This [...] of chronic migraine are Aimovig and Botox. She will start Aimovig to see if this helps with her chronic migraines. Follow up in three months. Ursula Meyers APRN [facility] Neurology Headache Clinic documented in this encounter Plan of Treatment Not on file documented as of this encounter Visit Diagnoses Diagnosis Migraine without aura and with status migrainosus, not intractable- Primary Migraine without aura, without mention of intractable migraine with status migrainosus documented in this encounter Care Teams Network Director Relationship Specialty Start Date End Date Eva Dang MD [address] [place] [address] PCP - General Family Medicine 03/25/16 documented as of this encounter
--- OUTSIDE RECORDS SUMMARY | 2023-11-28 13:51 | XMS_ITS | Encounter Summary ---
Author Organization [facility] Address [facility] [address] [facility] [place] [address] Care Team Providers Care Biomedical Engineering Professor Name Role Phone Eva Dang MD Primary Care Provider Reason for Visit * Occupational Therapy (Routine) - Specialty Diagnoses / Procedures Referred By Angy munroe Referred To Contact Occupational Therapy Diagnoses Post concussive syndrome Mima Woodson MD [facility] [place] [address] [address] [address] [place] [address] Referral ID Status Reason Start Date Expiration Date V isits Requested Visits Authorized [id number] Evaluate and Treat 04/12/2017 10/09/2017 12 12 Encounter Details Date Type Department Care Team (Late st Contact Info) Description 06/23/2017 12:00 PM EST Office Visit Occupational Therapy at [facility] [address] [place] [id number] Mark Maria, OT [facility] PHYSICAL MEDICINE & [place] [address] Post concussive syndrome Social History Tobacco Use Types Packs/Day [...] Progress Notes * Mark Maria, OT - 06/23/2017 12:00 PM EST Please refer to scan documents for [facility] report and job description. documented in this encounter Plan of Treatment Scheduled Referrals Name Type Priority Associated Diagnoses Order Schedule Referral to Occupational Therapy Outpatient Referral Routine Post concussive syndrome Ordered: 04/12/2017 documented as of this encounter Visit Diagnoses Diagnosis Post concussive syndrome Postconcussion syndrome documented in this encounter Care Teams Biomedical Engineering Professor Relationship Specialty Start Date End Date Eva Dang MD [address] [facility] [address] [place] [address] PCP - General Family Medicine 03/25/16 documented as of this encounter
--- OUTSIDE RECORDS SUMMARY | 2023-11-28 13:51 | XMS_ITS | Encounter Summary ---
Author Organization [facility] [place] [address] Care Team Providers Care Casino Dealer Name Role Phone Eva Dang MD Primary Care Provider [phone] Encounter Details Date Type Department Care Team (Late st Contact Info) Description 09/09/2017 Telephone Neurology at [facility] [place] [id number] Dirk Davis [place] [address] Social History Tobacco Use Types Packs/Day Years [...] Telephone Encounter - Stacy Valero RN - 09/09/2017 2:37 PM EDT Call made to patient. Relayed Dr. Davis' instructions to the patient regarding starting the candesartan, side effects reviewed. Patient verbalized understanding. Call transferred to the secretary receptionist for scheduling upcoming botox appointment. documented in this encounter Plan of Treatment Not on file documented as of this encounter Visit Diagnoses Not on filedocumented in this encounter Care Teams Casino Dealer Relationship Specialty Start Date End Date Eva Dang MD [facility] [address] [facility] [address] [place] [address] PCP - General Family Medicine 03/25/16 documented as of this encounter
--- OUTSIDE RECORDS SUMMARY | 2023-11-28 13:51 | XMS_ITS | Encounter Summary ---
Author Organization [facility] Address [facility] [place] [address] Care Team Providers Care Press Shop Supervisor Name Role Phone Eva Dang MD Primary Care Provider [phone] Reason for Visit * Reason Comments Referral Headache * Consultation (Routine) - Closed Specialty Diagnoses / Procedures Referred By Contadenike t Referred To Contact Neurology Diagnoses Post concussive syndrome Other complicated headache syndrome Mima Woodson MD [facility] [place] [address] [facility] [address] [place] [phone] Referral ID Status Reason Start Date Expiration Date V isits Requested Visits Authorized [id number] Closed Consult, Test & Treat 04/12/2017 04/12/2018 1 1 Encounter Details Date Type Department Care Team (Late st Contact Info) Description 06/13/2017 8:30 AM EST Office [place] [address] Radha Jimenez MD [facility] [place] [address] Dirk Davis MD [facility] [place] [address] Intractable chronic post-traumatic headache; Migraine without aura [...] Sign Reading Time Taken Comments Blood Pressure 142/71 06/13/2017 8:06 AM EST Pulse 64 06/13/2017 8:06 AM EST Temperature - - Respiratory Rate - - Oxygen Saturation - - Inhaled Oxygen Concentration - - Weight 101.2 kg (223 lb) 06/13/2017 8:06 AM EST reported Height 167.6 cm (5' 6) 06/13/2017 8:06 AM EST r eported Body Mass Index 35.99 06/13/2017 8:06 AM EST documented in this encounter Patient Instructions * Patient Instructions* Dirk Davis MD - 06/13/2017 8:30 AM EST 1. Headaches after Mild-moderate head injury with migrainous features - Speak with your safety officer about possibility of adding a blood pressure medication called Candesartan for migraine prevention - Will consider Botox if the prescribed medications are not effective Clinic nurse number for most issues and prescription refills: (Parul) Medication Overuse Headache Prevention: Please avoid the use of over the counter medications such as tylenol, ibuprofen, excedrin, narcotics and opoid for the management of migraines as they can lead to Medication Overuse Headache which isvery difficult to treat. Education: Please review carefully [employer] handouts with information related to your condition that you were given/offered today and/or the current issue of [employer] Head[employer] magazine. For headache prevention: Start Nortriptyline 10mg tabs. Take 10mg nightly x 1 week. Then if no sideeffects, increase to 20mg nightly and call after 2 weeks to see if we need to further increase/adjust the dose. - Continue Magnesium 500mg daily - Continue Riboflavin 400mg daily ??? Remember that preventative medications usually take at least 4-6 weeks to be effective in reducing the frequency of your headaches. ??? Please keep a headache diary, documenting when your headaches occur and any possible triggers. Bring this with you to your appointments. ??? Triggers to watch for include stress, oversleeping or not sleeping enough, certain foods, MSG, will alcohol, too much caffeine, skipping meals, change in barometric pressure, menstrual cycles. ??? If your medication does not seem to be working, or if you're experiencing side effects, please call my office at [phone], Tuesday through Tuesday, 8 AM to 5 PM (calling early in the day is best), and we can talk about possible medication adjustments over the phone. For treatment of headaches: Naproxen sodium 550mg 2x daily as needed (do not take aleve over the counter anymore) Vistaril 25mg 2x daily as needed - Follow up in 3 months or sooner as needed documented in this encounter Progress Notes * Radha Jimenez MD - 06/13/2017 8:30 AM EST Neurology Attending Note Radha Jimenez MD (Pg [phone]) I certify that I have seen and examined Sarah Robles on 06/13/[address] Davis, Headache Fellow. The note reflects the patient's history of presentation, physical findings. The assessment and plan were formulated together in discussion and I have personally reviewed all studies. Patient started having headaches following a work injury - having a ceiling tile falling on her head - 01/26/2016. She had a w/u 2 days following the injury. Headache is daily at the top of the head with a throbbing and pressure sensation 7-8/10 GARCIA intensity. She has associated nausea, photophobia, phonophobia and dizziness. She has occasional blurry vision. Her main complaints are cognitive - forgetful with word finding difficulties. I discussed with the patient that I will not be participating in the legal claim that is being brought related to this patient's accident. I will not be establishing causation on a probable or not basis. I will not review records of this accident or case. I am happy to treat the patient for her headaches. Headaches are consistent with headache attributed to mild to moderate head trauma - with a migrainephenotype. Recommend nortriptyline, consider Botox in the future. She wants to continue supplementation management. Topamax would be contraindicated due to her level of cognitive impairment. Additional consideration would be candesartan, prior to Botox injections. * Dirk Davis MD - 06/13/2017 8:30 AM EST Images from the original note were not included. Neurology Headache Clinic Consultation Note Patient name: Sarah Robles Date of : 1975 Age: 42 y.o. PCP: Eva Dang MD I have been asked to see Sarah Robles in consultation by Mima Woodson for complain of Headaches in my capacity as Headache Medicine Specialist. CC:?? Headache HPI: Patient is a pleasant 42 yo Left handed female with MHx of Asthma, HLD, sinus dx (nasal polyps requiring occasional steroid tapers), hx of cardiac surgery at 7 months of age due to anomalous pulmonary venous return, DMII (diet controlled), ANA on CPAP (since November), hx of fatigue and depression (no SI or HI), postconcussive sxms s/p head injury and seen by Dr. Woodson, who referred the patient here for evaluation of headaches. 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 No LOC. Reports having a headache and feeling nauseated, but did not seek medical evaluation immediately after the injury. States over the next 2 days she felt off and had progressive worsening of various symptoms including headache, nausea and imbalance. GARCIA Hx: Onset of headache was 01/26/16 immediately following [...] will first be discussing it with her safety officer. She started taking Magnesiumand Riboflavin yesterday. No [...] (Aleve 1-2tabs a day, 3-4x per week) Additional Hx: Sleep: 6-10 hrs/day, no nighttime awakenings due to headache No Nightmares Caffeine use: no No hx of renal stones Contraception: had a vasectomy No head or neck surgeries FHx of Migraines: mother Reports having a hx of motion sickness as a child No hx of abdominal migraine or cold extremities HAs have impact on work, school or recreational activities: yes Missed days from work per month due to HAs: 10x this year Behavorial changes with GARCIA attack: irritable PREVIOUS TESTS: 01/28/16 CT head- reportedly unremarkable 04/27/16: MRI brain wo contrast- extensive sinus dx, no acute intracranial abnormality TSH- wnl May 2017- Ophthalmology evaluation- prisms TREATMENT HISTORY: Meds Tried in Bold TCA: Amitriptyline- fatigue AED: Topamax- fatigue, Zonisamide(zonegran), Valproate BB: Propranolol, [...] headband Chemodenervation: Botox Nerve blocks: Narcotics: Benzo: Current Medications: ??? cholecalciferol, Vitamin D3, 50,000 unit Capsule ??? predniSONE (DELTASONE) 10 mg Tablet ??? riboflavin, vitamin B2, (VITAMIN B-2) 100 mg Tablet ??? magnesium 250 mg Tablet ??? multivitamin (THERAGRAN) Tablet ??? fexofenadine (JANES) 180 mg Tablet ??? PROAIR HFA 90 mcg/actuation HFA Aerosol Inhaler ??? FREESTYLE LITE STRIPS ??? fluocinonide (LIDEX) 0.05 % Cream ??? FREESTYLE LANCETS 28 gauge Misc ??? montelukast (SINGULAIR) 10 mg Tablet ??? nortriptyline (PAMELOR) 10 mg Capsule ??? hydrOXYzine (VISTARIL) 25 mg Capsule Allergies: Allergies Allergen Reactions ??? Cephalexin ??? House Dust Family History: Family History Problem Relation Age of Onset ??? Migraines Mother ??? Hypertension Mother ??? Myocardial Infarction Father ??? Lung Cancer Father ??? Asthma Paternal Grandmother Past Medical History: Past Medical History: Diagnosis Date ??? Congenital heart disease ??? Depression ??? Diabetes mellitus ??? Elevated cholesterol 09/22/2009 Cholesterol = 225 ??? Head injury 01/26/2016 ??? Obesity ??? Syncope and collapse fainted a few times during highschool ??? Total anomalous pulmonary venous return Past Surgical History: Past Surgical History: Procedure Laterality Date ??? CARDIAC SURGERY 09/1973 Social History: Social History Social History ??? Marital status: Spouse name: N/A ??? Number of children: N/A ??? Years of education: N/A Occupational History ??? Not on file. Social History Main Topics ??? Smoking status: Never Smoker ??? Smokeless tobacco: Never Used ??? Alcohol use No ??? Drug use: No ??? Sexual activity: Not on file Comment: had a vasectomy Other Topics Concern ??? Not on file Social History Narrative REVIEW OF SYSTEM Constitutional: No fevers or chills Eyes: No vision changes, occasiional blurry vision with severe headaches ENT: No rhinorrhea or pharyngitis CV: No chest pain or palpitations Resp: No cough, no shortness of breath GI: occasional nausea, no vomiting, no diarrhea or constipation : No dysuria, no incontinence Heme: No bleeding or bruising Endo: hx of diabetes, no thyroid disease Neuro: See HPI Review of systems otherwise negative PHYSICAL EXAM BP 142/71 (BP Location (NBP): Right arm, Patient Position: Sitting, BP Cuff Sizes: Adult (25-34 cm)) Pulse 64 Ht 167.6 cm (5' 6) Comment: reported Wt 101.2 kg (223 lb) Comment: reported BMI 35.99 kg/m2 General: Alert, NAD Pain behaviors: none HEENT: oral mucosa moist, no thrush Patient has good range of motion of the neck. The occipital nerves are not tender. Heart: RRR, S1S2 nml, no murmur/rub/gallop Lungs: CTA bilaterally, no wheezes Abd: soft, nontender, nondistended Ext: no edema, no cyanosis or clubbing Skin: no rash or ecchimoses NEURO EXAM Mental Status Affect is appropriate.Alert, interactive and attentive Oriented to person, place, time Memory recent and remote -intact Language fluent with no dysarthria or aphasia Speech is clear, not dyarthric. Attention span wnl for age Concentration wnl for age Cranial Nerves: II,III,IV,: Funduscopic exam not performed due to extreme photosensitivity Pupils: 3 mm, PERRLA, EOMI V: symmetric sensation to V1-3 VII:symmetric brow and smile, no drooping IX, X: normal palate elevation XI: SCMs 5/5; Shoulder Shru/5 XII:Tongue protrusion at midline Motor: No tremor, normal bulk and tone Right Left Deltoid 5/5 5/5 Bicep 5/5 5/5 Tricep 5/5 5/5 Wrist Ext 5/5 5/5 Wrist flex 5/5 5/5 Finger flex 5/5 5/5 Hip flexor 5/5 5/5 Knee ext 5/5 5/5 Knee flex 5/5 5/5 Plantar flex 5/5 5/5 Dorsi flex 5/5 5/5 DTR: Right Left Bicep/C5-6 2+ 2+ Triceps/C7 2+ 2+ BR/C6 2+ 2+ Patellar/L4 2+ 2+ Achilles/S1 2+ 2+ Sensation: intact light touch and proprioception Tremor: absent Coordination/Cerebellar exam: intact Finger Nose Finger and BETO(Rapid Alternative Movements), no dysmetria, no tremor. Gait: narrow based and steady, able to heel and toe walk, tandem gait intact. Romberg negative. ASSESSMENT and PLAN: ?? 42 yo Left handed female with MHx of Asthma, HLD, sinus dx (nasal polyps requiring occasional steroid tapers), hx of cardiac surgery at 7 months of age due to anomalous pulmonary venous return, DMII (diet controlled), ANA on CPAP (since November), hx of fatigue and depression (no SI or HI), postconcussive sxms s/p head injury and seen by Dr. Woodson, who referred the patient here for evaluation of headaches. These headaches started almost immediately following her head trauma. The headaches are now isolated to the vertex of her head and phenotypically migraines. She has daily headaches which fluctuate in severity, but overall are less painful than since she started eye-therapy several months a go. She has no new headache characteristics and workup including CT head, brain MRI and TFTs were unrevealing. Apart from some photosensitivity, her physical examination today was relatively unremarkable and we don't see the need for further workup at this time. She has tried Amitriptyline and Topiramate without any noticeable improvement in her headaches and reported worsening fatigue/lethargy. In the context of post-traumatic headaches TCAs work well and we will try Nortriptyline (starting with 10mg and up-titrating as tolerated) as it tends to be better tolerated. We will stop OTC NSAIDs and prescribe instead Naproxen Sodium 550mg BID PRN and Hydroxyzine 25mg BID PRN. We will not be presc ribing triptans at this time as there is no clear target for treatment (also, pt would likely want approval from her safety officer prior to starting any triptans/ergots). We discussed the possibility of adding an anti-hypertensive, specifically Candesartan, as her BP could tolerate it and it would provide brien- protective effects in the setting of Diabetes, but the patient will discuss this with her safety officer and PMD first. Botox would be the next step for her headache prevention of the other medications are not effective or have intolerable side-effects. 1. Headaches after Mild-moderate head injury with migrainous features and post- concussive symptoms We have informed the patient that we will not be participating in the legal claims, will not be establishing causation on a more probable that not basis, and will not be reviewing records related to her accident. - Keep a Headache diary - Discontinue: Aleve 220mg - For prevention: Start Nortriptyline 10mg tabs. Take 10mg nightly x 1 week. Then if no side effects, increase to 20mg nightly and call after 2 weeks to see if we need to further increase/adjust the dose. Continue Magnesium 500mg daily Continue Riboflavin 400mg daily - For treatment of headaches: Naproxen sodium 550mg BID PRN Vistaril 25mg BID PRN - F/u with me in 3 months or sooner as needed Pt seen with Dr. Jimenez I spent?? 90 minutes in this visit with 70 minutes devoted to face-to face patient counseling. Thank you, Mima Woodson for this consult. Dirk Davis MD Pager # [phone] Department of Neurology Headache Medicine Fellow [facility] Neurology documented in this encounter Plan of Treatment Not on file documented as of this encounter Visit Diagnoses Diagnosis Intractable chronic post-traumatic headache Chronic post-traumatic headache Migraine without aura and without status migrainosus, not intractable Migraine without aura, without mention of intractable migraine without mention of status migrainosus documented in this encounter Care Teams Press Shop Supervisor Relationship Specialty Start Date End Date Eva Dang MD [facility] [address] [place] [address] PCP - General Family Medicine 03/25/16 documented as of this encounter
--- OUTSIDE RECORDS SUMMARY | 2023-11-28 13:51 | XMS_ITS | Encounter Summary ---
Author Organization [facility] Address [facility] [place] [address] Care Team Providers Care Environmental Analyst Name Role Phone Eva Dang MD Primary Care Provider [phone] Reason for Visit * Consultation (Routine) - Closed Specialty Diagnoses / Procedures Referred By Angy munroe Referred To Contact Neurology Diagnoses TBI- postconcussive syndrome of 01/2016 Radha Barraza, SUBSTANCE ABUSE THERAPIST [address] [place] [address] [facility] [address] [place] [id number] Referral ID Status Reason Start Date Expiration Date V isits Requested Visits Authorized [id number] Closed Connection Center 07/26/2016 07/26/2017 1 1 Encounter Details Date Type Department Care Team (Late st Contact Info) Description 11/03/2016 1:00 PM EDT Office Visit Psychiatry [place] [address] Mima Woodson MD [facility] [place] [address] Headache, unspecified headache type; Photosensitivity Social History Tobacco Use Types Packs/Day Years Used Date Smoking Tobacco: Never Sex and Gender Information Value Date Recorded Sex Assigned at Not on file Gender Identity Female 09/26/2019 9:01 AM EDT Sexual Orientation Not on file documented as of this encounter Patient Instructions * Patient Instructions* Mima Woodson MD - 11/03/2016 1:00 PM EDT Recommendations for primary care and occupational medicine: I recommend that she see an software support specialist who specializes in post traumatic visual disorders. She maybenefit from prisms and/or tinted lenses. I would recommend increasing amitriptyline to 50mg or higher as tolerated. If fatigue as a side effect is of concern, consider the addition of Inderal 60mg daily. Desvenlafaxine may be an option for headache and mood. I agree with treatment of sleep apnea for fatigue. PCP may wish to check the following labs if not done so already: endocrine labs (AM cortisol levels, TSH, free T4, prolactin levels, BMP), also vitamin B12 level. If energy conservation has not been addressed OT or Occ med, this could be resumed. If all of the above measures fail to help her feel better symptomatically, consider referral to headache clinic for treatment of headaches. Consider also a trial of a stimulant such as atomoxetine ormethylphenidate. documented in this encounter Progress Notes * Mima Woodson MD - 11/03/2016 1:00 PM EDT The patient is a 41 year old female who is seen in consultation at the request of Dr. Eva Dang and Dr. Radha Norman. The patient is being evaluated for the sequelae of a possible concussion. She is being evaluated in conjunction with Melanie Dykes APRN, in the multi-disciplinary TBI clinic. Please see Shadia's note for further details. She will also be evaluated by Dr. Hill of neuropsychology. I am providing a brief, focused neurological examination and recommendations. 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 On January 25, she was cleaning up, closed a heavy fire door, and a ceiling tile fell onto the top of her head, striking her face and the left side of her face on the way down. She was dumbfounded initially, wondering what had happened, and noticed her glasses were on the ground. The had an instant headache (at the vertex of the head), some nausea, but that definitely came the next day. The next day she had a significant headache and nausea, but was able to function. She notes that she went to work, had a great day, but by the end ofthe day, she started to notice that things were floopy. She found herself holding on to a door knob due to imbalance. She found herself sensitive to Noise. The next day while driving, she felt disoriented, felt that she had visual distortions, she felt drunk, and had a stomach ache and nausea. She went to see a doctor (Dr Norman, I believe) after having to wait at [facility] for some sortof paperwork, received a head CT, which was read as normal. At some point, perhaps at the end of February, she began to develop a stiff neck and occipital pain,which she was told is due to posturing of her neck due to her head pain. She was referred to both PT and massage and these helped tremendously (especially the massage). The remainder of the fall, she spent a good deal of time on the couch and in bed due to dizziness, headaches (which were daily/constant until ), and fatigue. Throughout this whole time, she felt her speech was jumbled and that her comprehension was also impaired. This cognitive symptom has been persistent (albeit improved), but is frustratingly persistent. She notes problems with attention, motivation, drive, word finding, and memory. Her dizziness has improved and she has far fewer dizzy spells. Her dizzy spells and now usually only accompanied by a headache and nausea, and all of those symptoms (headaches, dizziness, nausea) areusually triggered by over exertion, bright lights, sounds, stress, work. Her headache have improved from daily and constant to 3-4 times weekly as of some time in May. They are a dull ache over the vertext of the skull, sometimes tingly and prickly, often associated with nausea, dizziness. Triggered by loud noises, sounds, smells, work, exertion, stress, bending over and cleaning. She is also extremely fatigued. There are frequent mentioned of significant fatigue in clinic notesprior to the injury, but she states that prior to the injury, her fatigue was only occasional andthat she is now comatose with fatigue. She notes that if she has a good day she will need three days to recuperate. She may have been working on energy conservation with Agustín Maria OT and with her occupational medicine physician, Dr Norman. 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 Notes memory problems, amotivation. Feels flat, but denies depressive symptoms. Work up has included an MRI of the brain, CT head, both normal. She recently had a sleep study which revealed mild ANA, no central apnea. She is in the process of having CPAP titrated. One of her greatest concerns is that when the leads were put on during the sleep study, she experienced shocking pains on the top of her head, and all of her aforementioned symptoms returned, putting her into what she calls concussion state. She had extreme headaches, nausea, and fatigue for three or four days afterwards, started to feel better after that time. She has had a dilated eye exam, but I do not have the results. Reportedly normal, prescription stable. The eye exam sent me for a loop, triggering all symptoms. Treatments attempted for headaches: topiramate (also used to irritability), discontinued due to concerns that it could be causing fatigue and cognitive issues. She is presently on amitriptyline, cannot recall if she has tried higher doses. Has tried ibuprofen. Now takes Alleve (naproxen) 3-4 times weekly. A 12 point review of systems was performed and was negative except for that mentioned in the HPI. Patient Active Problem List Diagnosis Code ??? [...] E78.00 ??? Mild obstructive sleep apnea G47.33 Diabetes Hypertension Allergies/sensitivities: Environmental. Has one allergy to a medicine that she cannot recall. Current Outpatient Prescriptions on File Prior to Visit Medication Sig Dispense Refill ??? PROAIR HFA 90 mcg/actuation HFA Aerosol Inhaler Inhale 2 puffs into the lungs as needed. 0 ??? amitriptyline (ELAVIL) 25 mg Tablet Take 25 mg by mouth nightly. 0 ??? FREESTYLE LITE STRIPS 1 Device 2 times daily. 0 ??? fluocinonide (LIDEX) 0.05 % Cream apply to affected area twice a day (RASH BEHIND THE EAR) 0 ??? FREESTYLE LANCETS 28 gauge Misc 1 Device 2 times daily. 0 ??? LORazepam (ATIVAN) 1 mg Tablet Take 1 mg by mouth nightly. 0 ??? montelukast (SINGULAIR) 10 mg Tablet Take 10 mg by mouth nightly. 0 ??? topiramate (TOPAMAX) 50 mg Tablet Take 50 mg by mouth 2 times daily. 0 ??? ERGOCALCIFEROL, VITAMIN D2, (VITAMIN D2 ORAL) Take 1 tablet by mouth daily. No current facility-administered medications on file prior to visit. SHE IS NO LONGER TAKING TOPIRAMATE ROS: a 12 pt ROS was conducted and is negative except that mentioned in HPI General Physical Examination Appearance: The patient is healthy, in no distress, and appears comfortable. Head: Atruamatic. Normocephalic. Neck: Normal range of movements. No neck or occipital tenderness detected on exam today Abdomen: non distended Extremities: Normal in appearance, no edema. Skin: No rashes or lesions Neurological Examination Mental status: Mood and affect are appropriate. Speech is fluent and appropriate, comprehension of language intact. Attention/concentration are intact. Fund of knowledge is normal for educational level. Cranial nerves: Visual guillen are intact, extra-ocular movements intact with mildly decreased convergence, pupils equal and reactive to light, face and smile are symmetric, facial sensation is intactand symmetric, hearing is intact, tongue protrudes midline, palate elevates fully, no dysarthria. Musculoskeletal: Normal power throughout all muscle groups. Normal tone and normal range of motion. Sensory: Sensory exam intact to light touch throughout Cerebellar/coordination: finger to nose intact. Normal fine motor movements. Gait and station: Gait is normal and steady, Romberg negative. Deep Tendon reflexes: DTRs are symmetric and normoactive throughout. Impression and recommendations: 41 year old female who is seen in consultation at the request of Dr. Eva Dang and Dr. Radha Norman. The patient is being evaluated for the sequelae of a possible concussion. Recommendations for primary care and occupational medicine: I recommend that she see an software support specialist who specializes in post traumatic visual disorders. She maybenefit from prisms and/or tinted lenses, as her visual sensory disorders may contribute to headaches, cognitive issues, fatigue, dizziness. I would recommend increasing amitriptyline to 50mg or higher as tolerated. If fatigue as a side effect is of concern, consider the addition of Inderal 60mg daily. Desvenlafaxine may be an option for headache and mood. I agree with treatment of sleep apnea for fatigue. PCP may wish to check the following labs if not done so already: endocrine labs (AM cortisol levels, TSH, free T4, prolactin levels, BMP), also vitamin B12 level. If energy conservation has not been addressed OT or Occ med, this could be resumed. If all of the above measures fail to help her feel better symptomatically, consider referral to headache clinic for treatment of headaches ([facility] headache clinic). For cognition (if above measures fail), consider also a trial of a stimulant such as atomoxetine ormethylphenidate. Follow up with me in neurology is not schedule and shall be on a PRN basis. We discussed the prevalence and natural recovery of post concussive symptoms, in particular headache, visual changes, fatigue, irritability, and dizziness. We discussed management of these symptoms and stressed the importance of a diet, light exercise, hydration, avoidance of alcohol. 60 minutes were spent on chart review and with the patient, and at least 31 minutes spent on supportive counseling, stress management counseling, education on memory loss, traumatic brain injury, headaches, and oncoordination of care. documented in this encounter Plan of Treatment Not on file documented as of this encounter Visit Diagnoses Diagnosis Headache, unspecified headache type Photosensitivity Acute dermatitis due to solar radiation documented in this encounter Care Teams Environmental Analyst Relationship Specialty Start Date End Date Eva Dang MD [address] [place] [address] PCP - General Family Medicine 03/25/16 documented as of this encounter
--- OUTSIDE RECORDS SUMMARY | 2023-11-28 13:52 | XMS_ITS | Encounter Summary ---
Author Organization [facility] Address [facility] [place] [address] Care Team Providers Care Global Transportation Manager Name Role Phone Eva Dang MD Primary Care Provider [phone] Reason for Visit * Reason Onset Date Comments Other 04/16/2016 Encounter Details Date Type Department Care Team (Late st Contact Info) Description 04/16/2016 Telephone Care Management [facility] [place] [address] Naheed Stephens, COMMUNICATIONS SPECIALIST [facility] [place] [address] Other Social History Tobacco Use Types Packs/Day Years Used Date Smoking Tobacco: Never Assessed Sex and Gender Information Value Date Recorded Sex Assigned at Not on file Gender Identity Female 09/26/2019 9:01 AM EDT Sexual Orientation Not on file documented as of this encounter Miscellaneous Notes * Telephone Encounter - Naheed Stephens, COMMUNICATIONS SPECIALIST - 04/16/2016 10:25 AM EST [facility] consulted by Natacha Garcia, admin in [facility] to follow up w/ Radha Hollowayhelen Occ med MID LEVEL GAME DESIGNER at [facility] re: potential referral to [facility] post concussive clinic ie: Shadia Dykes, MIREYA. [facility] phoned to ascertain pertinent information on this injured worker. 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 is currently engaged in a Rehab program, but [facility] provider did not think it was a Neuro Rehab program, welcoming [facility] resources for pt's tx needs, noting pt's goal to RTW. [facility] provided Occ med MID LEVEL GAME DESIGNER w/ the admin staff for Shadia Dykes, and contacted this same staff to relay referral information, requesting an expedited appt w/ MID LEVEL GAME DESIGNER if possible, noting that either Trudy Dodge or myself would be available to work w/ this pt and Shadia Dykes to assist w/ care coordination and collaborate w/ [facility] accordingly, as is the provider that will continue to manage pt's work capacity. # [phone] was appreciative of [facility]'s assistance relaying plan to contact Shadia Dykes's admin staff kobi. P: [facility] will collaborate w/ Shadia Dykes and her admin staff re: the above encounter, and advocate for an expedited appt PRN. documented in this encounter Plan of Treatment Not on file documented as of this encounter Visit Diagnoses Not on filedocumented in this encounter Care Teams Global Transportation Manager Relationship Specialty Start Date End Date Eva Dang MD [address] [place] [address] PCP - General Family Medicine 03/25/16 documented as of this encounter
--- OUTSIDE RECORDS SUMMARY | 2023-11-28 13:52 | XMS_ITS | Encounter Summary ---
Author Organization [facility] Address [facility] [place] [address] Care Team Providers Care Issuing Operator Name Role Phone Eva Dang MD Primary Care Provider [phone] Encounter Details Date Type Department Care Team (Late st Contact Info) Description 06/23/2016 [place] [id number] Trudy Dodge, WOUND CARE COORDINATOR Social History Tobacco Use Types Packs/Day Years Used Date Smoking Tobacco: Never Assessed Sex and Gender Information Value Date Recorded Sex Assigned at Not on file Gender Identity Female 09/26/2019 9:01 AM EDT Sexual Orientation Not on file documented as of this encounter Progress Notes * Trudy Dodge, WOUND CARE COORDINATOR - 06/23/2016 5:10 PM EST [facility] FOLLOW UP CONTINUING CARE MANAGEMENT SOCIAL WORK CLAIM # [id number] DOI: INSURANCE COMAPANY: [employer] CONTACT: Brigette Soto [facility], Senior Capital Markets Specialist: Kiera Pagan Occ Med Provider: Radha Sol S/O Sarah Robles was seen in Psychatry with Melanie Dykes APRN. Please see provider note for ovdetails. Pt has noted some significant progress in recovering from her head injury. She is hopeful that morefocused Neuro rehab services will help her make more progress. He claim will continue to be managedby her Occ Med provider in [facility]. This CCM called and confirmed this and we will stay in touch while pt is treated here at . CCM called and left vm for NCM to alert her to referral to OT by Ms Dykes today. Note will be sent when ready. [facility] reviewed basic of the wc process and the role of the CCM she was given contact information and will call with any questions. CCM will attend her follow up with Ms Dykes. A/ Pt appears to have a good ability to observe her progress and her process of recovery. She is optimistic about her prognosis. P/ CCM called Occ Med provider and left vm for wc NCM. CCM will request OT send notes to Occ Med provider on regular basis. Pt will keep track of mileage for reimbursement and will seek hlep wit this from OT if needed. 06/23/16 1700 Workers' Compensation Type of Visit Initial Is your claim open and active? Yes Work Status Light Duty Treating Provider Managing WC Yes Managing Provider Name Radha Sol Receiving Wage Replacement Yes Do you have a Workers' Comp Contact? Yes Workers' Compensation Contact Name Brigette Sneed Are there bills not covered by Workers' Compensation? No Is there an deputy commonwealth's attorney for Workers' Compensation No Was there an ERIK? No Previous WC claims through the DOL? No MMI? No documented in this encounter Plan of Treatment Not on file documented as of this encounter Visit Diagnoses Not on filedocumented in this encounter Care Teams Issuing Operator Relationship Specialty Start Date End Date Eva Dang MD [address] [place] [address] PCP - General Family Medicine 03/25/16 documented as of this encounter
--- OUTSIDE RECORDS SUMMARY | 2023-11-28 13:52 | XMS_ITS | Encounter Summary ---
Author Organization [facility] Address [facility] [place] [address] Care Team Providers Care Laryngologist Name Role Phone Eva Dang MD Primary Care Provider [phone] Reason for Visit * Reason Onset Date Comments Other 05/05/2016 Encounter Details Date Type Department Care Team (Late st Contact Info) Description 05/05/2016 Telephone Care Management [facility] [place] [address] Naheed Stephens, REGISTERED NURSE CARDIOVASCULAR ICU [facility] [place] [address] Other Social History Tobacco Use Types Packs/Day Years Used Date Smoking Tobacco: Never Assessed Sex and Gender Information Value Date Recorded Sex Assigned at Not on file Gender Identity Female 09/26/2019 9:01 AM EDT Sexual Orientation Not on file documented as of this encounter Miscellaneous Notes * Telephone Encounter - Naheed Stephens, REGISTERED NURSE CARDIOVASCULAR ICU - 05/05/2016 4:18 PM EST [facility] collaborated w/ Shadia Dykes APRN s/p her review of OSH notes, and referral from [facility] med MIREYA. Shadia Dykes requested CCM facilitate pt being scheduled for a one hour initial evaluation appt. Pt scheduled on 06-02-16 at 2:00 w/ Shadia Dykes. [facility] phoned [facility] med staff # [phone] to relay the above appt date, noting plan to attend appt and f/u w/ [facility] med provider s/p appt to translate tx needs and goals. P: CCM will plan to attend 1- appt w/ Shadia Dykes, to assess wc issues and needs that warrant CCM involvement, intervening as needed. documented in this encounter Plan of Treatment Not on file documented as of this encounter Visit Diagnoses Not on filedocumented in this encounter Care Teams Laryngologist Relationship Specialty Start Date End Date Eva Dang MD [facility] [address] [place] [address] PCP - General Family Medicine 03/25/16 documented as of this encounter
--- OUTSIDE RECORDS SUMMARY | 2023-11-28 13:52 | XMS_ITS | Encounter Summary ---
Author Organization [facility] Includes [facility] Address [facility] [place] [address] Care Team Providers Care Pastrycook'S Assistant Name Role Phone Eva Dang MD Primary Care Provider [phone] Reason for Visit * Reason Onset Date Comments Other 04/21/2016 Encounter Details Date Type Department Care Team (Late st Contact Info) Description 04/21/2016 Telephone Care Management [facility] [place] [address] Naheed Stephens, TREE SAPPER [facility] [place] [address] Other Social History Tobacco Use Types Packs/Day Years Used Date Smoking Tobacco: Never Assessed Sex and Gender Information Value Date Recorded Sex Assigned at Not on file Gender Identity Female 09/26/2019 9:01 AM EDT Sexual Orientation Not on file documented as of this encounter Miscellaneous Notes * Telephone Encounter - Naheed Stephens, TREE SAPPER - 04/21/2016 11:43 AM EST [facility] f/u w/ Shadia Dykes's admin staff re: status of the new evaluation appt w/ this pt that was referred to [facility] provider by: ROSANA Malcolm med OPERATING ROOM SCHEDULER: Radha Sol. Admin staff: Christi reports they have not received any faxed information on this pt that is needed in order to schedule pt w/ Shadia Dykes. [facility] phoned Occ med RN w/ the above information and provided her w/ the fax number to fax the referral and pertinent notes, noting that pt's appt scheduling is pending the receipt of such. P: CCM will be available for f/u intervention PRN, and either Trudy Dodge or this CCM will be available to assist w/ this wc pt's care coordination needs, intervening as needed. documented in this encounter Plan of Treatment Not on file documented as of this encounter Visit Diagnoses Not on filedocumented in this encounter Care Teams Pastrycook'S Assistant Relationship Specialty Start Date End Date Eva Dang MD [address] [place] [address] PCP - General Family Medicine 03/25/16 documented as of this encounter
--- OUTSIDE RECORDS SUMMARY | 2023-11-28 13:52 | XMS_ITS | Encounter Summary ---
Author Organization [facility] Address [facility] [place] [address] Care Team Providers Care Kitchen Helper Name Role Phone Eva Dang MD Primary Care Provider [phone] Reason for Referral * Occupational Therapy (Routine) - Closed Specialty Diagnoses / Procedures Referred By Angy t Referred To Contact Occupational Therapy Diagnoses Work related injury Fatigue, unspecified type Concussion with no loss of consciousness, subsequent encounter Attention or concentration deficit Acute post-traumatic headache, not intractable Melanie Dykes BLENDER MACHINE OPERATOR [facility] [place] [address] [facility] [place] [address] Referral ID Status Reason Start Date Expiration Date V isits Requested Visits Authorized [id number] Closed Evaluate and Treat 06/23/2016 06/23/2017 1 1 Encounter Details Date Type Department Care Team (Latest Contact Info) Description 06/23/2016 3:30 PM EST Office Visit Psychiatry [place] [address] [address]anie Dy[place] [address] Work related injury; Fatigue, unspecified type; Concussion with no loss of consciousness, subsequent encounter; Attention or concentration deficit; Acute post-traumatic headache, not intractable Social History Tobacco Use Types Packs/Day Years Used Date Smoking Tobacco: Never Assessed Sex and Gender Information Value Date Recorded Sex Assigned at Not on file Gender Identity Female 09/26/2019 9:01 AM EDT Sexual Orientation Not on file documented as of this encounter Last Filed Vital Signs Vital Sign Reading Time Taken Comments Blood Pressure 152/88 06/23/2016 3:22 PM EST Pulse 74 06/23/2016 3:22 PM EST Temperature - - Respiratory Rate - - Oxygen Saturation - - Inhaled Oxygen Concentration - - Weight 100.8 kg (222 lb 3.2 oz) 06/23/2016 3:22 PM EST Height 167 cm (5' 5.75) 06/23/2016 3:22 PM EST Body Mass Index 36.14 06/23/2016 3:22 PM EST documented in this encounter Progress Notes * Melanie Dykes, MIREYA - 06/23/2016 3:30 PM EST Problem-focused Outpatient Progress Note: TBI Encounter Date: 06/23/16 Chief Complaint: Visit for rehabilitation needs s/p head injury This is a related to a work related injury. Date of Injury: 01/26/16 HPI: Please see previous records. Worker's statement of the incident: was at work. A heavy door closed and a ceiling tile fell on thetop of her head. She reports that she had nausea and headache. Then after day 2, sx worsened; nausea, decreased balance, difficulty with communication. Head CT within the first couple of weeks was nml. MRI in Dec reportedly normal. Occ Med in her area has been following. Neurology consulted. PCP has prescribed topamax for headache. This has been effective - noting that now she only gets headacheswhen she is overtired or especially emotional. She is also on amitriptyline. Has had no other med trials. Worker's complaints: Reports balance issues have worked itself out. Most bothered now by fatigue.PCP working up thyroid. Reports that she has not been successfully managing finances at home. Frequent mistakes. Reports not being able to read as prior to event - not retaining information. Forgetful. Inattentive. Irritable when tired. No hx of prior TBI Has had PT for neck pain. Improved. No prior TBI Problem List: Patient Active Problem List Diagnosis Code ??? Congenital heart disease Q24.9 ??? Concussion with no loss of consciousness S06.0X0A ??? Work related injury Y99.0 ??? Acute post-traumatic headache, not intractable G44.319 ??? Fatigue R53.83 ??? Attention or concentration deficit R41.840 Identified problems for this visit: 1. Work related injury Referral to Occupational Therapy 2. Fatigue, unspecified type Referral to Occupational Therapy 3. Concussion with no loss of consciousness, subsequent encounter Referral to Occupational Therapy 4. Attention or concentration deficit Referral to Occupational Therapy 5. Acute post-traumatic headache, not intractable Referral to Occupational Therapy Allergies and Medications: Allergies not on file No current outpatient prescriptions on file prior to visit. No current facility-administered medications on file prior to visit. Subjective: Concussion symptom checklist (in the last week) 0=none, 1-2=mild, 3-4=moderate, 5-6=severe Physical symptoms headache 2 nausea vomiting 0 balance problem 1 dizziness 1 visual problems 0 fatigue 6 sensitivity to light 1 sensitivity to sound / noise 1 numbness / tingling 1 pain other than headache Cognitive symptoms feeling mentally foggy 3 feeling slowed down 6 difficulty concentrating 4 difficulty remembering 3 Sleep drowsiness sleeping less than usual sleeping more than usual 5 trouble falling asleep 5 Emotional symptoms irritability 3 sadness 5 nervousness 3 feeling more emotional 5 Additional ROS: Sarah Robles denies recent illness, and has had no new injury. Objective: Sarah Robles is alert, oriented to person, place, time and condition. she makes good eye contact and is able to engage in a linear and logical conversation about the injury symptoms and plan of care. she is not tangential. Attention and concentration is appropriate for the context of this evaluation. she can follow multi-step directions, retain new information and demonstrate the ability to problem solve hypothetical scenarios. Assessment / Recommendations: Sarah Robles is a 41 y.o. female who has sustained a traumatic brain injury when a ceiling tile fell and hit her on the head. At this time, she demonstrates multiple symptoms consistent with post concussive syndrome. The following is required to facilitate her recovery. These recommendations / restrictions have been transferred to the Workers Comp Form. Diagnosis / Prognosis: concussion. good Treatment Plan: OT for neurorehab at [facility] This disability is a result of the work-related injury described above. EMPLOYEE WORK CAPABILITY - per treating provider Sarah Robles has reached maximum medical improvement ( ) Yes (x)No Sarah Robles has permanent impairment from this injury ( ) Yes ( )No (x) Undetermined Orders written this visit: Orders Placed This Encounter Procedures ??? Referral to Occupational Therapy Referral Priority: Routine Referral Type: Occupational Therapy Referral Reason: Evaluate and Treat Requested Specialty: Occupational Therapy Number of Visits Requested: 10 We have also discussed the importance of behavioral and environmental interventions such as keepinga daily routine, allowing for alternating periods of rest and activity, in addition to the following. ensure consistent cues for night/day cycle Focus on brief, clear instructions and direction minimize extraneous noises and stim turn off TV when others in the room restrict visitors to 2-3 at a time allow frequent rests; daytime naps ok up to the point of interfering with nighttime pattern Follow up visit / return to clinic: per MHB Trudy Dodge ALTERATION MANAGER, from the [employer] attended this visit and I would like to request her participation in future visits to continue to assist with coordination of care and advocate for treatment needs. Her assistance is very much appreciated. New Patient visit: 55 of this 60 minute visit (>than 50%) was spent on counseling and discussionrelated to recovery from traumatic brain injury and rehabilitation plan as discussed above. Shadia Dykes APRN documented in this encounter Plan of Treatment Scheduled Referrals Name Type Priority Associated Diagnoses Orde r Schedule Referral to Occupational Therapy Outpatient Referral Routine Work related injury Fatigue, unspecified type Concussion with no loss of consciousness, subsequent encounter Attention or concentration deficit Acute post-traumatic headache, not intractable Ordered: 06/23/2016 documented as of this encounter Visit Diagnoses Diagnosis Work related injury Injury, other and unspecified, unspecified site Fatigue, unspecified type Concussion with no loss of consciousness, subsequent encounter Attention or concentration deficit Acute post-traumatic headache, not intractable Acute post-traumatic headache documented in this encounter Care Teams Kitchen Helper Relationship Specialty Start Date End Date Eva Dang MD [address] [place] [address] PCP - General Family Medicine 03/25/16 documented as of this encounter
--- OUTSIDE RECORDS SUMMARY | 2023-11-28 13:52 | XMS_ITS | Encounter Summary ---
Author Organization [facility] Jennifer [facility] [place] [address] Care Team Providers Care Cutter Hand Name Role Phone Eva Dang MD Primary Care Provider Reason for Visit * Occupational Therapy (Routine) - Closed Specialty Diagnoses / Procedures Referred By Angy t Referred To Contact Occupational Therapy Diagnoses Work related injury Fatigue, unspecified type Concussion with no loss of consciousness, subsequent encounter Attention or concentration deficit Acute post-traumatic headache, not intractable Melanie Dykes, SOLAR SALES SPECIALIST [facility] [address] [facility] [place] [address] Referral ID Status Reason Start Date Expiration Date V isits Requested Visits Authorized [id number] Closed Evaluate and Treat 06/23/2016 06/23/2017 1 1 Encounter Details Date Type Department Care Team (Late st Contact Info) Description 06/28/2016 3:30 PM EST Office [place] [address] Mark Maria, [facility] [place] [address] Work related injury; Fatigue, unspecified type; Concussion [...] Progress Notes * Mark Maria, OT - 06/28/2016 3:30 PM EST OCCUPATIONAL THERAPY INITIAL EVALUATION REFERRAL SOURCE: Melanie Dykes DIAGNOSIS AND PERTINENT CO-MORBIDITY AFFECTING PLAN OF CARE No diagnosis found. NEXT MD FOLLOW UP: PRN TOTAL TREATMENT TIME: 61 minutes TIMED CODE TREATMENT TIME: Evaluation HIGH Complexity (14765) Past Medical History Diagnosis Date ??? Congenital [...] evaluation and treatment. Sarah Robles presents alone OCCUPATIONAL PROFILE: LIVING SITUATION: Sarah Robles lives in a home with her 3 kids and spouse. She has 2 kids who are grown PRIOR FUNCTIONAL STATUS: LEVEL OF ASSIST ADL independent MOBILITY independent IADL independent COGNITIVE- COMMUNICATION SKILLS independent CURRENT ADL PERFORMANCE: (information gathered via patient/caregiver interview) independent with increased time. CURRENT INSTRUMENTAL ADL PEFORMANCE: MEAL PREPARATION (X) NOTES/ ADAPTIVE EQUIPMENT multi-dish hot meal one dish hot meal x hot beverage/re-heat prepared food cold meal self-serve Other Extreme difficulty with multitasking GROCERY [place]OPPIN. composing shopping list, 2. locating desired items, 3. selecting purchases, 4.transporting items (X) NOTES/ ADAPTIVE EQUIPMENT 4/4 without assistance 3/4 without assistance 2/4 without assistance 1/4 without assistance Dependent on assistance for 4/4 Other Goes at low census hours. Is unable to find things if busy Needs a list where used to have a meal plan in her head CLOTHING CARE: 1. Collecting clothing and supplies, 2. Sorting clothing, 3. Operating washer/dryer,4. Folding, 5. Putting away clothing (X) NOTES/ ADAPTIVE EQUIPMENT 4/4 without assistance 3/4 without assistance 2/4 without assistance 1/4 without assistance Dependent on assistance for 4/4 Other Only has to wash her and her spouses cloths. Kids do own laundry LIGHT CLEANIN. making bed, 2. Straightening/dusting, 3. Vacuuming, 4. washing dishes (X) NOTES/ADAPTIVE EQUIPMENT 4/4 without assistance 3/4 without assistance 2/4 without assistance 1/4 without assistance other Having extreme difficulty keeping up with this HEAVY CLEANING TASKS: 1. Mopping/scrubbing floor, 2. Taking out the garbage, 3. Changing bed linens, 4. Washing bathroom (X) NOTES/ ADAPTIVE EQUIPMENT 4/4 without assistance 3/4 without assistance 2/4 without assistance 1/4 without assistance Other Has not been doing MONEY MANAGEMENT (X) NOTES/ ADAPTIVE EQUIPMENT Complex Transactions Payout correct money/change Pay out money for simple transactions Identify corbin/coin correctly Unable to complete transactions Other Has 4.5 months of mail stacked up on her counter. 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 PHONE USE (X) NOTES/ ADAPTIVE EQUIPMENT Independent in phone use including content x Place informational call with verbal cues/dials phone Dials familiar numbers with strategies Answers phone but cannot place call Unable to use phone Other Keeps conversation short MEDICATION MANAGEMENT (X) NOTES/ ADAPTIVE EQUIPMENT Independent managing medication/medication information/refills Independent with modificantions Takes medications with setup or verbal cues for refill Occasional assist with medication and dependent for refill Frequent verbal cues to take medication Assist to take all medication Other She has been forgetting meds so is putting a pill box together TRANSPORTATION (X) NOTES/ ADAPTIVE EQUIPMENT Independent with driving/public transit independent with modifications independent with paratransit requires ambulance driver/mechanical supervisor due to cognitive or physical limitations homebound/unable to access transportation Other Only had difficulty if it is late at night or if she is overtired.. 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 Specific mental functions Hayder Cognitive Assessment (MoCA) Results: Comments Visuospatial/Exec 1/ Trails Test 0/1 Cube Copy / Clock: Contour 05/09 Clock: Numbers 0/ Clock: Hands Naming 3/3 (of 3) Attention 2/ Repeat forward 05/09 Repeat backwards 05/09 Tapping for letter A 1/3 Serial 7 Subtraction (3pts=4+; 2pts=2+; 1pt=1) Language 1/2 Repeating Sentences Fluency 0/1 Word Naming (1pt=11+ words) Abstraction 1/2 Similarities (Associations) Delayed Recall 2/5 (uncued) Orientation 05/09 Month 05/09 Date 05/09 Year 05/09 Day of the week 05/09 Location 05/09 City Add 1 point if 12 years of education or less TOTAL 22/30 Score of 26 or greater considered normal #1 for education [facility] Occupational Therapy Cognitive assessment is a standardized test used for assessingbasic cognitive abilities. Visuomotor Organization 13 Copying Geometric Forms 07/10 14 Two-Dimentional Model 08/10 15 Pegboard Construction 08/10 16 Colored Block Design 08/10 initially made flat but immediately went to 3D 17 Plain Block Design 08/10 18 Reproduction of a Puzzle 08/10 VISION FUNCTIONS: Not formally assessed TREATMENT TODAY: Evaluation Skilled discussion of deficit areas Provided her with 14 copies of an hourly daily schedule with built in to do list Practiced with use of to do list filling it with non routine tasks that were measurable We then practiced a daily schedule for which she is to do in the AM She was provided with multiple copies of the concussion symptoms scale and educated on its use to be filled out after work each evening. ASSESSMENT: Sarah Robles presents with activity limitations and/or participation restrictions dueto performance deficits in working and delayed memory, all areas of attention, cognitive endurance,which is in turn affecting her executive functions. She presented today with a 22/30 on the MOCA and slowed performance on areas of the LOTCA tested. She feels that her main barrier is not having enough energy to do what she needs to around the house and manage working 3 hours a day. Almost 5 months of bills and mail is piled up in her home and she is cleaning minimally. She is motivated to complete a hourly daily schedule and to do list in an attempt to be more efficient while trying to balance the amount of activity she is doing from day to day. Doing the concussion symptoms scale each evening will give us some solid data to work with to try to attain a just right challenge. Patient will benefit from outpatient OT services using both rehabilitative and compensatory approaches to maximize safety and independence with BADL/ IADL, memory, and attention to facilitate return to premorbid ac tivities. Fpc Goals (to be met by discharge): Date [...] Goal Status: In progress Sarah Robles will tolerate administration of the TEA Goal Status: In progress PLAN: The patient is to be seen 1 time(s) per week, for 12 week(s) to progress toward short and nursing home goals. for Cognitive retraining attention, sequencing, problem [...] headache documented in this encounter Care Teams Cutter Hand Relationship Specialty Start Date End Date Eva Dang MD [address] [place] [address] PCP - General Family Medicine 03/25/16 documented as of this encounter
--- OUTSIDE RECORDS SUMMARY | 2023-11-28 13:52 | XMS_ITS | Encounter Summary ---
Author Organization [facility] Address [facility] [place] [address] Care Team Providers Care Process Development Engineer Name Role Phone Eva Dang MD Primary Care Provider [phone] Reason for Visit * Reason Onset Date Comments Other 06/02/2016 Encounter Details Date Type Department Care Team (Late st Contact Info) Description 06/02/2016 Telephone Care Management [facility] [place] [address] Naheed Stephens, [place] [address] Other Social History Tobacco Use Types Packs/Day Years Used Date Smoking Tobacco: Never Assessed Sex and Gender Information Value Date Recorded Sex Assigned at Not on file Gender Identity Female 09/26/2019 9:01 AM EDT Sexual Orientation Not on file documented as of this encounter Miscellaneous Notes * Telephone Encounter - Naheed Stephens MSW - 06/02/2016 12:34 PM EST Pt was scheduled for the initial evaluation vielka/ Shadia Dykes APRN today in the post concussive clinic, referred by: [facility] med provider: Radha Sol ??but pt cancelled today's appt due to GI bug. [facility] phoned [facility] med staff # [phone] to relay the above, noting that she is now rescheduledfor 2-15 w/ Shadia Dykes at 3:30 PM. P: [facility] will collaborate w/ Shadia JaniaAleshia Dodge re: upcoming initial evaluation needs, requesting f/u contact w/ Occ med referral: Radha Sol s/p appt to translate tx plan needs andgoals. documented in this encounter Plan of Treatment Not on file documented as of this encounter Visit Diagnoses Not on filedocumented in this encounter Care Teams Process Development Engineer Relationship Specialty Start Date End Date Eva Dang MD [facility] [address] [facility] [place] [place] [address] PCP - General Family Medicine 03/25/16 documented as of this encounter
[2023-11-28 18:07] LABS: Bilirubin Negative (Negative); Blood Negative (Negative); Clarity Clear (Clear); Glucose 500 mg/dL (Negative); Ketones Negative (Negative); Leukocyte Esterase Negative (Negative); Nitrite Negative (Negative); Specific Gravity 1.025 (1.005-1.025); Urobilinogen 0.2 mg/dL (Up to 0.2); pH 5.5 (5-8)
[2023-11-28 18:31] LABS: Anion Gap 11.9 mmol/L (3-11); BUN 10 mg/dL (7-18); CO2 25.1 mmol/L (21.0-32.0); CREATININE 0.7 mg/dL (0.55-1.02); Calcium 9.1 mg/dL (8.5-10.1); Chloride 105 mmol/L (98-107); Glucose 124 mg/dL (74-106); Potassium 4.4 mmol/L (3.5-5.1); Sodium 142 mmol/L (136-145)
== END 2023-11-28 13:41 | disposition home or self-care (01) ==
LOC: NCHCN 13:40
PROVIDERS: PCP Family Medicine; Visit Provider Family Medicine
DX: R10.32 Left lower quadrant pain (principal); R82.998 Other abnormal findings in urine; R79.89 Other specified abnormal findings of blood chemistry
CPT/HCPCS: 80048; 81003

== ENCOUNTER 2024-05-16 18:25 | Outpatient (REF) | payer OTHER, SELFPAY ==
--- OUTSIDE RECORDS SUMMARY | 2024-05-16 18:43 | XMS_ITS | Encounter Summary ---
Author Organization [facility] Address [address] [place] [address] Care Team Providers Care Manager Strategic Partnerships Name Role Phone Kamran Franks MD Primary Care Provider [phone] Reason for Visit * Reason Comments Follow-up Encounter Details Date Type Department Care Team (Latest Contact Info) Description 02/20/2020 11:00 EDT Office Visit [facility] Occupational Medicine - [place] [address] [place] [address] Jorge Luis Mccray, PSYCH-ME [address] [place] [address] Adjustment disorder with depressed mood (Primary Dx) Social History Tobacco Use Types Packs/Day Years Used Date Smoking Tobacco: Never Cigarettes Alcohol Use Standard Drinks/Week Comments Not Asked 0 (1 standard drink = 0.6 oz pur e alcohol) Interpersonal Safety Answer Date Record ed Physically Hurt Never 12/09/2019 Verbally Threaten Not on file 12/09/2019 Comments No Sex and Gender Information Value Date Recorded Sex Assigned at Not on file Legal Sex Female 17:41 EST Gender Identity Female 04/14/2019 11:09 EST Sexual Orientation Not on file documented as of this encounter Plan of Treatment Not on file documented as of this encounter Visit Diagnoses Diagnosis Adjustment disorder with depressed mood- Primary documented in this encounter Care Teams Manager Strategic Partnerships Relationship Specialty Start Date End Date Kamran Franks MD [address] [place] [address] PCP - General 09/17/09 documented as of this encounter
--- OUTSIDE RECORDS SUMMARY | 2024-05-16 18:43 | XMS_ITS | Encounter Summary ---
Author Organization [facility] Address [address] [place] [address] Care Team Providers Care Electrogalvanizing Machine Operator Name Role Phone Kamran Franks MD Primary Care Provider Encounter Details Date Type Department Care Team (Late st Contact Info) Description 04/28/2017 Results Only [facility] [phone] Eva Dang MD [address] [place] [phone] Social History Tobacco Use Types Packs/Day Years Used Date Smoking Tobacco: Never Cigarettes Alcohol Use Standard Drinks/Week Comments Not Asked 0 (1 standard drink = 0.6 oz pur e alcohol) Comments No Sex and Gender Information Value [...] ? SARAH SCHERER ? Accession #: ? [id number] ? : ? 1975 (Age: 42) ??F ?Collect Date: ? 04/28/2017 ? Location: ? [facility] ? Receive Date: ? 04/29/2017 ? Provider: EVA DANG MD Copy to: ? Final Report SPECIMEN ADEQUACY ? Satisfactory for Evaluation - transformation zone component present GENERAL CATEGORIZATION ? Negative for Intraepithelial Lesion or Malignancy ?? Last Menstrual Period: 2017 Specimen/Source: ??Pap Test, Cervix, ThinPrep Imaging System [...] types 16,18,31,33,35, 39,45,51,52,56,58, 59,66, and 68 by process control operator mediated amplification. Comments Document reviewed and electronically signed by: ? System Interface ? Report date: 05/12/2017 By the signature above, the attending physician certifies that he/she has personally conducted a gross and/or microscopic examination of the described specimens and rendered or confirmed the above diagnosis. End of Report [facility] 04/28/2017 04/29/2017 us Eva Dang MD PATHOLOGY ORDERABLES Final Resul t [facility] [address] [place] [address] documented in this encounter Visit Diagnoses Not on filedocumented in this encounter Care Teams Electrogalvanizing Machine Operator Relationship Specialty Start Date End Date Kamran Franks MD [address] [place] [address] PCP - General 09/17/09 documented as of this encounter
--- OUTSIDE RECORDS SUMMARY | 2024-05-16 18:43 | XMS_ITS | Encounter Summary ---
Author Organization [facility] Address [address] [place] [address] Care Team Providers Care Road Grader Name Role Phone Kamran Franks MD Primary Care Provider [phone] Encounter Details Date Type Department Care Team (Late st Contact Info) Description 06/03/1999 Results Only [facility] conversion [address] [place] [address] Eva Dang MD [address] [address] Social History Tobacco Use Types Packs/Day Years Used Date Smoking Tobacco: Never Assessed Comments Unknown Sex and Gender Information Value Date Recorded [...] ? SARAH SCHERER ? Accession #: ? [id number] : ? 1975 (Age: 24) ??F ?Collect Date: ? 06/03/1999 Location: ?Receive Date: ? 06/03/1999 Provider: ?EVA DANG MD Copy to: ?EVA DANG MD ? Specimen/Source: ?Pap Smear (One Slide) Last Menstrual Period: ? GYNECOLOGIC ??CYTOPATHOLOGY ??REPORT Name: SARAH SCHERER ? FA[facility] : 1975 ?? 24Y F ?Client ID: [id number] SS#: [id number] ? Clinician: EVA DANG MD ?? Location: [facility] ??Copy to: ?? Specimen: ?Pap Smear (One [...] Hall M.D. ? Report Date: ?? 06/10/1999 [facility] Archived Tests - Final Diagnosis Text Field: Clinical History : ? Document reviewed and electronically signed by: ? Conversion ? Report Date: ??06/10/1999 00:00 End of Report [facility] 06/03/1999 11:2 2 EST 06/03/1999 11:23 EST us Eva Dang MD PATHOLOGY ORDERABLES Final Resul t [facility] [address] [place] [address] documented in this encounter Visit Diagnoses Not on filedocumented in this encounter Care Teams Road Grader Relationship Specialty Start Date End Date Kamran Franks MD [address] [place] [address] PCP - General 09/17/09 documented as of this encounter
--- OUTSIDE RECORDS SUMMARY | 2024-05-16 18:43 | XMS_ITS | Encounter Summary ---
Author Organization [facility] Address [address] [place] [address] Care Team Providers Care Manager Metrology Name Role Phone Kamran Franks MD Primary Care Provider [phone] Encounter Details Date Type Department Care Team (Late st Contact Info) Description 05/01/2020 Lab Requisition [facility] Pathology & Laboratory Medicine - [facility] [address] [place] [address] Outr Resulting Lab, Provider Social History Tobacco [...] Unknown 05/01/2020 11:02 EST 05/01/2020 20:53 EST us Provider Outr Resulting Lab MICROBIOLOGY - GENER AL ORDERABLES Final Result Performing Organization Address City/[facility] Co de Phone Number [facility] [address] [place] [address] * COVID-19 TESTING (05/01/2020 11:02 EST) COVID-19 rt-PCR Result Negative Negative 05/02/2020 19:28 EST [facility] Comment: This test has not [...] history, and epidemiological information. Performed on the Inkomerceher Fusion instrument Performing Lab [place] [facility] 05/02/2020 19:28 EST [facility] Swab 05/01/2020 11:0 2 EST 05/01/2020 20:53 EST us Provider Outr Resulting Lab MICROBIOLOGY - GENER AL ORDERABLES Final Result [facility] [address] [place] [address] documented in this encounter Visit Diagnoses Not on filedocumented in this encounter Care Teams Manager Metrology Relationship Specialty Start Date End Date Kamran Franks MD [address] [place] [address] PCP - General 09/17/09 documented as of this encounter
--- OUTSIDE RECORDS SUMMARY | 2024-05-16 18:43 | XMS_ITS | Encounter Summary ---
Author Organization [facility] [place] [address] Care Team Providers Care Carpenter'S Helper Name Role Phone Eva Dang MD Primary Care Provider [phone] Encounter Details Date Type Department Care Team (Late Contact Info) Description 09/04/2020 Telephone Neurology at [address] [phone] Ursula Walters, DISC PAD GRINDING MACHINE FEEDER Social History Tobacco Use Types Packs/Day Years [...] - 09/04/2020 10:44 AM EDT Notified by [facility] that patient no longer has insurance. [employer] application for financial assistance for [employer] mailed to Sarah asking her to fill the application out completely and return in the envelope provided along with proof of income. documented in this encounter Plan of Treatment Upcoming Encounters Date Type Department Care Team (Late st Contact Info) Description 06/21/2024 1:20 PM EST Office Visit Dermatology at [address] [place] [address] documented as of this encounter Visit Diagnoses Not on filedocumented in this encounter Care Teams Carpenter'S Helper Relationship Specialty Start Date End Date Eva Dang MD [address] [place] [address] PCP - General Family Medicine 03/25/16 documented as of this encounter
--- OUTSIDE RECORDS SUMMARY | 2024-05-16 18:43 | XMS_ITS | Encounter Summary ---
Author Organization [facility] Address [address] [place] [address] Care Team Providers Care U.S. Commissioner Name Role Phone Kamran Franks MD Primary Care Provider [phone] Reason for Visit * Reason Comments Heart Problem new patient visit,op en heart surgery when 7 months old Fatigue Chest Pain slight pain Encounter Details Date Type Department Care Team (Late st Contact Info) Description 10/17/2009 9:20 EDT Office Visit [facility] Cardiology - [address] [place], [place] [id number] Mani Brunson MD TAPVR (total anomalous pulmonary [...] Progress Notes * Mani Brunson MD - 10/17/2009930 EDTAddended by: MANI BRUNSON on: 10/17/2009 Modules accepted: Orders * Mani Brunson MD - 10/17/2009 0920 EDT This office note has been dictated. 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 She did well following this procedure and [...] has been somewhat obese for some time andshe tells me that with her last child she did have some gestational diabetes. 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 Her life, obviously, is exceedingly busy. 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 albuterol (PROVENTIL, VENTOLIN) 90 mcg/Actuation inhaler Inhale 2 Puffs as directed as needed for Wheezing. added in this encounter Care Teams U.S. Commissioner Relationship Specialty Start Date End Date Kamran Franks MD [address] [place] [address] PCP - General 09/17/09 documented as of this encounter
--- OUTSIDE RECORDS SUMMARY | 2024-05-16 18:43 | XMS_ITS | Encounter Summary ---
Author Organization [facility] Address [address] [place] [address] Care Team Providers Care Embedded Software Development Engineer Name Role Phone Kamran Franks MD Primary Care Provider [phone] Encounter Details Date Type Department Care Team (Late st Contact Info) Description 10/17/2009 Abstract [facility] Cardiology - [address] [place], [place] [id number] Kamran Franks MD [address] [place] [address] Osteopenia; Amenorrhea; Obesity; LBP (low [...] measure documented in this encounter Care Teams Embedded Software Development Engineer Relationship Specialty Start Date End Date Kamran Franks MD [address] [place] [address] PCP - General 09/17/09 documented as of this encounter
--- OUTSIDE RECORDS SUMMARY | 2024-05-16 18:43 | XMS_ITS | Encounter Summary ---
Author Organization [facility] Address [facility] [place] [address] Care Team Providers Care Display Mechanic Name Role Phone Eva Dang MD Primary Care Provider [phone] Reason for Visit * Consultation (Priority 2) - Authorized Specialty Diagnoses / Procedures Referred By Angy munroe Referred To Contact Dermatology Diagnoses Rash RASH AT BASE OF SCALP BEHIND BOTH EARS DID NOT RESPOND TO BETAMETHASONE DIPROPIONATE .05% Eva Dang MD [facility] [address] [facility] [address] [place] [address] [facility] Dermatology [address] [place] [address] Referral ID Status Reason Start Date Expiration Date Visits Requested Visits Authorized [id number] Authorized Consult, Test & Treat PCP Updated and/or Approved 11/13/2023 11/12/2024 6 6 Encounter Details Date Type Department Care Team (Late st Contact Info) Description 02/03/2024 2:00 PM EDT Office Visit Dermatology at [facility] [address] [place] [address] Lexa Pineda MD [facility] [place] [address] Seborrheic dermatitis; Inflamed seborrheic keratosis Social History Tobacco Use Types Packs/Day Years [...] as of this encounter Progress Notes * Lexa Pineda MD - 02/03/2024 2:00 PM EDT Images from the original note were not included. DEPARTMENT OF DERMATOLOGY Medical Dermatology Clinic Note Provider: Lexa Pineda MD Patient's preferred name Sarah Preferred contact method for results [x]Phone []myD-H []Letter Detailed phone message OK? Yes Are there any other people with whom we may discuss your care? Mathew Robles Jr, Past Medical History Date, location, treatment Melanoma N Dysplastic nevi N SCC N BCC N AKs N UV Exposure & Protection + history of blistering sunburn Sun Protection: SPF Other relevant past medical history Family History Details Melanoma N NMSC N Other relevant family history N Social History Occupation: N/A Hobbies: Hiking / Photography Other: Pre-Procedure Questions Details Allergy to lidocaine, epinephrine, Dermabond, chlorhexidine, or adhesives N Bleeding disorder or blood thinners N Implanted devices (Pacemaker, defibrillator, deep brain stimulator, cochlear implant) N History of Present Illness: Sarah Robles is a 48 y.o. Patient is referred to the clinic at the request of Eva Dang for rash behind the ears and a spots on the shoulders. Patient reports that she has had itching behind the ears for a few years, this past year it has gotten worse and goes onto the scalp. Has tried OTC Cortizone and prescription from her PCP that haven't helped. Spot on the right shoulder and left shoulder that itch. Review of Systems: General: Feeling well. Skin: No other skin concerns. Medications: Reviewed in eD-H Allergies: Reviewed in eD-H Skin Examination: Focused skin examination of the scalp, ears, and shoulders was normal with the exception of the findings below. Assessment/Plan #. Seborrheic Dermatitis vs Contact Dermatitis - Diffuse greasy, loosely adherent scale throughout the scalp. - Discussed etiology and treatment options. - Start Rx ketoconazole 2% cream: Apply topically to affected area(s) behind the ears twice daily as needed - Start Rx triamcinolone (Kenalog) 0.1% lotion: When flaring apply topically to affected area(s) behind the ears twice daily for up to 2 weeks. Take 1 week off and then repeat cycle as needed. For maintenance, apply 3 times weekly . - Discussed patch testing if not resolved. #. Inflamed Seborrheic Keratoses - Inflamed, stuck on, waxy papules on the right shoulder x1 and left shoulder x1. - Discussed benign nature of lesion(s) and provided reassurance. - Due to irritation present on today's exam and history of symptoms, discussed removal with cryotherapy. - Patient elects to proceed with cryotherapy today. Procedure: Destruction of lesion(s) with cryotherapy (LN2). Location(s): As noted above Number: 2 Discussed procedure and expectations including risks and benefits. Verbal consent obtained. Treatedwith LN2. There were no complications; Patient tolerated the procedure well. Post-procedure expectations and wound care were reviewed. Other: N/A RTC: When available for FSE // sooner as needed []Note routed to unit secretary []Recall placed in scheduling system [x]Appointment scheduled at checkout Scribe attestation: Madelaine Echavarria [facility] has performed the documentation for this encounter in the presence of and acting as a scribe for Lexa Pineda MD. I performed the above scribed service and agree with the accuracy of the documentation in this encounter. Reviewed and signed by: Lexa Pineda MD Dermatology [facility] Patient seen and evaluated with staff roll repairer: Mana Henry MD Department of Dermatology [facility] * Mana Henry MD - 02/03/2024 2:00 PM EDT I directly supervised Lexa Pineda MD in the care of this Dermatology patient in person. I saw and evaluated this patient with Lexa Pineda MD. Lexa Pineda MD presented the history and physical exam details to me, then we saw the patient together, and I confirmed these findings. I agree with details as written. My physical examination confirms Lexa Pineda MD's findings. The assessment and plan were formulated in discussion with me at the time of visit, and I agree with them as documented. MANA HENRY MD Staff [employer] Department of Dermatology [facility] documented in this encounter Plan of Treatment Upcoming Encounters Date Type Department Care Team (Late st Contact Info) Description 06/21/2024 1:20 PM EST Office Visit Dermatology at [facility] [address] [place] [address] documented as of this encounter Visit Diagnoses Diagnosis Seborrheic dermatitis Seborrheic dermatitis, unspecified Inflamed seborrheic keratosis documented in this encounter Care Teams Display Mechanic Relationship Specialty Start Date End Date Eva Dang MD [address] [place] [address] PCP - General Family Medicine 03/25/16 documented as of this encounter
--- OUTSIDE RECORDS SUMMARY | 2024-05-16 18:43 | XMS_ITS | Encounter Summary ---
Author Organization [facility] Address [address] [place] [address] Care Team Providers Care Tool Storage Attendant Name Role Phone Kamran Franks MD Primary Care Provider [phone] Encounter Details Date Type Department Care Team (Late st Contact Info) Description 09/13/2019 Lab Requisition [facility] Pathology & Laboratory Medicine - [facility] [address] [place] [address] Outr Resulting Lab, Provider Social History Tobacco [...] 15.6 See Note mIU/mL 09/14/2019 9:42 EDT [facility] Comment: Reference Range for Hep B Surface Ab, Quant: Positive: >= 10.0 mIU/mL Negative: ??< 10.0 mIU/mL Patient is presumed to be immune to infection with Hepatitis B Virus. Hep B Surface Ab, Qualitative Positive See Note 09/14/2019 9:42 EDT [facility] Comment: Reference Range for Hep B Surface Ab, Qual: Unvaccinated: ??Negative Vaccinated: ??Positive Blood VENOUS BLOOD / Unknown 09/12/2019 15:10 EDT 09/13/2019 16:19 EDT us Provider Outr Resulting Lab CHEMISTRY & BLOOD GA S ORDERABLES Final Result [facility] [address] [place] [address] * HEPATITIS B SURFACE ANTIGEN (09/12/2019 15:10 EDT) Hep B Surface Ag Negative Negative 09/14/2019 9:43 EDT [facility] Blood VENOUS BLOOD / Unknown 09/12/2019 15:10 EDT 09/13/2019 16:19 EDT us Provider Outr Resulting Lab CHEMISTRY & BLOOD GA S ORDERABLES Final Result Performing Organization Address City/[facility]/ZIP Co de Phone Number [facility] [address] [place] [phone] * HEPATITIS C AB W REFLEX TO HCV RNA BY PCR (09/12/2019 15:10 EDT) Hep C Antibody Negative Negative 09/14/2019 10:37 EDT [facility] Blood VENOUS BLOOD / Unknown 09/12/2019 15:10 EDT 09/13/2019 16:19 EDT us Provider Outr Resulting Lab CHEMISTRY & BLOOD GA S ORDERABLES Final Result [facility] [address] [place] [address] documented in this encounter Visit Diagnoses Not on filedocumented in this encounter Care Teams Tool Storage Attendant Relationship Specialty Start Date End Date Kamran Franks MD [address] [place] [phone] PCP - General 09/17/09 documented as of this encounter
--- OUTSIDE RECORDS SUMMARY | 2024-05-16 18:43 | XMS_ITS | Encounter Summary ---
Author Organization [facility] [place] [address] Care Team Providers Care Desktop Support Consultant Name Role Phone Eva Dang MD Primary Care Provider [phone] Reason for Referral * Consultation (Priority 2) - Authorized Specialty Diagnoses / Procedures Referred By Angy munroe Referred To Contact Dermatology Diagnoses Rash RASH AT BASE OF SCALP BEHIND BOTH EARS DID NOT RESPOND TO BETAMETHASONE DIPROPIONATE .05% Eva Dang MD [address] [place] [address] [facility] Dermatology [address] [place] [address] Referral ID Status Reason Start Date Expiration Date Visits Requested Visits Authorized [id number] Authorized Consult, Test & Treat PCP Updated and/or Approved 11/13/2023 11/12/2024 6 6 Encounter Details Date Type Department Care Team (Late st Contact Info) Description 11/13/2023 Transcribe Orders eDH Incoming Referrals [phone] Eva Dang MD [address] [place] [address] Rash Social History Tobacco Use [...] as of this encounter Plan of Treatment Upcoming Encounters Date Type Department Care Team (Late st Contact Info) Description 06/21/2024 1:20 PM EST Office Visit Dermatology at [facility] [address] [place] [phone] Scheduled Referrals Name Type Priority Associated Diagnoses Order Schedule Referral to Dermatology Outpatient Referral Routine Rash Ordered: 11/13/2023 documented as of this encounter Visit Diagnoses Diagnosis Rash Rash and other nonspecific skin eruption documented in this encounter Care Teams Desktop Support Consultant Relationship Specialty Start Date End Date Eva Dang MD [address] [place] [address] PCP - General Family Medicine 03/25/16 documented as of this encounter
--- OUTSIDE RECORDS SUMMARY | 2024-05-16 18:43 | XMS_ITS | Encounter Summary ---
Author Organization [facility] [place] [address] Care Team Providers Care Sorority Mother Name Role Phone Eva Dang MD Primary Care Provider [phone] Encounter Details Date Type Department Care Team (Latest Contact Info) Description 02/03/2024 Travel Social History Tobacco Use Types Packs/Day Years [...] 1:20 PM EST Office Visit Dermatology at [facility] [address] [place] [address] documented as of this encounter Visit Diagnoses Not on filedocumented in this encounter Care Teams Sorority Mother Relationship Specialty Start Date End Date Eva Dang MD [employer] [address] [place] [address] PCP - General Family Medicine 03/25/16 documented as of this encounter
--- OUTSIDE RECORDS SUMMARY | 2024-05-16 18:43 | XMS_ITS | Continuity of Care Document ---
Author Organization [facility] Address [address] [place] [address] Care Team Providers Care Physician Liaison Name Role Phone ARMEN CLEMENTS MD Primary Care Physician Encounter [facility] FIN NBR [id number] Date(s): 03/21/24 - 03/21/24 [facility] [address] [place], [place] [address] Discharge Disposition: Home or Self Care Attending Physician: Lidya Pedraza PA-C Allergies, Adverse Reactions, Alerts Substance Criticality Severity Reaction Reaction Severity Status amoxicillin Unable to assess criticality Unknown Active cephalexin Unable to assess criticality Unknown Does not recall Active Assessment and Plan Future Scheduled Tests Radiology* MG Mammo Screening Bilateral 07/29/23 Medications betamethasone dipropionate 0.05% topical cream 1 kj, Topical, BID, # 15 g, 0 Refill(s), Pharmacy: [id number] Start Date: 10/01/22 Stop Date: 10/15/22 [...] nasal cavity and/or nasal sinus Confirmed Active Social History Social History Type Response Tobacco Never tobacco user T obacco Use:. Sex Sex Representation Female (finding) Patient Care team information Care Team Personnel Name: ARMEN CLEMENTS MD Position: No Access Member Role: Primary Care Physician Address: [address] [place] [address] Care Team Related Persons Name: JOSSELYN SCHERER JR Insurance Providers Guarantor name: BEN SCHERER Health Plan Information #: 1 Payer: [employer] Member Number: [id number] Policy Number: NA Health Plan Information #: 2 Payer: [employer] Member Number: [id number] Policy Number: NA Health Plan Information #: 3 Payer: [employer] Member Number: NA Policy Number: NA Health Plan Information #: 4 Payer: [employer] Member Number: NA Policy Number: NA Health Plan Information #: 5 Payer: [employer] Member Number: [id number] Policy Number: NA
--- OUTSIDE RECORDS SUMMARY | 2024-05-16 18:43 | XMS_ITS | Encounter Summary ---
Author Organization [facility] Address [address] [place] [address] Care Team Providers Care Rn Chemical Dependency Name Role Phone Kimo Clarke MD Primary Care Provider [phone] Encounter Details Date Type Department Care Team (Late st Contact Info) Description 07/28/2000 Results Only [facility] - Maple conversion [address] [place] [address] Kimo Clarke MD [address] [place] [phone] Social History Tobacco Use Types Packs/Day Years [...] ? SARAH SCHERER ? Accession #: ? [id number] : ? 1975 (Age: 25) ??F ?Collect [...] Date: ??08/02/2000 14:27 End of Report [facility] 07/28/2000 08/01/2000 us Kimo Clarke MD PATHOLOGY ORDERABLES Final Resul t FERRERKHADAR RIVERA [facility] [address] [place] [address] documented in this encounter Visit Diagnoses Not on filedocumented in this encounter Care Teams Rn Chemical Dependency Relationship Specialty Start Date End Date Kimo Clarke MD [address] [place] [address] PCP - General 09/17/09 documented as of this encounter
--- OUTSIDE RECORDS SUMMARY | 2024-05-16 18:43 | XMS_ITS | Encounter Summary ---
Author Organization [facility] Address [place] [address] Care Team Providers Care Grading Clerk Name Role Phone Eva Dang MD Primary Care Provider [phone] Encounter Details Date Type Department Care Team (Late st Contact Info) Description 10/10/2020 Orders Only Pediatric Cardiology at [address] [address] Kodi Montes MD [address] [facility] [place] [address] Total anomalous pulmonary venous return; Elevated cholesterol; [...] 1:20 PM EST Office Visit Dermatology at [facility] [address] [place] [address] documented as of this encounter Visit Diagnoses Diagnosis 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
--- OUTSIDE RECORDS SUMMARY | 2024-05-16 18:43 | XMS_ITS | Encounter Summary ---
[place] [address] Care Team Providers Care Weathercaster Name Role Phone Eva Dang MD Primary Care Provider [phone] Encounter Details Date Type Department Care Team (Late st Contact Info) Description 11/07/2020 Telephone [place] [phone] Irene Razo Social History Tobacco Use Types [...] 1:20 PM EST Office Visit Dermatology at [facility] [address] [place] [phone] documented as of this encounter Visit Diagnoses Not on filedocumented in this encounter Care Teams Weathercaster Relationship Specialty Start Date End Date Eva Dang MD [address] [place] [address] PCP - General Family Medicine 03/25/16 documented as of this encounter
--- OUTSIDE RECORDS SUMMARY | 2024-05-16 18:43 | XMS_ITS | Encounter Summary ---
Author Organization [facility] Address [address] [place] [address] Care Team Providers Care Staying Machine Operator Name Role Phone Kamran Franks MD Primary Care Provider [phone] Reason for Visit * Reason Comments Follow-up Encounter Details Date Type Department Care Team (Latest Contact Info) Description 07/30/2019 10:00 EDT Telemedicine [facility] - [facility] Occupational Medicine - [place] [address] [place] [address] Jorge Luis Mccray, PSYCH-MA [address] [place] [phone] Somatic symptom disorder, mild, with predominant pain [...] Primary documented in this encounter Care Teams Staying Machine Operator Relationship Specialty Start Date End Date Kamran Franks MD [address] [place] [phone] PCP - General 09/17/09 documented as of this encounter
--- OUTSIDE RECORDS SUMMARY | 2024-05-16 18:43 | XMS_ITS | Encounter Summary ---
Author Organization [facility] Address [address] [place] [address] Care Team Providers Care Basic Sciences Dean Name Role Phone Kamran Franks MD Primary Care Provider [phone] Encounter Details Date Type Department Care Team (Late st Contact Info) Description 09/15/2010 Results Only [facility] Laboratory Services - [facility] ([facility] [address] [place], [place] [phone] Kamran Franks MD [address] [place] [phone] Social History Tobacco Use Types Packs/Day Years [...] ? SARAH SCHERER ? Accession #: ? [id number] ? : ? 1975 (Age: 35) ??F ?Collect Date: ? 09/15/2010 ? Location: ? [facility] ? Receive Date: ? 09/17/2010 ? Provider: ?LÁZARO AJAMIE MD ? Copy to: ? Specimen/Source: ?Pap [...] Report ? [facility] 09/15/2010 09/17/2010 us Kamran Franks MD PATHOLOGY ORDERABLES Final Resul t Performing Organization Address City/State/[facility] Co de Phone Number [facility] [address] [place] [address] documented in this encounter Visit Diagnoses Not on filedocumented in this encounter Care Teams Basic Sciences Dean Relationship Specialty Start Date End Date Kamran Franks MD [address] [place] [address] PCP - General 09/17/09 documented as of this encounter
--- OUTSIDE RECORDS SUMMARY | 2024-05-16 18:43 | XMS_ITS | Encounter Summary ---
Author Organization [facility] Address [address] [place] [address] Care Team Providers Care Tape Sewer Name Role Phone Kamran Franks MD Primary Care Provider [phone] Reason for Visit * Reason Comments Follow-up Encounter Details Date Type Department Care Team (Latest Contact Info) Description 01/30/2020 15:30 EDT Office Visit [facility] Occupational Medicine - [place] [address] [place] [address] Jorge Luis Mccray, PSYCH-NM [address] [place] [address] Adjustment disorder with depressed mood [...] Primary documented in this encounter Care Teams Tape Sewer Relationship Specialty Start Date End Date Kamran Franks MD [address] [place] [address] PCP - General 09/17/09 documented as of this encounter
--- OUTSIDE RECORDS SUMMARY | 2024-05-16 18:43 | XMS_ITS | Encounter Summary ---
Author Organization [facility] Address [address] [place] [address] Care Team Providers Care Security Clerk Name Role Phone Unavailable Primary Care Provider Unavailabl e Encounter Details Date Type Department Care Team (Late st Contact Info) Description 09/04/1999 12:31 EDT Hospital Encounter [facility] [place] [address] [place] [address] Yamilex Tijerina MD Social History Tobacco Use Types Packs/Day Years [...]
--- OUTSIDE RECORDS SUMMARY | 2024-05-16 18:43 | XMS_ITS | Encounter Summary ---
[place] [address] Care Team Providers Care Coupon And Bond Collection Clerk Name Role Phone Eva Dang MD Primary Care Provider [phone] Reason for Visit * Reason Onset Date Comments Appointment 10/13/2020 Patient is due f or a follow up appointment Encounter Details Date Type Department Care Team (Late st Contact Info) Description 10/13/2020 Telephone Pediatric Cardiology at [address] [address] Stephenie So, KEENAN Appointment (Patient [...] please return my call. Message sent via [employer] as well. documented in this encounter Plan of Treatment Upcoming Encounters Date Type Department Care Team (Late st Contact Info) Description 06/21/2024 1:20 PM EST Office Visit Dermatology at [facility] [address] [place] [address] documented as of this encounter Visit Diagnoses Not on filedocumented in this encounter Care Teams Coupon And Bond Collection Clerk Relationship Specialty Start Date End Date Eva Dang MD [facility] [address] [place] [address] PCP - General Family Medicine 03/25/16 documented as of this encounter
--- OUTSIDE RECORDS SUMMARY | 2024-05-16 18:43 | XMS_ITS | Encounter Summary ---
Author Organization [facility] Address [address] [place] [address] Care Team Providers Care Media Law Faculty Member Name Role Phone Kamran Franks MD Primary Care Provider [phone] Reason for Visit * Reason Comments Follow-up Encounter Details Date Type Department Care Team (Latest Contact Info) Description 04/16/2019 14:30 EST Office Visit [facility] Occupational Medicine [facility] [address] [place] [address] Jorge Luis Mccray, PSYCH-MI [address] [place] [phone] Somatic symptom disorder, mild, with predominant pain [...] syndrome documented in this encounter Care Teams Media Law Faculty Member Relationship Specialty Start Date End Date Kamran Franks MD [address] [place] [address] PCP - General 09/17/09 documented as of this encounter
--- OUTSIDE RECORDS SUMMARY | 2024-05-16 18:43 | XMS_ITS | Encounter Summary ---
Author Organization [facility] Address [address] [place] [address] Care Team Providers Care Hospital Corpsman Name Role Phone Kamran Franks MD Primary Care Provider [phone] Reason for Visit * Reason Comments Follow-up Encounter Details Date Type Department Care Team (Latest Contact Info) Description 05/28/2019 15:[address] [facility] Occupational Medicine - [place] [address] [place] [address] Jorge Luis Mccray, PSYCH-MA [address] [place] [address] Somatic symptom disorder, mild, with [...] Primary documented in this encounter Care Teams Hospital Corpsman Relationship Specialty Start Date End Date Kamran Franks MD [address] [place] [phone] PCP - General 09/17/09 documented as of this encounter
--- OUTSIDE RECORDS SUMMARY | 2024-05-16 18:43 | XMS_ITS | Encounter Summary ---
Author Organization [facility] Address [address] [place] [address] Care Team Providers Care Baking Powder Mixer Name Role Phone Kimo Clarke MD Primary Care Provider [phone] Encounter Details Date Type Department Care Team (Late st Contact Info) Description 05/10/2007 Results Only [facility] - [place] [address] [place] [address] Kimo Clarke MD [address] [place] [address] Social History Tobacco Use Types Packs/Day Years [...] Specimen/Source: ?ThinPrep Pap Test, Cervix/Endocervix, processed on [employer] ThinPrep Imaging System, with manual evaluation Last [...] End of Report [facility] 05/10/2007 05/11/2007 us Kimo Clarke MD PATHOLOGY ORDERABLES Final Resul t [facility] [address] [place] [address] documented in this encounter Visit Diagnoses Not on filedocumented in this encounter Care Teams Baking Powder Mixer Relationship Specialty Start Date End Date Kimo Clarke MD [address] [place] [address] PCP - General 09/17/09 documented as of this encounter
--- OUTSIDE RECORDS SUMMARY | 2024-05-16 18:43 | XMS_ITS | Encounter Summary ---
Author Organization [facility] Address [address] [place] [address] Care Team Providers Care Commissioner Public Works Name Role Phone Kamran Franks MD Primary Care Provider [phone] Reason for Visit * Reason Comments Follow-up Encounter Details Date Type Department Care Team (Latest Contact Info) Description 01/16/2020 15:[address] [facility] Occupational Medicine - [place] [address] [place] [address] Jorge Luis Mccray, PSYCH-MS [address] [place] [address] Adjustment disorder with depressed mood [...] Primary documented in this encounter Care Teams Commissioner Public Works Relationship Specialty Start Date End Date Kamran Franks MD [address] [place] [address] PCP - General 09/17/09 documented as of this encounter
--- OUTSIDE RECORDS SUMMARY | 2024-05-16 18:43 | XMS_ITS | Clinical Summary ---
Author Organization [facility] Address [facility] [place] [address] Care Team Providers Care Vinyl Flooring Installer Name Role Phone Eva Dang MD Primary Care Provider [phone] Allergies Active Allergy Reactions Criticality Noted Date [...] mouth daily. Active fluticasone (FLONASE) 50 mcg/actuation [place], Suspension 1 spray by Each Nare route [...] 30 DAYS. 1 Pen 7 09/01/2020 Active ketoconazole (Nizoral) 2 % CreamIndications:S eborrheic dermatitis Apply topically to affected area(s) behind the ears twice daily as needed. 30 g 3 02/03/2024 Active triamcinolone (KENALOG) 0.1 % LotionIndications: Seborrheic dermatitis When flaring apply topically to affected area(s) behind the ears twice daily for up to 2 weeks. Take 1 week off and then repeat cycle as needed. For maintenance, apply 3 times weekly. 60 mL 1 02/03/2024 Active Active Problems Patient Care Coordination No [...] heart disease Overview (10/15/2016): 09/1973 SURGERY (@ [facility]): repair of total anomalous pulmonary venous [...] MRI Depression Total anomalous pulmonary venous return Immunizations Name Administration Dates Next Due Influenza [...] 12/14/2019 10:28 AM EDT Plan of Treatment Upcoming Encounters Date Type Department Care Team (Late st Contact Info) Description 06/21/2024 1:20 PM EST Office Visit Dermatology at [facility] [address] [place] [phone] Health Maintenance Due Date Last Done Comments CT Colonography 1975 Colonoscopy 1975 Colorectal Cancer Screening 1975 FIT DNA 1975 FIT 1975 Sigmoidoscopy (10 year) with FIT yearly 1975 Sigmoidoscopy 1973 DM Hemoglobin A1c 1983 DM Opthalmology Exam 1983 DM Urine Microalbumin yearly 1983 HIV screen 1991 Hepatitis C Screening 1991 Hepatitis B vaccine (0-59 yrs) (1) 1992 Pneumococcal Vaccine: At-Ris k 5-64yrs (1 of 2 - PCV) 1992 Tetanus/Diphtheria/Pertussis Vaccines (1 - Tdap) 1992 HPV test 2003 PAP Smear 2003 Breast Cancer Share Decision Needed 2013 Breast Cancer screening 2013 DM Creatinine yearly 11/15/2019 11/14/2018, 09/10/19 18 Zoster vaccine (1 of 2) 2023 Covid-19 Vaccine (2 - season) 01/08/202410/2020 Influenza (Flu) vaccine (1 o f 1 - Influenza standard series) 01/08/2024 2010 Procedures Procedure Name Priority Date/Time Associated Diagnosis Comments BASIC METABOLIC PANEL Routine 11/14/2018 9:02 AM EDT Migraine without aura and without status migrainosus, not intractable from Last 3 Months or Most Recently Relevant to Health Maintenance Results * (ABNORMAL) Basic Metabolic Panel (non-fasting) (11/14/2018 9:02 AM EDT) Glucose 190 65 - 199 mg/dL [facility] Comment:Diabetes: >=200 mg/d L plus symptoms Blood Urea Nitrogen 7(L) 8 - 18 mg/dL [facility] Creatinine 0.66(L) 0.70 - 1.20 mg/dL [facility] Sodium 138 135 - 145 mmol/L [facility] Potassium 4.0 3.5 - 5.0 mmol/L [facility] Comment: Please note: ??Patients with WBC >100,000 may have falsely elevated Potassium levels. ??For accurate Potassium quantification in these patients send serum separator tube (gold top) for subsequent determinations. ??Contact the Clinical Chemistry Laboratory if there are any questions. Chloride 101 98 - 107 mmol/L [facility] Carbon Dioxide 25 22 - 31 mmol/L [facility] Anion Gap 12 5 - 15 mmol/L [facility] Calcium 9.4 8.5 - 10.5 mg/dL [facility] Est Glomerular Filtration Rate 107 >=60 mL/min/1. 73 m?? [facility] Comment: The eGFR was calculated using the CKD-EPI equation. As with all creatinine based estimates of kidney function, eGFR values calculated with the CKD-EPI equation are not accurate in patients with acute kidney failure, extremes of body mass or the acutely ill. http://[employer]/[facility] ATOKAnkf eGFR 124 >=60 mL/min/1. 73 m?? [facility] Comment: The eGFR was calculated using the CKD-EPI equation. As with all creatinine based estimates of kidney function, eGFR values calculated with the CKD-EPI equation are not accurate in patients with acute kidney failure, extremes of body mass or the acutely ill. http://[employer]/[facility]nkf Blood specimen (specimen) 11/14/2018 9:02 AM EDT 11/14/2018 9:12 AM EDT Narrative Resulting Agency Comment Spec In Lab Ursula Walters APRN CHEMISTRY ORDERAB LES [facility] [place] [address] from Last 3 Months or Most Recently Relevant to Health Maintenance Care Teams Vinyl Flooring Installer Relationship Specialty Start Date End Date Eva Dang MD [address] [place], [place] [address] PCP - General Family Medicine 03/25/16
--- OUTSIDE RECORDS SUMMARY | 2024-05-16 18:43 | XMS_ITS | Encounter Summary ---
Author Organization [facility] Address [address] [place] [address] Care Team Providers Care Firmware Software Verification Engineer Name Role Phone Kamran Franks MD Primary Care Provider [phone] Encounter Details Date Type Department Care Team (Latest Contact Info) Description 07/07/2020 Lab Requisition [facility] Pathology & Laboratory Medicine - [facility] [address], [place] [phone] Eva Dang MD [address] [place] [phone] Encounter for general adult medical examination [...] Risk types, PCR Negative Negative 07/15/2020 15:22 [facility] Comment:No E6 or E7 mRNA is detected from HPV types 16,18,31,33,35,39,45,51,52,56,58,59,66, and 68 by department supervisor mediated amplification. Papanicolaou smear specimen (specimen) CERVIX UTERI STRUCTURE / Unknown 07/04/2020 15:00 EST 07/14/2020 10:40 EST us Eva Dang MD MICROBIOLOGY - GENERAL ORDERABLE S Final Result [facility] [address] [place] [address] * PAP TEST (07/04/2020 15:00 EST) Specimens A. Cervix and/or Endocervix , ThinPrep Imaging System with Manual Evaluation 07/15/2020 15:22 [facility] Specimen Adequacy Satisfactory for Evaluation - transformation zone component present 07/15/2020 15:22 [facility] General Categorization Negative for intraepithelial lesion or malignancy 07/15/2020 15:22 [facility] Attestation . 07/15/2020 15:22 [facility] at 1522 Clinical History See below 07/16/19 21 15:22 [facility] HPV The result for the Human Papillomavirus (HPV) Detection-High Risk Types is Negative. No E6 or E7 mRNA is detected from HPV types 16,18,31,33,35,39 ,45,51,52,56,58,5 9,66, and 68 by department supervisor mediated amplification.Tania stallings was performed on specimen [id number] and was resulted on 07/15/2020 1519 EST by ANNY, LAB INSTRUMENT RESULTS IN 07/15/2020 15:22 EST [facility] Performing Lab [facility] 07/15/2020 15:22 EST [facility] Scanned Images 07/15/2020 15:22 EST [facility] Papanicolaou smear specimen (specimen) CERVIX UTERI STRUCTURE / Unknown 07/04/2020 15:00 EST 07/07/2020 11:20 EST us Eva Dang MD PATHOLOGY ORDERABLES Final Resul t [facility] [address] [place] [address] documented in this encounter Visit Diagnoses Diagnosis Encounter for general adult medical examination without abnormal findings Unspecified general medical examination Encounter for screening for malignant neoplasm of cervix Screening for malignant neoplasm of the cervix Encounter for screening for human papillomavirus (HPV) Special screening examination for human papillomavirus (HPV) documented in this encounter Care Teams Firmware Software Verification Engineer Relationship Specialty Start Date End Date Kamran Franks MD [address] [place] [address] PCP - General 09/17/09 documented as of this encounter
--- OUTSIDE RECORDS SUMMARY | 2024-05-16 18:43 | XMS_ITS | Encounter Summary ---
Author Organization [facility] Address [address] [place] [address] Care Team Providers Care Private Investigator Name Role Phone Kamran Franks MD Primary Care Provider [phone] Reason for Visit * Reason Comments Follow-up Encounter Details Date Type Department Care Team (Latest Contact Info) Description 06/25/2019 15:30 EST Office Visit [facility] Occupational Medicine - [place] [address] [place] [address] Jorge Luis Mccray, PSYCH-MA [address] [place] [address] Somatic symptom disorder, mild, with [...] Primary documented in this encounter Care Teams Private Investigator Relationship Specialty Start Date End Date Kamran Franks MD [address] [place] [phone] PCP - General 09/17/09 documented as of this encounter
--- OUTSIDE RECORDS SUMMARY | 2024-05-16 18:43 | XMS_ITS | Encounter Summary ---
Author Organization [facility] Address [address] [place] [address] Care Team Providers Care Airways Control Specialist Name Role Phone Unavailable Primary Care Provider Unavailabl e Encounter Details Date Type Department Care Team (Late st Contact Info) Description 09/11/2009 Results Only [facility] Laboratory Services - [facility] ([facility]) [address] [place], [place] [phone] Kimo Clarke MD [address] [place] [phone] Social History Tobacco Use Types Packs/Day Years [...] ? SARAH SCHERER ? Accession #: ? [id number] ? : ? 1975 (Age: 34) ??F [...] of Report ? [facility] 09/11/2009 09/15/2009 us Kimo Clarke MD PATHOLOGY ORDERABLES Final Resul t [facility] [address] [place] [address] documented in this encounter Visit Diagnoses Not on filedocumented in this encounter
--- OUTSIDE RECORDS SUMMARY | 2024-05-16 18:43 | XMS_ITS | Encounter Summary ---
Author Organization [facility] Address [address] [place] [address] Care Team Providers Care Display Card Writer Name Role Phone Kamran Franks MD Primary Care Provider [phone] Encounter Details Date Type Department Care Team (Late st Contact Info) Description 10/08/[address] [facility] Laboratory Services - [facility] ([facility]) [address] [place], [place] [address] Toby Fall MD [address] [place] [phone] Social History Tobacco Use Types Packs/Day Years [...] GILMER, SARAH M ? Accession #: ? [id number] ? : ? 1975 (Age: 34) ??F [...] at the periphery of the papule. ??(Dr. Harrington)/abelardok ? Document reviewed and electronically signed by: ? Carolynn Harrington MD ? Report ??Date: 10/10/2009 12:45 ? By the signature above, the attending physician certifies that he/she has ? personally conducted a gross and/or microscopic examination of the described ? specimens and rendered or confirmed the above diagnosis. ? Specimen(s) Received: ? L lip lesion ? Clinical History: ? Expansile friable lesion [id number] ? Gross Description: ? Received in formalin labelled Gilmer, Sarah and left lip lesion is a ?? shave biopsy of ocampo-white skin measuring 0.5 x 0.4 x 0.1 cm. ??There is a ? central, dark brown, crusted papule measuring 0.3 x 0.3 x 0.3 cm. ??The specimen is bisected and is submitted entirely in one cassette. ??(Regulo Quispe)/lgk ? End of Report ? [facility] 10/08/2009 10/09/2009 13: 15 EDT us Toby Fall MD PATHOLOGY ORDERABLES Final Resul t Performing Organization Address City/State/[facility] Co de Phone Number [facility] [address] [place] [address] documented in this encounter Visit Diagnoses Not on filedocumented in this encounter Care Teams Display Card Writer Relationship Specialty Start Date End Date Kamran Franks MD [address] [place] [phone] PCP - General 09/17/09 documented as of this encounter
--- OUTSIDE RECORDS SUMMARY | 2024-05-16 18:43 | XMS_ITS | Encounter Summary ---
Author Organization [facility] [place] [address] Care Team Providers Care Shuttlecock Feather Trimmer Name Role Phone Eva Dang MD Primary Care Provider Reason for Referral * Consultation (Routine) - [...] Dang MD [address] [place] [address] [facility] Urology [address] [place] [phone] Referral ID Status Reason Start Date Expiration Date Visits Requested Visits Authorized [id number] Authorized Consult, Test & Treat PCP Updated and/or Approved 06/22/2023 06/21/2024 6 6 Encounter Details Date Type Department Care Team (Latest Contact Info) Description 06/22/2023 Transcribe Orders eDH Incoming Referrals [phone] Eva Dang MD [address] [place] [address] Urinary incontinence, unspecified type Social [...] 1:20 PM EST Office Visit Dermatology at [facility] [address] [place] [phone] Scheduled Referrals Name Type Priority Associated Diagnoses Orde r Schedule Referral to Urology Outpatient Referral Routine Urinary incontinence, unspecified type Ordered: 06/22/2023 documented as of this encounter Visit Diagnoses Diagnosis Urinary incontinence, unspecified type documented in this encounter Care Teams Shuttlecock Feather Trimmer Relationship Specialty Start Date End Date Eva Dang MD [facility] [address] [place] [address] PCP - General Family Medicine 03/25/16 documented as of this encounter
--- OUTSIDE RECORDS SUMMARY | 2024-05-16 18:43 | XMS_ITS | Encounter Summary ---
Author Organization [facility] Address [address] [place] [address] Care Team Providers Care Precision Millwright Name Role Phone Kimo Clarke MD Primary Care Provider [phone] Encounter Details Date Type Department Care Team (Late st Contact Info) Description 08/11/2005 Results Only [facility] - [place] conversion [address] [place] [address] Kimo Clarke MD [address] [place] [phone] Social History Tobacco Use Types Packs/Day Years [...] ? SARAH SCHERER ? Accession #: ? [id number] : ? 1975 (Age: 30) ??F ?Collect Date: ? 08/11/2005 Location: ? [facility] ? Receive Date: ? 08/13/2005 Provider: ?KIMO CLARKE MD Copy to: ? Specimen/Source: ?ThinPrep Pap Test, Cervix/Endocervix, processed on [employer] ThinPrep Imaging System, with manual evaluation Last [...] End of Report [facility] 08/11/2005 08/13/2005 us Kimo Clarke MD PATHOLOGY ORDERABLES Final Resul t [facility] [address] [place] [address] documented in this encounter Visit Diagnoses Not on filedocumented in this encounter Care Teams Precision Millwright Relationship Specialty Start Date End Date Kimo Clarke MD [address] [place] [address] PCP - General 09/17/09 documented as of this encounter
--- OUTSIDE RECORDS SUMMARY | 2024-05-16 18:43 | XMS_ITS | Referral Summary ---
Author Organization [facility] Address [address] [place] [address] Care Team Providers Care Lpn Cma Name Role Phone Kamran Franks MD Primary Care Provider [phone] Allergies Active Allergy Reactions Criticality Noted Date Comments Cephalexin 10/17/2009 House Dust 10/17/2009 Medications albuterol (PROVENTIL, VENTOLIN) 90 mcg/Actuation inhaler Inhale 2 Puffs as directed as needed for Wheezing. 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 Overview (10/17/2009): Repaired age 7 months Hyperlipidemia 10/17/2009 Overview (02/06/2015): ICD10 Update Auto Replacement Congestive heart failure ([facility]) 10/17/2009 Osteopenia 10/17/2009 Amenorrhea 10/17/2009 Obesity 10/17/2009 [...] Reading Time Taken Comments Blood Pressure 118/60 10/17/2009906 EDT Pulse 68 10/17/2009906 EDT Temperature - - Respiratory Rate - - Oxygen Saturation - - Inhaled Oxygen Concentration - - Weight 102.5 kg (226 lb) 10/17/2009906 EDT Height 165.1 cm (5' 5) 10/17/2009906 EDT Body Mass Index 37.61 10/17/2009906 EDT Plan of Treatment Not on file Procedures Procedure Name Priority Date/Time Associated Diagnosis Comments HEPATITIS C AB W REFLEX TO HCV RNA BY PCR Routine 09/12/2019 15:10 EDT from Last 3 Months or Most Recently Relevant to Health Maintenance Results * HEPATITIS C AB W REFLEX TO HCV RNA BY PCR (09/12/2019 15:10 EDT) Hep C Antibody Negative Negative 09/14/2019 10:37 EDT [facility] Blood VENOUS BLOOD / Unknown 09/12/2019 15:10 EDT 09/13/2019 16:19 EDT us Provider Outr Resulting Lab CHEMISTRY & BLOOD GA S ORDERABLES Final Result [facility] [address] [place] [address] from Last 3 Months or Most Recently Relevant to Health Maintenance Insurance [id number] Care Teams Lpn Cma Relationship Specialty Start Date End Date Kamran Franks MD [address] [place] [phone] PCP - General 09/17/09
--- OUTSIDE RECORDS SUMMARY | 2024-05-16 18:43 | XMS_ITS | Encounter Summary ---
Author Organization [facility] Address [address] [place] [address] Care Team Providers Care Church Supervisor Name Role Phone Kamran Franks MD Primary Care Provider Encounter Details Date Type Department Care Team (Late st Contact Info) Description 04/11/2020 Lab Requisition [facility] Pathology & Laboratory Medicine - [facility] [address] [place] [address] Outr Resulting Lab, Provider Social History Tobacco [...] COVID-19 rt-PCR Result NEGATIVE Negative 04/14/2020 14:10 [facility] Comment: 2019-novel Coronavirus (2019-nCoV) not detected [...] in accordance with CLIA regulations, College of Chinese Pathologists (CAP) guidelines (Jul 26, 2019), and FDA guidance (Jul 07, 2019). This test is only for use under the Food and Drug Administration's Emergency Use Authorization. Swab ENTIRE NASOPHARYNX / Unknown 04/11/2020 13:57 EST 04/11/2020 21:31 EST us Provider Outr Resulting Lab MICROBIOLOGY - GENER AL ORDERABLES Final Result [facility] [place], [place] * COVID-19 TESTING (04/11/2020 13:57 EST) [facility] COVID-19 rt-PCR Result NEGATIVE Negative 04/14/2020 14:[address] [facility] Comment: 2019-novel Coronavirus (2019-nCoV) not detected [...] in accordance with CLIA regulations, College of Chinese Pathologists (CAP) guidelines (Jul 26, 2019), and FDA guidance (Jul 07, 2019). This test is only for use under the Food and Drug Administration's Emergency Use Authorization. Performing Lab [facility] 04/14/2020 14:10 EST [facility] Swab 04/11/2020 13:5 7 EST 04/11/2020 21:31 EST us Provider Outr Resulting Lab MICROBIOLOGY - GENER AL ORDERABLES Final Result [facility] [address] [place] [address] [facility] [place], [place] documented in this encounter Visit Diagnoses Not on filedocumented in this encounter Care Teams Church Supervisor Relationship Specialty Start Date End Date Kamran Franks MD [address] [place] [address] PCP - General 09/17/09 documented as of this encounter
--- OUTSIDE RECORDS SUMMARY | 2024-05-16 18:43 | XMS_ITS | Encounter Summary ---
Author Organization [facility] Address [address] [place] [address] Care Team Providers Care Database Dba Name Role Phone Kimo Clarke MD Primary Care Provider [phone] Encounter Details Date Type Department Care Team (Late st Contact Info) Description 05/28/2004 Results Only [facility] - Maple conversion [address] [place] [address] Kimo Clarke MD [address] [place] [phone] Social History Tobacco Use Types Packs/Day Years [...] ? SARAH SCHERER ? Accession #: ? [id number] : ? 1975 (Age: 29) ??F ?Collect [...] ??06/03/2004 10:16 End of Report [facility] 05/28/2004 06/01/2004 us Kimo Clarke MD PATHOLOGY ORDERABLES Final Resul t [facility] [address] [place] [address] documented in this encounter Visit Diagnoses Not on filedocumented in this encounter Care Teams Database Dba Relationship Specialty Start Date End Date Kimo Clarke MD [address] [place] [address] PCP - General 09/17/09 documented as of this encounter
--- OUTSIDE RECORDS SUMMARY | 2024-05-16 18:43 | XMS_ITS | Clinical Summary ---
Author Organization [facility] Address [address] [place] [address] Care Team Providers Care Expediter Clerk Name Role Phone Kamran Franks MD Primary Care Provider [phone] Allergies Active Allergy Reactions Criticality Noted Date [...] ICD10 Update Auto Replacement Congestive heart failure ([facility]) 10/17/2009 Osteopenia 10/17/2009 Amenorrhea 10/17/2009 Obesity 10/17/2009 [...] Blood Pressure 118/60 10/17/2009906 EDT Pulse 68 10/17/2009 09 EDT Temperature - - Respiratory Rate - - Oxygen Saturation - - Inhaled Oxygen Concentration - - Weight 102.5 kg (226 lb) 10/17/2009906 EDT Height 165.1 cm (5' 5) 10/17/2009906 EDT Body Mass Index 37.61 10/17/2009 09 EDT Plan of Treatment Health Maintenance Due Date Last Done Comments Hepatitis B Vaccine (1 of 3 - 19+ 3-dose series) 03/03 COVID-19 Vaccine ( season) 2024 Hepatitis C Screen Completed 09/12/2019 Procedures Procedure Name Priority Date/Time Associated Diagnosis Comments HEPATITIS C AB W REFLEX TO HCV RNA BY PCR Routine 09/12/2019 15:10 EDT from Last 3 Months or Most Recently Relevant to Health Maintenance Results * HEPATITIS C AB W REFLEX TO HCV RNA BY PCR (09/12/2019 15:10 EDT) Hep C Antibody Negative Negative 09/14/2019 10:37 EDT [facility] Blood VENOUS BLOOD / Unknown 09/12/2019 15:10 EDT 09/13/2019 16:19 EDT us Provider Outr Resulting Lab CHEMISTRY & BLOOD GA S ORDERABLES Final Result [facility] [address] [place] [address] from Last 3 Months or Most Recently Relevant to Health Maintenance Insurance [facility] Care Teams Expediter Clerk Relationship Specialty Start Date End Date Kamran Franks MD [address] [place] [address] PCP - General 09/17/09
--- OUTSIDE RECORDS SUMMARY | 2024-05-16 18:43 | XMS_ITS | Encounter Summary ---
Author Organization [facility] Address [address] [place] [address] Care Team Providers Care Glass Grinder Name Role Phone Kimo Clarke MD Primary Care Provider [phone] Encounter Details Date Type Department Care Team (Late st Contact Info) Description 07/27/2001 Results Only [facility] - Maple conversion [address] [place] [address] Kimo Clarke MD [address] [place] [phone] Social History Tobacco Use Types Packs/Day Years [...] ? SARAH SCHERER ? Accession #: ? [id number] : ? 1975 (Age: 26) ??F ?Collect [...] Document reviewed and electronically signed by: ? Phylicia Garland, CT(ASCP) ? Report Date: ??08/03/2001 07:16 End of Report [facility] 07/27/2001 07/31/2001 us Kimo Clarke MD PATHOLOGY ORDERABLES Final Resul t [facility] [address] [place] [address] documented in this encounter Visit Diagnoses Not on filedocumented in this encounter Care Teams Glass Grinder Relationship Specialty Start Date End Date Kimo Clarke MD [address] [place] [address] PCP - General 09/17/09 documented as of this encounter
--- OUTSIDE RECORDS SUMMARY | 2024-05-16 18:43 | XMS_ITS | Encounter Summary ---
Author Organization [facility] Address [address] [place] [address] Care Team Providers Care Roentgenologist Name Role Phone Kimo Clarke MD Primary Care Provider [phone] Encounter Details Date Type Department Care Team (Late st Contact Info) Description 08/10/2012 Results Only [facility] - [facility] [address] [place] [phone] Kimo Clarke MD [address] [place] [phone] Social History Tobacco Use Types Packs/Day Years [...] ? SARAH SCHERER ? Accession #: ? [id number] : ? 1975 (Age: 37) ??F ?Collect [...] Date: ??08/16/2012 15:59 End of Report [facility] 08/10/2012 08/14/2012 us Kimo Clarke MD PATHOLOGY ORDERABLES Final Resul t [facility] [address] [place] [address] documented in this encounter Visit Diagnoses Not on filedocumented in this encounter Care Teams Roentgenologist Relationship Specialty Start Date End Date Kimo Clarke MD [address] [place] [address] PCP - General 09/17/09 documented as of this encounter
--- OUTSIDE RECORDS SUMMARY | 2024-05-16 18:43 | XMS_ITS | Encounter Summary ---
Author Organization [facility] Address [address] [place] [address] Care Team Providers Care Patient Care Manager Name Role Phone Kamran Franks MD Primary Care Provider [phone] Encounter Details Date Type Department Care Team (Late st Contact Info) Description 09/10/2003 Results Only [facility] - Maple conversion [address] [place] [address] Eva Dang MD [address] [place] [phone] Social History Tobacco Use Types Packs/Day [...] ? SARAH SCHERER ? Accession #: ? [id number] : ? 1975 (Age: 28) ??F ?Collect [...] End of Report [facility] 09/10/2003 09/12/2003 us Eva Dang MD PATHOLOGY ORDERABLES Final Resul t [facility] [address] [place] [address] documented in this encounter Visit Diagnoses Not on filedocumented in this encounter Care Teams Patient Care Manager Relationship Specialty Start Date End Date Kamran Franks MD [address] [place] [address] PCP - General 09/17/09 documented as of this encounter
--- OUTSIDE RECORDS SUMMARY | 2024-05-16 18:43 | XMS_ITS | Encounter Summary ---
Author Organization [facility] Address [address] [place] [address] Care Team Providers Care Shoe Stamper Name Role Phone Kamran Franks MD Primary Care Provider [phone] Reason for Visit * Reason Onset Date Comments Results 08/17/2016 Encounter Details Date Type Department Care Team (Late st Contact Info) Description 08/17/2016 Telephone [facility] Pediatric Cardiology - [facility] [address] [place] [address] Yamilex Tijerina MD Results Social History Tobacco Use Types Packs/Day [...] Telephone Encounter - Luz Alfaro - 08/17/2016 8754 EDT Zulma, from Pedi Cardiology at [facility], is calling to see if they can get the lastest EKG reading, that had ordered for Sarah, and fax to their office. The fax number is [phone]. Ifmichel need to call her, she can be reached at [phone]. Addendum, KPW: Above faxed. documented in this encounter Plan of Treatment Not on file documented as of this encounter Visit Diagnoses Not on filedocumented in this encounter Care Teams Shoe Stamper Relationship Specialty Start Date End Date Kamran Franks MD [address] [place] [address] PCP - General 09/17/09 documented as of this encounter
--- OUTSIDE RECORDS SUMMARY | 2024-05-16 18:43 | XMS_ITS | Encounter Summary ---
Author Organization [facility] Address [address] [place] [address] Care Team Providers Care Dope Weigh Operator Name Role Phone Kimo Clarke MD Primary Care Provider [phone] Encounter Details Date Type Department Care Team (Late st Contact Info) Description 04/24/2002 Results Only [facility] - Maple conversion [address] [place] [address] Kimo Clarke MD [address] [place] [phone] Social History Tobacco Use Types Packs/Day Years [...] ? SARAH SCHERER ? Accession #: ? [id number] : ? 1975 (Age: 27) ??F ?Collect [...] End of Report [facility] 04/24/2002 04/26/2002 us Kimo Clarke MD PATHOLOGY ORDERABLES Final Resul t [facility] [address] [place] [address] documented in this encounter Visit Diagnoses Not on filedocumented in this encounter Care Teams Dope Weigh Operator Relationship Specialty Start Date End Date Kimo Clarke MD [address] [place] [address] PCP - General 09/17/09 documented as of this encounter
--- OUTSIDE RECORDS SUMMARY | 2024-05-16 18:44 | XMS_ITS | Encounter Summary ---
[place] [address] Care Team Providers Care Grain Wafer Machine Operator Name Role Phone Eva Dang MD Primary Care Provider [phone] Encounter Details Date Type Department Care Team (Late st Contact Info) Description 10/17/2017 9:20 AM EDT Office [place] [address] Juvencio Dos Santos MD Intractable chronic migraine without aura and without [...] and to our continued treatment at the [facility]. She would like to proceed with trial [...] Dos Santos MD Treatment # 1 Lot #:[id number] Exp: May 2020 Dilution: 1:4 Diluent: Normal Saline Indication: Chronic Intractable Migraine without status migrainosus Injection SItes Muscle Fixed Site/Fixed Dose Shirt Ironer Supervisor 10 Units divided in 2 sites Procerus [...] 1:20 PM EST Office Visit Dermatology at [facility] [address] [place] [address] documented as of this encounter Procedures Procedure [...] Dos Santos MD Treatment # 1 Lot #:[id number] ?Exp: May 2020 Dilution: ??1:4 Diluent: ?? Normal Saline Indication: ?? Chronic Intractable Migraine without status migrainosus Injection SItes Muscle ? Fixed Site/Fixed Dose ? Shirt Ironer Supervisor ? 10 Units divided in 2 sites [...] 200 Units, Intramuscular, ONCE, 1 dose, On Tue10/17/17 at 1100, Routine Given 10/17/2017 10:31 AM EDT 155 Units 20-Other (document in comment section) documented in this encounter Care Teams Grain Wafer Machine Operator Relationship Specialty Start Date End Date Eva Dang MD [address] [facility] [address] [place] [address] PCP - General Family Medicine 03/25/16 documented as of this encounter
--- OUTSIDE RECORDS SUMMARY | 2024-05-16 18:44 | XMS_ITS | Encounter Summary ---
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 [place] [address] Referral ID Status Reason Start Date Expiration Date V isits Requested Visits Authorized [id number] Closed Specialty Service Requested 06/14/2017 06/14/2018 1 1 Encounter Details Date Type Department Care Team (Late st Contact Info) Description 06/20/2017 10:00 AM EST Office [place] [address] All Davies MD Total anomalous pulmonary venous return; Elevated cholesterol; [...] Robles in the Cong[facility] Cardiology [facility] at [facility] for: ?? Post-surgical correction of total [...] cyanotic. ?? Cardiac surgery. 1973. Dr Vazquez, [facility] ?? Surgical anastomosis of pulmonary venous confluence to posterior left atrium, patient foramen ovale closure ?? Post op course uncomplicated. ?? Post-op Cardiac cath. Age ~1.5 years. [facility] ?? Reportedly good sized, unobstructed pulmonary veins & anastomosis ?? Cardiac evaluation. 06/24/1993. Age [address] Yamilex Tijerina, [facility]. [place], [place] ?? History: ?? 4 months with her first child. Episodes of hot flushing & nausea ?? Exam: ?? BP 129/67 mm Hg, soft systolic ejection murmur, normal A2-P2, no lung crackles. ?? Electrocardiogram: ?? Sinus rhythm at 80/min ?? Some mild ST wave flattening ?? Echocardiogram: ?? Cardiac evaluation. 08/08/1996. Age [address] Yamilex Tijerina, [facility]. [place], [place] ?? History: ?? 5 months with [...] 1996. Age [address] Khai Mahoney. [place], [place] ?? 'no evidence of problems of any [...] evaluation. 08-17-2016. Age [address] Davies. [facility] ?? History: Chronic excessive fatigue from post-concussive [...] ~67/min. ?? Cardiac MRI, 11/18/2016. Dr Heath. [facility] ?? Status-post repair of totally anomalous pulmonary [...] Family History: ?? Premature atherosclerosis: father (2 UT, fist at age 52 years, smoker, of lung Ca), pu (UT at age >60 years), pa (UT at age >60 years) Hypertension: mother (treated [...] Vitals: 06/20/17 0957 BP: 122/70 BP Location (NB): Right arm Patient Position: Sitting BP Cuff [...] Hg. ?? Cardiac Rhythm: ?? Palpitation ?? AppMesho ambulatory electrocardiographic monitor in 08/2016 showed: ?? 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
--- OUTSIDE RECORDS SUMMARY | 2024-05-16 18:44 | XMS_ITS | Encounter Summary ---
[place] [address] Care Team Providers Care Dinkey Engine Mechanic Name Role Phone Eva Dang MD Primary Care Provider [phone] Reason for Visit * Reason Onset Date Comments Other 08/03/2018 Encounter Details Date Type Department Care Team (Late st Contact Info) Description 08/03/2018 [place] [phone] Ursula Walters APRN Other Social History Tobacco Use Types Packs/Day [...] PM EDT Left a message for Yaneth Medina on her cell phone, and for her to please call me regarding this patient * Telephone Encounter - Prachi Dudley - 08/03/2018 4:02 PM EDT Clinical Passenger Booking Clerk Message Provider calling for Provider call Caller: Yaneth West Call back number: [phone] Is the Provider in: YES Does the caller want the provider paged: No What is the message for the Provider: Pt's pcp office would like to discuss a medication change with the team What is the best time for the caller to be reached: is leaving at 5 today, and is also available via email at [email or web address] Disposition of Call ?? Message forwarded to provider to call outside provider documented in this encounter Plan of Treatment Upcoming Encounters Date Type Department Care Team (Late st Contact Info) Description 06/21/2024 1:20 PM EST Office Visit Dermatology at [facility] [address] [place] [address] documented as of this encounter Visit Diagnoses Not on filedocumented in this encounter Care Teams Dinkey Engine Mechanic Relationship Specialty Start Date End Date Eva Dang MD [address] [place] [address] PCP - General Family Medicine 03/25/16 documented as of this encounter
--- OUTSIDE RECORDS SUMMARY | 2024-05-16 18:44 | XMS_ITS | Encounter Summary ---
Author Organization [facility] [place] [address] Care Team Providers Care Compound Worker Name Role Phone Eva Dang MD Primary Care Provider [phone] Reason for Visit * Reason Onset Date Comments Other 10/13/2017 Encounter Details Date Type Department Care Team (Late st Contact Info) Description 10/13/2017 [place] [address] [place] [address] Other Social History Tobacco Use Types Packs/Day [...] 2:53 PM EDT Call made to the stenographer secretary to contact the patient to schedule [...] the day Best number to reach caller: [phone] Reason for call: Patient called to discuss [...] 1:20 PM EST Office Visit Dermatology at [facility] [address] [place] [address] documented as of this encounter Visit Diagnoses Not on filedocumented in this encounter Care Teams Compound Worker Relationship Specialty Start Date End Date Eva Dang MD [address] [place] [address] PCP - General Family Medicine 03/25/16 documented as of this encounter
--- OUTSIDE RECORDS SUMMARY | 2024-05-16 18:44 | XMS_ITS | Encounter Summary ---
Author Organization [facility] [place] [address] Care Team Providers Care Research Subject Name Role Phone Eva Dang MD Primary Care Provider [phone] Reason for Visit * Reason Onset Date Comments Medication Refill 08/24/2019 Encounter Details Date Type Department Care Team (Late st Contact Info) Description 08/24/2019 Refill Neurology at [facility] [address] [place] [phone] Ursula Walters APRN Chronic migraine without aura without status migrainosus, [...] 1:20 PM EST Office Visit Dermatology at [facility] [address] [place] [address] documented as of this encounter Visit Diagnoses Diagnosis Chronic migraine without aura without status migrainosus, not intractable Chronic migraine without aura, without mention of intractable migraine without mention of status migrainosus documented in this encounter Care Teams Research Subject Relationship Specialty Start Date End Date Eva Dang MD [address] [place] [address] PCP - General Family Medicine 03/25/16 documented as of this encounter
--- OUTSIDE RECORDS SUMMARY | 2024-05-16 18:44 | XMS_ITS | Encounter Summary ---
Author Organization [facility] [place] [address] Care Team Providers Care Quail Farmer Name Role Phone Eva Dang MD Primary Care Provider [phone] Encounter Details Date Type Department Care Team (Latest Contact Info) Description 11/03/2016 1:00 PM EDT Office Visit Psychiatry [place] [address] Melanie Dykes APRN [facility] [address] Attention or concentration deficit; Concussion with no [...] 1:20 PM EST Office Visit Dermatology at [facility] [address] [place] [address] documented as of this encounter Visit Diagnoses Diagnosis Attention or concentration deficit Concussion with no loss of consciousness, sequela Work related injury Injury, other and unspecified, unspecified site documented in this encounter Care Teams Quail Farmer Relationship Specialty Start Date End Date Eav Dang MD [address] [place] [address] PCP - General Family Medicine 03/25/16 documented as of this encounter
--- OUTSIDE RECORDS SUMMARY | 2024-05-16 18:44 | XMS_ITS | Encounter Summary ---
Author Organization [facility] Address [facility] [place] [address] Care Team Providers Care Door Glass Installer Name Role Phone Eva Dang MD Primary Care Provider [phone] Reason for Visit * Diagnostic Test (Routine) - Closed Specialty Diagnoses / Procedures Referred By Angy munroe Referred To Contact Radiology Diagnoses TAPVR (total anomalous pulmonary venous return) Procedures MRI Cardiac Morph Func wwo Contrast All Davies MD [facility] [place] [address] [facility] [place] [address] Referral ID Status Reason Start Date Expiration Date V isits Requested Visits Authorized [id number] Closed Specialty Service Requested 11/19/2016 02/17/2017 2 2 Encounter Details Date Type Department Care Team (Latest Contact Info) Description 11/18/2016 8:58 AM EDT - 11/18/2016 11:59 PM EDT [place] [address] All Davies MD Discharge Disposition: Home Social History Tobacco Use [...] 1:20 PM EST Office Visit Dermatology at [facility] [address] [place] [address] documented as of this encounter Procedures Procedure [...] mLs documented in this encounter Care Teams Door Glass Installer Relationship Specialty Start Date End Date Eva aDng MD [facility] [address] [place] [address] PCP - General Family Medicine 03/25/16 documented as of this encounter
--- OUTSIDE RECORDS SUMMARY | 2024-05-16 18:44 | XMS_ITS | Encounter Summary ---
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 Procedures Echocardiogram Transthoracic(Leb) All Davies MD [facility] [place] [address] [facility] [place] [address] Referral ID Status Reason Start Date Expiration Date V isits Requested Visits Authorized [id number] Closed Specialty Service Requested 06/14/2017 06/14/2018 1 1 Encounter Details Date Type Department Care Team (Late st Contact Info) Description 06/14/2017 Orders [place] [address] All Davies MD Total anomalous pulmonary venous return; Congenital heart [...] 1:20 PM EST Office Visit Dermatology at [facility] [address] [place] [address] documented as of this encounter Results * CONGENITAL ECHO COMPLETE (06/20/2017 9:54 AM EST) Anatomical Region Laterality Modality Other 06/20/2017 Narrative 06/20/2017 3:09 PM EST Procedure: ?Pediatric Echocardiogram Patient: ?GILMER Garzon ?(Age): 1975(42y) ? Med Rec#: ? [id number] ?Sex: ?F ? Site Loc: ? [facility] ?Ht / Wt: ??168(cm)/101(kg) Pt. Loc: ?Echo Lab ?BSA: ?2.21 ([facility]) Study Date: ?? 06/20/2017 ?Pt. Type: Study Quality: ? Referring: All Davies (382) Referring: NAYA Reading: All Davies (188) Ophthalmic Assistant: USR Senior Data Architect: Jonas Hanna Diagnosis: *ICD-10-PCS Total anomalous pulmonary [...] draining unobstructed ipsilateral lobar veins (MRI, 11/2016 [facility]). 2. Image quality is sub-optimal. 3. Right [...] 06/20/2017 15:08:58 Images reviewed and interpretation verified [facility] Cardiac Ultrasound Laboratory Procedure Note All Davies MD - 06/20/2017 Procedure: Pediatric Echocardiogram Patient: GILMER Garzon (Age): 1975(42y) Med Rec#: [id number] Sex: F Site Loc: [facility] Ht / Wt: 168(cm)/101(kg) Pt. Loc: Echo Lab BSA: 2.21 ([facility]) Study Date: 06/20/2017 Pt. 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 2. Image quality is sub-optimal. 3. 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
--- OUTSIDE RECORDS SUMMARY | 2024-05-16 18:44 | XMS_ITS | Encounter Summary ---
Author Organization [facility] Address [facility] [place] [address] Care Team Providers Care Marine Gear Keeper Name Role Phone Eva Dang MD Primary Care Provider [phone] Reason for Visit * Reason Comments Referral Headache * Consultation (Routine) - Closed Specialty Diagnoses / Procedures Referred By Angy munroe Referred To Contact Neurology Diagnoses Post concussive syndrome Other complicated headache syndrome Mima Woodson MD [facility] [place] [address] [facility] [address] [place] [phone] Referral ID Status Reason Start Date Expiration Date V isits Requested Visits Authorized [id number] Closed Consult, Test & Treat 04/12/2017 04/12/2018 1 1 Encounter Details Date Type Department Care Team (Late st Contact Info) Description 06/13/2017 8:30 AM EST Office [place] [address] Radha Jimenez MD Tzikas, Nicholas, MD [facility] [place] [address] Intractable chronic post-traumatic headache; Migraine without aura [...] with migrainous features - Speak with your manager of investigations about possibility of adding a blood pressure [...] difficult to treat. 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 Baseline 7-8/10. Associated symptoms included nausea (no emesis), photophonophobia, [...] will first be discussing it with her manager of investigations. She started taking Magnesiumand Riboflavin yesterday. No [...] pt would likely want approval from her manager of investigations prior to starting any triptans/ergots). We discussed the possibility of adding an anti-hypertensive, specifically Candesartan, as her BP could tolerate it and it would provide brien- protective effects in the setting of Diabetes, but the patient will discuss this with her manager of investigations and PMD first. Botox would be the [...] 2019 Department of Neurology Headache Medicine [facility] [place] documented in this encounter Plan of Treatment Upcoming Encounters Date Type Department Care Team (Late st Contact Info) Description 06/21/2024 1:20 PM EST Office Visit Dermatology at [address] [address] documented as of this encounter Visit Diagnoses Diagnosis Intractable chronic post-traumatic headache Chronic post-traumatic headache Migraine without aura and without status migrainosus, not intractable Migraine without aura, without mention of intractable migraine without mention of status migrainosus documented in this encounter Care Teams Marine Gear Keeper Relationship Specialty Start Date End Date Eva Dang MD [facility] [address] [place] [address] PCP - General Family Medicine 03/25/16 documented as of this encounter
--- OUTSIDE RECORDS SUMMARY | 2024-05-16 18:44 | XMS_ITS | Encounter Summary ---
Author Organization [facility] [place] [address] Care Team Providers Care Claims Specialist Name Role Phone Eva Dang MD Primary Care Provider [phone] Encounter Details Date Type Department Care Team (Late st Contact Info) Description 12/14/2019 10:00 AM EDT Office Visit Neurology at [address] [phone] Ursula Walters, MIREYA Chronic migraine without aura without status migrainosus, [...] documented in this encounter Progress Notes * Romeo Ursula Natacha, GENERAL ASSIGNMENT REPORTER - 12/14/2019 10:00 AM EDT Neurology Headache [...] report constipation and wearing off effect with mobiTeris. Prior to mobiTeris she was having 90/90 headache days. July [...] mouth daily. ??? fluticasone (FLONASE) 50 mcg/actuation [place], Suspension 1 spray by Each Nare route [...] [] Acupuncture [] Acupressure [] Biofeedback [] Donor Relations Manager [] Cognitive Behavioral Therapy [] Massage therapy [...] and depression, postconcussive sxms s/p head injury 2015 and chronic migraine without aura. She is [...] up in six months. Ursula Walters APRN [facility] Neurology Headache Clinic documented in this encounter Plan of Treatment Upcoming Encounters Date Type Department Care Team (Late st Contact Info) Description 06/21/2024 1:20 PM EST Office Visit Dermatology at [facility] [address] [place] [address] documented as of this encounter Visit Diagnoses [...] migrainosus documented in this encounter Care Teams Claims Specialist Relationship Specialty Start Date End Date Eva Dang MD [facility] [address] [place] [address] PCP - General Family Medicine 03/25/16 documented as of this encounter
--- OUTSIDE RECORDS SUMMARY | 2024-05-16 18:44 | XMS_ITS | Encounter Summary ---
Author Organization [place] [address] Care Team Providers Care Aircraft Fuselage Framer Name Role Phone Eva Dang MD Primary Care Provider [phone] Reason for Referral * High Dollar Medication (Routine) - Specialty Diagnoses / Procedures Referred By Angy munroe Referred To Contact Neurology Diagnoses Chronic migraine Procedures Auth Request for Medication TC ONABOTULINUMTOXINA, 1 UNIT, INJECTION PRO CHEMODENERVATION FACIAL/TRIGEM/CERV MUSC MIGRAINE Botox Dirk Davis MD [facility] [place] [address] [facility] [address] [place] [phone] Referral ID Status Reason Start Date Expiration Date V isits Requested Visits Authorized [id number] Consult, Test & Treat 12/28/2017 12/28/2018 4 4 Reason for Visit * Reason Comments Follow-up Encounter Details Date Type Department Care Team (Late st Contact Info) Description 09/09/2017 10:00 AM EDT [place] [address] Radha Jimenez MD Tzikas, Nicholas, MD [facility] [place] [address] Type 2 diabetes mellitus without complication, without [...] will first be discussing it with her java web application developer. She started taking Magnesiumand Riboflavin yesterday. No [...] pt would likely want approval from her java web application developer prior to starting any triptans/ergots). We discussed the possibility of adding an anti-hypertensive, specifically Candesartan, as her BP could tolerate it and it would provide brien- protective effects in the setting of Diabetes, but the patient will discuss this with her java web application developer and PMD first. Botox would be the [...] 2019 Department of Neurology Headache Medicine [facility] [place] * Radha Jimenez MD - 09/09/2017 10:00 AM EDT Neurology Attending Note Radha Jimenez MD (Pg [phone]) I certify that I have seen and [...] PM EST Office Visit Dermatology at [facility] [address] [place] [address] documented as of this encounter Results * (ABNORMAL) Basic Metabolic Panel (non-fasting) (09/09/2017 11:12 AM EDT) Glucose 149 65 - 199 mg/dL [facility] Comment:Diabetes: >=200 mg/d L plus symptoms Blood Urea Nitrogen 11 8 - 18 mg/dL [facility] Creatinine 0.68(L) 0.70 - 1.20 mg/dL [facility] Sodium 138 135 - 145 mmol/L [facility] Potassium 4.1 3.5 - 5.0 mmol/L [facility] Comment: Please note: ??Patients with WBC >100,000 may have falsely elevated Potassium levels. ??For accurate Potassium quantification in these patients send serum separator tube (gold top) for subsequent determinations. ??Contact the Clinical Chemistry Laboratory if there are any questions. Chloride 102 98 - 107 mmol/L [facility] Carbon Dioxide 26 22 - 31 mmol/L [facility] Anion Gap 10 5 - 15 mmol/L [facility] Calcium 8.8 8.5 - 10.5 mg/dL [facility] Est Glomerular Filtration Rate >60 >=60 [facility] Comment: The reported eGFR should be multiplied by 1.2 for patients. The MDRD is not an appropriate measure of renal function for patients with body mass extremes or in patients with acute kidney failure. http://[employer]/DHnkdep http://[employer]/DHMCnkf Blood specimen (specimen) 09/09/2017 11:12 AM EDT 09/09/2017 11:18 AM EDT Narrative Resulting Agency Comment Spec In Lab Dirk Davis MD CHEMISTRY ORDERABLES [facility] [place] [address] documented in this encounter Visit Diagnoses Diagnosis [...] migrainosus documented in this encounter Care Teams Aircraft Fuselage Framer Relationship Specialty Start Date End Date Eva Dang MD [address] [place] [address] PCP - General Family Medicine 03/25/16 documented as of this encounter
--- OUTSIDE RECORDS SUMMARY | 2024-05-16 18:44 | XMS_ITS | Encounter Summary ---
[place] [address] Care Team Providers Care Community Administrator Name Role Phone Eva Dang MD Primary Care Provider [phone] Reason for Referral * Psychiatric (Routine) - Closed Specialty Diagnoses / Procedures Referred By Angy munroe Referred To Contact Psychiatry Diagnoses Attention or concentration deficit Head injury, sequela Work related injury Melanie Dykes APRN [facility] [place] [address] [facility] Neuro [address] [place] [phone] Referral ID Status Reason Start Date Expiration Date V isits Requested Visits Authorized [id number] Closed Consult & Test 11/03/2016 11/03/2017 1 1 Encounter Details Date Type Department Care Team (Late st Contact Info) Description 11/03/2016 Orders Only Psychiatry [place] [address] Melanie Dykes HOME CARE COMPANION [facility] [place] [address] Attention or concentration deficit; Head injury, sequela; [...] Visit Dermatology at [address] [place] [address] Scheduled Referrals Name Type Priority Associated Diagnoses Orde r Schedule Referral to Neuropsychology Outpatient Referral Routine Attention or concentration deficit Head injury, sequela Work related injury Ordered: 11/03/2016 documented as of this encounter Visit Diagnoses Diagnosis Attention or concentration deficit Head injury, sequela Work related injury Injury, other and unspecified, unspecified site documented in this encounter Care Teams Community Administrator Relationship Specialty Start Date End Date Eva Dang MD [address] [place] [address] PCP - General Family Medicine 03/25/16 documented as of this encounter
--- OUTSIDE RECORDS SUMMARY | 2024-05-16 18:44 | XMS_ITS | Encounter Summary ---
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 Procedures Echocardiogram Transthoracic(Leb) All Davies MD [facility] [place] [address] [facility] [place] [address] Referral ID Status Reason Start Date Expiration Date V isits Requested Visits Authorized [id number] Closed Specialty Service Requested 06/14/2017 06/14/2018 1 1 Reason for Visit * Diagnostic Test (Routine) - Closed Specialty Diagnoses / Procedures Referred By Contac t Referred To Contact Cardiology Diagnoses 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 Procedures Echocardiogram Transthoracic(Leb) All Davies MD [facility] [place] [address] [facility] [place] [address] Referral ID Status Reason Start Date Expiration Date V isits Requested Visits Authorized [id number] Closed Specialty Service Requested 06/14/2017 06/14/2018 1 1 Encounter Details Date Type Department Care Team (Latest Contact Info) Description 06/20/2017 8:36 AM EST - 06/20/2017 11:59 PM EST Hospital Encounter Non-Invasive [place] [address] Total anomalous pulmonary venous return; Congenital heart [...] 1:20 PM EST [facility] [address] [place] [address] documented as of this encounter Procedures Procedure [...] Garzon ?(Age): 1975(42y) ? Med Rec#: ? [id number] ?Sex: ?F ? Site Loc: ? [facility] ?Ht / Wt: ??168(cm)/101(kg) Pt. Loc: ?Echo Lab ?BSA: ?2.21 ([facility]) Study Date: ?? 06/20/2017 ?Pt. Type: Study Quality: ? Referring: All Davies (136) Referring: NAYA Reading: All Davies (636) All Purpose Clerk: USR Bicycle Designer: Jonas Hanna Diagnosis: *ICD-10-PCS Total anomalous pulmonary [...] draining unobstructed ipsilateral lobar veins (MRI, 11/2016 [facility]). 2. Image quality [...] 06/20/2017 15:08:58 Images reviewed and interpretation verified [facility] Cardiac Ultrasound Laboratory Procedure Note All Davies MD - 06/20/2017 Procedure: Pediatric Echocardiogram Patient: GILMER Garzon (Age): 1975(42y) Med Rec#: [id number] Sex: F Site Loc: [facility] Ht / Wt: 168(cm)/101(kg) Pt. Loc: Echo Lab BSA: 2.21 ([place]) Study Date: 06/20/2017 Pt. 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). 2. Image quality [...] This report has been electronically signed by: Azalea Davies M.D. 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
--- OUTSIDE RECORDS SUMMARY | 2024-05-16 18:44 | XMS_ITS | Encounter Summary ---
Author Organization [facility] [place] [address] Care Team Providers Care Tearer Name Role Phone Eva Dang MD Primary Care Provider [phone] Reason for Visit * Consultation (Routine) - Closed Specialty Diagnoses / Procedures Referred By Angy munroe Referred To Contact Neurology Diagnoses TBI- postconcussive syndrome of 01/2016 Radha Barraza, VALIDATION TECHNICIAN [address] [place] [address] [facility] [address] [place] [phone] Referral ID Status Reason Start Date Expiration Date V isits Requested Visits Authorized [id number] Closed Connection Center 07/26/2016 07/26/2017 1 1 Encounter Details Date Type Department Care Team (Late st Contact Info) Description 11/03/2016 1:00 PM EDT Office Visit Psychiatry [place] [address] Mima Woodson MD [facility] [place] [address] Headache, unspecified headache type; Photosensitivity [...] medicine: I recommend that she see an foreign law consultant who specializes in post traumatic visual disorders. [...] examination and recommendations. 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 On January 25, she was cleaning [...] I believe) after having to wait at [employer] for some sortof paperwork, received a head [...] to dizziness, headaches (which were daily/constant until April/May), and fatigue. 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 [...] to headache clinic for treatment of headaches ([facility] For cognition (if above measures [...] 1:20 PM EST Office Visit Dermatology at [address] [place] [address] documented as of this encounter Visit Diagnoses Diagnosis Headache, unspecified headache type Photosensitivity Acute dermatitis due to solar radiation documented in this encounter Care Teams Tearer Relationship Specialty Start Date End Date Eva Dang MD [facility] LUPIS GARC[address] [place] [address] PCP - General Family Medicine 03/25/16 documented as of this encounter
--- OUTSIDE RECORDS SUMMARY | 2024-05-16 18:44 | XMS_ITS | Encounter Summary ---
Author Organization [facility] Address [facility] [address] Care Team Providers Care Parquet Floor Layer Name Role Phone Eva Dang MD Primary Care Provider [phone] Reason for Visit * High Dollar Medication (Routine) - Specialty Diagnoses / Procedures Referred By Angy munroe Referred To Contact Neurology Diagnoses Chronic migraine Procedures Auth Request for Medication TC ONABOTULINUMTOXINA, 1 UNIT, INJECTION PRO CHEMODENERVATION FACIAL/TRIGEM/CERV MUSC MIGRAINE Botox Dirk Davis MD [facility] [place] [address] [facility] Neu[facility] [address] [place] [address] Referral ID Status Reason Start Date Expiration Date V isits Requested Visits Authorized [id number] Consult, Test & Treat 12/28/2017 12/28/2018 4 4 Encounter Details Date Type Department Care Team (Late st Contact Info) Description 07/03/2018 3:00 PM EST [place] [address] Ursula Walters APRN Migraine without aura and with status migrainosus, [...] Patient Instructions * Patient Instructions* Ursula Meyers, MIREYA - 07/03/2018 3:00 PM EST Images from the original note were not included. Office Number: ([place]) Clinic nurse number for most issues and prescription refills (Stacy) (Parul) For Prescription Refills: Please call for refills when you have one month left on your medication, we have 48 hours from the time you call to get the medication refill placed. Please call the clinic rather then using [employer] or e-mail, as the communication is better [...] break. Use a new autoinjector and call [phone] ( ). AIMOVIG comes as a single-dose [...] Ursula Meyers APRN in three months [facility] [place] [...] or [place]), postconcussive sxms s/p head injury 2015. Interval History:Onset of headache was 01/26/16 immediately [...] day if GARCIA lasted > 1 day) 90/90 B. Average GARCIA intensity (0-10) 12/16 ROS: Medications: Current Outpatient Medications Medication Sig Dispense Refill ??? rosuvastatin (CRESTOR) 20 mg Tablet Take 20 mg by mouth daily. ??? fluticasone (FLONASE) 50 mcg/actuation Center, Suspension 1 spray by Each Nare route [...] [] Acupuncture [] Acupressure [] Biofeedback [] Bender Machine Operator [] Cognitive Behavioral Therapy [] [...] in three months. Ursula Meyers APRN [facility] [place] Neurology Headache Clinic documented in this encounter Plan of Treatment Upcoming Encounters Date Type Department Care Team (Late st Contact Info) Description 06/21/2024 1:20 PM EST Office Visit Dermatology at [facility] [address] [place] [address] documented as of this encounter Visit Diagnoses Diagnosis Migraine without aura and with status migrainosus, not intractable- Primary Migraine without aura, without mention of intractable migraine with status migrainosus documented in this encounter Care Teams Parquet Floor Layer Relationship Specialty Start Date End Date Eva Dang MD [address] [place] [address] PCP - General Family Medicine 03/25/16 documented as of this encounter
--- OUTSIDE RECORDS SUMMARY | 2024-05-16 18:44 | XMS_ITS | Encounter Summary ---
[place] [address] Care Team Providers Care Pallet Stone Positioner Name Role Phone Eva Dang MD Primary Care Provider [phone] Reason for Visit * Reason Comments Medication Management Encounter Details Date Type Department Care Team (Late st Contact Info) Description 08/24/2018 Specialty [place] [address] Miya Vera RPH Social History Tobacco Use [...] beneficiary Provider: plan sponsor pharmacist Visit Type: [facility] Follow-up Method of Contact: by telephone Cognitive Impairment Status Verified this Year: no Allergies and Drug intolerance: Allergies Allergen Reactions ??? Cephalexin Other (See Comments) Patient unknown ??? House Dust Medication Reconciliation Discrepancies (compared to [facility] med list) -none New medications: yes - [...] were made at the appointment and that [facility] is providing recommendations (summary located at top of note) for provider review and follow up. Miya Vera RPH 08/24/18 3:46 PM documented in this encounter Plan of Treatment Upcoming Encounters Date Type Department Care Team (Late st Contact Info) Description 06/21/2024 1:20 PM EST Office Visit Dermatology at [address] [address] documented as of this encounter Visit Diagnoses Not on filedocumented in this encounter Care Teams Pallet Stone Positioner Relationship Specialty Start Date End Date Eva Dang MD [address] [place] [address] PCP - General Family Medicine 03/25/16 documented as of this encounter
--- OUTSIDE RECORDS SUMMARY | 2024-05-16 18:44 | XMS_ITS | Encounter Summary ---
Author Organization [facility] [place] [address] Care Team Providers Care Machinist Name Role Phone Eva Dang MD Primary Care Provider [phone] Encounter Details Date Type Department Care Team (Late st Contact Info) Description 12/07/2016 Notes [place] [address] Trudy Dodge MSW Social History Tobacco Use Types Packs/Day Years Used Date Smoking Tobacco: Never Sex and Gender Information Value Date Recorded Sex Assigned at Not on file Gender Identity Female 09/26/2019 9:01 AM EDT Sexual Orientation Not on file documented as of this encounter Progress Notes * Trudy Dodge MSW - 12/07/2016 10:51 AM EDT [facility] FOLLOW UP CONTINUING CARE MANAGEMENT SOCIAL WORK ? CLAIM # TBD DOI: INSURANCE COMAPANY: [employer] CONTACT: Brigette Soto [facility], Answering Service Telephone Operator: Kiera Pagan [facility] Med Provider: Radha Sol [facility] Kamran Montemayor [facility] faxed copy of cardiac MRI as requested by treating Occ Med provider. documented in this encounter Plan of Treatment Upcoming Encounters Date Type Department Care Team (Late st Contact Info) Description 06/21/2024 1:20 PM EST Office Visit Dermatology at [address] [place] [address] documented as of this encounter Visit Diagnoses Not on filedocumented in this encounter Care Teams Machinist Relationship Specialty Start Date End Date Eva Dang MD [address] [place] [address] PCP - General Family Medicine 03/25/16 documented as of this encounter
--- OUTSIDE RECORDS SUMMARY | 2024-05-16 18:44 | XMS_ITS | Encounter Summary ---
Author Organization [facility] Address [facility] [place] [address] Care Team Providers Care Transformer Molder Name Role Phone Eva Dang MD Primary Care Provider [phone] Reason for Visit * Reason Onset Date Comments Other 11/10/2016 Encounter Details Date Type Department Care Team (Late st Contact Info) Description 11/10/2016 Telephone Care Management [facility] [place] [address] Naheed Stephens, [facility] [place] [address] Other Social History Tobacco Use Types Packs/Day Years Used Date Smoking Tobacco: Never Sex and Gender Information Value Date Recorded Sex Assigned at Not on file Gender Identity Female 09/26/2019 9:01 AM EDT Sexual Orientation Not on file documented as of this encounter Miscellaneous Notes * Telephone Encounter - Naheed Stephens, LAP GRINDER - 11/10/2016 11:50 AM EDT [facility] covering for [facility] Social Work Septic Pump Truck Driver: Trudy Garza Dar, received a call from [facility] med provider: Radha # [phone] questioning tx recommendations rendered by pt's recent encounter w/ [facility] team ie: Shadia Dykes, and neurologist: . CCM consulted w/ Shadia Dykes, MIREYA re: the recent 11-03-16 encounter w/ this pt, Noting Occ med Provider's questions about f/u appt needs, Neuro Psych involvement, and noting concerns about the medications that were recommended to pt By . BIOMATERIALS ENGINEER clarified that pt was seen by Neuro Psych during the 11-03 clinic, but the note is not yet composed, and instructed CCM to have Occ med provider contact 's RN to address medication questions or concerns. CCM f/u w/ [facility] Occ med provider re; the above, providing her w/ the name and contact number for 's RN: Marylu Snyder [phone], and directing her to contact [facility] admin staff to request theNeuro Psych note be faxed to her once composed. Pt is not scheduled for f/u appts w/ either or [facility], directing Occ med provider to discussthe necessity of f/u appt needs w/ 's RN as needed. [facility] relayed plan for me to collaborate w/ [facility] out of school hours care worker: Trudy Dodge re: the above intervention, requesting follow up w/ [facility] Occ med provider PRN. P: [facility] will collaborate w/ the aforementioned [facility] staff re: the encounter w/ [facility] Occ med provider, and be available for follow up intervention as needed. documented in this encounter Plan of Treatment Upcoming Encounters Date Type Department Care Team (Late st Contact Info) Description 06/21/2024 1:20 PM EST Office Visit Dermatology at [facility] [address] [place] [address] documented as of this encounter Visit Diagnoses Not on filedocumented in this encounter Care Teams Transformer Molder Relationship Specialty Start Date End Date Eva Dang MD [address] [place] [address] PCP - General Family Medicine 03/25/16 documented as of this encounter
--- OUTSIDE RECORDS SUMMARY | 2024-05-16 18:44 | XMS_ITS | Encounter Summary ---
Author Organization [facility] [place] [address] Care Team Providers Care Coal Trammer Name Role Phone Eva Dang MD Primary Care Provider [phone] Reason for Visit * Occupational Therapy (Routine) - Specialty Diagnoses / Procedures Referred By Angy munroe Referred To Contact Occupational Therapy Diagnoses Post concussive syndrome Mima Woodson MD [facility] [place] [address] [facility] [address] [place] [address] Referral ID Status Reason Start Date Expiration Date V isits Requested Visits Authorized [id number] Evaluate and Treat 04/12/2017 10/09/2017 12 12 Encounter Details Date Type Department Care Team (Late st Contact Info) Description 06/23/2017 12:00 PM EST Office Visit Occupational Therapy at [facility] [address] [place] [address] Mark Maria, OT [facility] PHYSICAL MEDICINE & [place] [address] Post concussive syndrome Social History Tobacco Use [...] of this encounter Progress Notes * Mark Maria OT - 06/23/2017 12:00 PM EST Please refer to scan documents for [facility] report and job description. documented in this encounter Plan of Treatment Upcoming Encounters Date Type Department Care Team (Late st Contact Info) Description 06/21/2024 1:20 PM EST Office Visit Dermatology at [address] [address] Scheduled Referrals Name Type Priority Associated Diagnoses Order Schedule Referral to Occupational Therapy Outpatient Referral Routine Post concussive syndrome Ordered: 04/12/2017 documented as of this encounter Visit Diagnoses Diagnosis Post concussive syndrome Postconcussion syndrome documented in this encounter Care Teams Coal Trammer Relationship Specialty Start Date End Date Eva Dang MD [facility] [address] [place] [address] PCP - General Family Medicine 03/25/16 documented as of this encounter
--- OUTSIDE RECORDS SUMMARY | 2024-05-16 18:44 | XMS_ITS | Encounter Summary ---
Author Organization [facility] [place] [address] Care Team Providers Care Rush Seater Name Role Phone Eva Dang MD Primary Care Provider [phone] Encounter Details Date Type Department Care Team (Late st Contact Info) Description 09/09/2017 Telephone Neurology at [facility] [place] [address] Dirk Davis MD [facility] [place] [address] Social History Tobacco Use Types Packs/Day Years [...] Patient verbalized understanding. Call transferred to the field secretary for scheduling upcoming botox appointment. documented in this encounter Plan of Treatment Upcoming Encounters Date Type Department Care Team (Late st Contact Info) Description 06/21/2024 1:20 PM EST Office Visit Dermatology at [address] [place] [address] documented as of this encounter Visit Diagnoses Not on filedocumented in this encounter Care Teams Rush Seater Relationship Specialty Start Date End Date Eva Dang MD [facility] [address] [place] [address] PCP - General Family Medicine 03/25/16 documented as of this encounter
--- OUTSIDE RECORDS SUMMARY | 2024-05-16 18:44 | XMS_ITS | Encounter Summary ---
Author Organization [facility] Address [facility] [place] [address] Care Team Providers Care Computerized Table Cutter Name Role Phone Eva Dang MD Primary Care Provider [phone] Reason for Visit * Reason Comments Botox Injection Migraine * High Dollar Medication (Routine) - Specialty Diagnoses / Procedures Referred By Angy munroe Referred To Contact Neurology Diagnoses Chronic migraine Procedures Auth Request for Medication TC ONABOTULINUMTOXINA, 1 UNIT, INJECTION PRO CHEMODENERVATION FACIAL/TRIGEM/CERV MUSC MIGRAINE Botox Dirk Davis MD [facility] [place] [address] [facility] [address] [place] [address] Referral ID Status Reason Start Date Expiration Date V isits Requested Visits Authorized [id number] Consult, Test & Treat 12/28/2017 12/28/2018 4 4 Encounter Details Date Type Department Care Team (Late st Contact Info) Description 04/10/2018 2:00 PM EST [place] [address] Ursula Walters APRN Chronic migraine without aura [...] units divided between 2 sites in the proposal analyst muscles, 5 units into 1 site in [...] procedure without any immediate complications. References: Dana Gates et al. (2010). OnabotulinumtoxinA for treatment of chronic migraine: results from the double-blind, randomized, placebo-controlled phase of the PREEMPT 1 trial. Cephalalgia 30(7): 793-803. Regulo Mayfield, et al. (2010). Method of injection of onabotulinumtoxinA for chronic migraine: a safe, well-tolerated, and effective treatment paradigm based on the PREEMPT clinical program. Headache 50(9): 1045-2687. Pineda Manzo, et al. (2010). OnabotulinumtoxinA for treatment of chronic migraine: results from the double-blind, randomized, placebo-controlled phase of the PREEMPT 2 trial. Cephalalgia 30(7): 804-814. Ursula Meyers APRN [facility] Neurology Headache Clinic Migraine Disability Assessment # [...] 1:20 PM EST Office Visit Dermatology at [facility] [address] [place] [facility] [place] [address] documented as of this encounter Procedures [...] of headaches: ?? 11/15 MIDAS today: 97 01/12/2018 ??Botox #2 - [...] units divided between 2 sites in the proposal analyst muscles, 5 units into 1 site in [...] PREEMPT 1 trial. Cephalalgia 30(7): 793-803. Regulo Mayfield et al. (2010). Method of injection of onabotulinumtoxinA for chronic migraine: a safe, well-tolerated, and effective treatment paradigm based on the PREEMPT clinical program. Headache 50(9): 1749-2892. Pineda Manzo, et al. (2010). OnabotulinumtoxinA for treatment of chronic migraine: results from the double-blind, randomized, placebo-controlled phase of the PREEMPT 2 trial. Cephalalgia 30(7): 804-814. Ursula Meyers APRN [facility] Neurology Headache Clinic Migraine Disability Assessment # [...] Units documented in this encounter Care Teams Computerized Table Cutter Relationship Specialty Start Date End Date Eva Dang MD [address] [place] [address] PCP - General Family Medicine 03/25/16 documented as of this encounter
--- OUTSIDE RECORDS SUMMARY | 2024-05-16 18:44 | XMS_ITS | Encounter Summary ---
[place] [address] Care Team Providers Care Redrawer Name Role Phone Eva Dang MD Primary Care Provider [phone] Reason for Visit * Reason Comments Medication Management Encounter Details Date Type Department Care Team (Late st Contact Info) Description 07/04/2018 Specialty [place] [address] Ayla Ta [facility] Social History Tobacco Use Types Packs/Day Years [...] this encounter Progress Notes * Ayla Ta Juan - 07/04/2018 12:17 PM EST Clinical Management Plan: Clinical Consult- Opt out Specialty Pharmacy Consultation; Ayla Ta RPH Comprehensive Medication Management (CMM) Sarah Robles Diagnosis: [...] refill reminder calls and MIDAS assessments by [facility]. Sarah Robles is aware of how to take this medication and of the prescribed dose. The prescription was filled on 07/03/2018 for a 30 day supply. Sarah Robles received the [facility] welcome packet on 07/03/2018 and [...] 1:20 PM EST Office Visit Dermatology at [facility] [address] [place] [address] documented as of this encounter Visit Diagnoses Not on filedocumented in this encounter Care Teams Redrawer Relationship Specialty Start Date End Date Eva Dang MD [facility] [address] [place] [address] PCP - General Family Medicine 03/25/16 documented as of this encounter
--- OUTSIDE RECORDS SUMMARY | 2024-05-16 18:44 | XMS_ITS | Encounter Summary ---
Author Organization [facility] [place] [address] Care Team Providers Care Metal Template Maker Name Role Phone Eva Dang MD Primary Care Provider [phone] Encounter Details Date Type Department Care Team (Late st Contact Info) Description 11/06/2019 Telephone Neurology at [address] [address] Ursula Walters APRN Social History Tobacco Use Types Packs/Day Years [...] [facility] [address] [place] [address] documented as of this encounter Visit Diagnoses Not on filedocumented in this encounter Care Teams Metal Template Maker Relationship Specialty Start Date End Date Eva Dang MD [address] [place] [address] PCP - General Family Medicine 03/25/16 documented as of this encounter
--- OUTSIDE RECORDS SUMMARY | 2024-05-16 18:44 | XMS_ITS | Encounter Summary ---
Author Organization [facility] [place] [address] Care Team Providers Care Hostel Parent Name Role Phone Eva Dang MD Primary Care Provider [phone] Encounter Details Date Type Department Care Team (Late st Contact Info) Description 09/01/2016 2:00 PM EDT Office [place] [address] Mark Maria, OT [facility] PHYSICAL MEDICINE & [place] [address] Attention or concentration deficit; Concussion with no [...] work to help her and her supervisor dried yeast keep track of what she is doing. 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 What is this estimated startup cost. What is the anticipated time line for break even with the business. 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 She requested use of the Internet, paper, pen, and a calculator. She spent 45 minutes researching costs using the net in an organized fashion She then determined costs of demo pictures and the initial cost of items she was going to stock forsale. She determined her initial loan amount and [...] continues to have fair to good rehabpotential. Skilled Nursing Goals (to be met by discharge): Date [...] 12 week(s) to progress toward short and termite inspector goals. for Cognitive retraining attention, sequencing, problem [...] 1:20 PM EST Office Visit Dermatology at [address] [address] documented as of this encounter Visit Diagnoses Diagnosis Attention or concentration deficit Concussion with no loss of consciousness, subsequent encounter documented in this encounter Care Teams Hostel Parent Relationship Specialty Start Date End Date Eva Dang MD [address] [place] [address] PCP - General Family Medicine 03/25/16 documented as of this encounter
--- OUTSIDE RECORDS SUMMARY | 2024-05-16 18:44 | XMS_ITS | Encounter Summary ---
Author Organization [facility] [address] Care Team Providers Care Refrigeration Houseman Name Role Phone Eva Dang MD Primary Care Provider Reason for Visit * Reason Onset Date Comments Other 01/12/2018 Encounter Details Date Type Department Care Team (Late st Contact Info) Description 01/12/2018 [place] [address] Kiera Clemens, SENIOR DATA MINING ANALYST [facility] [place] [address] Other Social History Tobacco Use Types Packs/Day [...] 4:22 PM EDT Corrected form faxed to cut out stitcher * Telephone Encounter - Parul Vazquez RN [...] Comp paperwork is given to the exit surveillance sensor operator and is then sent to our Workers' [...] form, it should be faxed to her trauma program manager, Biju Han at [phone]. * Telephone Encounter - Parul Vazquez RN - 01/13/2018 9:05 AM EDT Called and left a message for patient asking for return call to identify what she feels in incorrect on her paperwork. Informed patient that the paperwork is given to the exit surveillance sensor operator and is sent in the interoffice mail to the Workers' Comp Department therefore I do not have access to the paperwork she is questioning. Recommended she have her Workers' Comp Project Management Intern fax over the paperwork. Informed patient that [...] the day Best number to reach caller: [phone] After 230 pm (if not red arrow message) - Informed caller that if the nurse does not call back by the end of the day they will be called tomorrow AM Best number to reach caller: [phone] Reason for call: Patient called in and requested that we [place] with corrected information as she and Ms. Clemens previously discussed. Paperwork was originally filled out during appointment today but was done incorrectly. Please fax corrected form to: [phone].This needs to be sent within the next 24hrs documented in this encounter Plan of Treatment Upcoming Encounters Date Type Department Care Team (Late st Contact Info) Description 06/21/2024 1:20 PM EST Office Visit Dermatology at [facility] [address] [place] [address] documented as of this encounter Visit Diagnoses Not on filedocumented in this encounter Care Teams Refrigeration Houseman Relationship Specialty Start Date End Date Eva Dang MD [address] [place] [address] PCP - General Family Medicine 03/25/16 documented as of this encounter
--- OUTSIDE RECORDS SUMMARY | 2024-05-16 18:44 | XMS_ITS | Encounter Summary ---
Author Organization Formerly [facility] [place] [address] Care Team Providers Care Nickel Operator Name Role Phone Eva Dang MD Primary Care Provider [phone] Reason for Referral * Consultation (Routine) - Closed Specialty Diagnoses / Procedures Referred By Contac t Referred To Contact Neurology Diagnoses Post concussive syndrome Other complicated headache syndrome Mima Woodson MD [facility] [place] [address] [facility] Neurology [address] [place] [phone] Referral ID Status Reason Start Date Expiration Date V isits Requested Visits Authorized [id number] Closed Consult, Test & Treat 04/12/2017 04/12/2018 1 1 * Occupational Therapy (Routine) - Specialty Diagnoses / Procedures Referred By Contac t Referred To Contact Occupational Therapy Diagnoses Post concussive syndrome Mima Woodson MD [facility] [place] [address] [facility] [address] [place] [address] Referral ID Status Reason Start Date Expiration Date V isits Requested Visits Authorized [id number] Evaluate and Treat 04/12/2017 10/09/2017 12 12 Encounter Details Date Type Department Care Team (Late st Contact Info) Description 04/12/2017 11:00 AM EST Office Visit Neurology at [facility] [place] [address] Mima Woodson MD [facility] [place] [address] Post concussive syndrome; Other complicated headache syndrome [...] no contraindication from the perspective of the instrumentation technologist). 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 They do not wake her from sleep. [...] prophylaxis (she wishes to check with her instrumentation technologist (history of open heart surgery as a [...] 1:20 PM EST Office Visit Dermatology at [address] [phone] Scheduled Referrals Name Type Priority Associated Diagnoses Orde r Schedule Referral to Occupational Therapy Outpatient Referral Routine Post concussive syndrome Ordered: 04/12/2017 Referral to Neurology Outpatient Referral Routine Post concussive syndrome Other complicated headache syndrome Ordered: 04/12/2017 documented as of this encounter Visit Diagnoses Diagnosis Post concussive syndrome Postconcussion syndrome Other complicated headache syndrome documented in this encounter Care Teams Nickel Operator Relationship Specialty Start Date End Date Eva Dang MD [address] [place] [address] PCP - General Family Medicine 03/25/16 documented as of this encounter
--- OUTSIDE RECORDS SUMMARY | 2024-05-16 18:44 | XMS_ITS | Encounter Summary ---
[place] [address] Care Team Providers Care Windows Infrastructure Engineer Name Role Phone Eva Dang MD Primary Care Provider [phone] Reason for Visit * Reason Comments Medication Refill Encounter Details Date Type Department Care Team (Late st Contact Info) Description 04/08/2019 [place] [address] Radha Jimenez MD Chronic migraine without aura without status migrainosus, [...] 1:20 PM EST Office Visit Dermatology at [place] [address] [place] [address] documented as of this encounter Visit Diagnoses Diagnosis Chronic migraine without aura without status migrainosus, not intractable Chronic migraine without aura, without mention of intractable migraine without mention of status migrainosus documented in this encounter Care Teams Windows Infrastructure Engineer Relationship Specialty Start Date End Date Eva Dang MD [facility] [address] [place] [address] PCP - General Family Medicine 03/25/16 documented as of this encounter
--- OUTSIDE RECORDS SUMMARY | 2024-05-16 18:44 | XMS_ITS | Encounter Summary ---
[place] [address] Care Team Providers Care Service Assistant Name Role Phone Eva Dang MD Primary Care Provider [phone] Reason for Visit * Reason Onset Date Comments Prior Authorization 08/24/2019 [employer] Encounter Details Date Type Department Care Team (Late st Contact Info) Description 08/24/2019 [place] [address] Дмитрий Schwartz CPHT Prior Authorization ([employer]) Social History Tobacco Use [...] Notes * Telephone Encounter - Дмитрий Schwartz CPHT - 08/24/2019 12:47 PM EDT [facility], Medication Prior Authorization Request Patient: Sarah Garzon Travis Patient : 1975 Patient Address: [address] [place] [address] (home) Medication: [employer] Medication Strength Frequency Requested: 140mg/mL auto-injector - 140mg every 30 days Qty/Day Supply: 06/07 New Start: No Diagnosis & ICD-10 Code: Migraine without aura and without status migrainosus, not intractable G43.009 Subscriber Insurance: [email or web address] Fax: Physician: Ursula Walters PA Status: NO PA REQUIRED FILLABLE AT [facility]? yes INSURANCE REQUIREMENTS: N/A COPAY: $20 COPAY ASSISTANCE NEEDED?: If needed will suggest re-enrollment in the [employer] copay card. NOTES: The [employer] won't require a PA at this time, with a $20 copay through the [employer] insurance (Tier 2 on plan). documented in this encounter Plan of Treatment Upcoming Encounters Date Type Department Care Team (Late st Contact Info) Description 06/21/2024 1:20 PM EST Office Visit Dermatology at [address] [address] documented as of this encounter Visit Diagnoses Not on filedocumented in this encounter Care Teams Service Assistant Relationship Specialty Start Date End Date Eva Dang MD [address] [place] [address] PCP - General Family Medicine 03/25/16 documented as of this encounter
--- OUTSIDE RECORDS SUMMARY | 2024-05-16 18:44 | XMS_ITS | Encounter Summary ---
Author Organization Formerly [facility] [place] [address] Care Team Providers Care Territory Sales Consultant Name Role Phone Eva Dang MD Primary Care Provider [phone] Reason for Visit * High Dollar Medication (Routine) - Specialty Diagnoses / Procedures Referred By Angy munroe Referred To Contact Neurology Diagnoses Chronic migraine Procedures Auth Request for Medication TC ONABOTULINUMTOXINA, 1 UNIT, INJECTION PRO CHEMODENERVATION FACIAL/TRIGEM/CERV MUSC MIGRAINE Botox Dirk Davis MD [facility] [place] [address] [facility] [address] [place] [address] Referral ID Status Reason Start Date Expiration Date V isits Requested Visits Authorized [id number] Consult, Test & Treat 12/28/2017 12/28/2018 4 4 Encounter Details Date Type Department Care Team (Late st Contact Info) Description 01/12/2018 3:00 PM EDT [place] [address] Kiera Smith, HAIR WORKER [facility] [place] [address] Intractable chronic migraine without aura and [...] this encounter Procedure Notes * Kiera Smith, HAIR WORKER - 01/12/2018 3:00 PM EDTAssociated Order(s): CHEMODENERVATION, [...] per 200 units of Botox Lot number: [id number] Vial Expiration date: 2020 155 Units of botox injected 45 Units of botox wasted 0 complications Frontalis 20 units divided in 4 sites Temporalis 40 units divided in 8 sites Canine Service Instructor Trainer 10 units divided in 2 sites Trapezius 30 units divided in 6 sites Procerus 5 units in 1 site Cervical Paraspinals 20 units in 4 sites Occipitalis 30 units divided in 6 sites 0 extra units given Repeat Botox injections in 12 weeks YOLIS Paulson APRN [facility] documented in this encounter Plan of Treatment Upcoming Encounters Date Type Department Care Team (Late st Contact Info) Description 06/21/2024 1:20 PM EST Office Visit Dermatology at [address] [address] documented as of this encounter Procedures [...] per 200 units of Botox Lot number: [id number] Vial Expiration date: 2020 155 Units of botox injected 45 Units of botox wasted 0 complications Frontalis 20 units divided in 4 sites Temporalis 40 units divided in 8 sites Canine Service Instructor Trainer 10 units divided in 2 sites Trapezius 30 units divided in 6 sites Procerus 5 units in 1 site ??Cervical Paraspinals 20 units in 4 sites Occipitalis 30 units divided in 6 sites ?? 0 extra units given Repeat Botox injections in 12 ??weeks Kiera Smith, YOLIS, MIREYA [facility] [place] Kiera Smith APRN PROCEDURE/MINOR [...] Units documented in this encounter Care Teams Territory Sales Consultant Relationship Specialty Start Date End Date Eva Dang MD [address] [facility] [place] [address] PCP - General Family Medicine 03/25/16 documented as of this encounter
--- OUTSIDE RECORDS SUMMARY | 2024-05-16 18:44 | XMS_ITS | Encounter Summary ---
[place] [address] Care Team Providers Care Aquaculturist Name Role Phone Eva Dang MD Primary Care Provider Reason for Visit * Reason Comments Medication Refill Encounter Details Date Type Department Care Team (Late Contact Info) Description 09/22/2019 [place] [address] Ursula Walters APRN Chronic migraine without aura [...] 1:20 PM EST Office Visit Dermatology at [facility] [address] [place] [address] documented as of this encounter Visit Diagnoses Diagnosis Chronic migraine without aura without status migrainosus, not intractable Chronic migraine without aura, without mention of intractable migraine without mention of status migrainosus documented in this encounter Care Teams Aquaculturist Relationship Specialty Start Date End Date Eva Dang MD [facility] [address] [place] [address] PCP - General Family Medicine 03/25/16 documented as of this encounter
--- OUTSIDE RECORDS SUMMARY | 2024-05-16 18:44 | XMS_ITS | Encounter Summary ---
Author Organization [facility] [place] [address] Care Team Providers Care Hand Molder Meat Name Role Phone Eva Dang MD Primary Care Provider [phone] Encounter Details Date Type Department Care Team (Late st Contact Info) Description 09/10/2016 10:00 AM EDT Office Visit [place] [address] Mark Maria, OT [facility] PHYSICAL MEDICINE & [place] [address] Attention or concentration deficit; Concussion with no [...] mental functions [place] Cognitive Assessment (MoCA) Results: eval 09/10/16 Comments Visuospatial/Exec 05/09 1 Trails Test 0/ 0 Cube Copy 05/09 1 Clock: Contour 05/09 1 Clock: Numbers 0 1 Clock: Hands Naming 3/3 3 (of 3) Attention 05/09 1 Repeat forward 05/09 1 Repeat backwards 05/09 1 Tapping for letter A 1/3 3 Serial 7 Subtraction (3pts=4+; 2pts=2+; 1pt=1) Language 1/2 2 Repeating Sentences Fluency 0/ 0 Word Naming (1pt=11+ words) Abstraction 1/2 [...] are working and if they need modification.. Retirement Goals (to be met by discharge): Date [...] 1:20 PM EST Office Visit Dermatology at [facility] [address] [place] [address] documented as of this encounter Visit Diagnoses Diagnosis Attention or concentration deficit Concussion with no loss of consciousness, subsequent encounter documented in this encounter Care Teams Hand Molder Meat Relationship Specialty Start Date End Date Eva Dang MD [address] [place] [address] PCP - General Family Medicine 03/25/16 documented as of this encounter
--- OUTSIDE RECORDS SUMMARY | 2024-05-16 18:44 | XMS_ITS | Encounter Summary ---
Author Organization [place] [address] Care Team Providers Care Internet Designer Name Role Phone Eva Dang MD Primary Care Provider [phone] Encounter Details Date Type Department Care Team (Late st Contact Info) Description 10/27/2016 10:30 AM EDT Office Visit [place] [address] Mark Maria, OT [facility] PHYSICAL MEDICINE & [place] [address] Attention or concentration deficit; Concussion with no [...] Temperament and personality: Appropriate. 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 She has stopped doing [...] is no further indication for OT services. Fpc Goals (to be met by discharge): [...] 1:20 PM EST Office Visit Dermatology at [address] [address] documented as of this encounter Visit Diagnoses Diagnosis Attention or concentration deficit Concussion with no loss of consciousness, subsequent encounter documented in this encounter Care Teams Internet Designer Relationship Specialty Start Date End Date Eva Dang MD [address] [place] [address] PCP - General Family Medicine 03/25/16 documented as of this encounter
--- OUTSIDE RECORDS SUMMARY | 2024-05-16 18:44 | XMS_ITS | Encounter Summary ---
Author Organization Formerly [facility] [place] [address] Care Team Providers Care Internal Carver Name Role Phone Eva Dang MD Primary Care Provider [phone] Reason for Visit * Consultation (Routine) - Closed Specialty Diagnoses / Procedures Referred By Angy munroe Referred To Contact Neurology Diagnoses BILAT HAND PAIN AND BURNING Procedures NERVE CONDUCTION STUDIES Joseph Pyle MD [address] [place] [address] Mima Woodson MD [facility] [place] [address] Referral ID Status Reason Start Date Expiration Date V isits Requested Visits Authorized [id number] Closed Consult, Test & Treat [facility] PCP Updated and/or Approved 07/13/2019 07/12/2020 1 1 Encounter Details Date Type Department Care Team (Latest Contact Info) Description 10/02/2019 10:15 AM EDT Procedure [place] [phone] Rafy Persaud MD Carpal tunnel syndrome, bilateral Social History Tobacco [...] - 10/02/2019 10:15 [place] [address] EMG/NCS REPORT 10/02/2019 Patient name: Sarah Robles Date of : 1975 Referring provider: Joseph Pyle MD [address] [place] [address] History and Examination: She has history of [...] nerve conduction studies, the amplitude is measured [id number], the latency reported is the distal peak latency, and the conduction velocity, if measured, is determined from onset latencies and is over the extremity. For motor nerve conduction studies, the amplitude is measured [id number], the latency reported is the distal onset latency,the conduction velocity is calculated over the extremity, and the F wave latency is the minimum latency. Unless otherwise noted, the upper limb temperature was maintained above 31 degrees Celsius and lower limb above 30 degrees. Technologist: JILLIAN [facility] Nerve / Sites Rec. Site Peak Lat QA LEAD Amp Ref. Distance Onset Aden Ref. ms ??V ??V mm m/s m/s L Median - Ortho-Anti (Mid palm, Dig II) Mid Palm Wrist 2.7 56.3 >=45.0 70 33.6 >=45.0 Dig II Wrist 4.1 13.8 >=6.0 125 36.6 >=45.0 R Median - Ortho-Anti (Mid palm, Dig II) Mid Palm Wrist 2.3 69.2 >=45.0 60 39.5 >=45.0 L Ulnar - Ortho-Anti (Dig V) Dig V Wrist 2.1 10.5 >=5.0 100 57.8 >=45.0 MNC Nerve / Sites Muscle Latency Ref. Amplitude Ref. Distance Velocity Ref. ms ms mV mV mm m/s m/s L Median - APB Wrist APB 5.4 <=4.2 5.1 >=4.5 80 Elbow APB 9.4 5.0 >=4.5 200 49.0 >=43.0 R Median - APB Wrist APB 4.8 <=4.2 7.7 >=4.5 80 L Ulnar - ADM Wrist ADM 2.9 <=3.9 12.2 >=4.5 80 B.Elbow ADM 6.4 11.8 >=4.5 190 54.3 >=50.0 A.Elbow ADM 8.3 11.6 >=4.5 100 51.6 >=50.0 F Wave Nerve F Lat Ref. M Lat Min M Lat ms ms ms ms L Median - APB 30.1 <=32.0 5.4 5.4 L Ulnar - ADM 26.9 <=32.0 3.0 3.0 Electromyography The study was performed [...] CTS. Rafy Persaud MD Department of Neurology [facility] documented in this encounter Plan of Treatment Upcoming Encounters Date Type Department Care Team (Late st Contact Info) Description 06/21/2024 1:20 PM EST Office Visit Dermatology at [address] [address] documented as of this encounter Visit Diagnoses Diagnosis Carpal tunnel syndrome, bilateral Carpal tunnel syndrome documented in this encounter Care Teams Internal Carver Relationship Specialty Start Date End Date Eva Dang MD [facility] [address] [place] [address] PCP - General Family Medicine 03/25/16 documented as of this encounter
--- OUTSIDE RECORDS SUMMARY | 2024-05-16 18:44 | XMS_ITS | Encounter Summary ---
Author Organization [facility] [place] [address] Care Team Providers Care Mitten Sewer Name Role Phone Eva Dang MD Primary Care Provider [phone] Encounter Details Date Type Department Care Team (Late st Contact Info) Description 05/17/2019 11:30 AM EST Office Visit Neurology at [address] [phone] Ursula Walters APRN Migraine without aura and without status migrainosus, [...] Progress Notes * Ursula Walters APRN - 05/17/2019 11:30 AM EST Neurology Headache [...] mouth daily. ??? fluticasone (FLONASE) 50 mcg/actuation [place], Suspension 1 spray by Each Nare route [...] [] Acupuncture [] Acupressure [] Biofeedback [] Boring Mill Set Up Operator [] Cognitive Behavioral Therapy [] Massage [...] chronic migraine without aura. She is having 16/90 headache days. Converted Episodic Migraine without aura [...] up in six months. Ursula Walters APRN [facility] [place] Neu[facility] documented in this encounter Plan of Treatment Upcoming Encounters Date Type Department Care Team (Late st Contact Info) Description 06/21/2024 1:20 PM EST Office Visit Dermatology at [address] [address] documented as of this encounter Visit Diagnoses Diagnosis Migraine without aura and without status migrainosus, not intractable Migraine without aura, without mention of intractable migraine without mention of status migrainosus documented in this encounter Care Teams Mitten Sewer Relationship Specialty Start Date End Date Eva Dang MD [address] [place] [address] PCP - General Family Medicine 03/25/16 documented as of this encounter
--- OUTSIDE RECORDS SUMMARY | 2024-05-16 18:44 | XMS_ITS | Encounter Summary ---
Author Organization [facility] [place] [address] Care Team Providers Care Disaster Response Director Name Role Phone Eva Dang MD Primary Care Provider [phone] Reason for Visit * Reason Onset Date Comments Other 07/26/2017 Encounter Details Date Type Department Care Team (Late st Contact Info) Description 07/26/2017 [place] [address] [place] [address] Other Social History Tobacco Use Types Packs/Day [...] the day Best number to reach caller: [phone] Reason for call: Patient calling to update Dr Davis on the medication that she was recently put on, nortriptyline (PAMELOR) 10 mg Capsule. Please call and advise documented in this encounter Plan of Treatment Upcoming Encounters Date Type Department Care Team (Late st Contact Info) Description 06/21/2024 1:20 PM EST Office Visit Dermatology at [facility] [address] [place] [address] documented as of this encounter Visit Diagnoses Not on filedocumented in this encounter Care Teams Disaster Response Director Relationship Specialty Start Date End Date Eva Dang MD [address] [place] [address] PCP - General Family Medicine 03/25/16 documented as of this encounter
--- OUTSIDE RECORDS SUMMARY | 2024-05-16 18:44 | XMS_ITS | Encounter Summary ---
[place] [address] Care Team Providers Care Research Laboratory Specialist Name Role Phone Eva Dang MD Primary Care Provider [phone] Reason for Visit * Reason Comments Medication Management Patient Education Encounter Details Date Type Department Care Team (Late st Contact Info) Description 11/15/2019 Specialty [place] [address] Jeancarlos Olivera [facility] Social History Tobacco Use Types Packs/Day Years [...] Progress Notes * Jeancarlos Olivera [facility] - 11/15/2019 11:19 AM EDT Clinical Management Plan: MIDAS Assessment Specialty Pharmacy Consultation; Jeancarlos Olivera [facility] Comprehensive Medication Management (CMM) Sarah Robles MsAngeltio Sarah Robles is a 44 y.o. (1975) female who [...] were made at the appointment and that [facility] is completing an assessment (summary located at top of note) for provider review and follow up. Jeancarlos Olivera RPH 11/15/19 11:19 AM Electronically signed by Jeancarlos Olivera [facility] at 11/15/2019 11:21 AM EDT documented in this encounter Plan of Treatment Upcoming Encounters Date Type Department Care Team (Late st Contact Info) Description 06/21/2024 1:20 PM EST Office Visit Dermatology at [facility] [address] [place] [address] documented as of this encounter Visit Diagnoses Not on filedocumented in this encounter Care Teams Research Laboratory Specialist Relationship Specialty Start Date End Date Eva Dang MD [facility] [address] [place] [address] PCP - General Family Medicine 03/25/16 documented as of this encounter
--- OUTSIDE RECORDS SUMMARY | 2024-05-16 18:44 | XMS_ITS | Encounter Summary ---
[place] [address] Care Team Providers Care Lapel Padder Name Role Phone Eva Dang MD Primary Care Provider [phone] Reason for Visit * Reason Comments Medication Management Patient Education Encounter Details Date Type Department Care Team (Late st Contact Info) Description 04/25/2019 Specialty Pharmacy [place] [address] Jeancarlos Olivera [facility] Social History Tobacco Use Types Packs/Day [...] this encounter Progress Notes * Jeancarlos Olivera [facility] - 04/25/2019 4:07 PM EST Clinical Management Plan: MIDAS Assessment Specialty Pharmacy Consultation; Jeancarlos Olivera [facility] Comprehensive Medication Management (CMM) Sarah Robles MsAngelito Sarah Robles is a 44 y.o. (1975) [...] were made at the appointment and that [facility] is completing an assessment (summary located at top of note) for provider review and follow up. Jeancarlos Olivera RPH 04/25/19 4:07 PM documented in this encounter Plan of Treatment Upcoming Encounters Date Type Department Care Team (Late st Contact Info) Description 06/21/2024 1:20 PM EST Office Visit Dermatology at [facility] [address] [address] documented as of this encounter Visit Diagnoses Not on filedocumented in this encounter Care Teams Lapel Padder Relationship Specialty Start Date End Date Eva Dang MD [address] [place] [address] PCP - General Family Medicine 11/17/16 documented as of this encounter
--- OUTSIDE RECORDS SUMMARY | 2024-05-16 18:44 | XMS_ITS | Encounter Summary ---
[place] [address] Care Team Providers Care Reserve Officer Name Role Phone Eva Dang MD Primary Care Provider [phone] Encounter Details Date Type Department Care Team (Late st Contact Info) Description 12/22/2017 [place] [phone] Juvencio Dos Santos MD Social History Tobacco Use Types Packs/Day [...] 1:20 PM EST Office Visit Dermatology at [facility] [address] [place] [address] documented as of this encounter Visit Diagnoses Not on filedocumented in this encounter Care Teams Reserve Officer Relationship Specialty Start Date End Date Eva Dang MD [address] [place] [address] PCP - General Family Medicine 03/25/16 documented as of this encounter
--- OUTSIDE RECORDS SUMMARY | 2024-05-16 18:44 | XMS_ITS | Encounter Summary ---
Author Organization [facility] [place] [address] Care Team Providers Care Millwork Estimator Name Role Phone Eva Dang MD Primary Care Provider [phone] Reason for Visit * Reason Comments Medication Refill Encounter Details Date Type Department Care Team (Late st Contact Info) Description 08/30/2020 Refill Neurology at [address] [phone] Ursula Walters, MIREYA Chronic migraine without aura [...] due for an appt- msg sent to law secretary documented in this encounter Plan of Treatment Upcoming Encounters Date Type Department Care Team (Late st Contact Info) Description 06/21/2024 1:20 PM EST Office Visit Dermatology at [facility] [address] [place] [address] documented as of this encounter Visit Diagnoses Diagnosis Chronic migraine without aura without status migrainosus, not intractable Chronic migraine without aura, without mention of intractable migraine without mention of status migrainosus documented in this encounter Care Teams Millwork Estimator Relationship Specialty Start Date End Date Eva Dang MD [facility] [address] [place] [address] PCP - General Family Medicine 03/25/16 documented as of this encounter
--- OUTSIDE RECORDS SUMMARY | 2024-05-16 18:44 | XMS_ITS | Encounter Summary ---
[place] [address] Care Team Providers Care Homoeopath Name Role Phone Eva Dang MD Primary Care Provider [phone] Reason for Visit * Reason Onset Date Comments Prior Authorization 09/18/2018 [employer] Encounter Details Date Type Department Care Team (Late st Contact Info) Description 09/18/2018 [place] [address] Samm Todd CPHT Prior Authorization ([employer]) Social History Tobacco [...] Notes * Telephone Encounter - Samm Todd CPHT - 09/18/2018 10:47 AM EDT D-H Specialty [...] Sarah Robles Patient : [id number] Patient Address: [address] [place] [address] [address] [place] [place] [address] (home) Medication: [employer] Subscriber Insurance: [employer] Fax: Physician: Radha Jimenez Sent Via: Verbally Martinez: N/A Ref/Case/PA#: N/A Medication Strength Frequency Requested: [employer] 140 mg/mL Auto-injector Once every 30 days Qty/Day Supply: 06/07 New Start: No Diagnosis & ICD-10 Code: Chronic Migraine G43.709 documented in this encounter Plan of Treatment Upcoming Encounters Date Type Department Care Team (Late st Contact Info) Description 06/21/2024 1:20 PM EST Office Visit Dermatology at [address] [phone] documented as of this encounter Visit Diagnoses Not on filedocumented in this encounter Care Teams Homoeopath Relationship Specialty Start Date End Date Eva Dang MD [address] [place] [address] PCP - General Family Medicine 03/25/16 documented as of this encounter
--- OUTSIDE RECORDS SUMMARY | 2024-05-16 18:44 | XMS_ITS | Encounter Summary ---
[place] [address] Care Team Providers Care Shoe Designer Name Role Phone Eva Dang MD Primary Care Provider [phone] Encounter Details Date Type Department Care Team (Latest Contact Info) Description 08/24/2016 3:30 PM EDT Office Visit [place]ational [place] [address] Cora Dalton, OT Attention or concentration deficit; [...] upcoming is a potential trip to 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 Today Sarah worked on the problem solving, prioritizing, money management, alternating between screens and writing task of planning the trip to [facility]. The goal was to plan a [...] complete the task- she determined flying, an [employer] lodge hotel, and decided on attempting to visit [facility] [place], the [facility], and the [place] [facility]. Her homework is to sit down [...] attention shifting of planning her trip to [place] with her daughter (upcoming in October). She [...] business planning task such as outdoor photography. Carpenter Prototype Goals (to be met by discharge): Date [...] 12 week(s) to progress toward short and roasterman goals. for Cognitive retraining attention, sequencing, problem [...] 1:20 PM EST Office Visit Dermatology at [facility] [address] [place] [address] documented as of this encounter Visit Diagnoses Diagnosis Attention or concentration deficit Concussion with no loss of consciousness, subsequent encounter Work related injury Injury, other and unspecified, unspecified site documented in this encounter Care Teams Shoe Designer Relationship Specialty Start Date End Date Eva Dang MD [address] [facility] [address] [place] [address] PCP - General Family Medicine 03/25/16 documented as of this encounter
--- OUTSIDE RECORDS SUMMARY | 2024-05-16 18:44 | XMS_ITS | Encounter Summary ---
Author Organization [facility] [place] [address] Care Team Providers Care Transporter Radiology Name Role Phone Eva Dang MD Primary Care Provider [phone] Reason for Visit * Reason Comments Cognitive Problems TBI clinic cog scree n * Psychiatric (Routine) - Closed Specialty Diagnoses / Procedures Referred By Angy munroe Referred To Contact Psychiatry Diagnoses Attention or concentration deficit Head injury, sequela Work related injury Melanie Dykes, TOWER TRUCK DRIVER [facility] [place] [address] [facility] [address] [place] [address] Referral ID Status Reason Start Date Expiration Date V isits Requested Visits Authorized [id number] Closed Consult & Test 11/03/2016 11/03/2017 1 1 Encounter Details Date Type Department Care Team (Late st Contact Info) Description 11/03/2016 1:45 PM EDT Office Visit Psychiatry [place] [address] Mathew Hill, PhD [facility] [place] [address] Cognitive change Social History Tobacco Use [...] NEUROPSYCHOLOGICAL SCREEN Patient Name: Sarah Robles MR#: [id number] Date of Evaluation: 11/03/2016 Age: 41 years [...] drugswas noted. 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 She completed her final [facility] OT visit on 10/27/2016. Medications: Ms. Robles [...] Injury Resource Line) Brain Injury Association of [place]: 565.338.7077; http://www.bianh.org/ Brain Injury Association of [place]: 262.109.4405; http://www.biavt.org/ Thank you for the opportunity to participate in Ms. Robles???s care. Kyler Barker, Ph.D. Mathew Hill, Ph.D., ABPP Postdoctoral Fellow in Neuropsychology Board Certified in Clinical Neuropsychology Traditional [facility] Health Practitionergeropsychologist A postdoctoral fellow in neuropsychology was involved [...] 6) Average WAIS-IV: Coding 7 Low average [place] Making Test: Raw Score (T Score) Part [...] - 6-7-11 (39) Low average Delayed Recall 10/ (49) Average Recognition Discrimination Index 11 (49) [...] PM EST Office Visit Dermatology at [address] [address] Scheduled Referrals Name Type Priority Associated Diagnoses Orde r Schedule Referral to Neuropsychology Outpatient Referral Routine Attention or concentration deficit Head injury, sequela Work related injury Ordered: 11/03/2016 documented as of this encounter Visit Diagnoses Diagnosis Cognitive change Other signs and symptoms involving cognition documented in this encounter Care Teams Transporter Radiology Relationship Specialty Start Date End Date Eva Dang MD [facility] [address] [place] [address] PCP - General Family Medicine 03/25/16 documented as of this encounter
--- OUTSIDE RECORDS SUMMARY | 2024-05-16 18:44 | XMS_ITS | Encounter Summary ---
[place] [address] Care Team Providers Care Hoop Coiler Name Role Phone Eva Dang MD Primary Care Provider [phone] Reason for Visit * Reason Onset Date Comments Medication Refill 09/14/2018 Encounter Details Date Type Department Care Team (Late st Contact Info) Description 09/14/2018 [place] [address] Radha Jimenez MD Chronic migraine without aura [...] 1:20 PM EST Office Visit Dermatology at [facility] [address] [place] [address] documented as of this encounter Visit Diagnoses Diagnosis Chronic migraine without aura without status migrainosus, not intractable Chronic migraine without aura, without mention of intractable migraine without mention of status migrainosus documented in this encounter Care Teams Hoop Coiler Relationship Specialty Start Date End Date Eva Dang MD [address] [place] [address] PCP - General Family Medicine 03/25/16 documented as of this encounter
--- OUTSIDE RECORDS SUMMARY | 2024-05-16 18:44 | XMS_ITS | Encounter Summary ---
[place] [address] Care Team Providers Care Management Liaison Name Role Phone Eva Dang MD Primary Care Provider [phone] Encounter Details Date Type Department Care Team (Latest Contact Info) Description 09/09/2017 11:05 AM EDT Laboratory Appointment Lab [address] [place] [address] Type 2 diabetes mellitus without complication, without [...] 1:20 PM EST Office Visit Dermatology at [facility] [address] [place] [phone] documented as of this encounter Procedures Procedure Name Priority Date/Time Associated Diagnosis Comments BASIC METABOLIC PANEL Routine 09/09/2017 11:12 AM EDT Type 2 diabetes mellitus without complication, without long-term current use of insulin documented in this encounter Results * (ABNORMAL) Basic Metabolic Panel (non-fasting) (09/09/2017 11:12 AM EDT) Glucose 149 65 - 199 mg/dL [facility] Comment:Diabetes: >=200 mg/d L plus symptoms Blood Urea Nitrogen 11 8 - 18 mg/dL [facility] [...] [facility] Carbon Dioxide 26 22 - 31 mmol/L [facility] Anion Gap 10 5 - 15 mmol/L [facility] Calcium 8.8 8.5 - 10.5 mg/dL [facility] Est Glomerular Filtration Rate >60 >=60 [facility] Comment: The reported eGFR should be multiplied by 1.2 for patients. The MDRD is not an appropriate measure of renal function for patients with body mass extremes or in patients with acute kidney failure. http://Shake.Pural[employer]/DHnkdep http://[employer]/DHMCnkf Blood specimen (specimen) 09/09/2017 11:12 AM EDT 09/09/2017 11:18 AM EDT Narrative Resulting Agency Comment Spec In Lab Dirk Davis MD CHEMISTRY ORDERABLES [facility] [place] [address] documented in this encounter Visit Diagnoses Diagnosis Type 2 diabetes mellitus without complication, without long-term current use of insulin documented in this encounter Care Teams Management Liaison Relationship Specialty Start Date End Date Eva Dang MD [address] [place] [address] PCP - General Family Medicine 03/25/16 documented as of this encounter
--- OUTSIDE RECORDS SUMMARY | 2024-05-16 18:44 | XMS_ITS | Encounter Summary ---
[place] [address] Care Team Providers Care Creel Clerk Name Role Phone Eva Dang MD Primary Care Provider [phone] Encounter Details Date Type Department Care Team (Late st Contact Info) Description 11/14/2018 8:00 AM EDT [place] [address] Ursula Walters APRN Migraine without aura and [...] mouth daily. ??? fluticasone (FLONASE) 50 mcg/actuation [place], Suspension 1 spray by Each Nare route [...] [] Acupuncture [] Acupressure [] Biofeedback [] Front Desk Clerk [] Cognitive Behavioral Therapy [] Massage therapy [...] up in six months. Ursula Walters APRN [facility] * Ursula Walters APRN - 11/14/2018 8:00 AM EDT [employer] Follow Up [facility] Patient name: Sarah Robles Date [...] preventing your MENSTRUAL Migraine? Ursula Walters APRN [facility]ache [facility] documented in this encounter Plan of Treatment Upcoming Encounters Date Type Department Care Team (Late st Contact Info) Description 06/21/2024 1:20 PM EST Office Visit Dermatology at [facility] [address] [place] [address] documented as of this encounter Procedures [...] status migrainosus, not intractable BASIC METABOLIC PANEL Routine 11/14/2018 9:02 AM EDT Migraine without aura and without status migrainosus, not intractable documented in this encounter Results * Differential, Automated (11/14/2018 9:02 AM EDT) Neutrophil % 61.9 % [facility] Neutrophil Absolute 3.50 1.70 - 6.10 x10(3)/[facility] Lymph % 25.8 % [facility] Lymphocytes Abs 1.5 0.9 - 3.2 x10(3)/[facility] Monocyte % 6.4 % [facility] Monocyte Abs 0.4 0.3 - 0.9 x10(3)/[facility] Eos % 5.0 % [facility] Eosinophils Abs 0.3 0.0 - 0.4 x10(3)/[facility] Basophil % 0.5 % [facility] Baso Absolute 0.0 0.0 - 0.1 x10(3)/[facility] Immature Gran % 0.40 % [facility] Comment: Immature granulocytes(IG's)percentage and absolute count will include metamyelocytes, myelocytes, and promyelocytes. Blood smears from CBCs yielding IG's will be scanned manually for concordance. If this scan disagrees with the automated IG or if promyelocytes are noted, a manual differential will be performed. Immature Gran Absolute 0.02 0.00 - 0.04 x10(3)/[facility] Blood specimen (specimen) 11/14/2018 9:02 AM EDT 11/14/2018 9:12 AM EDT Narrative Resulting Agency Comment Spec In Lab Ursula Walters APRN HEMATOLOGY ORDERA BLES [facility] [place] [address] * Hemogram (11/14/2018 9:02 AM EDT) White Blood Cell 5.6 4.0 - 9.5 x10(3)/[facility] Red Blood Cell 4.89 4.00 - 5.21 x10(6)/[facility] Hemoglobin 13.5 11.7 - 15.5 gm/dL [facility] Hematocrit 41.2 35.7 - 45.8 % [facility] Mean Cell Volume 84.3 82.6 - 94.4 fL [facility] Mean Cell Hemoglobin 27.6 27.1 - 32.0 pg [facility] Mean Cell Hemoglobin Concentration 32.8 31.7 - 35.0 gm/dL [facility] Platelet 205 145 - 357 x10(3)/[facility] RDW Standard Deviation 41.0 37.0 - 46.0 fL [facility] RDW coefficient of variation 13.2 11.5 - 14.1 % [facility] Mean Platelet Volume 11.0 7.6 - 12.9 fL [facility] NRBC% auto 0.0 % [facility] NRBC Absolute 0.000 0.000 - 0.000 x10(3)/mcL [facility] Blood specimen (specimen) 11/14/2018 9:02 AM EDT 11/14/2018 9:12 AM EDT Narrative Resulting Agency Comment Spec In Lab Ursula Walters APRN HEMATOLOGY ORDERA BLES Performing Organization Address [facility]/ZIP Co de Phone Number [facility] [place] [address] * TSH (11/14/2018 9:02 AM EDT) Thyroid Stimulating Hormone 3.85 0.27 - 4.20 mcIU/mL [facility] Blood specimen (specimen) 11/14/2018 9:02 AM EDT 11/14/2018 9:12 AM EDT Narrative Resulting Agency Comment Spec In Lab Ursula Walters FLIGHT INFORMATION EXPEDITER CHEMISTRY ORDERAB LES Performing Organization Address [facility] Co de Phone Number [facility] [place] [address] * T4 Total (11/14/2018 9:02 AM EDT) T4 Total 7.3 5.3 - 11.6 mcg/dL [facility] Comment: Reference Range: Females: First Trimester: 6.2-13.3 mcg/dL Second Trimester: 7.0-14.7 mcg/dL Third Trimester: 7.0-14.7 mcg/dL Blood specimen (specimen) 11/14/2018 9:02 AM EDT 11/14/2018 9:12 AM EDT Narrative Resulting Agency Comment Spec In Lab Ursula Walters FLIGHT INFORMATION EXPEDITER CHEMISTRY ORDERAB LES Performing Organization Address [facility]/ZIP Co de Phone Number [facility] [place] [address] * (ABNORMAL) Basic Metabolic Panel (non-fasting) (11/14/2018 9:02 AM EDT) Glucose 190 65 - 199 mg/dL [facility] Comment:Diabetes: >=200 mg/d L plus symptoms Blood Urea Nitrogen 7(L) 8 - 18 mg/dL [facility] Creatinine 0.66(L) 0.70 - 1.20 mg/dL [facility] Sodium 138 135 - 145 mmol/L [facility] Potassium 4.0 3.5 - 5.0 mmol/L [facility] Comment: Please note: ??Patients with WBC >100,000 may have falsely elevated Potassium levels. ??For accurate Potassium quantification in these patients send serum separator tube (gold top) for subsequent determinations. ??Contact the Clinical Chemistry Laboratory if there are any questions. Chloride 101 98 - 107 mmol/L [facility] Carbon Dioxide 25 22 - 31 mmol/L [facility] Anion Gap 12 5 - 15 mmol/L [facility] Calcium 9.4 8.5 - 10.5 mg/dL [facility] Est Glomerular Filtration Rate 107 >=60 mL/min/1. 73 m?? [facility] Comment: The eGFR was calculated using the CKD-EPI equation. As with all creatinine based estimates of kidney function, eGFR values calculated with the CKD-EPI equation are not accurate in patients with acute kidney failure, extremes of body mass or the acutely ill. [email or web address]/[facility] TULSAnkf eGFR 124 >=60 mL/min/1. 73 m?? [facility] Comment: The eGFR was calculated using the CKD-EPI equation. As with all creatinine based estimates of kidney function, eGFR values calculated with the CKD-EPI equation are not accurate in patients with acute kidney failure, extremes of body mass or the acutely ill. http://mPortico/DHMCnkf Blood specimen (specimen) 11/14/2018 9:02 AM EDT 11/14/2018 9:12 AM EDT Narrative Resulting Agency Comment Spec In Lab Ursula A Walters FLIGHT INFORMATION EXPEDITER CHEMISTRY ORDERAB LES [facility] [place] [address] documented in this encounter Visit Diagnoses Diagnosis Migraine without aura and without status migrainosus, not intractable- Primary Migraine without aura, without mention of intractable migraine without mention of status migrainosus Intractable chronic post-traumatic headache Chronic post-traumatic headache documented in this encounter Care Teams Creel Clerk Relationship Specialty Start Date End Date Eva Dang MD [address] [place] [address] PCP - General Family Medicine 03/25/16 documented as of this encounter
--- OUTSIDE RECORDS SUMMARY | 2024-05-16 18:44 | XMS_ITS | Encounter Summary ---
Author Organization [facility] [address] Care Team Providers Care Irrigation Engineer Name Role Phone Eva Dang MD Primary Care Provider [phone] Reason for Visit * Reason Onset Date Comments Appointment 09/02/2020 Encounter Details Date Type Department Care Team ([facility] st Contact Info) Description 09/02/2020 Telephone Neurology at [address] [address] Ursula Walters, MIREYA Appointment Social History Tobacco Use Types Packs/Day [...] Sent appointment reminder letter and message to [facility] 09.22.2020 documented in this encounter Plan of Treatment Upcoming Encounters Date Type Department Care Team (Late st Contact Info) Description 06/21/2024 1:20 PM EST Office Visit Dermatology at [facility] [address] [place] [address] documented as of this encounter Visit Diagnoses Not on filedocumented in this encounter Care Teams Irrigation Engineer Relationship Specialty Start Date End Date Eva Dang MD [facility] [address] [place] [address] PCP - General Family Medicine 03/25/16 documented as of this encounter
--- OUTSIDE RECORDS SUMMARY | 2024-05-16 18:44 | XMS_ITS | Encounter Summary ---
Author Organization [facility] [address] Care Team Providers Care Biztalk Developer Name Role Phone Eva Dang MD Primary Care Provider [phone] Reason for Referral * Diagnostic Test (Routine) - Closed Specialty Diagnoses / Procedures Referred By Contac t Referred To Contact Radiology Diagnoses TAPVR (total anomalous pulmonary venous return) Procedures MRI Cardiac Morph Func wwo Contrast All Davies MD [facility] [place] [address] [place] [address] Referral ID Status Reason Start Date Expiration Date V isits Requested Visits Authorized [id number] Closed Specialty Service Requested 11/19/2016 02/17/2017 2 2 Reason for Visit * Diagnostic Test (Routine) - Closed Specialty Diagnoses / Procedures Referred By Contac t Referred To Contact Radiology Diagnoses TAPVR (total anomalous pulmonary venous return) Procedures MRI Cardiac Morph Func wwo Contrast All Davies MD [facility] [place] [address] [place] [address] Referral ID Status Reason Start Date Expiration Date V isits Requested Visits Authorized [id number] Closed Specialty Service Requested 11/19/2016 02/17/2017 2 2 Encounter Details Date Type Department Care Team (Latest Contact Info) Description 11/18/2016 8:56 AM EDT - 11/18/2016 8:57 AM EDT [place] [phone] All Davies MD TAPVR (total anomalous pulmonary venous return) Discharge [...] Sarah Robles AGE: 41 y.[place]. : 1975 [place] [address] Female [phone] (home) Telephone Information: Eva Dang MD None [...] ( XXX ) You must have a driver lifter of sanitation truck present when you check in. This patient has been informed that they require a driver lifter of sanitation truck to drive them home after this procedure. In the absence of a driver lifter of sanitation truck, IR will not be able to sedate for your scan. Pt verbalized understanding of these instructions during the pre-procedure education via phone. Yes Claude of driver lifter of sanitation truck: Phone number PRIOR SCAN DATE/S SEDATION TYPE SUCCESSFUL 11/18/2016 Cardiac Morphology Valium 5mg. PO x1 Yes Revised 05/23/15 documented in this encounter Plan of Treatment Upcoming Encounters Date Type Department Care Team (Late st Contact Info) Description 06/21/2024 1:20 PM EST Office Visit Dermatology at [address] [address] documented as of this encounter [...] significant late gadolinium enhancement. All Davies MD [facility] [place] ORDERABLES documented in this encounter Visit [...] mg documented in this encounter Care Teams Biztalk Developer Relationship Specialty Start Date End Date Eva Dang MD [address] [facility] [place] [address] PCP - General Family Medicine 03/25/16 documented as of this encounter
--- OUTSIDE RECORDS SUMMARY | 2024-05-16 18:44 | XMS_ITS | Encounter Summary ---
Author Organization [facility] [address] Care Team Providers Care Manager Utility Name Role Phone Eva Dang MD Primary Care Provider [phone] Reason for Referral * Diagnostic Test (Routine) - Closed Specialty Diagnoses / Procedures Referred By Angy munroe Referred To Contact Radiology Diagnoses TAPVR (total anomalous pulmonary venous return) Procedures MRI Cardiac Morph Func wwo Contrast All Davies MD [facility] DR PEDIATRIC [place] [address] [place] [address] Referral ID Status Reason Start Date Expiration Date V isits Requested Visits Authorized [id number] Closed Specialty Service Requested 11/19/2016 02/17/2017 2 2 Encounter Details Date Type Department Care Team (Late st Contact Info) Description 09/01/2016 Orders Only [place] [address] All Davies MD TAPVR (total anomalous pulmonary venous return) Social [...] 1:20 PM EST Office Visit Dermatology at [facility] [address] [place] [address] documented as of this encounter Results * [...] connection documented in this encounter Care Teams Manager Utility Relationship Specialty Start Date End Date Eva Dang MD [address] [place] [address] PCP - General Family Medicine 03/25/16 documented as of this encounter
--- OUTSIDE RECORDS SUMMARY | 2024-05-16 18:45 | XMS_ITS | Encounter Summary ---
Author Organization [facility] [place] [address] Care Team Providers Care Pick Up Worker Name Role Phone Eva Dang MD Primary Care Provider [phone] Encounter Details Date Type Department Care Team (Late st Contact Info) Description 07/28/2016 2:00 PM EDT Office [place] [address] Mark Maria, OT [facility] PHYSICAL MEDICINE & [place] [address] Concussion with no loss of consciousness, subsequent encounter; Attention or concentration deficit Social History Tobacco Use Types Packs/Day Years Used Date Smoking Tobacco: Never Assessed Sex and Gender Information Value Date Recorded Sex Assigned at Not on file Gender Identity Female 09/26/2019 9:01 AM EDT Sexual Orientation Not on file documented as of this encounter Progress Notes * Mark Maria, OT - 07/28/2016 2:00 PM EDT OCCUPATIONAL THERAPY TREATMENT NOTE REFERRAL SOURCE: Melanie Dykes DIAGNOSIS AND PERTINENT CO-MORBIDITY AFFECTING PLAN OF CARE 1. Concussion with no loss of consciousness, subsequent encounter 2. Attention or concentration deficit NEXT MD FOLLOW UP: PRN TOTAL TREATMENT TIME: 61 minutes TIMED CODE TREATMENT TIME: Therapeutic / Functional Activities (53694) 61 min Past Medical History: Diagnosis Date [...] planning task such as a gardening task. Nursing Home Goals (to be met by discharge): Date [...] 12 week(s) to progress toward short and skilled nursing goals. for Cognitive retraining attention, sequencing, problem [...] 1:20 PM EST Office Visit Dermatology at [facility] [address] [place] [address] documented as of this encounter Visit Diagnoses Diagnosis Concussion with no loss of consciousness, subsequent encounter Attention or concentration deficit documented in this encounter Care Teams Pick Up Worker Relationship Specialty Start Date End Date Eva Dang MD [address] [facility] 1 [place] [address] PCP - General Family Medicine 03/25/16 documented as of this encounter
--- OUTSIDE RECORDS SUMMARY | 2024-05-16 18:45 | XMS_ITS | Encounter Summary ---
Author Organization [place] [address] Care Team Providers Care Bill Of Lading Clerk Name Role Phone Eva Dang MD Primary Care Provider [phone] Encounter Details Date Type Department Care Team (Late st Contact Info) Description 07/09/2016 3:00 PM EST Office [place] [address] Mark Maria, OT [facility] PHYSICAL MEDICINE & [place] [address] Concussion with no loss of consciousness, subsequent [...] CODE TREATMENT TIME: Therapeutic / Functional Activities (39766) 61 min Past Medical History Diagnosis Date ??? Congenital heart disease PAST MEDICAL HISTORY: Sarahdianna Juarezwell is a 41 y.o. year old female [...] 12 week(s) to progress toward short and continuous churn buttermaker goals. for Cognitive retraining attention, sequencing, problem [...] 1:20 PM EST Office Visit Dermatology at [address] [address] documented as of this encounter Visit Diagnoses Diagnosis Concussion with no loss of consciousness, subsequent encounter Attention or concentration deficit documented in this encounter Care Teams Bill Of Lading Clerk Relationship Specialty Start Date End Date Eva Dang MD [address] [place] [address] PCP - General Family Medicine 03/25/16 documented as of this encounter
--- OUTSIDE RECORDS SUMMARY | 2024-05-16 18:45 | XMS_ITS | Encounter Summary ---
Author Organization [facility] Address [facility] [place] [address] Care Team Providers Care Chimney Builder Name Role Phone Eva Dang MD Primary Care Provider [phone] Reason for Visit * Reason Onset Date Comments Other 04/21/2016 Encounter Details Date Type Department Care Team (Late st Contact Info) Description 04/21/2016 Telephone Care Management [place] [address] Naheed [place], [place] [address] Other Social History Tobacco Use Types Packs/Day Years Used Date Smoking Tobacco: Never Assessed Sex and Gender Information Value Date Recorded Sex Assigned at Not on file Gender Identity Female 09/26/2019 9:01 AM EDT Sexual Orientation Not on file documented as of this encounter Miscellaneous Notes * Telephone Encounter - Naheed [place], WASH MILL OPERATOR - 04/21/2016 11:[address] [facility] f/u w/ Shadia Dykes's admin staff re: status of the new evaluation appt w/ this wc [place] that [place] [facility] provider by: ROSANA Occ med DEVELOPER ANALYST: Radha Sol. Admin staff: Christi reports they have not received any faxed information on this pt that is needed in order to schedule pt w/ Shadia Dykes. [facility] phoned Occ med RN w/ the above [...] 1:20 PM EST Office Visit Dermatology at [address] [address] documented as of this encounter Visit Diagnoses Not on filedocumented in this encounter Care Teams Chimney Builder Relationship Specialty Start Date End Date Eva Dang MD [address] [place] [address] PCP - General Family Medicine 03/25/16 documented as of this encounter
--- OUTSIDE RECORDS SUMMARY | 2024-05-16 18:45 | XMS_ITS | Encounter Summary ---
Author Organization [facility] [address] Care Team Providers Care Bank Vault Custodian Name Role Phone Eva Dang MD Primary Care Provider [phone] Encounter Details Date Type Department Care Team (Late st Contact Info) Description 08/18/2016 Orders Only [place] [address] All Davies MD Congenital heart disease; Total anomalous pulmonary venous [...] 1:20 PM EST Office Visit Dermatology at [facility] [address] [place] [address] documented as of this encounter Procedures Procedure Name Priority Date/Time Associated Diagnosis Comments ZIOPATCH Routine 09/06/2016 9:40 AM EDT 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 [facility] Holter Monitor Report Indication: SVT. Medications: ?PROAIR [...] associated with sinus rhythm. Read by All Davies M.D. 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
--- OUTSIDE RECORDS SUMMARY | 2024-05-16 18:45 | XMS_ITS | Encounter Summary ---
Author Organization [facility] [place] [address] Care Team Providers Care Rock Splitter Name Role Phone Eva Dang MD Primary Care Provider Encounter Details Date Type Department Care Team (Late st Contact Info) Description 07/19/2016 2:00 PM EDT Office [place] [address] Mark Maria, OT [facility] PHYSICAL MEDICINE & [place] [address] Concussion with no loss of consciousness, subsequent [...] CODE TREATMENT TIME: Therapeutic / Functional Activities (57398) 61 min Past Medical History: Diagnosis Date [...] and task interrupt with david e management.. Revenue Accounting Manager Goals (to be met by discharge): Date [...] 12 week(s) to progress toward short and mcc goals. for Cognitive retraining attention, sequencing, problem [...] 1:20 PM EST Office Visit Dermatology at [address] [address] documented as of this encounter Visit Diagnoses Diagnosis Concussion with no loss of consciousness, subsequent encounter Attention or concentration deficit documented in this encounter Care Teams Rock Splitter Relationship Specialty Start Date End Date Eva Dang MD [address] [place] [address] PCP - General Family Medicine 03/25/16 documented as of this encounter
--- OUTSIDE RECORDS SUMMARY | 2024-05-16 18:45 | XMS_ITS | Encounter Summary ---
Author Organization [facility] Address [facility] [place] [address] Care Team Providers Care Landscape Crew Member Name Role Phone Eva Dang MD Primary Care Provider [phone] Encounter Details Date Type Department Care Team (Late st Contact Info) Description 06/23/2016 [place]phone [place] [address] Trudy Dodge, FLOORWORKER Social History Tobacco Use Types Packs/Day Years Used Date Smoking Tobacco: Never Assessed Sex and Gender Information Value Date Recorded Sex Assigned at Not on file Gender Identity Female 09/26/2019 9:01 AM EDT Sexual Orientation Not on file documented as of this encounter Progress Notes * Trudy Dodge, CAR - 06/23/2016 5:[address] FOLLOW UP CONTINUING CARE MANAGEMENT SOCIAL WORK CLAIM # TBD DOI: INSURANCE COMAPANY: [employer] CONTACT: Brigette Soto [facility], Deputy Brand Inspector: Kiera Pagan Occ Med Provider: Radha Sol S/O Sarah Robles was seen in Psychatry with Melanie Dykes APRN. Please see provider note for ovdetails. Pt has noted some significant progress in recovering from her head injury. She is hopeful that morefocused Neuro rehab services will help her make more progress. He claim will continue to be managedby her Occ Med provider in [facility]. This CCM called and confirmed this and we will stay in touch while pt is treated here at . CCM called and left vm for NCM to alert her to referral to OT by Ms Dykes today. Note will be sent when ready. CCM reviewed basic of the wc process and [...] Contact? Yes Workers' Compensation Contact Name Brigette De La Cruzp Are there bills not covered by Workers' Compensation? No Is there an staff attorney for Workers' Compensation No Was there an ERIK? No Previous WC claims through the DOL? No MMI? No documented in this encounter Plan of Treatment Upcoming Encounters Date Type Department Care Team (Late st Contact Info) Description 06/21/2024 1:20 PM EST Office Visit Dermatology at [facility] [address] [place] [address] documented as of this encounter Visit Diagnoses Not on filedocumented in this encounter Care Teams Landscape Crew Member Relationship Specialty Start Date End Date Eva Dang MD [address] [place] [address] PCP - General Family Medicine 03/25/16 documented as of this encounter
--- OUTSIDE RECORDS SUMMARY | 2024-05-16 18:45 | XMS_ITS | Encounter Summary ---
Author Organization [facility] [place] [address] Care Team Providers Care Motel Manager Name Role Phone Eva Dang MD Primary Care Provider [phone] Encounter Details Date Type Department Care Team (Late st Contact Info) Description 08/05/2016 2:00 PM EDT Office [place] [address] Mark Mraia, OT [facility] PHYSICAL MEDICINE & [place] [address] Concussion with no loss of consciousness, subsequent [...] incorporate taking messages from random phone calls. Mobile Disc Jockey Goals (to be met by discharge): Date [...] 12 week(s) to progress toward short and liability claims representative goals. for Cognitive retraining attention, sequencing, problem [...] 1:20 PM EST Office Visit Dermatology at [facility] [address] [place] [address] documented as of this encounter Visit Diagnoses Diagnosis Concussion with no loss of consciousness, subsequent encounter Attention or concentration deficit documented in this encounter Care Teams Motel Manager Relationship Specialty Start Date End Date Eva Dang MD [address] [place] [address] PCP - General Family Medicine 03/25/16 documented as of this encounter
--- OUTSIDE RECORDS SUMMARY | 2024-05-16 18:45 | XMS_ITS | Encounter Summary ---
Author Organization [facility] [place] [address] Care Team Providers Care Hot Cell Technician Name Role Phone Eva Dang MD Primary Care Provider [phone] Encounter Details Date Type Department Care Team (Late st Contact Info) Description 08/11/2016 10:00 AM EDT Office [place] [address] Mark Maria, OT [facility] PHYSICAL MEDICINE & [place] [address] Concussion with no loss of consciousness, subsequent [...] a link to field trip pumpkins at [facility], and an article on planting and black plastic use. You will be planting a pumpkin garden that is [phone] feet for the purpose of supplying a local school with pumpkins for a mortgage funder. The school is generous in that they [...] business planning task such as outdoor photography. Alf Goals (to be met by discharge): Date [...] 12 week(s) to progress toward short and long term care pharmacist goals. for Cognitive retraining attention, sequencing, problem [...] 1:20 PM EST Office Visit Dermatology at [facility] [address] [place] [address] documented as of this encounter Visit Diagnoses Diagnosis Concussion with no loss of consciousness, subsequent encounter Attention or concentration deficit documented in this encounter Care Teams Hot Cell Technician Relationship Specialty Start Date End Date Eva Dang MD [address] [facility] 1 [place] [address] PCP - General Family Medicine 03/25/16 documented as of this encounter
--- OUTSIDE RECORDS SUMMARY | 2024-05-16 18:45 | XMS_ITS | Encounter Summary ---
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 Procedures Echocardiogram Transthoracic(Leb) All Davies MD [facility] [address] [facility] [place] [address] Referral ID Status Reason Start Date Expiration Date V isits Requested Visits Authorized [id number] Closed Specialty Service Requested 07/23/2016 07/23/2017 1 1 Encounter Details Date Type Department Care Team (Late st Contact Info) Description 07/23/2016 Orders Only [place] [address] All Davies MD Head injury, subsequent encounter; Elevated cholesterol; Congenital [...] Dermatology at [address] [place] [address] Pending Results Name Type Priority Associated Diagnoses [...] connection documented in this encounter Care Teams Engrosser Relationship Specialty Start Date End Date Eva Dang MD [address] [place] [address] PCP - General Family Medicine 03/25/16 documented as of this encounter
--- OUTSIDE RECORDS SUMMARY | 2024-05-16 18:45 | XMS_ITS | Encounter Summary ---
Author Organization [place] [address] Care Team Providers Care Counter Stitcher Name Role Phone Eva Dang MD Primary Care Provider Encounter Details Date Type Department Care Team (Late st Contact Info) Description 07/28/2016 [place] [address] Trudy Dodge, FARM TECHNICIAN Social History Tobacco Use Types Packs/Day Years Used Date Smoking Tobacco: Never Assessed Sex and Gender Information Value Date Recorded Sex Assigned at Not on file Gender Identity Female 09/26/2019 9:01 AM EDT Sexual Orientation Not on file documented as of this encounter Miscellaneous Notes * Telephone Encounter - Trudy Dodge MSW - 07/28/2016 6:49 PM EDT [facility] FOLLOW UP CONTINUING CARE MANAGEMENT SOCIAL WORK ? CLAIM # TBD DOI: INSURANCE COMAPANY: Travel[employer] CONTACT: Brigette Soto [facility], Office Assistant: Kiera Pagan [facility] Med Provider: Radha Sol [facility] Kamran Montemayor [facility] spoke with pt's [facility] Med provider and we review status of her treatment and RTW plan. [facility] also left and sent ov notes from to pt's [facility] and voc rehab person. Pt is working to RTW at her regular job. All are aware that she is very motivated to RTW FT/ FD. CCM reviewed with wc that Radha Sol is the treating provider, not Shadia Demarco. CCM is available to all parties as needed. documented in this encounter Plan of Treatment Upcoming Encounters Date Type Department Care Team (Late st Contact Info) Description 06/21/2024 1:20 PM EST Office Visit Dermatology at [facility] [address] [place] [address] documented as of this encounter Visit Diagnoses Not on filedocumented in this encounter Care Teams Counter Stitcher Relationship Specialty Start Date End Date Eva Dang MD [facility] [address] [place] [address] PCP - General Family Medicine 03/25/16 documented as of this encounter
--- OUTSIDE RECORDS SUMMARY | 2024-05-16 18:45 | XMS_ITS | Encounter Summary ---
Author Organization [place] [address] Care Team Providers Care Emergency Department Clinician Name Role Phone Eva Dang MD Primary Care Provider [phone] Encounter Details Date Type Department Care Team (Late st Contact Info) Description 07/15/2016 2:00 PM EST Office Visit [place] [address] Mark Maria, OT [facility] PHYSICAL MEDICINE & [place] [address] Concussion with no loss of consciousness, subsequent [...] CODE TREATMENT TIME: Therapeutic / Functional Activities (98911) 61 min Past Medical History: Diagnosis Date [...] are running errands for a doctor at [facility]. He has provided you with a list of items that he would like for you to purchase. You are given $50 and are asked to not exceed this amount. In addition, he is very busy and has only allotted you a small amount of time to complete this task. Doctor List: Gift shop items: car coaster (large or small) [employer] in [employer] magazine Pharmacy: [facility] smooth body cream Dardanelle Defense Sugar Free Cough Drops Cravins 20 oz. [place] & Spring Coffee Au Bon Pain: Black Joshua Steak & Cheese Sub Gift for his (chose from options below)- All found at gift shop ??? 2 Shantell Bourne eyeglass cases ??? Shantell Bourne lunch cooler/box ??? [place] Danie of the Garden ??? For [...] way back to reporting fatigue. ASSESSMENT: Sarah Robles presents with activity limitations [...] task, and task interrupt with time management.. Ceramic Engineer Goals (to be met by discharge): Date [...] Visit Dermatology at [address] [place] [address] documented as of this encounter Visit Diagnoses Diagnosis Concussion with no loss of consciousness, subsequent encounter Attention or concentration deficit documented in this encounter Care Teams Emergency Department Clinician Relationship Specialty Start Date End Date Eva Dang MD [address] [place] [address] PCP - General Family Medicine 03/25/16 documented as of this encounter
--- OUTSIDE RECORDS SUMMARY | 2024-05-16 18:45 | XMS_ITS | Encounter Summary ---
Author Organization [place] [address] Care Team Providers Care Business Account Specialist Name Role Phone Eva Dang MD Primary Care Provider [phone] Reason for Visit * Occupational Therapy (Routine) - Closed Specialty Diagnoses / Procedures Referred By Angy t Referred To Contact Occupational Therapy Diagnoses Work related injury Fatigue, unspecified type Concussion with no loss of consciousness, subsequent encounter Attention or concentration deficit Acute post-traumatic headache, not intractable Melanie Dykes, CYTOGENETICS LABORATORY MANAGER [facility] [place] [address] [facility] [place] [address] Referral ID Status Reason Start Date Expiration Date V isits Requested Visits Authorized [id number] Closed Evaluate and Treat 06/23/2016 06/23/2017 1 1 Encounter Details Date Type Department Care Team (Late st Contact Info) Description 06/28/2016 3:30 PM EST Office Visit [place]ational [place] [address] Mark Maria, [facility] PHYSICAL MEDICINE & [place] [address] Work related injury; Fatigue, unspecified type; Concussion [...] TIMED CODE TREATMENT TIME: Evaluation HIGH Complexity (87350) Past Medical History Diagnosis Date ??? 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 Early Childhood Services Coordinator Goals (to be met by discharge): Date [...] week(s) to progress toward short and termite exterminator goals. for Cognitive retraining attention, sequencing, problem [...] Dermatology at [facility] [address] [place] [address] Scheduled Referrals Name Type Priority Associated Diagnoses [...] headache documented in this encounter Care Teams Business Account Specialist Relationship Specialty Start Date End Date Eva Dang MD [address] [place] [address] PCP - General Family Medicine 03/25/16 documented as of this encounter
--- OUTSIDE RECORDS SUMMARY | 2024-05-16 18:45 | XMS_ITS | Encounter Summary ---
[place] [address] Care Team Providers Care All Round Logger Name Role Phone Eva Dang MD Primary Care Provider [phone] Encounter Details Date Type Department Care Team (Late st Contact Info) Description 08/17/2016 External Results [place] [address] Florentino Pereira MD [facility] [address] [place] [id number] Social History Tobacco Use Types Packs/Day Years [...] 1:20 PM EST Office Visit Dermatology at [facility] [address] [place] [address] documented as of this encounter Procedures Procedure [...] on filedocumented in this encounter Care Teams All Round Logger Relationship Specialty Start Date End Date Eva Dang MD [address] [facility] 1 [place] [address] PCP - General Family Medicine 03/25/16 documented as of this encounter
--- OUTSIDE RECORDS SUMMARY | 2024-05-16 18:45 | XMS_ITS | Encounter Summary ---
Author Organization [facility] Address [facility] [place] [address] Care Team Providers Care Leverman Name Role Phone Eva Dang MD Primary Care Provider [phone] Reason for Visit * Reason Onset Date Comments Other 06/02/2016 Encounter Details Date Type Department Care Team (Late st Contact Info) Description 06/02/2016 Telephone [place] [address] [place] [address] Other Social History Tobacco Use Types Packs/Day [...] Pt was scheduled for the initial evaluation w/ Shadia Dykes APRN today in the post concussive clinic, referred by: [facility] med provider: Radha Sol ??but pt cancelled today's appt due to GI bug. [facility] phoned [facility] med staff # [phone] to relay the above, noting that she is now rescheduledfor 2-15 w/ Shadia Dykes at 3:30 PM. P: [facility] will collaborate w/ Shadia Dykes and Trudy Dodge re: upcoming initial evaluation needs, requesting f/u contact w/ Occ med referral: Radha Sol s/p appt to translate tx plan needs andgoals. documented in this encounter Plan of Treatment Upcoming Encounters Date Type Department Care Team (Late st Contact Info) Description 06/21/2024 1:20 PM EST Office Visit Dermatology at [address] [address] documented as of this encounter Visit Diagnoses Not on filedocumented in this encounter Care Teams Leverman Relationship Specialty Start Date End Date Eva Dang MD [address] [facility] 1 [place] [address] PCP - General Family Medicine 03/25/16 documented as of this encounter
--- OUTSIDE RECORDS SUMMARY | 2024-05-16 18:45 | XMS_ITS | Encounter Summary ---
Author Organization [facility] [place] [address] Care Team Providers Care Global Director Air And Climate Change Name Role Phone Eva Dang MD Primary Care Provider [phone] Encounter Details Date Type Department Care Team (Late st Contact Info) Description 08/03/2016 Telephone [place] [address] Sarai Garcia Social History Tobacco Use Types [...] a call late on 08/02/16 from Brigette Bidstalk giving authorization for Sarah to have 6 additional rehab visits. Prior approval of 6 visits from 06/28/16-08/05/16 was made and this approval is for 6 visits from 08/09/16-09/17/16. documented in this encounter Plan of Treatment Upcoming Encounters Date Type Department Care Team (Late st Contact Info) Description 06/21/2024 1:20 PM EST Office Visit Dermatology at [facility] [address] [place] [address] documented as of this encounter Visit Diagnoses Not on filedocumented in this encounter Care Teams Global Director Air And Climate Change Relationship Specialty Start Date End Date Eva Dang MD [address] [facility] 1 [place] [address] PCP - General Family Medicine 03/25/16 documented as of this encounter
--- OUTSIDE RECORDS SUMMARY | 2024-05-16 18:45 | XMS_ITS | Encounter Summary ---
Author Organization [facility] Address [facility] [place] [address] Care Team Providers Care Truck Repair Supervisor Name Role Phone Eva Dang MD Primary Care Provider [phone] Reason for Visit * Reason Onset Date Comments Other 05/05/2016 Encounter Details Date Type Department Care Team (Late st Contact Info) Description 05/05/2016 Telephone Care Management [facility] [place] [address] Naheed Stephens, MAKEUP [place] [address] Other Social History Tobacco Use Types Packs/Day Years Used Date Smoking Tobacco: Never Assessed Sex and Gender Information Value Date Recorded Sex Assigned at Not on file Gender Identity Female 09/26/2019 9:01 AM EDT Sexual Orientation Not on file documented as of this encounter Miscellaneous Notes * Telephone Encounter - Naheed Stephens, MAKEUP ARTISTRY INSTRUCTOR - 05/05/2016 4:18 PM EST [facility] collaborated w/ Shadia Dykes APRN s/p her review of OSH notes, and referral from [facility] med MIREYA. Shadia Dykes requested CCM facilitate pt being scheduled for a one hour initial evaluation appt. Pt scheduled on 06-02-16 at 2:00 w/ Shadia Dykes. [facility] phoned [facility] med staff # [phone] to relay the above appt date, noting plan to attend appt and f/u w/ [facility] Occ med provider s/p appt to translate tx needs and goals. P: CCM will plan to attend 1-25 appt w/ Shadia Dykes, to assess wc issues and needs that warrant CCM involvement, intervening as needed. documented in this encounter Plan of Treatment Upcoming Encounters Date Type Department Care Team (Late st Contact Info) Description 06/21/2024 1:20 PM EST Office Visit Dermatology at [address] [address] documented as of this encounter Visit Diagnoses Not on filedocumented in this encounter Care Teams Truck Repair Supervisor Relationship Specialty Start Date End Date Eva Dang MD [address] [place] [address] PCP - General Family Medicine 03/25/16 documented as of this encounter
--- OUTSIDE RECORDS SUMMARY | 2024-05-16 18:45 | XMS_ITS | Encounter Summary ---
Author Organization [facility] Address [facility] [place] [address] Care Team Providers Care Plug Maker Name Role Phone Eva Dang MD Primary Care Provider [phone] Reason for Visit * Reason Onset Date Comments Other 04/16/2016 Encounter Details Date Type Department Care Team (Late st Contact Info) Description 04/16/2016 Telephone [place] [address] Naheed Stephens, [place] [address] Other Social History Tobacco Use Types Packs/Day Years Used Date Smoking Tobacco: Never Assessed Sex and Gender Information Value Date Recorded Sex Assigned at Not on file Gender Identity Female 09/26/2019 9:01 AM EDT Sexual Orientation Not on file documented as of this encounter Miscellaneous Notes * Telephone Encounter - Naheed Stephens, AUDIT SPECIALIST - 04/16/2016 10:25 AM EST [facility] consulted by Natacha Garcia, admin in [facility] to follow up w/ Radha Sol Occ med RADIO TOWER TECHNICIAN at [facility] re: potential referral to [facility] post concussive clinic ie: Shadia Dykes, MIREYA. CCM phoned to ascertain pertinent information on this injured worker. 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 is currently engaged in a Rehab program, but [facility] provider did not think it was a Neuro Rehab program, welcoming [facility] resources for pt's tx needs, noting pt's goal to RTW. [facility] provided Occ med RADIO TOWER TECHNICIAN w/ the admin staff for Shadia Dykes, and contacted this same staff to relay referral information, requesting an expedited appt w/ RADIO TOWER TECHNICIAN if possible, noting that either Trudy Dodge or myself would be available to work w/ this pt and Shadia Dykes to assist w/ care coordination and collaborate w/ [facility] accordingly, as is the provider that will continue to manage pt's work capacity. # [phone] was appreciative of [facility]'s assistance relaying plan to contact Shadia Dykes's admin staff kobi. P: [facility] will collaborate w/ Shadia Dykes and her admin staff re: the above encounter, and advocate for an expedited appt PRN. documented in this encounter Plan of Treatment Upcoming Encounters Date Type Department Care Team (Late st Contact Info) Description 06/21/2024 1:20 PM EST Office Visit Dermatology at [facility] [address] [place] [address] documented as of this encounter Visit Diagnoses Not on filedocumented in this encounter Care Teams Plug Maker Relationship Specialty Start Date End Date Eva Dang MD [address] [place] [address] PCP - General Family Medicine 03/25/16 documented as of this encounter
--- OUTSIDE RECORDS SUMMARY | 2024-05-16 18:45 | XMS_ITS | Encounter Summary ---
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 Espinal shave some dyspnea which is blamed on asthma Eva Dang MD [address] [place] [address] [facility] 1 [place] [address] All Davies MD [facility] [place] [address] Referral ID Status Reason Start Date Expiration Date V isits Requested Visits Authorized [id number] Consult, Test & Treat Connection Center 03/25/2016 03/25/2017 1 1 Encounter Details Date Type Department Care Team (Late st Contact Info) Description 08/17/2016 12:00 PM EDT Office [place] [address] All Davies MD Congestive heart failure, unspecified congestive heart failure [...] Robles in the Pediatric Cardiology Clinic at [facility] for ?? Post-surgical correction of total anomalous [...] cyanotic. ?? Cardiac surgery. 1973. Dr Vazquez, [facility] ?? Surgical anastomosis of pulmonary venous confluence to posterior left atrium, patient foramen ovale closure ?? Post op course uncomplicated. ?? Post-op Cardiac cath. Age ~1.5 years. [facility] ?? Reportedly good sized, unobstructed pulmonary veins & anastomosis ?? Cardiac evaluation. 06/24/1993. Age [address] Yamilex Tijerina, [facility]. [place], [place] ?? History: ?? 4 months with her first child. Episodes of hot flushing & nausea ?? Exam: ?? BP 129/67 mm Hg, soft systolic ejection murmur, normal A2-P2, no lung crackles. ?? Electrocardiogram: ?? Sinus rhythm at 80/min ?? Some mild ST wave flattening ?? Echocardiogram: ?? Cardiac evaluation. 08/08/1996. Age [address] Yamilex Tijerina, [facility]. [place], [place] ?? History: ?? 5 months with [...] 1996. Age [address] Khai Mahoney. [place], [place] ?? 'no evidence of problems of any [...] Family History: ?? Premature atherosclerosis: father (2 [place], fist at age 52 years, smoker, of lung Ca), pu ([place] at age >60 years), pa ([place] at age >60 years) ?? Hypertension: mother [...] ?? Hypertension. ?? Her blood pressure in 2010 & before was normal. 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 Tachycardia 08/20/2016 9:34 AM EDT documented as of this encounter Procedures Procedure Name Priority Date/Time Associated Diagnosis Comments HEALTH SERVICE WORKER SCAN 10/25/2016 12:00 AM EDT EKG 12-LEAD Routine 08/17/2016 10:13 AM EDT Congestive heart failure, unspecified congestive heart failure chronicity, unspecified congestive heart failure type documented in this encounter Results * SCAN DOC: HEALTH SERVICE WORKER (10/25/2016 12:00 AM EDT) Anatomical Region Laterality [...] (Bezet) 411 ms MUSE SYSTEM Calculated P Emerson 13 degrees MUSE SYSTEM Calculated R Emerson 69 degrees MUSE SYSTEM Calculated T Emerson 164 degrees MUSE SYSTEM INTERPRETATION Sinus bradycardia [...] hypercholesterolemia documented in this encounter Care Teams Front Tender Relationship Specialty Start Date End Date Eva Dang MD [facility] [address] [place] [address] PCP - General Family Medicine 03/25/16 documented as of this encounter
--- OUTSIDE RECORDS SUMMARY | 2024-05-16 18:45 | XMS_ITS | Encounter Summary ---
[place] [address] Care Team Providers Care Manufacturers Agent Name Role Phone Eva Dang MD Primary Care Provider [phone] Reason for Referral * Occupational Therapy (Routine) - Closed Specialty Diagnoses / Procedures Referred By Contadenike t Referred To Contact Occupational Therapy Diagnoses Work related injury Fatigue, unspecified type Concussion with no loss of consciousness, subsequent encounter Attention or concentration deficit Acute post-traumatic headache, not intractable Melanie Dykes [facility] [place] [address] [facility] [place] [address] Referral ID Status Reason Start Date Expiration Date V isits Requested Visits Authorized [id number] Closed Evaluate and Treat 06/23/2016 06/23/2017 1 1 Encounter Details Date Type Department Care Team (Latest Contact Info) Description 06/23/2016 3:30 PM EST Office Visit Psychiatry [place] [address] Melanie Dykes [facility] [address] Work related injury; Fatigue, unspecified type; [...] in this encounter Progress Notes * Melanie Dykes APRN - 06/23/2016 3:30 PM EST Problem-focused Outpatient [...] couple of weeks was nml. MRI in Apr reportedly normal. Occ Med in her area [...] good Treatment Plan: OT for neurorehab at [facility] This disability is a result of the [...] return to clinic: per [facility] Trudy Dodge MSW, from the [facility] attended this visit and I [...] 1:20 PM EST Office Visit Dermatology at [address] [address] Scheduled Referrals Name Type Priority Associated Diagnoses [...] headache documented in this encounter Care Teams Manufacturers Agent Relationship Specialty Start Date End Date Eva Dang MD [address] [place] [address] PCP - General Family Medicine 03/25/16 documented as of this encounter
[2024-05-16 19:06] LABS: COMMENT (LAB VIEW ONLY) 33.24 mg/dL; Microalb ug/mg Crea 10.2 ug/mg Cr
== END 2024-05-16 18:26 | disposition home or self-care (01) ==
LOC: NCHCN 18:25
PROVIDERS: PCP Family Medicine; Visit Provider Family Medicine
DX: E11.9 Type 2 diabetes mellitus without complications (principal)
CPT/HCPCS: 82043; 82570